=== PATIENT | female | born 1995 | race Caucasian/White ===

== ENCOUNTER 2023-06-26 10:27 | Emergency (ER) | payer SELFPAY ==
[2023-06-26 10:35] VITALS: BP 172/118; PULSE 73; TEMP 36.6; O2SAT 98; BMI 28.3
--- NOTE | 2023-06-26 10:41 | PC.NURSE ---
Pain to right upper jaw, tooth is broken, patient was at dentist today for tooth extraction but blood pressure was elevated and procedure not done.
--- NOTE | 2023-06-26 10:51 | ED_ITS ---
HPI HPI - General Adult General Chief complaint: Dental/Oral Stated complaint: tooth pain right side Time Seen by Provider: 06/26/23 10:32 Source: patient Mode of arrival: walk-in Limitations: no limitations History of Present Illness HPI narrative: Patient presents to ED complaining of right upper dental pain. She has a decayed and broken tooth in the right upper molar. She went to a dental clinic today and they would not treat her because her blood pressure was too high. She does not have a known history of high blood pressure. She denies chest pain headache vision changes or any other complaints except for the dental pain. Her mother does have high blood pressure. She did not take any pain medication today. She denies any medical allergies she is not on any antibiotics or pain medicine for the tooth. Related Data Home Medications ?Medication ?Instructions ?Recorded ?Confirmed No Known Home Medications 06/26/23 06/26/23 Previous Rx's ?Medication ?Instructions ?Recorded oxycodone-acetaminophen 5 mg-325 1 tab PO Q6H PRN pain #10 tabs 06/26/23 mg tablet (Percocet) penicillin V potassium 500 mg 500 mg PO Q6H 10 days #40 tabs 06/26/23 tablet Allergies Allergy/AdvReac Type Severity Reaction Status Date / Time No Known Drug Allergies Allergy Verified 06/26/23 10:38 Opioid HPI Opioid Management Most Recent Opioid Data: No Data to Display Review of Systems ROS Status of ROS 10 or more systems reviewed and unremark able except as noted in history and below Exam Narrative Exam Narrative: General: alert, no acute distress, Tearful due to dental pain, Hypertensive Cardiovascular: regular rate and rhythm, normal peripheral perfusion. Respiratory: Lungs CTA, respirations non labored. Extremities: no deformity, no trauma. Neurological: oriented x 4, LOC appropriate for age. DKA and fracture to the right upper molar. No abscess. No trismus no drooling. Constitutional Vital Signs, click to edit/add: Last Vital Signs Temp 98 F 06/26/23 10:35 Pulse 64 06/26/23 11:22 Resp 20 06/26/23 11:22 BP 151/97 H 06/26/23 12:12 Pulse Ox 100 06/26/23 11:22 O2 Del Method Room Air 06/26/23 11:22 Course Vital Signs Vital signs: Vital Signs Temperature 98 F 06/26/23 10:35 Pulse Rate 73 06/26/23 10:35 Respiratory Rate 20 06/26/23 10:35 Blood Pressure 172/118 H 06/26/23 10:35 Pulse Oximetry 98 06/26/23 10:35 Oxygen Delivery Method Room Air 06/26/23 10:35 Temperature 98 F 06/26/23 10:35 Pulse Rate 64 06/26/23 11:22 Respiratory Rate 20 06/26/23 11:22 Blood Pressure 151/97 H 06/26/23 12:12 Pulse Oximetry 100 06/26/23 11:22 Oxygen Delivery Method Room Air 06/26/23 11:22 Medical Decision Making MDM Narrative Medical decision making narrative: Patient's pain did improve after Percocet. Her blood pressure did start to trend down. I ordered a topical analgesia for her dental pain and she was feeling even better after that. Her blood pressure did improve to 151/97. Patient is still hypertensive but asymptomatic. At this point I will instruct her to follow-up with a primary care doctor for further management of potential baseline hypertension. I will also give her pain medicine for home for the tooth pain and I will give her an antibiotic. She will also be sent home with a topical numbing medication from here. Instructed to follow with primary care doctor about the blood pressure and continue dental care for the dental pain. Differential Diagnosis Differential Diagnosis: Hypertension, dental abscess, dental pain, dental caries Medical Records Medical records reviewed: Yes I reviewed the patient's medical records Discharge Plan Discharge Stand Alone Forms: Portal Instructions Chief Complaint: Dental/Oral Clinical Impression: Toothache, HTN (hypertension) Patient Disposition: Home, Self-Care Time of Disposition Decision: 12:20 Condition: Good Mode of Transportation: Private Vehicle Prescriptions / Home Meds: New penicillin V potassium 500 mg tablet 500 mg PO Q6H 10 Days Qty: 40 0RF oxycodone-acetaminophen [Percocet] 5-325 mg tablet 1 tab PO Q6H PRN (Reason: pain) Qty: 10 0RF No Action No Known Home Medications Print Language: Guamanian Instructions: Hypertension (ED), Toothache (ED) Referrals: Physician,Non-Staff, MD [Primary Care Provider] - 1 week
[2023-06-26] MEDS: OXYCODONE HCL/ACETAMINOPHEN 5MG/325MG 1 TAB PO (10:53)
[2023-06-26] MEDS: PENICILLIN V POTASSIUM 250 MG TABLET 500 MG PO (10:53)
[2023-06-26 11:22] VITALS: BP 164/100; PULSE 64; O2SAT 100
[2023-06-26] MEDS: BENZOCAINE 30 ML, lidocaine HCL 15 ML MM (11:33)
[2023-06-26 12:12] VITALS: BP 151/97
[2023-06-26 12:32] VITALS: BP 151/97
== END 2023-06-26 12:30 | disposition home or self-care (01) ==
PROVIDERS: Emergency Provider Emergency Medicine
DX: K08.89 Other specified disorders of teeth and supporting structures (principal); I10 Essential (primary) hypertension
CPT/HCPCS: 99284

== ENCOUNTER 2024-05-27 15:45 | Emergency (ER) | payer MEDICAID, SELFPAY ==
[2024-05-27 15:52] VITALS: BP 114/72; PULSE 76; TEMP 36.7; O2SAT 100; BMI 28.9
--- NOTE | 2024-05-27 16:04 | ED_ITS ---
HPI - General Chief complaint: Urogenital-Female Stated complaint: 15 weeks blood UTI Time Seen by Provider: 05/27/24 15:48 Source: patient and family Mode of arrival: walk-in Limitations: no limitations History of Present Illness HPI Narrative: Patient is a 29-year-old female who presents to the emergency department at 15 weeks of for abdominal cramping and blood with wiping. She is currently receiving care from the [facility]. She states she had an ultrasound yesterday in the office that was unremarkable. She states the provider dipped her urine. She states today she noticed red blood with wiping and pelvic cramping. No fevers or vomiting. She did not take any medications prior to arrival. Patient is a A1 Related Data Home Medications ?Medication ?Instructions ?Recorded ?Confirmed labetalol 100 mg tablet 100 mg PO DAILY 05/27/24 05/27/24 multivitamin no.47-iron fum 27 1 cap PO DAILY 05/27/24 05/27/24 mg-folate no.1 1 mg-dha 300 mg capsule (PNV-DHA) Previous Rx's ?Medication ?Instructions ?Recorded cephalexin 500 mg capsule 500 mg PO Q8H 7 days #21 caps 05/27/24 ondansetron 4 mg disintegrating 4 mg PO Q6H PRN nausea and 05/27/24 tablet vomiting #12 tabs Allergies Allergy/AdvReac Type Severity Reaction Status Date / Time No Known Drug Allergies Allergy Verified 05/27/24 15:51 Review of Systems ROS Constitutional Denies: fever or chills Cardiovascular Denies: chest pain Respiratory Denies: shortness of breath or cough Gastrointestinal Reports: abdominal pain; Denies: nausea or vomiting Integumentary/Breast Denies: rash Neurological Denies: numbness in extremities or weakness in extremities Hematologic/Lymphatic Denies: easy bruising or easy bleeding PFSH PFSH Social History Little interest or pleasure in doing things: not at all Feeling down, depressed, or hopeless: not at all Exam Narrative Exam Narrative: Gen.: Awake, alert, in no distress Head: Normocephalic, atraumatic ENT: Moist mucous membranes Respiratory: No respiratory distress Gastrointestinal: Abdomen is soft, nondistended and mildly tender to palpation in the suprapubic abdomen Extremities: Moves extremities equally Psych: Normal mood and affect Neuro: No focal neuro deficit Skin: Warm, dry, intact Constitutional Vital Signs, click to edit/add: Last Vital Signs Temp 98.1 F 05/27/24 15:52 Pulse 76 05/27/24 15:52 Resp 18 05/27/24 15:52 BP 114/72 05/27/24 15:52 Pulse Ox 100 05/27/24 15:52 O2 Del Method Room Air 05/27/24 15:52 Course Vital Signs Vital signs: Vital Signs Temperature 98.1 F 05/27/24 15:52 Pulse Rate 76 05/27/24 15:52 Respiratory Rate 18 05/27/24 15:52 Blood Pressure 114/72 05/27/24 15:52 Pulse Oximetry 100 05/27/24 15:52 Oxygen Delivery Method Room Air 05/27/24 15:52 Temperature 98.1 F 05/27/24 15:52 Pulse Rate 76 05/27/24 15:52 Respiratory Rate 18 05/27/24 15:52 Blood Pressure 114/72 05/27/24 15:52 Pulse Oximetry 100 05/27/24 15:52 Oxygen Delivery Method Room Air 05/27/24 15:52 MDM - OB/Uterine Contractions MDM Narrative Medical decision making narrative: Patient with O+ blood type and a urinary tract infection noted on urine specimen. Abdominal ultrasound shows the patient has a single live intrauterine fetus with a heart rate of 159, measuring 14 weeks and 3 days. Patient was given education and reassurance. Pelvic rest encouraged. She was given instructions for threatened miscarriage however educated that the bleeding may be coming from her urine due to UTI. [facility] with [facility] and return to the emergency department if symptoms change or worsen. Keflex, Zofran given for home. Continue Tylenol as needed for pain. [facility] VISIT, PHYSICIAN ATTESTATION: Based on the medical record the care appears appropriate. ? Medical Records Attestation: I reviewed the patient's medical records. Lab Data Attestation: I reviewed the patient's lab results. Labs: Lab Results 05/27/24 05/27/24 Range/Units 15:55 16:10 Urine Color Lt. yellow (YELLOW) Urine Clarity Cloudy A (CLEAR) Urine pH 6.0 (5.0-9.0) Ur Specific [place] 1.025 (1.005-1.025) Urine Protein 100 A (NEG/TRACE) mg/dL Urine Glucose (UA) Negative (NEGATIVE) mg/dL Urine Ketones Negative (NEGATIVE) mg/dL Urine Occult Blood Large A (NEGATIVE) Urine Nitrite Negative (NEGATIVE) Urine Bilirubin Negative (NEGATIVE) Urine Urobilinogen 0.2 (0.2-1.0) EU/dL Ur Leukocyte Esterase Large A (NEGATIVE) Urine RBC 20-50 A (0-2) #/HPF Urine WBC >100 A (NONE SEEN) #/HPF Ur Squamous Epith Cells Rare (NONE/RARE) #/LPF Urine Crystals None seen (None Seen) #/HPF Urine Bacteria Small A (NONE SEEN) #/HPF Urine Casts None seen (NONE SEEN) #/LPF Urine Mucus None seen (NONE SEEN) [place] [place] Discharge Plan Discharge Chief Complaint: Urogenital-Female Clinical Impression: Urinary tract infection, Pelvic pain affecting Patient Disposition: Home, Self-Care Time of Disposition Decision: 17:58 Condition: Good Prescriptions / Home Meds: New cephalexin 500 mg capsule 500 mg PO Q8H 7 Days Qty: 21 0RF ondansetron 4 mg tablet,disintegrating 4 mg PO Q6H PRN (Reason: nausea and vomiting) Qty: 12 0RF No Action labetalol 100 mg tablet 100 mg PO DAILY PNV-DHA 27 mg iron-1 mg -300 mg capsule 1 cap PO DAILY Print Language: German Instructions: Threatened Miscarriage (ED), Urinary Tract Infection in (ED) Referrals: Santo Bearden DO [Physician] - 1 week Physician,Non-Staff, [Primary Care Provider] - 1 week
[2024-05-27 16:06] LABS: Bilirubin Urine NEGATIVE (NEGATIVE); Blood Urine LARGE (NEGATIVE); Clarity Urine CLOUDY (CLEAR); Color Urine LT. YELLOW (YELLOW); Glucose Urine UA NEGATIVE (NEGATIVE); Ketones Urine NEGATIVE (NEGATIVE); Leukocyte Esterase Urine LARGE (NEGATIVE); Nitrite Urine NEGATIVE (NEGATIVE); Protein Urine 100 mg/dL (NEG/TRACE); Specific Gravity Urine 1.025 (1.005-1.025); Urobilinogen Urine 0.2 EU/dL (0.2-1.0)
--- OUTSIDE RECORDS SUMMARY | 2024-05-27 16:09 | XMS_ITS | CCD ---
Author Organization [facility] [place] Care Team Providers Care Rubber Goods Tester Name Role Phone ALFONZO, DR MATTSON Attending Unavailable ALFONZO, DR MATTSON Admitting Unavailable REQUEST, DR ROBISON LISTED Primary Care Unavaila ble ALFONZO, DR MATTSON Attending Unavailable ALFONZO, DR MATTSON Admitting Unavailable REQUEST, DR ROBISON LISTED Primary Care Unavaila ble ALFONZO, DR MATTSON Attending Unavailable ALFONZO, DR MATTSON Admitting Unavailable REQUEST, DR ROBISON LISTED Primary Care Unavaila ble ALFONZO, DR MATTSON Attending Unavailable ALFONZO, DR MATTSON Admitting Unavailable REQUEST, DR ROBISON LISTED Primary Care Unavaila ble ALFONZO, DR MATTSON Consulting Unavailable KARASIK, DR EDUARDO Consulting Unavailable KARASIK, DR EDUARDO Attending Unavailable REQUEST, NONE LISTED Primary Care Unavaila ble KARASIK, DR EDUARDO Admitting Unavailable KARASIK, DR EDUARDO Consulting Unavailable KARASIK, DR EDUARDO Attending Unavailable REQUEST, DR ROBISON LISTED Primary Care Unavaila ble KARASIK, DR EDUARDO Admitting Unavailable KARASIK, DR EDUARDO Consulting Unavailable KARASIK, DR EDUARDO Attending Unavailable REQUEST, NONE LISTED Primary Care Unavaila ble KARASIK, DR EDUARDO Admitting Unavailable ALFONZO, DR MATTSON Consulting Unavailable KARASIK, DR EDUARDO Attending Unavailable REQUEST, DR ROBISON LISTED Primary Care Unavaila ble KARASIK, DR EDUARDO Admitting Unavailable ALFONZO, DR MATTSON Procedure Practitioner Unavailab le ALFONZO, DR MATTSON Consulting Unavailable ALFONZO, DR MATTSON Attending Unavailable ALFONZO, DR MATTSON Admitting Unavailable REQUEST, DR ROBISON LISTED Primary Care Unavaila ble ALFONZO, DR MATTSON Admitting Unavailable ALFONZO, DR MATTSON Attending Unavailable REQUEST, DR ROBISON LISTED Primary Care Unavaila ble WEST, DR KRISTIAN Mckay Consulting Unavailable ALFONZO, DR MATTSON Consulting Unavailable ALFONZO, DR MATTSON Attending Unavailable REQUEST, NONE LISTED Primary Care Unavaila ble ALFONZO, DR MATTSON Admitting Unavailable ALFONZO, DR MATTSON Attending Unavailable ALFONZO, DR MATTSON Admitting Unavailable REQUEST, DR NONE LISTED Primary Care Unavaila ble ALFONZO, DR MATTSON Admitting Unavailable ALFONZO, DR MATTSON Consulting Unavailable ALFONZO, DR MATTSON Attending Unavailable ALFONZO, DR MATTSON Attending Unavailable ALFONZO, DR MATTSON Admitting Unavailable REQUEST, DR NONE LISTED Primary Care Unavaila ble ALFONZO, DR MATTSON Consulting Unavailable ZIEBER, DR BRENDA Contreras Consulting Unavailable ALFONZO, DR MATTSON Admitting Unavailable ALFONZO, DR MATTSON Consulting Unavailable ALFONZO, DR MATTSON Attending Unavailable REQUEST, DR NONE LISTED Primary Care Unavaila ble ZIEBER, DR BRENDA Contreras Consulting Unavailable HALASY, NATHALIE Attending Unavailable HALASY, NATHALIE Attending Unavailable Rice ([facility]) Enma VALDEZ Attending Provider NO FAMILY, PHYSICIAN Primary Care Provider Unava ilable Miguel ([facility])Enma Admitting Unavailabl e Rice ([facility]), Enma Contreras Attending Unavailabl e NO FAMILY, PHYSICIAN Primary Care Unavailable Problems Problem Classification Problem Date Documented Date Episodic/Chronic Fluid and electrolyte disorders (1 source) Dehydration; Translations: [DEHYDRATION] Onset: 05-16-2021 Episodic OB-related trauma to perineum and vulva (1 source) First degree perineal laceration during delivery; Translations: [FIRST DEG PERINEAL LAC DUR DELIV] Onset: 06-20-2021 Episodic Other complications of (4 sources) Maternal care for other known or suspected poor growth, third trimester, not applicable or unspecified; Translations: [MAT CARE OTH NE FTL GRTH 3RD TM UNS] Onset: 06-14-2021 Episodic Other complications of (4 sources) Maternal care for other known or suspected poor growth, unspecified trimester, not applicable or unspecified; Translations: [MAT CARE OTH NE FTL GRTH UNS TM UNS] Onset: 06-01-2021 Episodic Other complications of (4 sources) Other specified related conditions, third trimester; Translations: [OTH SPEC PREG RELATED COND 3RD TRI] Onset: 05-12-2021 Episodic Other and delivery including normal (2 sources) Single live ; Translations: [Encounter for supervision of other normal , first trimester] Onset: 06-20-2021 Episodic Other screening for suspected conditions (not mental disorders or infectious disease) (8 sources) Encounter for screening for Streptococcus B; Translations: [Encounter for other specified screening] Onset: 05-23-2021 Episodic Polyhydramnios and other problems of amniotic cavity (1 source) Oligohydramnios, third trimester, not applicable or unspecified; Translations: [OLIGOHYDRAMNIOS THIRD TRI NA/UNS] Onset: 05-25-2021 Episodic Residual codes; unclassified (1 source) 38 weeks gestation of ; Translations: [38 WEEKS GESTATION OF ] Onset: 06-20-2021 Episodic Residual codes; unclassified (1 source) 37 weeks gestation of ; Translations: [37 WEEKS GESTATION OF ] Onset: 06-14-2021 Episodic Residual codes; unclassified (1 source) Weeks of gestation of not specified; Translations: [WEEKS GESTATION NOT SPEC] Onset: 06-08-2021 Episodic Residual codes; unclassified (1 source) 36 weeks gestation of ; Translations: [36 WEEKS GESTATION OF ] Onset: 05-31-2021 Episodic Residual codes; unclassified (1 source) 35 weeks gestation of ; Translations: [35 WEEKS GESTATION OF ] Onset: 05-30-2021 Episodic Residual codes; unclassified (1 source) 33 weeks gestation of ; Translations: [33 WEEKS GESTATION OF ] Onset: 05-16-2021 Episodic Unclassified (1 source) CONTACT W/AND (SUSP) EXPOS COVID-19; Translations: [CONTACT W/AND (SUSP) EXPOS COVID-19] Onset: 06-20-2021 Viral infection (1 source) COVID-19; Translations: [COVID-19] Onset: 05-16-2021 Results Test Name Value Interpretation Reference Range Facility US OB <= 14 weeks fetuson US OB <= 14 weeks fetus [facility] [place] [address] Ultrasound Report Signed Patient: Kayley Graham MR#: [id number] 5 : 1995 Acct:[id number] Age/Sex: 29 / F ADM Date: 05/04/24 Loc: Room: Type: [facility] CLI Attending Dr: Enma Rivera ([facility]) 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 Reason for exam:Dating ultrasound. Comparison:None. Technique: Transabdominal imaging of the gravid uterus was obtained. Findings: Single live intrauterine 11 weeks 4 days by [facility] NICHOLE 11/19/2024. heart rate 1 76 bpm. Small subchorionic hemorrhage measuring 2.9 cm. No free fluid. Ovaries appear unremarkable. US/US OB <= 14 weeks fetus Impression: Single live intrauterine 11 weeks 4 days by [facility] NICHOLE 11/19/2024 Impression dictated by: Castillo Simeon Jr., D.O.05/04/2024 5:01 PM Dictation Location: [place] [address] Tech: Maricel Andre Transcribed By: MITALI 05/04/24 170 Dictated By: Castillo Simeon Jr, DO 05/04/24 1658 Signed By: 05/04/24 1701 Normal [facility] CBC AUTO DIFFon 06-15-2021 BASO # 0.0 103/ul Normal 0.0-0.1 [facility] Comment on above: Performed By: #### C BC #### [facility] [address] [place] [address] Dr. Baljit Rockwell Basophils/100 WBC (Bld) 0.2 % Normal 0.2-2.0 [facility] Comment on above: Performed By: #### C BC #### [facility] [address] [place] [address] Dr. Baljit Rockwell EO # 0.0 103/ul Normal 0.0-0.7 [facility] Comment on above: Performed By: #### C BC #### [facility] [address] [place] [address] Dr. Baljit Rockwell Eosinophils/100 WBC (Bld) 0.1 % Critically low 0.9-7.0 [facility] Comment on above: Performed By: #### C BC #### [facility] [address] [place] [address] Dr. Baljit Rockwell Erythrocyte distribution width (RBC) [Ratio] 14.5 % Normal 11.0-15.0 [facility] Comment on above: Performed By: #### C BC #### [facility] [address] [place] [address] Dr. Baljit Rockwell Hematocrit (Bld) [Volume fraction] 35.6 % Critically low 36.0-48.0 [facility] Comment on above: Performed By: #### C BC #### [facility] [address] [place] [address] Dr. Baljit Rockwell Hemoglobin (Bld) [Mass/Vol] 11.4 g/dL Critically low 12.0-16.0 [facility] Comment on above: Performed By: #### C BC #### [facility] [address] [place] [address] Dr. Baljit Rockwell IG # 0.14 10e3/ul Critically high 0.00-0.03 [facility] Comment on above: Performed By: #### C BC #### [facility] [address] [place] [address] Dr. Baljit Rockwell IG % 0.9 % Critically high 0.0-0.5 [facility] Comment on above: Performed By: #### C BC #### [facility] [address] [place] [address] Dr. Baljit Rockwell LYMPH # 2.0 103/ul Normal 1.2-3.8 [facility] Comment on above: Performed By: #### C BC #### [facility] [address] [place] [address] Dr. Baljit Rockwell Lymphocytes/100 WBC (Bld) 11.9 % Critically low 20.5-60.0 [facility] Comment on above: Performed By: #### C BC #### [facility] [address] [place] [address] Dr. Baljit Rockwell MANUAL DIFF REQ NO Normal [facility] Comment on above: Performed By: #### C BC #### [facility] [address] [place] [address] Dr. Baljit Rockwell MCH (RBC) [Entitic mass] 27.9 pg Normal 26.7-34.0 [facility] Comment on above: Performed By: #### C BC #### [facility] [address] [place] [address] [address] Baljit Rockwell MCHC (RBC) [Mass/Vol] 32.0 g/dL Normal 29.9-35.2 [facility] Comment on above: Performed By: #### C BC #### [facility] [address] [place] [address] Dr. Baljit Rockwell MCV (RBC) [Entitic vol] 87.3 fL Normal 81.0-99.0 [facility] Comment on above: Performed By: #### C BC #### [facility] [address] [place] [address] Dr. Baljit Rockwell MONO # 0.7 103/ul Normal 0.3-0.8 [facility] Comment on above: Performed By: #### C BC #### [facility] [address] [place] [address] Dr. Baljit Rockwell Monocytes/100 WBC (Bld) 4.3 % Normal 1.7-12.0 [facility] Comment on above: Performed By: #### C BC #### [facility] [address] [place] [address] Dr. Baljit Rockwell NEUT # 13.6 103/ul Critically high 1.4-6.5 [facility] Comment on above: Performed By: #### C BC #### [facility] [address] [place] [address] Dr. Baljit Rockwell Neutrophils/100 WBC (Bld) 82.6 % Critically high 43.0-75.0 [facility] Comment on above: Performed By: #### C BC #### [facility] [address] [place] [address] Dr. Baljit Rockwell Platelet mean volume (Bld) [Entitic vol] 10.6 fL Normal 9.5-13.5 [facility] Comment on above: Performed By: #### C BC #### [facility] [address] [address] [address] Baljit Rockwell PLT 256 103/ul Normal 150-450 [facility] Comment on above: Performed By: #### C BC #### [facility] [address] [place] [address] Dr. Baljit Rockwell RBC 4.08 106/ul Critically low 4.20-5.40 [facility] Comment on above: Performed By: #### C BC #### [facility] [address] [place] [address] [address] Baljit Rockwell WBC 16.4 103/ul Critically high 4.0-11.0 [facility] Comment on above: Performed By: #### C BC #### [facility] [address] [place] [address] Dr. Baljit Rockwell DRUG SCREEN RAPID (URINE)on 06-15-2021 AMP Negative Normal NEGATIVE [facility] Comment on above: Performed By: #### D RUGRPD #### [facility] [address] [place] [address] Dr. Baljit Rockwell BAR Negative Normal NEGATIVE [facility] Comment on above: Performed By: #### D RUGRPD #### [facility] [address] [place] [address] Dr. Baljit Rockwell BUP Negative Normal NEGATIVE [facility] Comment on above: Performed By: #### D RUGRPD #### [facility] [address] [place] [address] Dr. Baljit Rockwell BZO Negative Normal NEGATIVE [facility] Comment on above: Performed By: #### D RUGRPD #### [facility] [address] [place] [address] Dr. Baljit Rockwell MIGUEL Negative Normal NEGATIVE [facility] Comment on above: Performed By: #### D RUGRPD #### [facility] [address] [place] [address] Dr. Baljit Rockwell CUT-OFFS SEE BELOW Normal [facility] Comment on above: Result Comment: AMP (Amphetamine): 500ng/mL, BAR (Barbituates): 200 ng/mL, BZO (Benzodiazepines): 150 ng/mL, BUP (Buprenorphine): 10 ng/mL, MIGUEL (Cocaine): 150 ng/mL, mAMP (Methamphetamine): 500 ng/mL, MTD (Methadone): 200 ng/mL, OPI (Opiates): 100 ng/mL, OXY (Oxycodone): 100 ng/mL, PCP (Phencyclidine): 25 ng/mL, PPX (Propoxyphene): 300 ng/mL, THC (Cannabinoids): 50 ng/mL, TCA (Trycyclic Antidepressants): 300 ng/mL Performed By: #### D RUGRPD #### [facility] [address] [place] [address] Dr. Baljit Rockwell DRUG CUT HEADER DRUG CLASS TEST SYSTEM CUT-OFF CONCENTRATIONS ARE FOLLOWS: Normal [facility] Comment on above: Performed By: #### D RUGRPD #### [facility] [address] [place] [address] Dr. Baljit Rockwell mAMP Negative Normal NEGATIVE [facility] Comment on above: Performed By: #### D RUGRPD #### [facility] [address] [place] [address] Dr. Baljit Rockwell MTD Negative Normal NEGATIVE [facility] Comment on above: Performed By: #### D RUGRPD #### [facility] [address] [place] [address] Dr. Baljit Rockwell OPI Negative Normal NEGATIVE [facility] Comment on above: Performed By: #### D RUGRPD #### [facility] [address] [place] [address] Dr. Baljit Rockwell OXY Negative Normal NEGATIVE [facility] Comment on above: Performed By: #### D RUGRPD #### [facility] [address] [place] [address] Dr. Baljit Rockwell PCP Negative Normal NEGATIVE [facility] Comment on above: Performed By: #### D RUGRPD #### [facility] [address] [place] [address] Dr. Baljit Rockwell PPX Negative Normal NEGATIVE [facility] Comment on above: Performed By: #### D RUGRPD #### [facility] [address] [place] [address] Dr. Baljit Rockwell TCA Negative Normal NEGATIVE [facility] Comment on above: Performed By: #### D RUGRPD #### [facility] [address] [place] [address] Dr. Baljit Rockwell THC Negative Normal NEGATIVE [facility] Comment on above: Performed By: #### D RUGRPD #### [facility] [address] [place] [address] Dr. Baljit Rockwell CBC AUTO DIFFon 06-14-2021 BASO # 0.0 103/ul Normal 0.0-0.1 [facility] Comment on above: Performed By: #### C BC #### [facility] [address] [place] [address] Dr. Baljit Rockwell Basophils/100 WBC (Bld) 0.2 % Normal 0.2-2.0 [facility] Comment on above: Performed By: #### C BC #### [facility] [address] [place] [address] Dr. Baljit Rockwell EO # 0.0 103/ul Normal 0.0-0.7 [facility] Comment on above: Performed By: #### C BC #### [facility] [address] [place] [address] Dr. Baljit Rockwell Eosinophils/100 WBC (Bld) 0.3 % Critically low 0.9-7.0 [facility] Comment on above: Performed By: #### C BC #### [facility] [address] [place] [address] Dr. Baljit Rockwell Erythrocyte distribution width (RBC) [Ratio] 14.5 % Normal 11.0-15.0 [facility] Comment on above: Performed By: #### C BC #### [facility] [address] [place] [address] Dr. Baljit Rockwell Hematocrit (Bld) [Volume fraction] 35.0 % Critically low 36.0-48.0 [facility] Comment on above: Performed By: #### C BC #### [facility] [address] [place] [address] Dr. Baljit Rockwell Hemoglobin (Bld) [Mass/Vol] 11.2 g/dL Critically low 12.0-16.0 [facility] Comment on above: Performed By: #### C BC #### [facility] [address] [place] [address] Dr. Baljit Rockwell IG # 0.11 10e3/ul Critically high 0.00-0.03 [facility] Comment on above: Performed By: #### C BC #### [facility] [address] [place] [address] Dr. Baljit Rockwell IG % 0.9 % Critically high 0.0-0.5 [facility] Comment on above: Performed By: #### C BC #### [facility] [address] [place] [address] Dr. Baljit Rockwell LYMPH # 2.2 103/ul Normal 1.2-3.8 [facility] Comment on above: Performed By: #### C BC #### [facility] [address] [place] [address] Dr. Baljit Rockwell Lymphocytes/100 WBC (Bld) 17.7 % Critically low 20.5-60.0 [facility] Comment on above: Performed By: #### C BC #### [facility] [address] [place] [address] Dr. Baljit Rockwell MANUAL DIFF REQ NO Normal [facility] Comment on above: Performed By: #### C BC #### [facility] [address] [place] [address] Dr. Baljit Rockwell MCH (RBC) [Entitic mass] 27.3 pg Normal 26.7-34.0 [facility] Comment on above: Performed By: #### C BC #### [facility] [address] [place] [address] Dr. Baljit Rockwell MCHC (RBC) [Mass/Vol] 32.0 g/dL Normal 29.9-35.2 [facility] Comment on above: Performed By: #### C BC #### [facility] [address] [place] [address] Dr. Baljit Rockwell MCV (RBC) [Entitic vol] 85.2 fL Normal 81.0-99.0 [facility] Comment on above: Performed By: #### C BC #### [facility] [address] [address] [address] Baljit Rockwell MONO # 0.7 103/ul Normal 0.3-0.8 [facility] Comment on above: Performed By: #### C BC #### [facility] [address] [address] [address] Baljit Rockwell Monocytes/100 WBC (Bld) 5.4 % Normal 1.7-12.0 [facility] Comment on above: Performed By: #### C BC #### [facility] [address] [address] [address] Baljit Rockwell NEUT # 9.4 103/ul Critically high 1.4-6.5 [facility] Comment on above: Performed By: #### C BC #### [facility] [address] [place] [address] Dr. Baljit Rockwell Neutrophils/100 WBC (Bld) 75.5 % Critically high 43.0-75.0 [facility] Comment on above: Performed By: #### C BC #### [facility] [address] [place] [address] Dr. Baljit Rockwell Platelet mean volume (Bld) [Entitic vol] 10.7 fL Normal 9.5-13.5 [facility] Comment on above: Performed By: #### C BC #### [facility] [address] [place] [address] Dr. Baljit Rockwell PLT 265 103/ul Normal 150-450 [facility] Comment on above: Performed By: #### C BC #### [facility] [address] [place] [address] Dr. Baljit Rockwell RBC 4.11 106/ul Critically low 4.20-5.40 [facility] Comment on above: Performed By: #### C BC #### [facility] [address] [address] [address] Baljit Rockwell WBC 12.5 103/ul Critically high 4.0-11.0 [facility] Comment on above: Performed By: #### C BC #### [facility] [address] [place], [place] [address] Dr. Baljit Rockwell Covid-19 PCR (CVDTB)on 05-20 SARS-CoV-2 (COVID-19) RNA ZOLTAN+probe Ql (Unsp spec) Not detected Normal NOT DETECTED [facility] Comment on above: Result Comment: When diagnostic testing is negative, the possibility of a false negative should be considered in the context of a patient's recent exposures and the presence of clinical signs and symptoms consistent with SARS-CoV-2. This test is not yet approved or cleared by the [place] FDA. When there are no FDA-approved or cleared tests available, and other criteria are met, FDA can make tests available under an emergency access mechanism called an Emergency Use Authorization (EUA). The EUA for this test is supported by the [place] of Health and Human Service's declaration that circumstances exist to justify the emergency use of in vitro diagnostics for the detection and/or diagnosis of the virus that causes COVID-19. This EUA will remain in effect for the duration of the COVID-19 declaration justifying emergency of IVDs, unless it is terminated or revoked by the FDA (after which the test may no longer be used). Performed By: #### C VDTB #### [facility] [address] [place] [address] Dr. Baljit Rockwell TYPE AND SCREENon 06-14-2021 TYPE AND SCREEN Negative Normal [facility] Comment on above: Performed By: #### T #### [facility] [address] [place] [address] Dr. Baljit Rockwell US PREG BIOPHY W NON STRESSo n 06-02-2021 US PREG BIOPHY W NON STRESS EXAMINATION: US PREG BIOPHY W NON STRESS HISTORY: [id number] baby COMPARISON: Ultrasound biophysical 05/25/2021 TECHNIQUE: Ultrasound biophysical profile was performed. FINDINGS: BREATHING MOVEMENTS: 2.0 GROSS BODY MOVEMENTS: 2.0 TONE: 2.0 QUALITATIVE AMNIOTIC FLUID VOLUME: 2.0 PRESENTATION: CEPHALIC HEART RATE: 157.0 bpm bpm. AMNIOTIC FLUID VOLUME: 13.5 cm GESTATIONAL AGE: 36 weeks 3 days CONCLUSION: Total biophysical profile score 8.0. Electronically authenticated by: BRENDA VIEYRA Date: 2021-06-02 08:18 Normal [facility] GROUP B STREP CULTUREon 05-19 S. agalactiae Ag Ql (Unsp spec) Culture Observations: NEGATIVE FOR GROUP B STREPTOCOCCUS. Normal [facility] Comment on above: Performed By: #### G BSCX #### [facility] [address] [address] [address] Baljit Rockwell US PREG BIOPHY W NON STRESSo n 05-26-2021 US PREG BIOPHY W NON STRESS EXAMINATION: US PREG BIOPHY W NON STRESS HISTORY: [id number] baby COMPARISON: No relevant comparison available. TECHNIQUE: Ultrasound biophysical profile was performed. FINDINGS: BREATHING MOVEMENTS: 2.0 GROSS BODY MOVEMENTS: 2.0 TONE: 2.0 QUALITATIVE AMNIOTIC FLUID VOLUME: 2.0 PRESENTATION: CEPHALIC HEART RATE: 131.7 bpm bpm. AMNIOTIC FLUID VOLUME: 11.2 cm GESTATIONAL AGE: 35 weeks 3 days CONCLUSION: Total biophysical profile score 8.0. Electronically authenticated by: BRENDA VIEYRA Date: 2021-05-26 08:00 Normal [facility] US PREG ANATOMY SINGLEon US PREG ANATOMY SINGLE EXAMINATION: US PREG ANATOMY SINGLE HISTORY: anatomy study COMPARISON: No relevant comparison available. TECHNIQUE: Transabdominal sonographic examination was performed for obstetrical and evaluation. FINDINGS: Number: 1 Heart Rate: 151.0 bpm H.B. /min Amniotic Fluid Volume: 8.5 cm, 7.9 cm the 5th percentile Placental Location: Anterior, grade 2. Placental edge to cervical distance cannot be determined Cervix Length: 4 cm , closed Normal structures: Choroid plexus. Lateral cerebral ventricles. Orbits. Midline falx. 4-chamber heart. RVOT. LVOT. Stomach. Kidneys. Bladder. 3 vessel cord. Cervical spine. Thoracic spine. Lumbar spine. Sacral spine. Right upper extremity. Right lower extremity. Left lower extremity. Suboptimally seen: Cerebellum, posterior fossa, nose, lips, abdominal cord insertion, left arm. Abnormalities/Other: None BIOMETRY: BPD: 8.4 cm 33 weeks 6 days , 15% HC: 30.6 cm 34 weeks 1 days, 4% AC: 29.0 cm 33 weeks 0 days , 6% FL: 6.6 cm 33 weeks 6 days, 12% EFW:2189.1 grams; 4 lbs. 13 oz., 80% FL/AC: 22.7 FL/BPD: 78.2 HC/AC: 1.1 GESTATIONAL AGE: Age by EDC: 35 weeks 2 days NICHOLE by EDC: 06/25/2021 Age by current US: 33 weeks 5 days NICHOLE by current US: 07/06/2021 IMPRESSION: Suboptimal visualization is detailed above likely related to borderline oligohydramnios Head circumference 4th percentile Abdominal circumference 6th percentile Estimated weight 8% *Reference: AIUM Practice Guideline for the performance of Obstetric Ultrasound Examinations, November 18, 2006. Electronically authenticated by: KRISTIAN DICKEY Date: 2021-05-23 15:17 Normal [facility]19 SARS-CoV-2 (COVID-19) RNA ZOLTAN+probe Ql (Unsp spec) Detected Critically abnormal NOT DETECTED [facility] Comment on above: Result Comment: This test is not yet approved or cleared by the [place] FDA. When there are no FDA-approved or cleared tests available, and other criteria are met, FDA can make tests available under an emergency access mechanism called an Emergency Use Authorization (EUA). The EUA for this test is supported by the [place] of Health and Human Service's (HHS's) declaration that circumstances exist to justify the emergency use of in vitro diagnostics for the detection and/or diagnosis of the virus that causes COVID-19. This EUA will remain in effect (meaning this test can be used) for the duration of the COVID-19 declaration justifying emergency of IVDs, unless it is terminated or revoked by FDA (after which the test may no longer be used). Performed By: #### C VDTBH #### [facility] [address] [place] [address] Dr. 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 Baljit Rockwell Clarity (U) CLEAR Normal CLEAR [facility] Comment on above: Performed By: #### U ACSIND #### [facility] [address] [address] [address] Baljit Rockwell Color (U) LT. YELLOW Normal YELLOW [facility] Comment on above: Performed By: #### U ACSIND #### [facility] [address] [address] [address] Baljit Rockwell Glucose Ql (U) Negative Normal NEGATIVE [facility] Comment on above: Performed By: #### U ACSIND #### [facility] [address] [address] [address] Baljit Rockwell Hemoglobin Ql (U) Negative Normal NEGATIVE [facility] Comment on above: Performed By: #### U ACSIND #### [facility] [address] [address] [address] Baljit Rockwell Ketones Ql (U) Negative Normal NEGATIVE [facility] Comment on above: Performed By: #### U ACSIND #### [facility] [address] [address] [address] Baljit Rockwell LEUKOCYTES Negative Normal NEGATIVE [facility] Comment on above: Performed By: #### U ACSIND #### [facility] [address] [address] [address] Baljit Rockwell Nitrite Ql (U) Negative Normal NEGATIVE [facility] Comment on above: Performed By: #### U ACSIND #### [facility] [address] [address] [address] Baljit Rockwell pH (U) 7.0 [pH] Normal 5-9 [facility] Comment on above: Performed By: #### U ACSIND #### [facility] [address] [address] [address] Baljit Rockwell SPEC GRAVITY <=1.005 Abnormal 1.005-<=1.025 [facility] Comment on above: Performed By: #### U ACSIND #### [facility] [address] [address] [address] Baljit Rockwell UA PROTEIN Negative Normal NEGATIVE/ TRACE [facility] Comment on above: Performed By: #### U ACSIND #### [facility] [address] [address] [address] Bajlit Rockwell UR MICRO IND NOT INDICATED Normal [facility] Comment on above: Performed By: #### U ACSIND #### [facility] [address] [address] [address] Baljit Rockwell Urobilinogen Qn (U) 0.2 {Shannan'U}/dL Normal 0.2 - 1.0 [facility] Comment on above: Performed By: #### U ACSIND #### [facility] [address] [address] [address] Baljit Rockwell Encounters Encounter Date Encounter Type Care Provider Facility Start: 05-04-2024 End: 05-04-2024 Patient encounter procedure PHYSICIAN [facility] Work Phone: Start: 05-04-2024 End: 05-04-2024 ambulatory PHYSICIAN NO [facility] Work Phone: Start: 07-09-2023 End: 07-09-2023 ambulatory BETHANYER HALASY Not Available Start: 06-28-2023 End: 06-28-2023 ambulatory NATHALIE HALASY Not Available Start: 06-29-[address] SRINIVASAN MEJÍA Facility :[facility] Start: 06-22-2021 Evaluation and management of inpatient DR SRINIVASAN MEJÍA Facility:[facility] Start: 06-21-[address] SRINIVASAN MEJÍA Facility :[facility] Start: 06-15-[address] SRINIVASAN MEJÍA Facility :[facility] Start: 06-14-2021 End: 06-16-2021 Evaluation and management of inpatient DR SRINIVASAN MEJÍA Facility:[facility] Start: 06-12-2021 End: 06-12-[address] ALESHA BURRELL Facility:[facility] Start: 06-08-[address] SRINIVASAN MEJÍA Facility :[facility] Start: 06-05-2021 End: 06-05-[address] ALESHA BURRELL Facility:[facility] Start: 06-01-2021 End: 06-01-[address] SRINIVASAN MEJÍA Facility:[facility] Start: 05-30-2021 End: 05-30-[address] SRINIVASAN MEJÍA Facility:[facility] Start: 05-29-2021 End: 05-29-[address] ALESHA BURRELL Facility:[facility] Start: 05-25-2021 End: 05-25-[address] SRINIVASAN MEJÍA Facility:[facility] Start: 05-23-2021 End: 05-24-[address] SRINIVASAN MEJÍA Facility:[facility] Start: 05-12-2021 End: 05-12-[address] SRINIVASAN MEJÍA Facility:[facility] Procedures Date Procedure Procedure Detail Performing Clinician Start: 05-04-2024 Diagnostic ultrasoun d of gravid uterus PHYSICIAN NO FAMILY Start: 06-14-2021 Delivery of Products of Conception, External Approach DR SRINIVASAN MEJÍA Start: 06-14-2021 Drainage of Amniotic Fluid, Therapeutic from Products of Conception, Via Natural or Artificial Opening DR SRINIVASAN MEJÍA Payers Date Payer Category Payer Self-pay 1995 Unknown [id number] 2.16.84 [id number] 1993 Unknown [id number] 2.16.84 [id number] 1993 Unknown [id number] 2.16.84 [id number] 1993 Unknown [id number] 2.16.84 [id number] 1993 Unknown [id number] 2.16.84 [id number] 1993 Unknown [id number] 2.16.84 [id number] 1993 Unknown [id number] 2.16.84 [id number] 1993 Unknown [id number] 2.16.84 0.1.210091.3.579.2.593 1993 Unknown [id number] 2.16.84 0.1.654095.3.579.2.593 1993 Unknown [id number] 2.16.84 0.1.357534.3.579.2.593 1993 Unknown [id number] 2.16.84 0.1.572009.3.579.2.593 1993 Unknown [id number] 2.16.84 0.1.184366.3.579.2.593 1993 Unknown [id number] 2.16.84 0.1.075866.3.579.2.593 1993 Unknown [id number] 2.16.84 [id number] 1993 Unknown [id number] 2.16.84 [id number] 1961 Medicaid [id number] 1961 Self-pay [id number] Unknown [id number] 2.16.8 [id number] Social History Date Type Detail Facility Tobacco smoking stat RUSTIS Unknown if ever smoked [facility] Work Phone: Start: 05-05-2024 Sex Female (finding) [facility] Start: 1995 Sex Assigned At Female F [facility] Radiology Diagnostic study note 05-04-2024 Note Date & Type Note Facility 05-04-2024 Radiology Diagnostic study note [facility] [place] [address] Ultrasound Report Signed Patient: Kayley Graham MR#: [id number] : 1995 Acct:[id number] Age/Sex: 29 / F ADM Date: 5 Loc: Room: Type: [facility] Attending Dr: Enma Rivera ([facility]) COURTNEY Ordering Provider: Enma Rivera APRN, WHCNP Date of Service: 05/04/24 US/US OB <= 14 weeks fetus: Z34.81 Copies to: Enma Rivera APRN, WHCNP~ OB ultrasound. Reason for exam:Dating ultrasound. Comparison:None. Technique: Transabdominal imaging of the gravid uterus was obtained. Findings: Single live intrauterine 11 weeks 4 days by CRL NICHOLE 11/19/2024. heart rate 1 76 bpm. Small subchorionic hemorrhage measuring 2.9 cm. No free fluid. Ovaries appear unremarkable. US/US OB <= 14 weeks fetus Impression: Single live intrauterine 11 weeks 4 days by CRL NICHOLE 11/19/2024 Impression dictated by: Castillo Simeon Jr., Ava05/04/2024 5:01 PM Dictation Location: [place] [employer] Tech: Maricel Andre Transcribed By: MITALI 05/04/24 170 Dictated By: Castillo Simeon Jr, DO 05/04/24 1658 Signed By: 05/04/241700 [facility] Evaluation note Note Date & Type Note Facility Evaluation note No assessment information availa [facility] Work Phone: Summary Purpose Family History No Family History Records FoundNo Family History Records FoundNo Family History Records Found Advance Directives No Advanced Directives Records FoundNo Advanced Directives Records FoundNo Advanced Directives Records Found Chief Complaint and Reason for Visit Chief Complaint Admit Date z34.81 May 04, 2024 1:4 1pm Additional Source Comments INFORMATION SOURCE (unrecogn ized section and content) DATE CREATED AUTHOR 06/23/2021 [facility] DATE CREATED AUTHOR AUTHOR'S ORGANIZ ATION 07/12/2023 [facility] EPIC DATE CREATED AUTHOR AUTHOR'S ORGANIZ ATION 05/25/2024 [facility] Care Teams (unrecognized sec tion and content) Team Status: Active Member Role Status Dates PHYSICIAN NO FAMILY Primary Care Provider Active Team Status: Inactive Member Role Status Dates Enma Rivera ([facility]) , ASSISTANT SOFTBALL COACH Attending Provider Active Start: May 04, 2024 End: May 04, 2024 PHYSICIAN NO FAMILY Primary Care Provider Active Start: May 04, 2024 End: May 04, 2024 Goals (unrecognized section and content) Goals may be documented in a n alternate section FOR RECORDS PERTAINING TO PATIENTS WHO ARE OR HAVE BEEN ENROLLED IN A CHEMICAL DEPENDENCY/SUBSTANCEABUSE PROGRAM, SOME INFORMATION MAY BE OMITTED. This clinical summary was aggregated from multiple sources. Caution should be exercised in using it in the provision of clinical care. This summary normalizes information from multiple sources, and as a consequence, information in this document may materially change the coding, format and clinical context of patient data. In addition, data may be omitted in some cases. CLINICAL DECISIONS SHOULD BE BASED ON THE PRIMARY CLINICAL RECORDS. [facility]. provides no warranty or guarantee of the accuracy or completeness of information in this document.
[2024-05-27] MEDS: ACETAMINOPHEN 325 MG TABLET 650 MG PO (16:11)
[2024-05-27 16:26] LABS: RBC Urine 20-50 #/HPF (0-2); WBC Urine >100 #/HPF (NONE SEEN)
[2024-05-27 16:27] LABS: Bacteria Urine SMALL #/HPF (NONE SEEN); Crystals Seen? None Seen #/HPF (None Seen); Mucus Urine NONE SEEN (NONE SEEN); Squamous Epithelial Cell Urine RARE #/LPF (NONE/RARE)
[2024-05-27 16:28] LABS: Cast Seen? NONE SEEN #/LPF (NONE SEEN)
[2024-05-27 16:29] LABS: Urine Culture Indicated YES-FRMC
== END 2024-05-27 18:08 | disposition home or self-care (01) ==
PROVIDERS: Physician Assistant; Emergency Provider Emergency Medicine
DX: O26.892 Other specified pregnancy related conditions, second trimester (principal); R10.2 Pelvic and perineal pain; O23.42 Unspecified infection of urinary tract in pregnancy, second trimester; N39.0 Urinary tract infection, site not specified; Z3A.15 15 weeks gestation of pregnancy
CPT/HCPCS: 36415; 76815; 76817; 81001; 86900; 86901; 87086; 99285

== ENCOUNTER 2024-09-21 09:52 | Outpatient (OUT) | payer OTHER, SELFPAY ==
--- OUTSIDE RECORDS SUMMARY | 2024-09-07 13:30 | XMS_ITS | Encounter Summary ---
Author Organization [facility] Address [address] [place] [address] Care Team Providers Care Straight Knife Cutter Machine Name Role Phone Cesar Espitia MD Primary Care Provider [phone] Reason for Visit * Reason Comments Routine Visit Encounter Details Date Type Department Care Team (Late st Contact Info) Description 09/07/2024 1:30 PM EDT Initial [facility] [address] [place] [address] Santo Bearden DO [address] [place] [address] GA: [id number] Social History Tobacco Use Types Packs/Day Years Used Date Smoking Tobacco: Never Assessed Estimated Date of Delivery Comme nts Yes 11/19/2024 Based on Ultraso und Sex and Gender Information Value Date Recorded Sex Assigned at Not on file Legal Sex Female 11:47 PM EDT Gender Identity Not on file Sexual Orientation Not on file documented as of this encounter Last Filed Vital Signs Vital Sign Reading Time Taken Comments Blood Pressure 122/78 09/07/2024 1:10 PM EDT Pulse - - Temperature - - Respiratory Rate - - Oxygen Saturation - - Inhaled Oxygen Concentration - - Weight 77.9 kg (171 lb 12.8 oz) 09/07/2024 1:10 PM EDT Height - - Body Mass Index 30.43 07/09/2023 4:01 PM EDT documented in this encounter Progress Notes * Enma Irizarry LPN - 09/07/2024 1:30 PM EDT Reason for Appointment: Patient ID: Kayley Graham is a 29 y.o. female who presents for Routine Visit Patient presents today for Return OB appointment.. MEDICATIONS Current Outpatient Medications Medication Instructions NIFEdipine XL (Procardia XL) 30 MG 24 hr tablet One po at bedtime. ALLERGIES No Known Allergies PROBLEMS Active Ambulatory Problems Diagnosis Date Noted Primary hypertension 06/28/2023 Resolved Ambulatory Problems Diagnosis Date Noted No Resolved Ambulatory Problems No Additional Past Medical History HISTORY PAST MEDICAL HISTORY SOCIAL HISTORY History reviewed. No pertinent past medical history. Social History Tobacco Use Smoking status: Not on file Smokeless tobacco: Not on file Substance Use Topics Alcohol use: Not on file Drug use: Not on file FAMILY HISTORY No family history on file. SURGICAL HISTORY History reviewed. No pertinent surgical history. REVIEW OF SYSTEMS Review of Systems: Review of Systems Constitutional: Negative. HENT: Negative. Eyes: Negative. Respiratory: Negative. Cardiovascular: Negative. Gastrointestinal: Negative. Genitourinary: Negative. Musculoskeletal: Negative. Skin: Negative. Neurological: Negative. All other systems reviewed and are negative. Hematological: Negative. Endocrine: Negative. Allergic/Immunologic: Negative. OBJECTIVE Objective: Physical Exam Constitutional: Appearance: Normal appearance. She is well-developed. Cardiovascular: Rate and Rhythm: Normal rate and regular rhythm. Pulmonary: Effort: Pulmonary effort is normal. Breath sounds: Normal breath sounds. Abdominal: General: Bowel sounds are normal. There is no distension. Palpations: Abdomen is soft. Tenderness: There is no abdominal tenderness. There is no guarding or rebound. Musculoskeletal: General: No swelling. Normal range of motion. Right lower leg: No edema. Left lower leg: No edema. Neurological: Mental Status: She is alert and oriented to person, place, and time. Skin: General: Skin is warm and dry. Psychiatric: Mood and Affect: Mood normal. Behavior: Behavior normal. Vitals and nursing note reviewed. Exam conducted with a curber present. Vitals: Estimated body mass index is 30.43 kg/m?? as calculated from the following: Height as of 07/09/23: 5' 3 . Weight as of this encounter: 171 lb 12.8 oz. BP: 122/78 Patient's last menstrual period was 02/19/2024. ASSESSMENT & PLAN ICD-10-CM 1. Third trimester ([facility]) Z34.93 POCT urinalysis dipstick manually resulted 2. 29 weeks gestation of ([facility]) Z3A.29 POCT urinalysis dipstick manually resulted 3. Diabetes mellitus screening Z13.1 Hemoglobin A1c CBC Glucose tolerance, 1 hour CBC Glucose tolerance, 1 hour Patient presents today for transfer of care OB patient. Patient was seeing [facility] and desires to deliver at [facility]. Patient to return to clinic in 2 weeks for return OB and growthscan. Reviewed all labs and scans with patient as well. Documented by Enma Irizarry LPN on behalf of: Santo Bearden DO documented in this encounter Plan of Treatment Upcoming Encounters Date Type Department Care Team (Late st Contact Info) Description 09/22/2024 9:30 AM EDT Ancillary Procedure [facility] [address] [place] [phone] 09/22/2024 10:20 AM EDT Routine [facility] [address] [place] [address] Tiffany Mayen PA [address] [place] [address] Scheduled Orders Name Type Priority Associated Diagnoses Orde r Schedule CBC Lab Routine Diabetes mellitus screening Expected: 09/07/2024 (Approximate), Expires: 09/07/2025 Glucose tolerance, 1 hour Lab Routine Diabetes mellitus screening Expected: 09/07/2024 (Approximate), Expires: 09/07/2025 OB follow up transabdominal approach Imaging Routine size inconsistent with dates ([facility]) Expected: 09/07/2024, Expires: 01/08/2025 documented as of this encounter Procedures Procedure Name Priority Date/Time Associated Diagnosis Comments POCT URINALYSIS DIPSTICK Routine 09/07/2024 1:23 PM EDT Third trimester ([facility]) 29 weeks gestation of ([facility]) documented in this encounter Results * POCT urinalysis dipstick manually resulted (09/07/2024 1:23 PM EDT) Color, UA Yellow Clarity, UA Clear Glucose, UA Negative Negative - 2000(110) ++++ mg/dL Bilirubin, UA Negative Negative - 4(70) +++ mg/dL Ketones, UA Negative Negative - 160(16) ++++ mg/dL Spec Grav, UA 1.025 1 - 1.03 Blood, UA Negative Negative - 50 Adonis/mcL pH, UA 6.5 5 - 9 Protein, UA Negative Negative - 2000(20) ++++ mg/dL Urobilinogen, UA 1.0 0.2 - 12 mg/dL Leukocytes, UA Negative Negative - 500+++ Jose Alfredo/mcL Nitrite, UA Negative Negative - Positive Urine 09/07/2024 1:23 PM EDT [facility] [place] POINT OF CARE TEST ENTER/EDIT OR DERABLES Final Result documented in this encounter Visit Diagnoses Diagnosis Third trimester ([facility]) state, incidental 29 weeks gestation of ([facility]) Diabetes mellitus screening Screening for diabetes mellitus size inconsistent with dates ([facility]) documented in this encounter Care Teams Straight Knife Cutter Machine Relationship Specialty Start Date End Date Cesar Espitia MD [address] [place] [address] PCP - General Family Medicine 06/28/23 documented as of this encounter
--- OUTSIDE RECORDS SUMMARY | 2024-09-21 09:55 | XMS_ITS | Encounter Summary ---
Author Organization [facility] Address [address] [place] [address] Care Team Providers Care Zoology Professor Name Role Phone Cesar Espitia MD Primary Care Provider +1- [phone] Encounter Details Date Type Department Care Team (Late st Contact Info) Description 09/07/2024 Bamboo flowsheet NOMFrankie SALMERON [address] [place] [address] [place] [address] Santo Bearden DO [address] [facility] [address] Tacho Kohli, [place] [address] Social History Tobacco Use Types Packs/Day Years Used Date Smoking Tobacco: Never Assessed Estimated Date of Delivery Comme nts Yes 11/19/2024 Based on Ultraso und Sex and Gender Information Value Date Recorded Sex Assigned at Not on file Legal Sex Female 11:47 PM EDT Gender Identity Not on file Sexual Orientation Not on file documented as of this encounter Plan of Treatment Upcoming Encounters Date Type Department Care Team (Late st Contact Info) Description 09/22/2024 9:30 AM EDT Ancillary Procedure GREG SALMERON [address] [place], [place] [address] [address] 09/22/2024 10:20 AM EDT Routine GREG SALMERON [facility] [place] [id number] Tiffany Mayen PA [address] [facility] [address] [place], [place] [id number] documented as of this encounter Visit Diagnoses Not on filedocumented in this encounter Care Teams Zoology Professor Relationship Specialty Start Date End Date Cesar Espitia MD [address] [place] [address] PCP - General Family Medicine 06/28/23 documented as of this encounter
--- OUTSIDE RECORDS SUMMARY | 2024-09-21 09:55 | XMS_ITS | Clinical Summary ---
Author Organization [employer] [facility] Address [id number] [address] [place] [address] Care Team Providers Care Inclined Railway Operator Name Role Phone No Pcp, No Pcp Primary Care Provider Unavailabl e Allergies No known active allergies Medications naproxen (EC NAPROSYN) 500 mg EC tablet Take 1 tablet (500 mg total) by mouth in the morning and 1 tablet (500 mg total) in the evening. Take with meals. 30 tablet 10/26/2021 Active cyclobenzaprine (FLEXERIL) 10 mg tablet Take 1 tablet (10 mg total) by mouth 3 (three) times a day as needed for muscle spasms. 30 tablet 10/26/2021 Active Social History Tobacco Use Types Packs/Day Years Used Date Smoking Tobacco: Never Assessed Childcare Answer Date Recorded Childcare Unknown 07/30/2018 Employment Answer Date Recorded Employment Unknown 07/30/2018 Comments No Sex and Gender Information Value Date Recorded Sex Assigned at Female 06/22/2021 1:23 PM EDT Legal Sex Female 11:50 AM EDT Gender Identity Female 06/22/2021 1:23 PM EDT Sexual Orientation Not on file Last Filed Vital Signs Vital Sign Reading Time Taken Comments Blood Pressure 143/97 10/26/2021 7:16 PM EDT Pulse 64 10/26/2021 7:16 PM EDT Temperature - - Respiratory Rate 18 10/26/2021 7:16 PM EDT Oxygen Saturation 100% 10/26/2021 7:16 PM EDT Inhaled Oxygen Concentration - - Weight 70.3 kg (155 lb) 10/26/2021 7:16 PM EDT Height 160 cm (5' 3 ) 10/26/2021 7:16 PM EDT Body Mass Index 27.46 10/26/2021 7:16 PM EDT Plan of Treatment Health Maintenance Due Date Last Done Comments Depression Screening 2005 Tobacco Screening 2005 DTaP,Tdap and Td Vaccines (1 - Tdap) 01/11/2012 Pap Smear 2014 Adult BMI Screening 10/26/2022 10/26/2021 Influenza Vaccine 10/19/2024 Medical Devices Not on file Insurance [id number] [place], [place] [id number] [place] T Care Teams Inclined Railway Operator Relationship Specialty Start Date End Date No Pcp, [place] [address] PCP - General Family Medicine 10/26/21
--- OUTSIDE RECORDS SUMMARY | 2024-09-21 09:55 | XMS_ITS | Clinical Summary ---
Author Organization [facility] Address [address] [place] [address] Care Team Providers Care Furniture Sales Consultant Name Role Phone Cesar Espitia MD Primary Care Provider +1- [phone] Allergies No known active allergies Medications NIFEdipine XL (Procardia XL) 30 MG 24 hr tabletIndications :Primary hypertension One po at bedtime. 30 tablet 2 4 Active ibuprofen 800 MG tablet Take 800 mg by mouth in the morning and 800 mg in the evening and 800 mg before bedtime. 4 09/08/19 25 Discontinu ed(Other) Active Problems Problem Noted Date Diagnosed Date Primary hypertension 06/28/2023 Estimated Date of Delivery Comme nts Yes 11/19/2024 Based on Ultraso und Encounters Date Type Department Care Team Description 09/07/2024 1:30 PM EDT [place] [address] Santo Bearden, DO GA: 29w4d 09/07/2024 Bamboo flowsheet [facility] Anastasia SALMERON [address] [place] [address] Santo Bearden DO 08/26/2024 [place] [address] Santo Bearden DO 07/17/2024 Abstract [facility] Anastasia SALMERON [address] [place] [address] Santo Bearden DO from Last 3 Months Social History Tobacco Use Types Packs/Day Years Used Date Smoking Tobacco: Never Assessed Estimated Date of Delivery Comme nts Yes 11/19/2024 Based on Ultraso und Sex and Gender Information Value Date Recorded Sex Assigned at Not on file Legal Sex Female 11:47 PM EDT Gender Identity Not on file Sexual Orientation Not on file Last Filed Vital Signs Vital Sign Reading Time Taken Comments Blood Pressure 122/78 09/07/2024 1:10 PM EDT Pulse 80 07/09/2023 4:01 PM EDT Temperature 36.3 C (97.3 F) 07/09/2023 4:01 PM EDT Respiratory Rate 16 07/09/2023 4:01 PM EDT Oxygen Saturation 99% 07/09/2023 4:01 PM EDT Inhaled Oxygen Concentration - - Weight 77.9 kg (171 lb 12.8 oz) 09/07/2024 1:10 PM EDT Height 160 cm (5' 3 ) 07/09/2023 4:01 PM EDT Body Mass Index 30.43 07/09/2023 4:01 PM EDT Plan of Treatment Upcoming Encounters Date Type Department Care Team (Late st Contact Info) Description 09/22/2024 9:30 AM EDT Ancillary Procedure NOMS Anastasia SALMERON [address] [facility] [place] [id number] 09/22/2024 10:20 AM EDT Routine NOMFrankie SALMERON [address] [place] [address] Tiffany Mayen PA [address] [facility] [place] [address] Procedures Procedure Name Priority Date/Time Associated Diagnosis Comments POCT URINALYSIS DIPSTICK Routine 09/07/2024 1:23 PM EDT Third trimester ([facility]) 29 weeks gestation of ([facility]) from Last 3 Months Results * POCT urinalysis dipstick manually resulted (09/07/2024 1:23 PM EDT) Color, UA Yellow Clarity, UA Clear Glucose, UA Negative Negative - 1999(110) ++++ mg/dL Bilirubin, UA Negative Negative - 4(70) +++ mg/dL Ketones, UA Negative Negative - 160(16) ++++ mg/dL Spec Grav, UA 1.025 1 - 1.03 Blood, UA Negative Negative - 50 Adonis/mcL pH, UA 6.5 5 - 9 Protein, UA Negative Negative - 1999(20) ++++ mg/dL Urobilinogen, UA 1.0 0.2 - 12 mg/dL Leukocytes, UA Negative Negative - 500+++ Jose Alfredo/mcL Nitrite, UA Negative Negative - Positive Urine 09/07/2024 1:23 PM EDT Santo Bearden DO POINT OF CARE TEST ENTER/EDIT OR DERABLES Final Result from Last 3 Months Insurance [employer] MEDICAID Care Teams Furniture Sales Consultant Relationship Specialty Start Date End Date Cesar Espitia MD [address] [place] [address] PCP - General Family Medicine 06/28/23
--- OUTSIDE RECORDS SUMMARY | 2024-09-21 09:55 | XMS_ITS | Patient Health Record ---
Author Organization [facility] Address [address] [place], [place] [id number] Support Name Relationship Address Phone Kayley Jimenez Guarantor Unknown [phone] Reason For Referral No Information Plan Of Treatment No Information Insurance Providers Payer Name Payer Address Payer Phone Subscriber Number Group Number Insured Name Patient Relationship to Insured Coverage Start Date Coverage End Date Medicaid [address] [place] [address] [id number] Kayley Jimenez Self - patient is the insured
--- OUTSIDE RECORDS SUMMARY | 2024-09-21 09:55 | XMS_ITS | Encounter Summary ---
Author Organization [facility] Address [address] [place] [address] Care Team Providers Care Scrap Dealer Name Role Phone Cesar Espitia MD Primary Care Provider +1- [phone] Encounter Details Date Type Department Care Team (Late st Contact Info) Description 07/17/2024 Abstract GREG SALMERON [address] [place] [address] [place] [address] Santo Bearden DO [address] [facility] [address] Tacho Kohli, [id number] Social History Tobacco Use Types Packs/Day Years Used Date Smoking Tobacco: Never Assessed Comments Unknown Sex and Gender Information Value Date Recorded Sex Assigned at Not on file Legal Sex Female 11:47 PM EDT Gender Identity Not on file Sexual Orientation Not on file documented as of this encounter Plan of Treatment Upcoming Encounters Date Type Department Care Team (Late st Contact Info) Description 09/22/2024 9:30 AM EDT Ancillary Procedure GREG SALMERON [address] [place] [address] [place] [phone] 09/22/2024 10:20 AM EDT Routine GREG SALMERON [address] [place] [address] [place] [phone] Tiffany Mayen PA [address] [place], [place] [id number] documented as of this encounter Visit Diagnoses Not on filedocumented in this encounter Care Teams Scrap Dealer Relationship Specialty Start Date End Date Cesar Espitia MD [address] [place] [address] PCP - General Family Medicine 06/28/23 documented as of this encounter
--- OUTSIDE RECORDS SUMMARY | 2024-09-21 09:55 | XMS_ITS | Encounter Summary ---
Author Organization [facility] Address [address] [place] [address] Care Team Providers Care Digital Marketing Executive Name Role Phone Cesar Espitia MD Primary Care Provider [phone]- [phone] Encounter Details Date Type Department Care Team (Late st Contact Info) Description 08/26/2024 Abstract GREG SALMERON [address] [place] [address] [place] [id number] Santo Bearden DO [address] [facility] [address] Tacho Kohli, [facility] Social History Tobacco Use Types Packs/Day Years [...] 9:30 AM EDT Ancillary Procedure GREG SALMERON [address] [place] [address] [place] [id number] 09/22/2024 10:20 AM EDT Routine GREG SALMERON [address] [place] [address] [place] [id number] Tiffany Mayen PA [address] [place], [place] [id number] documented as of this encounter Visit Diagnoses Not on filedocumented in this encounter Care Teams Digital Marketing Executive Relationship Specialty Start Date End Date Cesar Espitia MD Patricia [address] [place] [address] PCP - General Family Medicine 06/28/23 documented as of this encounter
--- OUTSIDE RECORDS SUMMARY | 2024-09-21 10:15 | XMS_ITS | CCD ---
Author Organization [facility] Care Team Providers Care Rubber Engraver Name Role Phone SULEIMAN, DR MATTSON Attending Unavailable SULEIMAN, DR MATTSON Admitting Unavailable REQUEST, NONE LISTED Primary Care Unavaila ble SULEIMAN, DR MATTSON Attending Unavailable SULEIMAN, DR MATTSON Admitting Unavailable REQUEST, DR ROBISON LISTED Primary Care Unavaila ble SULEIMAN, DR MATTSON Attending Unavailable SULEIMAN, DR MATTSON Admitting Unavailable REQUEST, NONE LISTED Primary Care Unavaila ble SULEIMAN, DR MATTSON Attending Unavailable SULEIMAN, DR MATTSON Admitting Unavailable REQUEST, NONE LISTED Primary Care Unavaila ble SULEIMAN, DR MATTSON Consulting Unavailable KARASIK, DR EDUARDO [...] Unavaila ble KARASIK, DR EDUARDO Admitting Unavailable SULEIMAN, DR MATTSON Consulting Unavailable KARASIK, DR EDUARDO Attending Unavailable REQUEST, DR ROBISON LISTED Primary Care Unavaila ble KARASIK, DR EDUARDO Admitting Unavailable SULEIMAN, DR MATTSON Procedure Practitioner Unavailab le SULEIMAN, DR MATTSON Consulting Unavailable SULEIMAN, DR MATTSON Attending Unavailable SULEIMAN, DR MATTSON Admitting Unavailable REQUEST, DR ROBISON LISTED Primary Care Unavaila ble SULEIMAN, DR MATTSON Admitting Unavailable SULEIMAN, DR MATTSON Attending Unavailable REQUEST, DR ROBISON LISTED Primary Care Unavaila ble WEST, DR KRISTIAN Mckay Consulting Unavailable SULEIMAN, DR MATTSON Consulting Unavailable SULEIMAN, DR MATTSON Attending Unavailable REQUEST, NONE LISTED Primary Care Unavaila ble SULEIMAN, DR MATTSON Admitting Unavailable SULEIMAN, DR MATTSON Attending Unavailable SULEIMAN, DR MATTSON Admitting Unavailable REQUEST, NONE LISTED Primary Care Unavaila ble SULEIMAN, DR MATTSON Admitting Unavailable SULEIMAN, DR MATTSON Consulting Unavailable SULEIMAN, DR MATTSON Attending Unavailable SULEIMAN, DR MATTSON Attending Unavailable SULEIMAN, DR MATTSON Admitting Unavailable REQUEST, NONE LISTED Primary Care Unavaila ble SULEIMAN, DR MATTSON Consulting Unavailable ZIEBER, DR BRENDA Contreras Consulting Unavailable SULEIMAN, DR MATTSON Admitting Unavailable SULEIMAN, DR MATTSON Consulting Unavailable SULEIMAN, DR MATTSON Attending Unavailable REQUEST, NONE LISTED Primary Care Unavaila ble ZIEBAMILCAR, DR BRENDA Contreras Consulting Unavailable Rice ([facility]) Enma VALDEZ Attending Provider NO FAMILY, PHYSICIAN Primary Care Provider Unava Maria Del Carmen Horn PA-C Attending Provider Maria Del Carmen Glover Admitting Unavailable Maria Del Carmen Glover Attending Unavailable NO FAMILY, PHYSICIAN Primary Care Unavailable Rice ([facility]), Enma Contreras Attending Unavailabl e Rice ([facility]), Enma Contreras Admitting Unavailabl e NO FAMILY, PHYSICIAN Primary Care Unavailable Rice ([facility]), Enma Contreras Attending Unavailabl e Rice ([facility]), Enma Contreras Admitting Unavailabl e Omkar AUGUST [place] Primary Care Provider [phone] SRINIVASAN BEARDEN Attending Unavailable [facility], Enma Tate Attending Unavaila ble [facility], Enma Tate Primary Care Unavaila ble Medications Current Medications Medication Drug Class(es) Dates Sig (Normalized) Sig (Original) NIFEdipine 30 mg osmotic 24 hr extended release oral tablet (3 sources) Dihydropyridine Calcium Channel Lupillo Start: 07-09-2023 take 1 tablet by mouth every twenty-four hours at bedtime NIFEdipine XL (Procardia XL) 30 MG 24 hr tablet Indications: Primary hypertension One po at bedtime. 30 tablet 2 07/09/2023 Active Completed/Discontinued Medications Medication Drug Class(es) Dates Sig (Normalized) Sig (Original) ibuprofen 800 mg oral tablet (3 sources) Nonsteroidal Anti-inflammatory Drug Start: 06-26-2023 End: 09-07-2024 take 1 tablet by mouth in the morning, then take 1 tablet by mouth in the evening, then take 1 tablet by mouth at bedtime ibuprofen 800 MG tablet Take 800 mg by mouth in the morning and 800 mg in the evening and 800 mg before bedtime. 06/26/2023 09/07/2024 Discontinued (Other) Problems Problem Classification Problem Date Documented Date Episodic/Chronic Essential hypertension (3 sources) Essential hypertension; Translations: [Essential (primary) hypertension] Onset: 06-28-2023 06-28-2023 Chronic Fluid and electrolyte disorders (1 source) Dehydration; Translations: [DEHYDRATION] Onset: 05-16-2021 Episodic OB-related trauma to perineum and vulva (1 source) First degree perineal laceration during delivery; Translations: [FIRST DEG PERINEAL LAC DUR DELIV] Onset: 06-20-2021 Episodic Other complications of (4 sources) Maternal care for other known or suspected poor growth, third trimester, not applicable or unspecified; Translations: [MAT CARE OTH [place] FTL GRTH 3RD TM UNS] Onset: 06-14-2021 Episodic Other complications of (4 sources) Maternal care for other known or suspected poor growth, unspecified trimester, not applicable or unspecified; Translations: [MAT CARE OTH [place] FTL GRTH UNS TM UNS] Onset: 06-01-2021 Episodic Other complications of (4 sources) Other specified related conditions, third trimester; Translations: [OTH SPEC PREG RELATED COND 3RD TRI] Onset: 05-12-2021 Episodic Other complications of (2 sources) size does not accord with dates; Translations: [Uterine size-date discrepancy, unspecified trimester] 09-07-2024 Episodic Other and delivery including normal (5 sources) Single live ; Translations: [Encounter for supervision of other normal , second trimester] Onset: 06-20-2021 09-07-2024 Episodic Other screening for suspected conditions (not mental disorders or infectious disease) (10 sources) Encounter for screening for Streptococcus B; [...] WEEKS GESTATION OF ] Onset: 05-16-2021 Episodic Residual codes; unclassified (2 sources) Gestation period, 29 weeks; Translations: [29 weeks gestation of ] 09-07-2024 Episodic Unclassified (1 source) CONTACT W/AND (SUSP) EXPOS COVID-19; Translations: [CONTACT W/AND (SUSP) EXPOS COVID-19] Onset: 06-20-2021 Viral infection (1 source) COVID-19; Translations: [COVID-19] Onset: 05-16-2021 Results Test Name Value Interpretation Reference Range Facility Urinalysis macro (dipstick) panel (U)on 09-07-2024 Bilirubin, UA Negative Negative - 4(70) +++ mg/dL [facility] Blood, UA Negative Negative - 50 Adonis/mcL [facility] Clarity, UA Clear [facility] Color, UA Yellow [facility] Glucose, UA Negative Negative - 1999(110) ++++ mg/dL [facility] Interpretation and review of laboratory results Normal [facility] Ketones, UA Negative Negative - 160(16) ++++ mg/dL [facility] Leukocytes, UA Negative Negative - 500+++ Jose Alfredo/mcL [facility] Nitrite, UA Negative Negative - Positive [facility] pH, UA 6.5 5 - 9 [facility] Protein, UA Negative Negative - 1999(20) ++++ mg/dL [facility] Spec Grav, UA 1.025 1 - 1.03 [facility] Urobilinogen, UA 1.0 0.2 - 12 mg/dL [facility] US OB >= 14 weeks Fetuson US OB >= 14 weeks Fetus [facility] [address] [place] [address] Ultrasound Report Signed Patient: Kayley Graham MR#: [id number] 5 : 1995 Acct:[id number] Age/Sex: 29 / F ADM Date: 07/17/24 Loc: Room: Type: [facility] Attending Dr: Enma Rivera ([facility]) COURTNEY Ordering Provider: Enma Rivera APRN, WHCNP Date of Service: 07/17/24 US/US OB >= 14 weeks Fetus: Z34.82 Copies to: Enma Rivera APRN, WHCNP Obstetrical Ultrasound for Fetus greater than 14 weeks HISTORY: anatomy assessment heart rate is 143 bpm. The fetus is in breech presentation. The placenta is in a anteriorposition with normal appearance. Amniotic fluid index is 12.8cm. The cervix has a length of 4.2cm. The estimated weight is 15 ounces. The ovaries are not visualized. No fluid identified in the cul-de-sac. Following anatomy identified: Nose and lips, spine, four-chamber heart, stomach, cord insertion, three-vessel cord, kidneys, urinary bladder, 12 long bones and diaphragm. The biparietal diameter measures 5.1cm consistent with 21 weeks 3 days. Head circumference measures 19.2cm consistent with 21 weeks 4 days. Abdominal circumference measures 16.7cm consistent with 21 weeks 5 days. Femur length is 3.5cm consistent with 21 weeks 2 days Cerebellum and measures 2.1 cm consistent with 21 weeks 1 day. The average gestational age is 21 weeks 4 days. Estimated due date is 11/23/2024. somatic motion identified. US/US OB >= 14 weeks Fetus IMPRESSION: Single live intrauterine gestation 11/23/2024. The anatomy as above. Impression dictated by: Gage Marie M.D. 07/17/2024 4:13 PM Dictation Location: [place] [address] Tech: Orquidea Copeland Transcribed By: MITALI 07/17/24 1613 Dictated By: Gage Marie DO 07/17/24 1611 Signed By: 07/17/24 1613 Normal [facility] Urine Cultureon 05-27-2024 Bacteria identified Cx Nom (U) No Growth 2 Days PERFORMED BY: [place] [address] PATHOLOGIST [employer] ARCHITECT CAESAR STOLL M.D. Normal [facility] Comment on above: Performed By: #### C UU #### [address] Urine cultureOrdered By: Pearl Glover on 05-27-2024 Bacteria identified Cx Nom (U) Urine culture [facility] US OB <= 14 weeks fetuson US OB <= 14 weeks fetus [facility] [address] [place] [address] Ultrasound Report Signed Patient: Kayley Graham MR#: [id number] 5 : 1995 Acct:[id number] Age/Sex: 29 / F ADM Date: 05/04/24 Loc: Room: Type: [facility] Attending Dr: Enma Rivera ([facility]) COURTNEY Ordering Provider: Enma Rivera APRN, WHCNP Date of Service: 05/04/24 US/US OB <= 14 weeks fetus: Z34.81 Copies to: Enma Rivera APRN, WHCNP OB ultrasound. Reason for exam:Dating ultrasound. Comparison:None. [...] Simeon Jr., D.O.05/04/2024 5:01 PM Dictation Location: [place] [address] Tech: Maricel Andre Transcribed By: MITALI 05/04/241700 Dictated By: Castillo Simeon Jr, DO 05/04/241657 Signed By: 05/04/241700 Normal [facility] CBC AUTO DIFFon 06-15-2021 BASO # 0.0 103/ul Normal 0.0-0.1 [facility] Comment on above: Performed By: #### C BC #### [facility] [address] [place] [address] [address] Baljit Rockwell Basophils/100 WBC (Bld) 0.2 % Normal 0.2-2.0 [facility] Comment on above: Performed By: #### C BC #### [facility] [address] [place] [address] [address] Baljit Rockwell EO # 0.0 103/ul Normal 0.0-0.7 [facility] Comment on above: Performed By: #### C BC #### [facility] [address] [place] [address] [address] Baljit Rockwell Eosinophils/100 WBC (Bld) 0.1 % Critically low 0.9-7.0 [facility] Comment on above: Performed By: #### C BC #### [facility] [address] [place] [address] [address] Baljit Rockwell Erythrocyte distribution width (RBC) [Ratio] 14.5 % Normal 11.0-15.0 [facility] Comment on above: Performed By: #### C BC #### [facility] [address] [place] [address] [address] Baljit Rockwell Hematocrit (Bld) [Volume fraction] 35.6 % Critically low 36.0-48.0 [facility] Comment on above: Performed By: #### C BC #### [facility] [address] [place] [address] [address] Baljit Rockwell Hemoglobin (Bld) [Mass/Vol] 11.4 g/dL Critically low 12.0-16.0 [facility] Comment on above: Performed By: #### C BC #### [facility] [address] [place] [address] Dr. Baljit Rockwell IG # 0.14 10e3/ul Critically high 0.00-0.03 [facility] Comment on above: Performed By: #### C BC #### [facility] [address] [place] [address] Dr. Baljit Rockwell IG % 0.9 % Critically high 0.0-0.5 [facility] Comment on above: Performed By: #### C BC #### [facility] [address] [place] [address] Dr. Baljit Rockwell LYMPH # 2.0 103/ul Normal 1.2-3.8 [facility] Comment on above: Performed By: #### C BC #### [facility] [address] [place] [address] Dr. Baljit Rockwell Lymphocytes/100 WBC (Bld) 11.9 % Critically low 20.5-60.0 [facility] Comment on above: Performed By: #### C BC #### [facility] [address] [place] [address] Dr. Baljit Rockwell MANUAL DIFF REQ NO Normal [facility] Comment on above: Performed By: #### C BC #### [facility] [address] [place] [address] Dr. Baljit Rockwell MCH (RBC) [Entitic mass] 27.9 pg Normal 26.7-34.0 [facility] Comment on above: Performed By: #### C BC #### [facility] [address] [place] [address] Dr. Baljit Rockwell MCHC (RBC) [Mass/Vol] 32.0 g/dL Normal 29.9-35.2 [facility] Comment on above: Performed By: #### C BC #### [facility] [address] [place] [address] Dr. Baljit Rockwell MCV (RBC) [Entitic vol] 87.3 fL Normal 81.0-99.0 [facility] Comment on above: Performed By: #### C BC #### [facility] [address] [place] [address] Dr. Baljit Rockwell MONO # 0.7 103/ul Normal 0.3-0.8 [facility] Comment on above: Performed By: #### C BC #### [facility] [address] [place] [address] [address] Baljit Rockwell Monocytes/100 WBC (Bld) 4.3 % Normal 1.7-12.0 [facility] Comment on above: Performed By: #### C BC #### [facility] [address] [place] [address] Dr. Baljit Rockwell NEUT # 13.6 103/ul Critically high 1.4-6.5 [facility] Comment on above: Performed By: #### C BC #### [facility] [address] [place] [address] Dr. Baljit Rockwell Neutrophils/100 WBC (Bld) 82.6 % Critically high 43.0-75.0 [facility] Comment on above: Performed By: #### C BC #### [facility] [address] [place] [address] Dr. Baljit Rockwell Platelet mean volume (Bld) [Entitic vol] 10.6 fL Normal 9.5-13.5 [facility] Comment on above: Performed By: #### C BC #### [facility] [address] [place] [address] Dr. Baljit Rockwell PLT 256 103/ul Normal 150-450 [facility] Comment on above: Performed By: #### C BC #### [facility] [address] [place] [address] Dr. Baljit Rockwell RBC 4.08 106/ul Critically low 4.20-5.40 [facility] Comment on above: Performed By: #### C BC #### [facility] [address] [place] [address] Dr. Baljit Rockwell WBC 16.4 103/ul Critically high 4.0-11.0 [facility] Comment on above: Performed By: #### C BC #### [facility] [address] [place] [address] Dr. Baljit Rockwell DRUG SCREEN RAPID (URINE)on 06-15-2021 AMP Negative Normal NEGATIVE [facility] Comment on above: Performed By: #### D RUGRPD #### [facility] [address] [place] [address] Dr. Baljit Rockwell BAR Negative Normal NEGATIVE [facility] Comment on above: Performed By: #### D RUGRPD #### [facility] [address] [place] [address] Dr. Baljit Rockwell BUP Negative Normal NEGATIVE [facility] Comment on above: Performed By: #### D RUGRPD #### [facility] [address] [place] [address] Dr. Baljit Rockwell BZO Negative Normal NEGATIVE [facility] Comment on above: Performed By: #### D RUGRPD #### [facility] [address] [place] [address] Dr. Baljit Rockwell MIGUEL Negative Normal NEGATIVE [facility] Comment on above: Performed By: #### D RUGRPD #### [facility] [address] [place] [address] Dr. Baljit Rockwell CUT-OFFS SEE BELOW Normal [facility] Comment on above: Result Comment: AMP [...] ng/mL Performed By: #### D RUGRPD #### [facility] [address] [place] [address] Dr. Baljit Rockwell DRUG CUT HEADER DRUG CLASS TEST SYSTEM CUT-OFF CONCENTRATIONS ARE FOLLOWS: Normal [facility] Comment on above: Performed By: #### D RUGRPD #### [facility] [address] [place] [address] Dr. Baljit Rockwell mAMP Negative Normal NEGATIVE [facility] Comment on above: Performed By: #### D RUGRPD #### [facility] [address] [place] [address] Dr. Baljit Rockwell MTD Negative Normal NEGATIVE [facility] Comment on above: Performed By: #### D RUGRPD #### [facility] [address] [place] [address] Dr. Baljit Rockwell OPI Negative Normal NEGATIVE [facility] Comment on above: Performed By: #### D RUGRPD #### [facility] [address] [place] [address] Dr. Baljit Rockwell OXY Negative Normal NEGATIVE [facility] Comment on above: Performed By: #### D RUGRPD #### [facility] [address] [place] [address] Dr. Baljit Rockwell PCP Negative Normal NEGATIVE [facility] Comment on above: Performed By: #### D RUGRPD #### [facility] [address] [place] [address] Dr. Baljit Rockwell PPX Negative Normal NEGATIVE [facility] Comment on above: Performed By: #### D RUGRPD #### [facility] [address] [place] [address] Dr. Baljit Rockwell TCA Negative Normal NEGATIVE [facility] Comment on above: Performed By: #### D RUGRPD #### [facility] [address] [place] [address] Dr. Baljit Rockwell THC Negative Normal NEGATIVE [facility] Comment on above: Performed By: #### D RUGRPD #### [facility] [address] [place] [address] Dr. Baljit Rockwell CBC AUTO DIFFon 06-14-2021 BASO # 0.0 103/ul Normal 0.0-0.1 [facility] Comment on above: Performed By: #### C BC #### [facility] [address] [place] [address] Dr. Baljit Rockwell Basophils/100 WBC (Bld) 0.2 % Normal 0.2-2.0 [facility] Comment on above: Performed By: #### C BC #### [facility] [address] [place] [address] [address] Baljit Rockwell EO # 0.0 103/ul Normal 0.0-0.7 [facility] Comment on above: Performed By: #### C BC #### [facility] [address] [place] [address] [address] Baljit Rockwell Eosinophils/100 WBC (Bld) 0.3 % Critically low 0.9-7.0 [facility] Comment on above: Performed By: #### C BC #### [facility] [address] [place] [address] [address] Baljit Rockwell Erythrocyte distribution width (RBC) [Ratio] 14.5 % Normal 11.0-15.0 [facility] Comment on above: Performed By: #### C BC #### [facility] [address] [place] [address] Dr. Baljit Rockwell Hematocrit (Bld) [Volume fraction] 35.0 % Critically low 36.0-48.0 [facility] Comment on above: Performed By: #### C BC #### [facility] [address] [place] [address] [address] Baljit Rockwell Hemoglobin (Bld) [Mass/Vol] 11.2 g/dL Critically low 12.0-16.0 [facility] Comment on above: Performed By: #### C BC #### [facility] [address] [address] [address] Baljit Rockwell IG # 0.11 10e3/ul Critically high 0.00-0.03 [facility] Comment on above: Performed By: #### C BC #### [facility] [address] [address] [address] Baljit Rockwell IG % 0.9 % Critically high 0.0-0.5 [facility] Comment on above: Performed By: #### C BC #### [facility] [address] [address] [address] Baljit Rockwell LYMPH # 2.2 103/ul Normal 1.2-3.8 [facility] Comment on above: Performed By: #### C BC #### [facility] [address] [place] [address] Dr. Baljit Rockwell Lymphocytes/100 WBC (Bld) 17.7 % Critically low 20.5-60.0 [facility] Comment on above: Performed By: #### C BC #### [facility] [address] [place] [address] Dr. Baljit Rockwell MANUAL DIFF REQ NO Normal [facility] Comment on above: Performed By: #### C BC #### [facility] [address] [place] [address] Dr. Baljit Rockwell MCH (RBC) [Entitic mass] 27.3 pg Normal 26.7-34.0 [facility] Comment on above: Performed By: #### C BC #### [facility] [address] [place] [address] Dr. Baljit Rockwell MCHC (RBC) [Mass/Vol] 32.0 g/dL Normal 29.9-35.2 [facility] Comment on above: Performed By: #### C BC #### [facility] [address] [place] [address] Dr. Baljit Rockwell MCV (RBC) [Entitic vol] 85.2 fL Normal 81.0-99.0 [facility] Comment on above: Performed By: #### C BC #### [facility] [address] [place] [address] Dr. Baljit Rockwell MONO # 0.7 103/ul Normal 0.3-0.8 [facility] Comment on above: Performed By: #### C BC #### [facility] [address] [place] [address] Dr. Baljit Rockwell Monocytes/100 WBC (Bld) 5.4 % Normal 1.7-12.0 [facility] Comment on above: Performed By: #### C BC #### [facility] [address] [place] [address] Dr. Baljit Rockwell NEUT # 9.4 103/ul Critically high 1.4-6.5 [facility] Comment on above: Performed By: #### C BC #### [facility] [address] [place] [address] [address] Baljit Rockwell Neutrophils/100 WBC (Bld) 75.5 % Critically high 43.0-75.0 [facility] Comment on above: Performed By: #### C BC #### [facility] [address] [place] [address] [address] Baljit Rockwell Platelet mean volume (Bld) [Entitic vol] 10.7 fL Normal 9.5-13.5 [facility] Comment on above: Performed By: #### C BC #### [facility] [address] [place] [address] [address] Baljit Rockwell PLT 265 103/ul Normal 150-450 [facility] Comment on above: Performed By: #### C BC #### [facility] [address] [place] [address] Dr. Baljit Rockwell RBC 4.11 106/ul Critically low 4.20-5.40 [facility] Comment on above: Performed By: #### C BC #### [facility] [address] [address] [address] Baljit Rockwell WBC 12.5 103/ul Critically high 4.0-11.0 [facility] Comment on above: Performed By: #### C BC #### [facility] [address] [place] [address] Dr. Baljit Rockwell Covid-19 PCR (CVDTB)on 05-20 SARS-CoV-2 (COVID-19) RNA ZOLTAN+probe Ql (Unsp spec) Not detected Normal NOT DETECTED The [facility] Comment on above: Result Comment: When diagnostic [...] for this test is supported by the Primer Charger of Health and Human Service's declaration that [...] used). Performed By: #### C VDTBH #### [facility] [address] [place] [address] Dr. Baljit Rockwell TYPE AND SCREENon 06-14-2021 TYPE AND SCREEN Negative Normal [facility] Comment on above: Performed By: #### T NS #### [facility] [address] [place] [address] Dr. Baljit Rockwell US PREG BIOPHY W NON STRESSo n 06-02-2021 US PREG BIOPHY W NON STRESS EXAMINATION: US PREG BIOPHY W NON STRESS HISTORY: [id number] baby COMPARISON: Ultrasound biophysical 05/25/2021 TECHNIQUE: Ultrasound biophysical profile was performed. FINDINGS: BREATHING MOVEMENTS: 2.0 GROSS BODY MOVEMENTS: 2.0 TONE: 2.0 QUALITATIVE AMNIOTIC FLUID VOLUME: 2.0 PRESENTATION: CEPHALIC HEART RATE: 157.0 bpm bpm. AMNIOTIC FLUID VOLUME: 13.5 cm GESTATIONAL AGE: 36 weeks 3 days CONCLUSION: Total biophysical profile score 8.0. Electronically authenticated by: BRENDA VIEYRA Date: 2021-06-02 08:18 Normal [facility] GROUP B STREP CULTUREon 05-19 S. agalactiae Ag Ql (Unsp spec) Culture Observations: NEGATIVE FOR GROUP B STREPTOCOCCUS. Normal [facility] Comment on above: Performed By: #### G BSCX #### [facility] [address] [place] [address] Dr. Baljit Rockwell US PREG BIOPHY W NON STRESSo n 05-26-2021 US PREG BIOPHY W NON STRESS EXAMINATION: US PREG BIOPHY W NON STRESS HISTORY: [id number]-[id number] baby COMPARISON: No relevant comparison available. TECHNIQUE: Ultrasound biophysical profile was performed. FINDINGS: BREATHING MOVEMENTS: 2.0 GROSS BODY MOVEMENTS: 2.0 TONE: 2.0 QUALITATIVE AMNIOTIC FLUID VOLUME: 2.0 PRESENTATION: CEPHALIC HEART RATE: 131.7 bpm bpm. AMNIOTIC FLUID VOLUME: 11.2 cm GESTATIONAL AGE: 35 weeks 3 days CONCLUSION: Total biophysical profile score 8.0. Electronically authenticated by: BRENDA VIEYRA Date: 2021-05-26 08:00 Normal [facility] US PREG ANATOMY SINGLEon US PREG [...] nose, lips, abdominal cord insertion, left arm. Abnormalities/Other : None BIOMETRY: BPD: 8.4 cm 33 weeks [...] by: KRISTIAN DICKEY Date: 2021-05-23 15:17 Normal [facility] Covid-19 PCR (CVDTB)on 04-19 SARS-CoV-2 (COVID-19) RNA ZOLTAN+probe Ql (Unsp spec) Detected Critically abnormal NOT DETECTED [facility] Comment on above: Result Comment: This test is not yet approved or cleared by the [place] FDA. When there are no FDA-approved or cleared tests available, and other criteria are met, FDA can make tests available under an emergency access mechanism called an Emergency Use Authorization (EUA). The EUA for this test is supported by the Primer Charger of Health and Human Service's (HHS's) declaration [...] used). Performed By: #### C VDTBH #### [facility] [address] [place] [address] Dr. Baljit Rockwell UA (CLEAN/CATCH) MILLROOM SUPERVISOR/MICRO I F IND.on 05-12-2021 Bilirubin Ql (U) Negative Normal NEGATIVE [facility] Comment on above: Performed By: #### U ACSIND #### [facility] [address] [place] [address] Dr. Baljit Rockwell Clarity (U) CLEAR Normal CLEAR [facility] Comment on above: Performed By: #### U ACSIND #### [facility] [address] [place] [address] Dr. Baljit Rockwell Color (U) LT. YELLOW Normal YELLOW [facility] Comment on above: Performed By: #### U ACSIND #### [facility] [address] [place] [address] Dr. Baljit Rockwell Glucose Ql (U) Negative Normal NEGATIVE [facility] Comment on above: Performed By: #### U ACSIND #### [facility] [address] [place] [address] Dr. Baljit Rockwell Hemoglobin Ql (U) Negative Normal NEGATIVE The [facility] Comment on above: Performed By: #### U ACSIND #### [facility] [address] [place] [address] Dr. Baljit Rockwell Ketones Ql (U) Negative Normal NEGATIVE [facility] Comment on above: Performed By: #### U ACSIND #### [facility] [address] [place] [address] Dr. Baljit Rockwell LEUKOCYTES Negative Normal NEGATIVE [facility] Comment on above: Performed By: #### U ACSIND #### [facility] [address] [place] [address] Dr. Baljit Rockwell Nitrite Ql (U) Negative Normal NEGATIVE [facility] Comment on above: Performed By: #### U ACSIND #### [facility] [address] [place] [address] Dr. Baljit Rockwell pH (U) 7.0 [pH] Normal 5-9 [facility] Comment on above: Performed By: #### U ACSIND #### [facility] [address] [place] [address] Dr. Baljit Rockwell SPEC GRAVITY <=1.005 Abnormal 1.005-<=1.025 [facility] Comment on above: Performed By: #### U ACSIND #### [facility] [address] [place] [address] Dr. Baljit Rockwell UA PROTEIN Negative Normal NEGATIVE/ TRACE [facility] Comment on above: Performed By: #### U ACSIND #### [facility] [address] [place] [address] Dr. Baljit Rockwell UR MICRO IND NOT INDICATED Normal [facility] Comment on above: Performed By: #### U ACSIND #### [facility] [address] [place] [address] Dr. Baljit Rockwell Urobilinogen Qn (U) 0.2 {Shannan'U}/dL Normal 0.2 - 1. 0 [facility] Comment on above: Performed By: #### U ACSIND #### [facility] [address] [place] [address] Dr. Baljit Rockwell Vital Signs Date Time Vital Sign Value Performing Clinician Kalen harris 09-07-2024 13:10-0400 Body mass index (BMI) [Ratio] 30.43 kg/m2 Srinivasan Bearden DO Work Phone: [facility] 09-07-2024 13:10-0400 Body weight 77.93 kg Srinivasan Suleiman DO Work Phone: [facility] 09-07-2024 13:10-0400 Diastolic blood pressure 78 mm[Hg] Srinivasan Suleiman DO Work Phone: [facility] 09-07-2024 13:10-0400 Systolic blood pressure 122 mm[Hg] Srinivasan Suleiman DO Work Phone: [facility] Encounters Encounter Date Encounter Type Care Provider Facility Start: 09-11-2024 ambulatory Enma Tate Miguel [facility] Start: 09-07-2024 End: 09-07-2024 Bamboo flowsheet Srinivasan Suleiman DO Work Phone: [facility] Start: 09-07-2024 End: 09-07-2024 Bamboo flowsheet Srinivasan Suleiman DO Work Phone: [facility] Start: 09-07-2024 End: 09-07-2024 Office outpatient visit 15 minutes Srinivasan Suleiman DO Work Phone: [facility] Comment on above: GA: 29w4d Start: 09-07-2024 End: 09-07-2024 ambulatory SRINIVASAN SULEIMAN Not Available Start: 07-17-2024 End: 07-17-2024 Patient encounter procedure PHYSICIAN NO [facility] [place] Work Phone: Start: 07-17-2024 End: 07-17-2024 ambulatory PHYSICIAN NO [facility] Work Phone: Start: 05-27-2024 End: 05-27-2024 ambulatory PHYSICIAN NO [facility] Work Phone: Start: 05-27-2024 End: 05-27-2024 Departed Referred PHYSICIAN NO [facility] Path [facility] Start: 05-04-2024 End: 05-04-2024 Patient encounter procedure PHYSICIAN NO [facility] [place] Work Phone: Start: 05-04-2024 End: 05-04-2024 ambulatory PHYSICIAN NO FAMILY [facility] Work Phone: Start: 06-29-[address] SRINIVASAN BEARDEN Facility :[facility]1 Start: 06-22-2021 Evaluation and management of inpatient DR SRINIVASAN BEARDEN Facility:[facility]1 Start: 06-21-[address] SRINIVASAN BEARDEN Facility :[facility] Start: 06-15-[address] SRINIVASAN BEARDEN Facility :[facility]1 Start: 06-14-2021 End: 06-16-2021 Evaluation and management of inpatient DR SRINIVASAN BEARDEN Facility:[facility]1 Start: 06-12-2021 End: 06-12-[address] ALESHA BURRELL Facility:H1 Start: 06-08-[address] SRINIVASAN BEARDEN Facility :[facility]1 Start: 06-05-2021 End: 06-05-[address] ALESHA BURRELL Facility:[facility]1 Start: 06-01-2021 End: 06-01-[address] SRINIVASAN BEARDEN Facility:[facility]1 Start: 05-30-2021 End: 05-30-[address] SRINIVASAN BEARDEN Facility:[facility]1 Start: 05-29-2021 End: 05-29-[address] ALESHA BURRELL Facility:H1 Start: 05-25-2021 End: 05-25-[address] SRINIVASAN BEARDEN Facility:H1 Start: 05-23-2021 End: 05-24-[address] SRINIVASAN BEARDEN Facility:[facility]1 Start: 05-12-2021 End: 05-12-[address] SRINIVASAN BEARDEN Facility:H1 Procedures Date Procedure Procedure Detail Performing Clinician Start: 09-07-2024 Urnls dip stick/tabl et rgnt non-auto w/o micrscp Srinivasan Bearden DO Work Phone: Start: 07-17-2024 Diagnostic ultrasoun d of gravid uterus PHYSICIAN NO FAMILY Start: 05-27-2024 Urine culture PHYSICIAN NO FAMILY Start: 05-04-2024 Diagnostic ultrasoun d of gravid uterus PHYSICIAN NO FAMILY Start: 06-14-2021 Delivery of Products of Conception, External Approach DR SRINIVASAN BEARDEN Start: 06-14-2021 Drainage of Amniotic Fluid, Therapeutic from Products of Conception, Via Natural or Artificial Opening DR SRINIVASAN BEARDEN Plan of Treatment Date Care Activity Detail Author Start: 09-22-2024 End: 09-22-2024 Patient encounter procedure 09/22/2024 10:20 AM EDT Routine [facility] [address] [id number] Tiffany Mayen PA [address] [place] [address] [facility] Start: 09-22-2024 End: 09-22-2024 Professional / ancillary services management 09/22/2024 9:30 AM EDT Ancillary Procedure [facility] [address] [id number] [facility] Start: 09-07-2024 End: 09-07-2025 CBC panel - Blood by Automated count CBC Lab Routine Diabetes mellitus screening Expected: 09/07/2024 (Approximate), Expires: 09/07/2025 [facility] Work Phone: Comment on above: Expected: 09/07/2024 (Approximate), Expires: 09/07/2025 Start: 09-07-2024 End: 09-07-2025 Measurement of glucose 1 hour after glucose challenge for glucose tolerance test Glucose tolerance, 1 hour Lab Routine Diabetes mellitus screening Expected: 09/07/2024 (Approximate), Expires: 09/07/2025 [facility] Comment on above: Expected: 09/07/2024 (Approximate), Expires: 09/07/2025 Start: 09-07-2024 End: 01-08-2025 US for US OB follow up transabdominal approach Imaging Routine size inconsistent with dates ([facility]) Expected: 09/07/2024, Expires: 01/08/2025 [facility] Comment on above: Expected: 09/07/2024 , Expires: 01/08/2025 Start: 09-07-2024 End: 09-07-2024 ambulatory 09/07/2024 1:30 PM EDT Initial [facility] [address] [address] Srinivasan Bearden, DO [address] [place] [address] Arrived [facility] Comment on above: Arrived Start: 05-27-2024 Urine culture [facility] Start: 05-27-2024 Bacteria identified in Urine by Culture Urine Culture [facility] Payers Date Payer Category Payer Private Health Insurance [facility] MEDICAID ..[id number] 2024 Self-pay 1993 Unknown [id number] 2.840.1.584278.3.579.2. 593 1993 Unknown [id number] 2.840.1.046459.3.579.2. 593 1993 Unknown [id number] 2.840.1.667483.3.579.2. 593 1993 Unknown [id number] 2.16840.1.642475.3.579.2. 593 1993 Unknown [id number] 2.16840.1.508091.3.579.2. 593 1993 Unknown [id number] 2.16840.1.729925.3.579.2. 593 1993 Unknown [id number] 2.16840.1.430267.3.579.2. 593 1993 Unknown [id number] 2.16.840.1.637503.3.579.2. 593 1993 Unknown [id number] 2.16.840.1.943658.3.579.2. 593 1993 Unknown [id number] 2.16.840.1.424441.3.579.2. 593 1993 Unknown [id number] 2.16840.1.970312.3.579.2. 593 1993 Unknown [id number] 2.16840.1.353922.3.579.2. 593 1993 Unknown [id number] 2.16840.1.650902.3.579.2. 593 1993 Unknown [id number] 2.840.1.409165.3.579.2. 593 1993 Unknown [id number] 2.840.1.308479.3.579.2. 593 1993 Unknown [id number] 2.16840.1.521348.3.579.2. 1259 1993 Unknown [id number] 2.840.1.777846.3.579.2. 716 1959 Medicaid [id number] 1961 Self-pay [id number] Unknown [id number] 2840.1.684655.3.579.2. 531 Unknown [id number] 2.840.1.255788.3.579.2. 531 Unknown [id number] 2840.1.331826.3.579.2. 531 Social History Date Type Detail Facility Tobacco smoking stat [facility] Unknown if ever smoked [facility] Start: 05-05-2024 End: 07-18-2024 Sex Female (finding) [facility] Start: 1995 Sex Assigned At Female [facility] Start: 1995 Sex assigned at Not on file [facility] Gender identity Not on file [facility] Start: 02-27-2024 [facility] History of Present illness Narrative 09-07-2024 Enma Irizarry LPN - 09/07/2024 1:30 PM EDT Note Date & Type Note Facility 09-07-2024 History of Presen t illness Narrative Reason for Appointment: Patient ID: Kayley Graham [...] nursing note reviewed. Exam conducted with a social services counselor present. Vitals: Estimated body mass index is 30.43 kg/m as calculated from the following: Height as of 07/09/23: 5' 3 . Weight as of this encounter: 171 lb 12.8 oz. BP: 122/78 Patient's last menstrual period was 02/19/2024. ASSESSMENT & PLAN ICD-10-CM 1. Third trimester ([facility]) Z34.93 POCT urinalysis dipstick manually resulted 2. 29 weeks gestation of ([facility]) Z3A.29 POCT urinalysis dipstick manually resulted 3. Diabetes mellitus screening Z13.1 Hemoglobin A1c CBC Glucose tolerance, 1 hour CBC Glucose tolerance, 1 hour Patient presents today for transfer of care OB patient. Patient was seeing [facility] and desires to deliver at [facility]. Patient to return to clinic in 2 weeks for return OB and growth scan. Reviewed all labs and scans with patient as well. Documented by Enma Irizarry LPN on behalf of: Srinivasan Bearden DO documented in this encounter [facility] Rad[facility] Diagnostic study note 07-17-2024 Note Date & Type Note Facility 07-17-2024 Radiology Diagnostic study note [facility] [place] [address] Ultrasound Report Signed Patient: Kayley Graham MR#: [id number] : 1995 Acct:[id number] Age/Sex: 29 / F ADM Date: 5 Loc: Room: Type: [facility] Attending Dr: Enma Rivera ([facility]) COURTNEY Ordering Provider: Enma Rivera APRN, WHCNP Date of Service: 07/17/24 US/US OB >= 14 weeks Fetus: Z34.82 Copies to: Enma Rivera APRN, WHCNP~ Obstetrical Ultrasound for Fetus greater than 14 weeks HISTORY: anatomy assessment heart rate is 143 bpm. The fetus is in breech presentation. The placentais in a anteriorposition with normal appearance. Amniotic fluid index is 12.8cm. The cervix has a length of 4.2cm. The estimated weight is 15 ounces. The ovaries are not visualized. No fluid identified in the cul-de-sac. Following anatomy identified: Nose and lips, spine, four-chamber heart, stomach, cord insertion, three-vessel cord, kidneys, urinary bladder, 12 long bones and diaphragm. The biparietal diameter measures 5.1cm consistent with 21 weeks 3 days. Head circumference measures 19.2cm consistent with 21 weeks 4 days. Abdominal circumference measures 16.7cm consistent with 21 weeks 5 days. Femur length is 3.5cm consistent with 21 weeks 2 days Cerebellum and measures 2.1 cm consistent with 21 weeks 1 day. The average gestational age is 21 weeks 4 days. Estimated due date is 11/23/2024. somatic motion identified. US/US OB >= 14 weeks Fetus IMPRESSION: Single live intrauterine gestation 11/23/2024. The anatomy as above. Impression dictated by: Gage Marie M.D. 07/17/2024 4:13 PM Dictation Location: [place] [address] Tech: Orquidea Copeland Transcribed By: MITALI 07/17/24 1613 Dictated By: Gage Marie DO 07/17/24 1611 Signed By: 07/17/24 1613 [facility] Radiology Diagnostic study note 05-04-2024 Note Date & Type Note Facility 05-04-2024 Radiology Diagnostic study note [facility] [place] [address] Ultrasound Report Signed Patient: Kayley Graham MR#: [id number] : 1995 Acct:[id number] Age/Sex: 29 / F ADM Date: 5 Loc: Room: Type: [facility] Attending Dr: Enma Rivera ([facility]) COURTNEY Ordering Provider: Enma Rivera APRN, WHCNP [...] 11/19/2024 Impression dictated by: Castillo Simeon Jr., DSherinOSherin05/04/2024 5:01 PM Dictation Location: [place] [address] Tech: Maricel Andre Transcribed By: MITALI 05/04/24 170 Dictated By: Castillo Simeon Jr, DO 05/04/24 165 Signed By: 05/04/24 170 [facility] Evaluation note Note Date & Type Note Facility Evaluation note No assessment information availa ble [facility] Work Phone: Evaluation note Note Date & Type Note Facility Evaluation note Diagnosis Third trimester ([facility]) state, incidental 29 weeks gestation of ([facility]) Diabetes mellitus screening Screening for diabetes mellitus size inconsistent with dates ([facility]) documented in this encounter [facility] Summary Purpose Family History No Family History Records FoundNo Family History Records FoundNo Family History Records FoundNo Family History Records Found Advance Directives No Advanced Directives Records FoundNo Advanced Directives Records FoundNo Advanced Directives Records FoundNo Advanced Directives Records Found Chief Complaint and Reason for Visit Chief Complaint Admit Date z34.81 May 04, 2024 1:4 1pm Chief Complaint Admit Date z34.81 May 04, 2024 1:4 1pm Unknown May 27, 2024 3:55 pm Chief Complaint Admit Date z34.81 May 04, 2024 1:4 1pm Unknown May 27, 2024 3:55 pm z34.82 July 17, 2024 12:19 pm Additional Source Comments INFORMATION SOURCE (unrecogn ized section and content) DATE CREATED AUTHOR 06/23/2021 [facility] DATE CREATED AUTHOR AUTHOR'S ORGANIZ ATION 07/28/2024 [facility] DATE CREATED AUTHOR AUTHOR'S ORGANIZ ATION 09/09/2024 [facility] EPIC DATE CREATED AUTHOR AUTHOR'S ORGANIZ ATION 09/12/2024 [facility] Care Teams (unrecognized sec tion and content) Team Status: Active Member Role Status Dates PHYSICIAN NO FAMILY Primary Care Provider Active Team Status: Inactive Member Role Status Dates [facility] BPO SPECIALIST Attending Provider Active Start: May 04, 2024 End: May 04, 2024 PHYSICIAN NO FAMILY Primary Care Provider Active Start: May 04, 2024 End: May 04, 2024 Team Status: Inactive Member Role Status Dates Maria Del Carmen Glover PA-C Attending Provider Active Start: May 27, 2024 End: May 27, 2024 Team Status: Inactive Member Role Status Dates Enma Contreras Miguel ([facility]) , BPO SPECIALIST Attending Provider Active Start: July 17, 2024 End: July 17, 2024 PHYSICIAN NO FAMILY Primary Care Provider Active Start: July 17, 2024 End: July 17, 2024 Rubber Engraver Relationship Specialty Start Date End Date Cesar Espitia MD [address] [place] [address] PCP - General Family Medicine 06/28/23 Rubber Engraver Relationship Specialty Start Date End Date Cesar Espitia MD [address] [place] [address] PCP - General Family Medicine 06/28/23 Goals (unrecognized section and content) Goals may be documented in a n alternate sectionGoals may be documented in an alternate sectionGoals may be documented in an alternate section Reason for Visit (unrecogniz ed section and content) Reason Comments Routine Visit FOR RECORDS PERTAINING TO PATIENTS WHO ARE [...] BE BASED ON THE PRIMARY CLINICAL RECORDS. [facility]. provides no warranty or guarantee of the accuracy or completeness of information in this document.
[2024-09-21 11:13] LABS: Hematocrit 31.8 % (36.0-48.0); Hemoglobin 10.4 g/dL (12.0-16.0); Immature Granulocytes Abs Auto 0.16 10^3/uL (0.00-0.03); Immature Granulocytes Pct Auto 1.7 % (0.0-0.5); Lymphocytes Absolute Auto 1.4 10^3/uL (1.2-3.8); Mean Corpuscular HGB Conc 32.7 g/dL (29.9-35.2); Mean Corpuscular Hemoglobin 27.0 pg (26.7-34.0); Mean Corpuscular Volume 82.6 fL (81.0-99.0); Platelet Count 342 10^3/uL (150-450); Red Blood Count 3.85 10^6/uL (4.20-5.40); White Blood Count 9.6 10^3/uL (4.0-11.0)
[2024-09-21 11:28] LABS: Glucose 1 Hour 148 mg/dL (<130)
== END 2024-09-21 09:53 | disposition home or self-care (01) ==
PROVIDERS: Visit Provider Obstetrics & Gynecology
DX: Z13.1 Encounter for screening for diabetes mellitus (principal)
CPT/HCPCS: 36415; 82950; 85025

== ENCOUNTER 2024-09-26 07:37 | Outpatient (OUT) | payer OTHER, SELFPAY ==
--- OUTSIDE RECORDS SUMMARY | 2024-09-26 07:40 | XMS_ITS | CCD ---
Author Organization [facility] Care Team Providers Care Etl Consultant Name Role Phone SULEIMAN, DR MATTSON Attending [...] SULEIMAN, DR MATTSON Admitting Unavailable REQUEST, DR NONE LISTED Primary Care Unavaila ble SULEIMAN, DR MATTSON Consulting Unavailable KARASIK, DR EDUARDO Consulting Unavailable KARASIK, DR EDUARDO Attending Unavailable REQUEST, NONE LISTED Primary Care Unavaila ble KARASIK, DR EDUARDO Admitting Unavailable KARASIK, DR EDUARDO Consulting Unavailable KARASIK, DR EDUARDO Attending Unavailable REQUEST, DR ROBISON LISTED Primary Care Unavaila ble KARASIK, DR EDUARDO Admitting Unavailable KARASIK, DR EUDARDO Consulting Unavailable KARASIK, DR EDUARDO Attending Unavailable [...] REQUEST, NONE LISTED Primary Care Unavaila ble JARRELL, DR BRENDA Contreras Consulting Unavailable Rice ([facility]) Enma VALDEZ Attending Provider [phone] NO FAMILY, PHYSICIAN Primary Care Provider Maria Del Carmen Fuchs PA-C Attending Provider Maria Del Carmen Glover Admitting Unavailable Maria Del Carmen Glover Attending Unavailable NO FAMILY, PHYSICIAN Primary Care Unavailable Rice ([facility]), Enma Contreras Attending Unavailabl e Rice ([facility]), Enma Conterras Admitting Unavailabl e NO FAMILY, PHYSICIAN Primary Care Unavailable Rice ([facility]), Enma Contreras Attending Unavailabl e Rice ([facility]), Enma Contreras Admitting Unavailabl e Omkar AUGUST [place] Primary Care Provider [phone] Miguel [facility], Enma Tate Attending Unavaila ble Miguel [facility], Enma Tate Primary Care Unavaila ble SRINIVASAN BEARDEN Attending Unavailable SULEIMANSRINIVASAN Reed Referring Unavailable TIFFANY LLANES Attending Unavailable Medications Current Medications Medication Drug Class(es) Dates Sig (Normalized) Sig (Original) NIFEdipine 30 mg osmotic 24 hr extended release oral tablet (6 sources) Dihydropyridine Calcium Channel Lupillo Start: 07-09-2023 [...] Problem Classification Problem Date Documented Date Episodic/Chronic Diabetes mellitus without complication (2 sources) Abnormal glucose tolerance test; Translations: [Other abnormal glucose] 09-22-2024 Episodic Essential hypertension (6 sources) Essential hypertension; Translations: [Essential (primary) hypertension] [...] applicable or unspecified; Translations: [MAT CARE OTH [place] FTL GRTH 3RD TM UNS] Onset: 06-14-2021 Episodic Other complications of (4 sources) Maternal care for other known or suspected poor growth, unspecified trimester, not applicable or unspecified; Translations: [MAT CARE OTH [place] FTL GRTH UNS TM UNS] Onset: 06-01-2021 Episodic Other complications of (4 sources) Other specified related conditions, third trimester; Translations: [OTH SPEC PREG RELATED COND 3RD TRI] Onset: 05-12-2021 Episodic Other complications of (2 sources) size does not accord with dates; Translations: [Uterine size-date discrepancy, unspecified trimester] 09-07-2024 Episodic Other and delivery including normal (7 sources) Single live ; Translations: [Encounter for [...] [29 weeks gestation of ] 09-07-2024 Episodic Residual codes; unclassified (2 sources) Gestation period, 31 weeks; Translations: [31 weeks gestation of ] 09-22-2024 Episodic Unclassified (1 source) CONTACT W/AND (SUSP) EXPOS COVID-19; Translations: [CONTACT W/AND (SUSP) EXPOS COVID-19] Onset: 06-20-2021 Viral infection (1 source) COVID-19; Translations: [COVID-19] Onset: 05-16-2021 Results Test Name Value Interpretation Reference Range Facility US OB FOLLOW UP TRANSABDOMIN AL APPROACHon 09-22-2024 US OB FOLLOW UP TRANSABDOMINAL APPROACH FINDINGS: A single, live intrauterine is present with normal cardiac rate of 147 beats per minute. Normal activity and amniotic fluid volume. Amniotic fluid index is 15.0 cm. Morphology is grossly normal. The cervix is not visualized due to positioning. The current sonographic age is 32 weeks and 0 days, based on the following measurement. cu BPD 8.1 cm (32 weeks, 4 days) Head Circumference 29.0cm ( 32 weeks, 0 days) Abdominal Circumference 27.8cm ( 31weeks, 6 days) Femur Length 6.1cm ( 31 weeks, 4 days) Presentation Cephalic weight (g) b Percentile 43.3% These measurements result in an estimated date of delivery of November 17, 2024 The current estimated weight is 1854 +/-278 grams (4 pound, 1 ounces). Comparison made with July 17, 2024 had a weight of 425 grams which was 38%. IMPRESSION: Single, live intrauterine , current sonographic age of 32 weeks and 0 days, with an estimated date of delivery of November 17, 2024. * Estimated Weight (g) by Percentile is based upon an accurate estimated age based on last menstrual period. TRANSCRIBED BY: ELECTRONICALLY SIGNED BY: Castillo Anaya MD Normal Not Available Comment on above: Order Comment: US OB SCAN FOR GROWTH Estimated Date of Delivery: 11/19/24 Gestational Age as of 09/07/2024: 29w4d Urinalysis macro (dipstick) panel (U)on 09-22-2024 Bilirubin, UA Negative Negative - 4(70) +++ mg/dL [facility] Blood, UA Negative Negative - 50 Adonis/mcL [facility] Clarity, UA Clear [facility] Color, UA Yellow [facility] Glucose, UA Negative Negative - 1999(110) ++++ mg/dL [facility] Interpretation and review of laboratory results Abnormal [facility] Ketones, UA Negative Negative - 160(16) ++++ mg/dL [facility] Leukocytes, UA Positive Negative - 500+++ Jose Alfredo/mcL [facility] Comment on above: 1+ Nitrite, UA Negative Negative - Positive [facility] pH, UA 7.5 5 - 9 [facility] Protein, UA Negative Negative - 1999(20) ++++ mg/dL [facility] Spec Grav, UA 1.015 1 - 1.03 [facility] Urobilinogen, UA 1.0 0.2 - 12 mg/dL [facility] ALL CBC WITH AUTO DIFFon BASOPHILS ABSOLUTE AUTO 0 [facility] Basophils/100 WBC (Bld) 0.2 % 0.2 - 2.0 % [facility] Eosinophils/100 WBC (Bld) 0.7 % Low 0.9 - 7.0 % [facility] Erythrocyte distribution width (RBC) [Ratio] 14.6 % 11.0 - 15.0 % [facility] Hematocrit (Bld) [Volume fraction] 31.8 % Low 36.0 - 48.0 % [facility] Hemoglobin (Bld) [Mass/Vol] 10.4 g/dL Low 12.0 - 16.0 g/dL [facility] IMMATURE GRANULOCYTES ABS AUTO 0.16 High [facility] Immature granulocytes/100 WBC (Bld) 1.7 % High 0.0 - 0.5 % [facility] Interpretation and review of laboratory results Abnormal [facility] LYMPHOCYTES ABSOLUTE AUTO 1.4 [facility] Lymphocytes/100 WBC (Bld) 14.7 % Low 20.5 - 60.0 % [facility] MCH (RBC) [Entitic mass] 27 pg 26.7 - 34.0 pg [facility] MCHC (RBC) [Mass/Vol] 32.7 g/dL 29.9 - 35.2 g/dL [facility] MCV (RBC) [Entitic vol] 82.6 fL 81.0 - 99.0 fL [facility] MONOCYTES ABSOLUTE AUTO 0.5 [facility] Monocytes/100 WBC (Bld) 5.3 % 1.7 - 12.0 % [facility] NEUTROPHILS ABSOLUTE AUTO 7.4 High [facility] Neutrophils/100 WBC (Bld) 77.4 % High 43.0 - 75.0 % [facility] Platelet mean volume (Bld) [Entitic vol] 10.6 fL 9.5 - 13.5 fL [facility] EO # 0.1 [facility] PLT 342 [facility] RBC 3.85 Low [facility] WBC 9.6 [facility] Urinalysis macro (dipstick) panel (U)on 09-07-2024 Bilirubin, UA Negative Negative - 4(70) +++ mg/dL [facility] Blood, UA Negative Negative - 50 Adonis/mcL [facility] Clarity, UA Clear [facility] Color, UA Yellow [facility] Glucose, UA Negative Negative - 2000(110) ++++ mg/dL [facility] Interpretation and review of laboratory results Normal [facility] Ketones, UA Negative Negative - 160(16) ++++ mg/dL [facility] Leukocytes, UA Negative Negative - 500+++ Jose Alfredo/mcL [facility] Nitrite, UA Negative Negative - Positive [facility] pH, UA 6.5 5 - 9 [facility] Protein, UA Negative Negative - 2000(20) ++++ mg/dL [facility] Spec Grav, UA 1.025 1 - 1.03 [facility] Urobilinogen, UA 1.0 0.2 - 12 mg/dL [facility] US OB >= 14 weeks Fetuson US OB >= 14 weeks Fetus [facility] [place] [address] [place] [address] Ultrasound Report Signed Patient: Kayley Graham MR#: [id number] 5 : 1995 Acct:[id number] Age/Sex: 29 / F ADM Date: 07/17/24 Loc: Room: Type: [facility] Attending Dr: Enma Rivera ([facility]) COURTNEY Ordering Provider: Enma Rivera APRN, [...] Marie M.D. 07/17/2024 4:13 PM Dictation Location: [place] [address] Tech: Orquidea Copeland Transcribed By: MITALI 07/17/24 1613 Dictated By: Gage Marie DO 07/17/24 1611 Signed By: 07/17/24 1613 Normal [facility] Urine Cultureon 05-27-2024 Bacteria identified Cx Nom (U) No Growth 2 Days PERFORMED BY: [place] [address] PATHOLOGIST CYLINDER VALVE REPAIRER CAESAR STOLL M.D. Normal [facility] Comment on above: Performed By: #### C UU #### [address] Urine cultureOrdered By: Pearl Glover on 05-27-2024 Bacteria identified Cx Nom (U) Urine culture [facility] US OB <= 14 weeks fetuson US OB <= 14 weeks fetus [facility] [place] [address] [place] [address] Ultrasound Report Signed Patient: Kayley Graham MR#: [id number] 5 : 1995 Acct:[id number] Age/Sex: 29 / F ADM Date: 05/04/24 Loc: Room: Type: [facility] Attending Dr: Enma Rivera ([facility]) COURTNEY Ordering Provider: Enma Rivera APRN, [...] Simeon Jr., D.O.05/04/2024 5:01 PM Dictation Location: [place] [address] Tech: Maricel Andre Transcribed By: PWS 05/04/24 170 Dictated By: Castillo Simeon Jr, DO 05/04/241657 Signed By: 05/04/24 170 Normal [facility] CBC AUTO DIFFon 06-15-2021 BASO # 0.0 103/ul Normal 0.0-0.1 [facility] Comment on above: Performed By: #### C BC #### [facility] [address] [place] [address] Dr. Baljit Rockwell Basophils/100 WBC (Bld) 0.2 % Normal 0.2-2.0 [facility] Comment on above: Performed By: #### C BC #### [facility] [address] [place] [address] Dr. Baljit Rockwell EO # 0.0 103/ul Normal 0.0-0.7 [facility] Comment on above: Performed By: #### C BC #### [facility] [address] [place] [address] Dr. Baljit Rockwell Eosinophils/100 WBC (Bld) 0.1 % Critically low 0.9-7.0 [facility] Comment on above: Performed By: #### C BC #### [facility] [address] [place] [address] Dr. Baljit Rockwell Erythrocyte distribution width (RBC) [Ratio] 14.5 % Normal 11.0-15.0 [facility] Comment on above: Performed By: #### C BC #### [facility] [address] [place] [address] Dr. Baljit Rockwell Hematocrit (Bld) [Volume fraction] 35.6 % Critically low 36.0-48.0 [facility] Comment on above: Performed By: #### C BC #### [facility] [address] [place] [address] Dr. Baljit Rockwell Hemoglobin (Bld) [Mass/Vol] 11.4 g/dL Critically low 12.0-16.0 [facility] Comment on above: Performed By: #### C BC #### [facility] [address] [place] [address] Dr. Baljit Rockwell IG # 0.14 10e3/ul Critically high 0.00-0.03 [facility] Comment on above: Performed By: #### C BC #### [facility] [address] [place] [address] Dr. Baljit Rockwell IG % 0.9 % Critically high 0.0-0.5 [facility] Comment on above: Performed By: #### C BC #### [facility] [address] [place] [address] Dr. Baljit Rockwell LYMPH # 2.0 103/ul Normal 1.2-3.8 [facility] Comment on above: Performed By: #### C BC #### [facility] [address] [place] [address] Dr. Baljit Rockwell Lymphocytes/100 WBC (Bld) 11.9 % Critically low 20.5-60.0 [facility] Comment on above: Performed By: #### C BC #### [facility] [address] [place] [address] Dr. Baljit Rockwell MANUAL DIFF REQ NO Normal [facility] Comment on above: Performed By: #### C BC #### [facility] [address] [place] [address] Dr. Baljit Rockwell MCH (RBC) [Entitic mass] 27.9 pg Normal 26.7-34.0 [facility] Comment on above: Performed By: #### C BC #### [facility] [address] [place] [address] Dr. Baljit Rockwell MCHC (RBC) [Mass/Vol] 32.0 g/dL Normal 29.9-35.2 [facility] Comment on above: Performed By: #### C BC #### [facility] [address] [place] [address] Dr. Baljit Rockwell MCV (RBC) [Entitic vol] 87.3 fL Normal 81.0-99.0 [facility] Comment on above: Performed By: #### C BC #### [facility] [address] [place] [address] Dr. Baljit Rockwell MONO # 0.7 103/ul Normal 0.3-0.8 [facility] Comment on above: Performed By: #### C BC #### [facility] [address] [place] [address] Dr. Baljit Rockwell Monocytes/100 WBC (Bld) 4.3 % Normal 1.7-12.0 [facility] Comment on above: Performed By: #### C BC #### [facility] [address] [place] [address] Dr. Baljit Rockwell NEUT # 13.6 103/ul Critically high 1.4-6.5 [facility] Comment on above: Performed By: #### C BC #### [facility] [address] [place] [address] Dr. Baljit Rockwell Neutrophils/100 WBC (Bld) 82.6 % Critically high 43.0-75.0 [facility] Comment on above: Performed By: #### C BC #### [facility] [address] [place] [address] Dr. Baljit Rockwell Platelet mean volume (Bld) [Entitic vol] 10.6 fL Normal 9.5-13.5 [facility] Comment on above: Performed By: #### C BC #### [facility] [address] [place] [address] Dr. Baljit Rockwell PLT 256 103/ul Normal 150-450 [facility] Comment on above: Performed By: #### C BC #### [facility] [address] [place], [place] [id number] Dr. Baljit Rockwell RBC 4.08 106/ul Critically low 4.20-5.40 [facility] Comment on above: Performed By: #### C BC #### [facility] [address] [place] [address] Dr. Baljit Rockwell WBC 16.4 103/ul Critically high 4.0-11.[address] [facility] Comment on above: Performed By: #### C BC #### [facility] [address] [place] [address] Dr. Baljit Rockwell DRUG SCREEN RAPID (URINE)on 06-15-2021 AMP Negative Normal NEGATIVE [facility] Comment on above: Performed By: #### D RUGRPD #### [facility] [address] [place] [address] Dr. Baljit Rockwell BAR Negative Normal NEGATIVE [facility] Comment on above: Performed By: #### D RUGRPD #### [facility] [address] [place] [address] Dr. Baljit Rockwell BUP Negative Normal NEGATIVE [facility] Comment on above: Performed By: #### D RUGRPD #### [facility] [address] [place] [address] Dr. Baljit Rockwell BZO Negative Normal NEGATIVE [facility] Comment on above: Performed By: #### D RUGRPD #### [facility] [address] [place] [address] Dr. Baljit Rockwell MIGUEL Negative Normal NEGATIVE [facility] Comment on above: Performed By: #### D RUGRPD #### [facility] [address] [place] [address] Dr. Baljti Rockwell CUT-OFFS SEE BELOW Normal [facility] Comment on above: Result Comment: AMP [...] ng/mL Performed By: #### D RUGRPD #### [facility] [address] [place] [address] Dr. Baljit Rockwell DRUG CUT HEADER DRUG CLASS TEST SYSTEM CUT-OFF CONCENTRATIONS ARE FOLLOWS: Normal [facility] Comment on above: Performed By: #### D RUGRPD #### [facility] [address] [place] [address] Dr. Baljit Rockwell mAMP Negative Normal NEGATIVE [facility] Comment on above: Performed By: #### D RUGRPD #### [facility] [address] [place] [address] Dr. Baljit Rockwell MTD Negative Normal NEGATIVE [facility] Comment on above: Performed By: #### D RUGRPD #### [facility] [address] [place] [address] Dr. Baljit Rockwell OPI Negative Normal NEGATIVE [facility] Comment on above: Performed By: #### D RUGRPD #### [facility] [address] [place] [address] Dr. Baljit Rockwell OXY Negative Normal NEGATIVE [facility] Comment on above: Performed By: #### D RUGRPD #### [facility] [address] [place] [address] Dr. Baljit Rockwell PCP Negative Normal NEGATIVE [facility] Comment on above: Performed By: #### D RUGRPD #### [facility] [address] [place] [address] Dr. Baljit Rockwell PPX Negative Normal NEGATIVE [facility] Comment on above: Performed By: #### D RUGRPD #### [facility] [address] [place] [address] Dr. Baljit Rockwell TCA Negative Normal NEGATIVE [facility] Comment on above: Performed By: #### D RUGRPD #### [facility] [address] [place] [address] Dr. Baljit Rockwell THC Negative Normal NEGATIVE [facility] Comment on above: Performed By: #### D RUGRPD #### [facility] [address] [place] [address] Dr. Baljit Rockwell CBC AUTO DIFFon 06-14-2021 BASO # 0.0 103/ul Normal 0.0-0.1 [facility] Comment on above: Performed By: #### C BC #### [facility] [address] [place] [address] [address] Baljit Rockwell Basophils/100 WBC (Bld) 0.2 % Normal 0.2-2.0 [facility] Comment on above: Performed By: #### C BC #### [facility] [address] [place] [address] Dr. Baljit Rockwell EO # 0.0 103/ul Normal 0.0-0.7 [facility] Comment on above: Performed By: #### C BC #### [facility] [address] [place] [address] [address] Baljit Rockwell Eosinophils/100 WBC (Bld) 0.3 % Critically low 0.9-7.0 [facility] Comment on above: Performed By: #### C BC #### [facility] [address] [place] [address] Dr. Baljit Rockwell Erythrocyte distribution width (RBC) [Ratio] 14.5 % Normal 11.0-15.0 [facility] Comment on above: Performed By: #### C BC #### [facility] [address] [place] [address] Dr. Baljit Rockwell Hematocrit (Bld) [Volume fraction] 35.0 % Critically low 36.0-48.0 [facility] Comment on above: Performed By: #### C BC #### [facility] [address] [place] [address] Dr. Baljit Rockwell Hemoglobin (Bld) [Mass/Vol] 11.2 g/dL Critically low 12.0-16.0 [facility] Comment on above: Performed By: #### C BC #### [facility] [address] [place] [address] Dr. Baljit Rockwell IG # 0.11 10e3/ul Critically high 0.00-0.03 [facility] Comment on above: Performed By: #### C BC #### [facility] [address] [place] [address] Dr. Baljit Rockwell IG % 0.9 % Critically high 0.0-0.5 [facility] Comment on above: Performed By: #### C BC #### [facility] [address] [place] [address] Dr. Baljit Rockwell LYMPH # 2.2 103/ul Normal 1.2-3.8 [facility] Comment on above: Performed By: #### C BC #### [facility] [address] [place] [address] Dr. Baljit Rockwell Lymphocytes/100 WBC (Bld) 17.7 % Critically low 20.5-60.0 [facility] Comment on above: Performed By: #### C BC #### [facility] [address] [place] [address] Dr. Baljit Rockwell MANUAL DIFF REQ NO Normal [facility] Comment on above: Performed By: #### C BC #### [facility] [address] [place] [address] Dr. Baljit Rockwell MCH (RBC) [Entitic mass] 27.3 pg Normal 26.7-34.0 [facility] Comment on above: Performed By: #### C BC #### [facility] [address] [place] [address] Dr. Baljit Rockwell MCHC (RBC) [Mass/Vol] 32.0 g/dL Normal 29.9-35.2 [facility] Comment on above: Performed By: #### C BC #### [facility] [address] [place] [address] Dr. Baljit Rockwell MCV (RBC) [Entitic vol] 85.2 fL Normal 81.0-99.0 [facility] Comment on above: Performed By: #### C BC #### [facility] [address] [place] [address] Dr. Baljit Rockwell MONO # 0.7 103/ul Normal 0.3-0.8 [facility] Comment on above: Performed By: #### C BC #### [facility] [address] [place] [address] Dr. Baljit Rockwell Monocytes/100 WBC (Bld) 5.4 % Normal 1.7-12.0 [facility] Comment on above: Performed By: #### C BC #### [facility] [address] [place] [address] Dr. Baljit Rockwell NEUT # 9.4 103/ul Critically high 1.4-6.5 [facility] Comment on above: Performed By: #### C BC #### [facility] [address] [place] [address] [address] Baljit Rockwell Neutrophils/100 WBC (Bld) 75.5 % Critically high 43.0-75.0 [facility] Comment on above: Performed By: #### C BC #### [facility] [address] [place] [address] Dr. Baljit Rockwell Platelet mean volume (Bld) [Entitic vol] 10.7 fL Normal 9.5-13.5 [facility] Comment on above: Performed By: #### C BC #### [facility] [address] [place] [address] Dr. Baljit Rockwell PLT 265 103/ul Normal 150-450 [facility] Comment on above: Performed By: #### C BC #### [facility] [address] [place] [address] Dr. Baljit Rockwell RBC 4.11 106/ul Critically low 4.20-5.40 [facility] Comment on above: Performed By: #### C BC #### [facility] [address] [place] [address] Dr. Baljit Rockwell WBC 12.5 103/ul Critically high 4.0-11.[address] [facility] Comment on above: Performed By: #### C BC #### [facility] [address] [place] [address] Dr. Baljit Rokcwell [facility]on [facility]20 SARS-CoV-2 (COVID-19) RNA ZOLTAN+probe Ql (Unsp spec) Not detected Normal NOT DETECTED [facility] Comment on above: Result Comment: When [...] for this test is supported by the [place] of [employer] and Human Service's declaration that [...] used). Performed By: #### C VDTBH #### [facility] [address] [place] [address] [address] Baljit Rockwell TYPE AND SCREENon 06-14-2021 TYPE AND SCREEN Negative Normal [facility] Comment on above: Performed By: #### T NS #### [facility] [address] [address] [address] Baljit Rockwell US PREG BIOPHY W NON STRESSo n 06-02-2021 US PREG BIOPHY W NON STRESS EXAMINATION: US PREG BIOPHY W NON STRESS HISTORY: [id number]-vmk-[id number] baby COMPARISON: Ultrasound biophysical 05/25/2021 TECHNIQUE: Ultrasound biophysical profile was performed. FINDINGS: BREATHING MOVEMENTS: 2.0 GROSS BODY MOVEMENTS: 2.0 TONE: 2.0 QUALITATIVE AMNIOTIC FLUID VOLUME: 2.0 PRESENTATION: CEPHALIC HEART RATE: 157.0 bpm bpm. AMNIOTIC FLUID VOLUME: 13.5 cm GESTATIONAL AGE: 36 weeks 3 days CONCLUSION: Total biophysical profile score 8.0. Electronically authenticated by: BRENDA VIEYRA Date: 2021-06-02 08:18 Normal [facility] GROUP B STREP CULTUREon 05-19 S. agalactiae Ag Ql (Unsp spec) Culture Observations: NEGATIVE FOR GROUP B STREPTOCOCCUS. Normal [facility] Comment on above: Performed By: #### G BSCX #### [facility] [address] [place] [address] Dr. Baljit Rockwell US PREG BIOPHY W NON STRESSo n 05-26-2021 US PREG BIOPHY W NON STRESS EXAMINATION: US PREG BIOPHY W NON STRESS HISTORY: [id number] baby COMPARISON: No relevant comparison available. TECHNIQUE: Ultrasound biophysical profile was performed. FINDINGS: BREATHING MOVEMENTS: 2.0 GROSS BODY MOVEMENTS: 2.0 TONE: 2.0 QUALITATIVE AMNIOTIC FLUID VOLUME: 2.0 PRESENTATION: CEPHALIC HEART RATE: 131.7 bpm bpm. AMNIOTIC FLUID VOLUME: 11.2 cm GESTATIONAL AGE: 35 weeks 3 days CONCLUSION: Total biophysical profile score 8.0. Electronically authenticated by: BRENDA VIEYRA Date: 2021-05-26 08:00 Normal [facility] US PREG ANATOMY SINGLEon US PREG [...] KRISTIAN DICKEY Date: 2021-05-23 15:17 Normal [facility] Covid-19 PCR (CVDTB)on 04-19 SARS-CoV-2 (COVID-19) RNA ZOLTAN+probe Ql (Unsp spec) Detected Critically abnormal NOT DETECTED [facility] Comment on above: Result Comment: This test is not yet approved or cleared by the [place] FDA. When there are no FDA-approved or cleared tests available, and other criteria are met, FDA can make tests available under an emergency access mechanism called an Emergency Use Authorization (EUA). The EUA for this test is supported by the [place] of Health and Human Service's (HHS's) declaration [...] used). Performed By: #### C VDTBH #### [facility] [address] [place] [address] Dr. Baljit Rockwell UA (CLEAN/CATCH) DATA SUPPORT SPECIALIST/MICRO I F IND.on 05-12-2021 Bilirubin Ql (U) Negative Normal NEGATIVE [facility] Comment on above: Performed By: #### U ACSIND #### [facility] [address] [place] [address] Dr. Baljit Rockwell Clarity (U) CLEAR Normal CLEAR [facility] Comment on above: Performed By: #### U ACSIND #### [facility] [address] [place] [address] Dr. Baljit Rockwell Color (U) LT. YELLOW Normal YELLOW [facility] Comment on above: Performed By: #### U ACSIND #### [facility] [address] [place] [address] Dr. Baljit Rockwell Glucose Ql (U) Negative Normal NEGATIVE [facility] Comment on above: Performed By: #### U ACSIND #### [facility] [address] [place] [address] Dr. Baljit Rockwell Hemoglobin Ql (U) Negative Normal NEGATIVE [facility] Comment on above: Performed By: #### U ACSIND #### [facility] [address] [place] [address] Dr. Baljit Rockwell Ketones Ql (U) Negative Normal NEGATIVE [facility] Comment on above: Performed By: #### U ACSIND #### [facility] [address] [address] [address] Baljit Rockwell LEUKOCYTES Negative Normal NEGATIVE [facility] Comment on above: Performed By: #### U ACSIND #### [facility] [address] [address] [address] Baljit Rockwell Nitrite Ql (U) Negative Normal NEGATIVE [facility] Comment on above: Performed By: #### U ACSIND #### [facility] [address] [place] [address] Dr. Baljit Rockwell pH (U) 7.0 [pH] Normal 5-9 [facility] Comment on above: Performed By: #### U ACSIND #### [facility] [address] [place] [address] Dr. Baljit Rockwell SPEC GRAVITY <=1.005 Abnormal 1.005-<=1.025 [facility] Comment on above: Performed By: #### U ACSIND #### [facility] [address] [place] [address] Dr. Baljit Rockwell UA PROTEIN Negative Normal NEGATIVE/ TRACE [facility] Comment on above: Performed By: #### U ACSIND #### [facility] [address] [address] [address] Baljit Rockwell UR MICRO IND NOT INDICATED Normal [facility] Comment on above: Performed By: #### U ACSIND #### [facility] [address] [place] [address] Dr. Baljit Rockwell Urobilinogen Qn (U) 0.2 {Shannan'U}/dL Normal 0.2 - 1. 0 [facility] Comment on above: Performed By: #### U ACSIND #### [facility] [address] [place] [address] Dr. Baljit Rockwell Vital Signs Date Time Vital Sign Value Performing Clinician Kalen harris 09-22-2024 10:08-0400 Body mass index (BMI) [Ratio] 30.79 kg/m2 Tiffany TUCKER Work Phone: [facility] 09-22-2024 10:08-0400 Body weight 78.83 kg Tiffany TUCKER Work Phone: [facility] 09-22-2024 10:08-0400 Diastolic blood pressure 82 mm[Hg] Tiffany TUCKER Work Phone: [facility] 09-22-2024 10:08-0400 Systolic blood pressure 130 mm[Hg] Tiffany TUCKER Work Phone: [facility] 09-07-2024 13:10-0400 Body mass index (BMI) [Ratio] 30.43 kg/m2 Srinivasan Suleiman DO Work Phone: [facility] 09-07-2024 13:10-0400 Body weight 77.93 kg Srinivasan Suleiman DO Work Phone: [facility] 09-07-2024 13:10-0400 Diastolic blood pressure 78 mm[Hg] Srinivasan Suleiman DO Work Phone: [facility] 09-07-2024 13:10-0400 Systolic blood pressure 122 mm[Hg] Srinivasan Suleiman DO Work Phone: [facility] Healthcare Encounters Encounter Date Encounter Type Care Provider Facility Start: 09-22-2024 End: 09-22-2024 Office outpatient visit 15 minutes Tiffany TUCKER Work Phone: [facility] Kamilla SALMERON Comment on above: 31 weeks gestation o f ([facility] Third trimester ([facility]); Elevated glucose tolerance test Start: 09-22-2024 End: 09-22-2024 ambulatory TIFFANY LLANES Not Available Start: 09-21-2024 End: 09-21-2024 Clinisync Result Encounter Srinivasan Suleiman DO Work Phone: [facility] External Department Unsolicited Start: 09-21-2024 End: 09-21-2024 Clinisync Result Encounter Srinivasan Suleiman DO Work Phone: [facility] External Department Unsolicited Start: 09-11-2024 ambulatory Enma Tate Ri ce [facility] Start: 09-07-2024 End: 09-07-2024 Bamboo flowsheet Srinivasan Suleiman DO Work Phone: [facility] Start: 09-07-2024 End: 09-07-2024 Bamboo flowsheet Srinivasan Suleiman DO Work Phone: [facility] Start: 09-07-2024 End: 09-07-2024 Office outpatient visit 15 minutes Srinivasan Suleiman DO Work Phone: [facility] Comment on above: GA: 29w4d Start: 09-07-2024 End: 09-07-2024 ambulatory SRINIVASAN SULEIMAN Not Available Start: 07-17-2024 End: 07-17-2024 Patient encounter procedure PHYSICIAN NO [facility] [place] Work Phone: Start: 07-17-2024 End: 07-17-2024 ambulatory PHYSICIAN NO [facility] Work Phone: Start: 05-27-2024 End: 05-27-2024 ambulatory PHYSICIAN NO [facility] Work Phone: Start: 05-27-2024 End: 05-27-2024 Departed Referred PHYSICIAN NO [facility] Start: 05-04-2024 End: 05-04-2024 Patient encounter procedure PHYSICIAN NO [facility] [place] Work Phone: Start: 05-04-2024 End: 05-04-2024 ambulatory PHYSICIAN NO [facility] Work Phone: Start: 06-29-[address] SRINIVASAN [...] Date Procedure Procedure Detail Performing Clinician Start: 09-22-2024 Urnls dip stick/tabl et rgnt non-auto w/o micrscp Tiffany TUCKER Work Phone: Start: 09-21-2024 ALL CBC WITH AUTO DIFF Srinivasan Singho DO Work Phone: Start: 09-07-2024 Urnls dip stick/tabl et rgnt non-auto w/o micrscp Srinivasangabriela Singho DO Work Phone: Start: 07-17-2024 Diagnostic ultrasoun [...] Treatment Date Care Activity Detail Author Start: 10-06-2024 End: 10-06-2024 Patient encounter procedure 10/06/2024 2:20 PM EDT Routine [facility] [place] [facility] [address] [place] [address] Srinivasan Bearden, [address] [place] [address] [facility] Start: 09-22-2024 End: 09-22-2025 Measurement of glucose 3 hours after glucose challenge for glucose tolerance test Glucose tolerance, 3 hours Lab Routine Elevated glucose tolerance test Expected: 09/22/2024 (Approximate), Expires: 09/22/2025 [facility] Work Phone: Comment on above: Expected: 09/22/2024 (Approximate), Expires: 09/22/2025 Start: 09-22-2024 End: 09-22-2024 Patient encounter procedure [facility] Start: 09-22-2024 End: 09-22-2024 Professional / ancillary services management [facility] Start: 09-07-2024 End: 09-07-2025 CBC panel - Blood by Automated count CBC Lab Routine Diabetes mellitus screening Expected: 09/07/2024 (Approximate), Expires: 09/07/2025 [facility] Work Phone: Comment on above: Expected: 09/07/2024 (Approximate), Expires: 09/07/2025 Start: 09-07-2024 End: 09-07-2025 Measurement of glucose 1 hour after glucose challenge for glucose tolerance test Glucose tolerance, 1 hour Lab Routine Diabetes mellitus screening Expected: 09/07/2024 (Approximate), Expires: 09/07/2025 [facility] Comment on above: Expected: 09/07/2024 (Approximate), Expires: 09/07/2025 Start: 09-07-2024 End: 01-08-2025 US for US OB follow up transabdominal approach Imaging Routine size inconsistent with dates ([facility]) Expected: 09/07/2024, Expires: 01/08/2025 [facility] Comment on above: Expected: 09/07/2024 , Expires: 01/08/2025 Start: 09-07-2024 End: 09-07-2024 ambulatory 09/07/2024 1:30 PM EDT Initial [facility] [address] [place] [id number] Srinivasan Bearden, DO [address] [place] [address] Arrived [facility] Comment on above: Arrived Start: 05-27-2024 Urine culture [facility] Start: 05-27-2024 Bacteria identified in Urine by Culture Urine Culture [facility] Payers Date Payer Category Payer Private Health Insurance [facility] MEDICA[facility] ..[id number] 2024 Self-pay 1993 Unknown [id number] 2..840.1.048646.3.579.2. 593 1993 Unknown [id number] 2..840.1.907041.3.579.2. 593 1993 Unknown [id number] 2..840.1.048211.3.579.2. 593 1993 Unknown [id number] 2..840.1.590724.3.579.2. 593 1993 Unknown [id number] 2..840.1.491797.3.579.2. 593 1993 Unknown [id number] 2.16.840.1.702335.3.579.2. 593 1993 Unknown [id number] 2.16.840.1.008980.3.579.2. 593 1993 Unknown [id number] 2.16.840.1.806393.3.579.2. 593 1993 Unknown [id number] 2.16.840.1.866168.3.579.2. 593 1993 Unknown [id number] 2.16.840.1.129368.3.579.2. 593 1993 Unknown [id number] 2.16.840.1.946724.3.579.2. 593 1993 Unknown [id number] 2.16.840.1.205942.3.579.2. 593 1993 Unknown [id number] 2.16.840.1.286782.3.579.2. 593 1993 Unknown [id number] 2.16.840.1.918629.3.579.2. 593 1993 Unknown [id number] 2.16.840.1.760463.3.579.2. 593 1993 Unknown [id number] 2.16.840.1.105681.3.579.2. 716 1993 Unknown [id number] 2.16.840.1.201363.3.579.2. 1259 1993 Unknown [id number] 2.16.840.1.867930.3.579.2. 1259 1993 Unknown [id number] 2.16.840.1.055775.3.579.2. 1259 1961 Medicaid [id number] 1961 Self-pay [id number] Unknown [id number] 2.16.840.1.521490.3.579.2. 531 Unknown [id number] 2.16.840.1.521744.3.579.2. 531 Unknown [id number] 2.16.840.1.019586.3.579.2. 531 Social History Date Type Detail Facility Tobacco smoking stat [facility] Unknown if ever smoked [facility] Start: 05-05-2024 End: 07-18-2024 Sex Female (finding) [facility] Start: 1995 Sex Assigned At Female F [facility] Start: 1995 Sex assigned at Not on file [facility] Gender identity Not on file [facility] Start: 02-27-2024 [facility] History of Present illness Narrative 09-22-2024 GARRETT Rivers - 09/22/2024 10:20 AM EDT Note Date & Type Note Facility 09-22-2024 History of Presen t illness Narrative Reason for Appointment: Patient ID: Kayley Graham is a 29 y.o. female who presents for Routine Visit Patient presents today for Return OB appointment. MEDICATIONS Current Outpatient Medications Medication Instructions NIFEdipine [...] Exam Constitutional: Appearance: Normal appearance. She is normal weight. HENT: Head: Normocephalic. Cardiovascular: Rate and Rhythm: Normal rate. Pulses: Normal pulses. Pulmonary: Effort: Pulmonary effort is normal. Breath sounds: Normal breath sounds. Abdominal: Palpations: Abdomen is soft. Musculoskeletal: General: Normal range of motion. Neurological: General: No focal deficit present. Mental Status: She is alert and oriented to person, place, and time. Psychiatric: Mood and Affect: Mood normal. Behavior: Behavior normal. Thought Content: Thought content normal. Judgment: Judgment normal. Vitals and nursing note reviewed. Vitals: Estimated body mass index is 30.79 kg/m as calculated from the following: Height as of 07/09/23: 5' 3 . Weight as of this encounter: 173 lb 12.8 oz. BP: 130/82 Patient's last menstrual period was 02/19/2024. ASSESSMENT & PLAN ICD-10-CM 1. 31 weeks gestation of ([facility]) Z3A.31 POCT urinalysis dipstick manually resulted 2. Third trimester ([facility]) Z34.93 POCT urinalysis dipstick manually resulted 3. Elevated glucose tolerance test R73.09 Glucose tolerance, 3 hours Glucose tolerance, 3 hours Return OB: Patient presents today for a routine obstetrics appointment. Patient is currently 31w5d . Patient states she is doing well but has complaints of being tired due to current . Patient has verbalizes frequent movement. labor precautions was discussed/given and patient was instructed to perform kick counts three times a day. Orders Placed This Encounter Procedures Glucose tolerance, 3 hours POCT urinalysis dipstick manually resulted Follow Up: Patient is to return to office in 2 week for routine OB appointment. Documented by GARRETT Rivers on behalf of: GARRETT Rivers documented in this encounter [facility] History of Present illness Narrative 09-07-2024 Enma [...] nursing note reviewed. Exam conducted with a licensed marriage and family therapist present. Vitals: Estimated body mass index is 30.43 kg/m as calculated from the following: Height as of 07/09/23: 5' 3 . Weight as of this encounter: 171 lb 12.8 oz. BP: 122/78 Patient's last menstrual period was 02/19/2024. ASSESSMENT & PLAN ICD-10-CM 1. Third trimester ([facility]) Z34.93 POCT urinalysis dipstick manually resulted 2. 29 weeks gestation of ([facility]) Z3A.29 POCT urinalysis dipstick manually resulted 3. Diabetes mellitus screening Z13.1 Hemoglobin A1c CBC Glucose tolerance, 1 hour CBC Glucose tolerance, 1 hour Patient presents today for transfer of care OB patient. Patient was seeing [facility] and desires to deliver at [facility]. Patient to return to clinic in 2 weeks for return OB and growth scan. Reviewed all labs and scans with patient as well. Documented by Enma Irizarry LPN on behalf of: Srinivasan Bearden DO documented in this encounter [facility] Radiology Diagnostic study note 07-17-2024 Note Date & Type Note Facility 07-17-2024 Radiology Diagnostic study note [facility] [place] [address] [place] [address] Ultrasound Report Signed Patient: Kayley Graham MR#: [id number] : 1995 Acct:[id number] Age/Sex: 29 / F ADM Date: 5 Loc: Room: Type: [facility] Attending Dr: Enma Rivera ([facility]) COURTNEY Ordering Provider: Enma Rivera APRN, [...] Marie M.D. 07/17/2024 4:13 PM Dictation Location: [id number] Tech: Orquidea Copeland Transcribed By: MITALI 07/17/241612 Dictated By: Gage Marie DO 07/17/24 161 Signed By: 07/17/24 161 [facility] Radiology Diagnostic study note 05-04-2024 Note Date & Type Note Facility 05-04-2024 Radiology Diagnostic study note [facility] [place] [address] Ultrasound Report Signed Patient: Kayley Graham MR#: [id number] : 1995 Acct:[id number] Age/Sex: 29 / F ADM Date: Loc: Room: Type: [facility] Attending Dr: Enma Rivera ([facility]) COURTNEY Ordering Provider: Enma Rivera APRN, [...] Simeon Jr., DSherinOSherin05/04/2024 5:01 PM Dictation Location: [employer] Tech: Maricel Andre Transcribed By: MITALI 05/04/24 170 Dictated By: Castillo Simeon Jr, DO 05/04/24 165 Signed By: 05/04/241700 [facility] Evaluation note Note Date & Type Note Facility Evaluation note No assessment information availa ble [facility] Work Phone: Evaluation note Note Date & Type Note Facility Evaluation note Diagnosis Third trimester ([facility]) state, incidental 29 weeks gestation of ([facility]) Diabetes mellitus screening Screening for diabetes mellitus size inconsistent with dates ([facility]) documented in this encounter [facility] Evaluation note Note Date & Type Note Facility Evaluation note Diagnosis 31 weeks gestation of ([facility]) Third trimester ([facility]) state, incidental Elevated glucose tolerance test Impaired glucose tolerance test documented in this encounter [facility] Summary [...] CREATED AUTHOR AUTHOR'S ORGANIZ ATION 07/28/2024 [facility] DATE CREATED AUTHOR AUTHOR'S ORGANIZ ATION 09/12/2024 [facility] DATE CREATED AUTHOR AUTHOR'S ORGANIZ ATION 09/24/2024 [facility] Care Teams (unrecognized sec tion and content) Team Status: Active Member Role Status Dates PHYSICIAN NO FAMILY Primary Care Provider Active Team Status: Inactive Member Role Status Dates [facility] Attending Provider Active Start: May 04, 2024 End: May 04, 2024 PHYSICIAN NO FAMILY Primary Care Provider Active Start: May 04, 2024 End: May 04, 2024 Team Status: Inactive Member Role Status Dates Maria Del Carmne Glover PA-C Attending Provider Active Start: May 27, 2024 End: May 27, 2024 Team Status: Inactive Member Role Status Dates [facility] , NET APPLICATION SUPPORT SPECIALIST Attending Provider Active Start: July 17, 2024 End: July 17, 2024 PHYSICIAN NO FAMILY Primary Care Provider Active Start: July 17, 2024 End: July 17, 2024 Etl Consultant Relationship Specialty Start Date End Date Cesar Espitia MD [address] [place] [address] PCP - General Family Medicine 06/28/23 Etl Consultant Relationship Specialty Start Date End Date Cesar Espitia MD [address] [place] [address] PCP - General Family Medicine 06/28/23 Etl Consultant Relationship Specialty Start Date End Date Cesar Espitia MD [address] [facility] [address] [place] [address] PCP - General Family Medicine 06/28/23 Goals [...] BE BASED ON THE PRIMARY CLINICAL RECORDS. [employer] provides no warranty or guarantee of the accuracy or completeness of information in this document.
[2024-09-26 09:12] LABS: Glucose 1 Hour 177 mg/dL (<180)
[2024-09-26 10:46] LABS: Glucose 2 Hour 146 mg/dL (<155)
[2024-09-26 11:47] LABS: Glucose 3 Hour 109 mg/dL (<140)
== END 2024-09-26 07:38 | disposition home or self-care (01) ==
LOC: LAB 07:38
PROVIDERS: Visit Provider Physician Assistant
DX: R73.09 Other abnormal glucose (principal)
CPT/HCPCS: 36415; 82951; 82952

== ENCOUNTER 2024-10-17 10:17 | Observation (INO) | payer OTHER, SELFPAY ==
--- OUTSIDE RECORDS SUMMARY | 2024-10-17 10:21 | XMS_ITS | CCD ---
Author Organization [facility] Care Team Providers Care Pet Care Worker Name Role Phone SULEIMAN, DR MATTSON Attending [...] Unavaila ble SULEIMAN, DR MATTSON Admitting Unavailable USLEIMAN, DR MATTSON Consulting Unavailable SULEIMAN, DR MATTSON [...] JARRELL, DR BRENDA Contreras Consulting Unavailable Rice ([facility]) Enma VALDEZ Attending Provider NO FAMILY, PHYSICIAN Primary Care Provider UnaMaria Del Carmen Encarnacion PA-C Attending Provider Maria Del Carmen Glover Admitting Unavailable Maria Del Carmen Glover Attending Unavailable NO FAMILY, PHYSICIAN Primary Care Unavailable Rice ([facility]), Enma Contreras Attending Unavailabl e Rice ([facility]), Enma Contreras Admitting Unavailabl e NO FAMILY, PHYSICIAN Primary Care Unavailable Rice ([facility]), Enma Contreras Attending Unavailabl e Rice ([facility]), Enma Contreras Admitting Unavailabl e Omkar AUGUST [place] Primary Care Provider Miguel [facility], Enma Tate Attending Unavaila ble Miguel [facility], Enma Tate Primary Care Unavaila SRINIVASAN Palomino Attending Unavailable SRINIVASAN BEARDEN Referring Unavailable TIFFANY LLANES Attending Unavailable SRINIVASAN BEARDEN Attending Unavailable Medications Current Medications Medication Drug Class(es) Dates Sig (Normalized) Sig (Original) NIFEdipine 30 mg osmotic 24 hr extended release oral tablet (10 sources) Dihydropyridine Calcium Channel Lupillo Start: 07-09-2023 take 1 tablet by mouth every twenty-four hours at bedtime NIFEdipine XL (Procardia XL) 30 MG 24 hr tablet Indications: Primary hypertension One po at bedtime. 30 tablet 2 07/09/2023 Active polysaccharide iron complex 391 mg oral capsule (4 sources) Start: 09-22-2024 End: 04-20-2025 take 1 capsule by mouth once daily iron polysaccharides (ProFe) 391.3 (180 Fe) MG capsule Indications: Low hemoglobin Take 1 capsule (391.3 mg) by mouth Daily 30 capsule 6 09/22/2024 04/20/2025 Active Completed/Discontinued Medications Medication Drug Class(es) Dates [...] [Other abnormal glucose] 09-22-2024 Episodic Essential hypertension (10 sources) Essential hypertension; Translations: [Essential (primary) hypertension] [...] applicable or unspecified; Translations: [MAT CARE OTH WA FTL GRTH 3RD TM UNS] Onset: 06-14-2021 Episodic Other complications of (4 sources) Maternal care for other known or suspected poor growth, unspecified trimester, not applicable or unspecified; Translations: [MAT CARE OTH WA FTL GRTH UNS TM UNS] Onset: 06-01-2021 Episodic Other complications of (4 sources) Other specified related conditions, third trimester; Translations: [OTH SPEC PREG RELATED COND 3RD TRI] Onset: 05-12-2021 Episodic Other complications of (2 sources) size does not accord with dates; Translations: [Uterine size-date discrepancy, unspecified trimester] 09-07-2024 Episodic Other and delivery including normal (9 sources) Single live ; Translations: [Encounter for [...] [31 weeks gestation of ] 09-22-2024 Episodic Residual codes; unclassified (2 sources) Gestation period, 33 weeks; Translations: [33 weeks gestation of ] 10-06-2024 Episodic Unclassified (1 source) CONTACT W/AND (SUSP) EXPOS COVID-19; Translations: [CONTACT W/AND (SUSP) EXPOS COVID-19] Onset: 06-20-2021 Viral infection (1 source) COVID-19; Translations: [COVID-19] Onset: 05-16-2021 Results Test Name Value Interpretation Reference Range Facility GLUCOSE TOLERANCE 3 HOURon 0 09-26-2024 GLUCOSE TOLERANCE 3 HOUR mg/dL [facility] Comment on above: GLU FAST 79 (<95) Co l: 09/26/24 0750 GLU 1HR 177 (<180) Col: 09/26/24 0854 GLU 2HR 146 (<155) Col: 09/26/24 0954 GLU 3HR 109 (<140) Col: 09/26/24 1053 [facility] US OB FOLLOW UP TRANSABDOMIN AL APPROACHon [...] UA Negative Negative - 4(70) +++ mg/dL [facility] Blood, UA Negative Negative - 50 Adonis/mcL [facility] Clarity, UA Clear [facility] Color, UA Yellow [facility] Glucose, UA Negative Negative - 1999(110) ++++ mg/dL [facility] Interpretation and review of laboratory results Abnormal [facility] Ketones, UA Negative Negative - 160(16) ++++ mg/dL [facility] Leukocytes, UA Positive Negative - 500+++ Jose Alfredo/mcL [facility] Comment on above: 1+ Nitrite, UA Negative Negative - Positive [facility] pH, UA 7.5 5 - 9 [facility] Protein, UA Negative Negative - 1999(20) ++++ mg/dL [facility] Spec Grav, UA 1.015 1 - 1.03 [facility] Urobilinogen, UA 1.0 0.2 - 12 mg/dL [facility] ALL CBC WITH AUTO DIFFon BASOPHILS ABSOLUTE AUTO 0 [facility] Basophils/100 WBC (Bld) 0.2 % 0.2 - 2.0 % [facility] Eosinophils/100 WBC (Bld) 0.7 % Low 0.9 - 7.0 % [facility] Erythrocyte distribution width (RBC) [Ratio] 14.6 % 11.0 - 15.0 % [facility] Hematocrit (Bld) [Volume fraction] 31.8 % Low 36.0 - 48.0 % [facility] Hemoglobin (Bld) [Mass/Vol] 10.4 g/dL Low 12.0 - 16.0 g/dL [facility] IMMATURE GRANULOCYTES ABS AUTO 0.16 High [facility] Immature granulocytes/100 WBC (Bld) 1.7 % High 0.0 - 0.5 % [facility] Interpretation and review of laboratory results Abnormal [facility] LYMPHOCYTES ABSOLUTE AUTO 1.4 [facility] Lymphocytes/100 WBC (Bld) 14.7 % Low 20.5 - 60.0 % [facility] MCH (RBC) [Entitic mass] 27 pg 26.7 - 34.0 pg [facility] MCHC (RBC) [Mass/Vol] 32.7 g/dL 29.9 - 35.2 g/dL [facility] MCV (RBC) [Entitic vol] 82.6 fL 81.0 - 99.0 fL [facility] MONOCYTES ABSOLUTE AUTO 0.5 [facility] Monocytes/100 WBC (Bld) 5.3 % 1.7 - 12.0 % [facility] NEUTROPHILS ABSOLUTE AUTO 7.4 High [facility] Neutrophils/100 WBC (Bld) 77.4 % High 43.0 - 75.0 % [facility] Platelet mean volume (Bld) [Entitic vol] 10.6 fL 9.5 - 13.5 fL [facility] TBH EO # 0.1 [facility] TB PLT 342 [facility] TB RBC 3.85 Low [facility] WBC 9.6 [facility] Urinalysis macro (dipstick) panel (U)on 09-07-2024 Bilirubin, UA Negative Negative - 4(70) +++ mg/dL [facility] Blood, UA Negative Negative - 50 Adonis/mcL [facility] Clarity, UA Clear [facility] Color, UA Yellow [facility] Glucose, UA Negative Negative - 1999(110) ++++ mg/dL [facility] Interpretation and review of laboratory results Normal [facility] Ketones, UA Negative Negative - 160(16) ++++ mg/dL [facility] Leukocytes, UA Negative Negative - 500+++ Jose Alfredo/mcL [facility] Nitrite, UA Negative Negative - Positive [facility] pH, UA 6.5 5 - 9 [facility] Protein, UA Negative Negative - 1999(20) ++++ mg/dL [facility] Spec Grav, UA 1.025 1 - 1.03 [facility] Urobilinogen, UA 1.0 0.2 - 12 mg/dL [facility] US OB >= 14 weeks Fetuson US OB >= 14 weeks Fetus [facility] [place] [address] Ultrasound Report Signed Patient: Kayley Graham MR#: [id number] 5 : 1995 Acct:[id number] Age/Sex: 29 / F ADM Date: 07/17/24 Loc: Room: Type: [facility] Attending Dr: Enma Rivera ([facility]) COURTNEY Ordering Provider: Emna Rivera APRN, WHCNP Date of Service: 07/17/24 US/US OB >= 14 weeks Fetus: Z34.82 Copies to: Enma Rice, ORDER FULFILLMENT SPECIALIST, WHCNP Obstetrical Ultrasound for Fetus greater than [...] Marie M.D. 07/17/2024 4:13 PM Dictation Location: [facility] Tech: Orquidea Dinorah Transcribed By: MITALI 07/17/24 1613 Dictated By: Gage Marie DO 07/17/24 1611 Signed By: 07/17/24 1613 Normal [facility] Urine Cultureon 05-27-2024 Bacteria identified Cx Nom (U) No Growth 2 Days PERFORMED BY: [place] [id number] PATHOLOGIST EMPLOYEE RELATIONS ASSISTANT CAESAR STOLL M.D. Normal [facility] Comment on above: Performed By: #### C UU #### [address] Urine cultureOrdered By: Pearl Glover on 05-27-2024 Bacteria identified Cx Nom (U) Urine culture [facility] US OB <= 14 weeks fetuson US OB <= 14 weeks fetus [facility] [place] [address] Ultrasound Report Signed Patient: Kayley Graham MR#: [id number] 5 : 1995 Acct:[id number] Age/Sex: 29 / F ADM Date: 05/04/24 Loc: UL Room: Type: [facility] Attending Dr: Enma Rivera ([facility]) COURTNEY Ordering Provider: Enma Rivera APRN, [...] Simeon Jr., D.O.05/04/2024 5:01 PM Dictation Location: [place] [address] Tech: Maricel Andre Transcribed By: PWS 05/04/24 1701 Dictated By: Castillo Simeon Jr, DO 05/04/24 1658 Signed By: 05/04/24 170 Normal [facility] CBC AUTO DIFFon 06-15-2021 BASO # 0.0 103/ul Normal 0.0-0.1 [facility] Comment on above: Performed By: #### C BC #### [facility] [address] [address] [address] Baljit Rockwell Basophils/100 WBC (Bld) 0.2 % Normal 0.2-2.0 [facility] Comment on above: Performed By: #### C BC #### [facility] [address] [address] [address] Baljit Rockwell EO # 0.0 103/ul Normal 0.0-0.7 [facility] Comment on above: Performed By: #### C BC #### [facility] [address] [address] [address] Baljit Rockwell Eosinophils/100 WBC (Bld) 0.1 % Critically low 0.9-7.0 [facility] Comment on above: Performed By: #### C BC #### [facility] [address] [place] [address] Dr. Baljit Rockwell Erythrocyte distribution width (RBC) [Ratio] 14.5 % Normal 11.0-15.0 [facility] Comment on above: Performed By: #### C BC #### [facility] [address] [place] [address] Dr. Baljit Rockwell Hematocrit (Bld) [Volume fraction] 35.6 % Critically low 36.0-48.0 [facility] Comment on above: Performed By: #### C BC #### [facility] [address] [place] [address] Dr. Baljit Rockwell Hemoglobin (Bld) [Mass/Vol] 11.4 g/dL Critically low 12.0-16.0 [facility] Comment on above: Performed By: #### C BC #### [facility] [address] [place] [address] Dr. Baljit Rockwell IG # 0.14 10e3/ul Critically high 0.00-0.03 [facility] Comment on above: Performed By: #### C BC #### [facility] [address] [place] [address] Dr. Baljit Rockwell IG % 0.9 % Critically high 0.0-0.5 [facility] Comment on above: Performed By: #### C BC #### [facility] [address] [place] [address] Dr. Baljit Rockwell LYMPH # 2.0 103/ul Normal 1.2-3.8 [facility] Comment on above: Performed By: #### C BC #### [facility] [address] [place] [address] Dr. Baljit Rockwell Lymphocytes/100 WBC (Bld) 11.9 % Critically low 20.5-60.0 [facility] Comment on above: Performed By: #### C BC #### [facility] [address] [place] [address] Dr. Baljit Rockwell MANUAL DIFF REQ NO Normal [facility] Comment on above: Performed By: #### C BC #### [facility] [address] [place] [address] Dr. Baljit Rockwell MCH (RBC) [Entitic mass] 27.9 pg Normal 26.7-34.0 [facility] Comment on above: Performed By: #### C BC #### [facility] [address] [place] [address] Dr. Baljit Rockwell MCHC (RBC) [Mass/Vol] 32.0 g/dL Normal 29.9-35.2 [facility] Comment on above: Performed By: #### C BC #### [facility] [address] [place] [address] Dr. Baljit Rockwell MCV (RBC) [Entitic vol] 87.3 fL Normal 81.0-99.0 [facility] Comment on above: Performed By: #### C BC #### [facility] [address] [place] [address] Dr. Baljit Rockwell MONO # 0.7 103/ul Normal 0.3-0.8 [facility] Comment on above: Performed By: #### C BC #### [facility] [address] [place] [address] Dr. Baljit Rockwell Monocytes/100 WBC (Bld) 4.3 % Normal 1.7-12.0 [facility] Comment on above: Performed By: #### C BC #### [facility] [address] [place] [address] Dr. Baljit Rockwell NEUT # 13.6 103/ul Critically high 1.4-6.5 [facility] Comment on above: Performed By: #### C BC #### [facility] [address] [place] [address] Dr. Baljit Rockwell Neutrophils/100 WBC (Bld) 82.6 % Critically high 43.0-75.0 [facility] Comment on above: Performed By: #### C BC #### [facility] [address] [place] [address] Dr. Baljit Rockwell Platelet mean volume (Bld) [Entitic vol] 10.6 fL Normal 9.5-13.5 [facility] Comment on above: Performed By: #### C BC #### [facility] [address] [place] [address] Dr. Baljit Rockwell PLT 256 103/ul Normal 150-450 [facility] Comment on above: Performed By: #### C BC #### [facility] [address] [place] [address] Dr. Baljit Rockwell RBC 4.08 106/ul Critically low 4.20-5.40 [facility] Comment on above: Performed By: #### C BC #### [facility] [address] [place] [address] Dr. Baljit Rockwell WBC 16.4 103/ul Critically high 4.0-11.0 [facility] Comment on above: Performed By: #### C BC #### [facility] [address] [place] [address] Dr. Baljit Rockwell DRUG SCREEN RAPID (URINE)on 06-15-2021 AMP Negative Normal NEGATIVE [facility] Comment on above: Performed By: #### D RUGRPD #### [facility] [address] [place] [address] Dr. Baljit Rockwell BAR Negative Normal NEGATIVE [facility] Comment on above: Performed By: #### D RUGRPD #### [facility] [address] [place] [address] Dr. Baljit Rockwell BUP Negative Normal NEGATIVE [facility] Comment on above: Performed By: #### D RUGRPD #### [facility] [address] [place] [address] Dr. Baljit Rockwell BZO Negative Normal NEGATIVE [facility] Comment on above: Performed By: #### D RUGRPD #### [facility] [address] [place] [address] Dr. Baljit Rockwell MIGUEL Negative Normal NEGATIVE [facility] Comment on above: Performed By: #### D RUGRPD #### [facility] [address] [place] [address] Dr. Baljit Rockwell CUT-OFFS SEE BELOW Normal [facility] Comment on above: Result Comment: AMP [...] ng/mL Performed By: #### D RUGRPD #### [facility] [address] [place] [address] Dr. Baljit Rockwell DRUG CUT HEADER DRUG CLASS TEST SYSTEM CUT-OFF CONCENTRATIONS ARE FOLLOWS: Normal [facility] Comment on above: Performed By: #### D RUGRPD #### [facility] [address] [place] [address] Dr. Baljit Rockwell mAMP Negative Normal NEGATIVE [facility] Comment on above: Performed By: #### D RUGRPD #### [facility] [address] [place] [address] Dr. Baljit Rockwell MTD Negative Normal NEGATIVE [facility] Comment on above: Performed By: #### D RUGRPD #### [facility] [address] [place] [address] Dr. Baljit Rockwell OPI Negative Normal NEGATIVE [facility] Comment on above: Performed By: #### D RUGRPD #### [facility] [address] [place] [address] Dr. Baljit Rockwell OXY Negative Normal NEGATIVE [facility] Comment on above: Performed By: #### D RUGRPD #### [facility] [address] [place] [address] Dr. Baljit Rockwell PCP Negative Normal NEGATIVE [facility] Comment on above: Performed By: #### D RUGRPD #### [facility] [address] [place] [address] Dr. Baljit Rockwell PPX Negative Normal NEGATIVE [facility] Comment on above: Performed By: #### D RUGRPD #### [facility] [address] [place] [address] Dr. Baljit Rockwell TCA Negative Normal NEGATIVE [facility] Comment on above: Performed By: #### D RUGRPD #### [facility] [address] [place] [address] Dr. Baljit Rockwell THC Negative Normal NEGATIVE [facility] Comment on above: Performed By: #### D RUGRPD #### [facility] [address] [place] [address] Dr. Baljit Rockwell CBC AUTO DIFFon 06-14-2021 BASO # 0.0 103/ul Normal 0.0-0.1 [facility] Comment on above: Performed By: #### C BC #### [facility] [address] [place] [address] Dr. Baljit Rockwell Basophils/100 WBC (Bld) 0.2 % Normal 0.2-2.0 [facility] Comment on above: Performed By: #### C BC #### [facility] [address] [place] [address] Dr. Baljit Rockwell EO # 0.0 103/ul Normal 0.0-0.7 [facility] Comment on above: Performed By: #### C BC #### [facility] [address] [place] [address] Dr. Baljit Rockwell Eosinophils/100 WBC (Bld) 0.3 % Critically low 0.9-7.0 [facility] Comment on above: Performed By: #### C BC #### [facility] [address] [place] [address] Dr. Baljit Rockwell Erythrocyte distribution width (RBC) [Ratio] 14.5 % Normal 11.0-15.0 [facility] Comment on above: Performed By: #### C BC #### [facility] [address] [place] [address] Dr. Baljit Rockwell Hematocrit (Bld) [Volume fraction] 35.0 % Critically low 36.0-48.0 [facility] Comment on above: Performed By: #### C BC #### [facility] [address] [place] [address] Dr. Baljit Rockwell Hemoglobin (Bld) [Mass/Vol] 11.2 g/dL Critically low 12.0-16.0 [facility] Comment on above: Performed By: #### C BC #### [facility] [address] [place] [address] Dr. Baljit Rockwell IG # 0.11 10e3/ul Critically high 0.00-0.03 [facility] Comment on above: Performed By: #### C BC #### [facility] [address] [place] [address] Dr. Baljit Rockwell IG % 0.9 % Critically high 0.0-0.5 [facility] Comment on above: Performed By: #### C BC #### [facility] [address] [place] [address] Dr. Baljit Rockwell LYMPH # 2.2 103/ul Normal 1.2-3.8 [facility] Comment on above: Performed By: #### C BC #### [facility] [address] [place] [address] Dr. Baljit Rockwell Lymphocytes/100 WBC (Bld) 17.7 % Critically low 20.5-60.0 [facility] Comment on above: Performed By: #### C BC #### [facility] [address] [place] [address] Dr. Baljit Rockwell MANUAL DIFF REQ NO Normal [facility] Comment on above: Performed By: #### C BC #### [facility] [address] [place] [address] Dr. Baljit Rockwell MCH (RBC) [Entitic mass] 27.3 pg Normal 26.7-34.0 [facility] Comment on above: Performed By: #### C BC #### [facility] [address] [place] [address] Dr. Baljit Rockwell MCHC (RBC) [Mass/Vol] 32.0 g/dL Normal 29.9-35.2 [facility] Comment on above: Performed By: #### C BC #### [facility] [address] [place] [address] Dr. Baljit Rockwell MCV (RBC) [Entitic vol] 85.2 fL Normal 81.0-99.0 [facility] Comment on above: Performed By: #### C BC #### [facility] [address] [place] [address] Dr. Baljit Rockwell MONO # 0.7 103/ul Normal 0.3-0.8 [facility] Comment on above: Performed By: #### C BC #### [facility] [address] [place] [address] Dr. Baljit Rockwell Monocytes/100 WBC (Bld) 5.4 % Normal 1.7-12.0 [facility] Comment on above: Performed By: #### C BC #### [facility] [address] [place] [address] Dr. Baljit Rockwell NEUT # 9.4 103/ul Critically high 1.4-6.5 [facility] Comment on above: Performed By: #### C BC #### [facility] [address] [place] [address] Dr. Baljit Rockwell Neutrophils/100 WBC (Bld) 75.5 % Critically high 43.0-75.0 [facility] Comment on above: Performed By: #### C BC #### [facility] [address] [place] [address] Dr. Baljit Rockwell Platelet mean volume (Bld) [Entitic vol] 10.7 fL Normal 9.5-13.5 [facility] Comment on above: Performed By: #### C BC #### [facility] [address] [place] [address] Dr. Baljit Rockwell PLT 265 103/ul Normal 150-450 [facility] Comment on above: Performed By: #### C BC #### [facility] [address] [place] [address] Dr. Baljit Rockwell RBC 4.11 106/ul Critically low 4.20-5.40 [facility] Comment on above: Performed By: #### C BC #### [facility] [address] [place] [address] Dr. Baljit Rockwell WBC 12.5 103/ul Critically high 4.0-11.0 [facility] Comment on above: Performed By: #### C BC #### [facility] [address] [place] [address] Dr. Baljit Rockwell Covid-19 PCR (CVDTB)on 05-20 SARS-CoV-2 (COVID-19) RNA ZOLTAN+probe Ql (Unsp spec) Not detected Normal NOT DETECTED [facility] Comment on above: Result Comment: When [...] for this test is supported by the [employer] Instructor of Health and Human Service's declaration that [...] used). Performed By: #### C VDTBH #### [facility] [address] [place] [address] Dr. Baljit Rockwell TYPE AND SCREENon 06-14-2021 TYPE AND SCREEN Negative Normal [facility] Comment on above: Performed By: #### T NS #### [facility] [address] [place] [address] Dr. Baljit Rockwell US PREG BIOPHY W NON STRESSo n 06-02-2021 US PREG BIOPHY W NON STRESS EXAMINATION: US PREG BIOPHY W NON STRESS HISTORY: [id number] baby COMPARISON: Ultrasound biophysical 05/25/2021 TECHNIQUE: Ultrasound biophysical profile was performed. FINDINGS: BREATHING MOVEMENTS: 2.0 GROSS BODY MOVEMENTS: 2.0 TONE: 2.0 QUALITATIVE AMNIOTIC FLUID VOLUME: 2.0 PRESENTATION: CEPHALIC HEART RATE: 157.0 bpm bpm. AMNIOTIC FLUID VOLUME: 13.5 cm GESTATIONAL AGE: 36 weeks 3 days CONCLUSION: Total biophysical profile score 8.0. Electronically authenticated by: BRENDA VIEYRA Date: 2021-06-02 08:18 Normal [facility] GROUP B STREP CULTUREon 05-19 S. agalactiae Ag Ql (Unsp spec) Culture Observations: NEGATIVE FOR GROUP B STREPTOCOCCUS. Normal [facility] Comment on above: Performed By: #### G BSCX #### [facility] [address] [place] [address] Dr. Baljit Rockwell US PREG BIOPHY W NON STRESSo n 05-26-2021 US PREG BIOPHY W NON STRESS EXAMINATION: US PREG BIOPHY W NON STRESS HISTORY: [id number] baby COMPARISON: No relevant comparison available. TECHNIQUE: Ultrasound biophysical profile was performed. FINDINGS: BREATHING MOVEMENTS: 2.0 GROSS BODY MOVEMENTS: 2.0 TONE: 2.0 QUALITATIVE AMNIOTIC FLUID VOLUME: 2.0 PRESENTATION: CEPHALIC HEART RATE: 131.7 bpm bpm. AMNIOTIC FLUID VOLUME: 11.2 cm GESTATIONAL AGE: 35 weeks 3 days CONCLUSION: Total biophysical profile score 8.0. Electronically authenticated by: BRENDA VIEYRA Date: 2021-05-26 08:00 Normal [facility] US PREG ANATOMY SINGLEon US PREG [...] KRISTIAN DICKEY Date: 2021-05-23 15:17 Normal [facility] Covid-19 PCR (CVDTB)on 04-19 SARS-CoV-2 (COVID-19) RNA ZOLTAN+probe Ql (Unsp spec) Detected Critically abnormal NOT DETECTED [facility] Comment on above: Result Comment: This test is not yet approved or cleared by the [place] FDA. When there are no FDA-approved or cleared tests available, and other criteria are met, FDA can make tests available under an emergency access mechanism called an Emergency Use Authorization (EUA). The EUA for this test is supported by the Office Systems Technology Instructor of Health and Human Service's (HHS's) declaration [...] longer be used). Performed By: #### [facility] #### [facility] [address] [place] [address] Dr. Baljit BASS (CLEAN/CATCH) AIR SUPPORT CONTROL OFFICER/MICRO I F IND.on 05-12-2021 Bilirubin Ql (U) Negative Normal NEGATIVE [facility] Comment on above: Performed By: #### U ACSIND #### [facility] [address] [place] [address] Dr. Baljit Rockwell Clarity (U) CLEAR Normal CLEAR [facility] Comment on above: Performed By: #### U ACSIND #### [facility] [address] [place] [address] Dr. Baljit Rockwell Color (U) LT. YELLOW Normal YELLOW [facility] Comment on above: Performed By: #### U ACSIND #### [facility] [address] [address] [address] Baljit Rockwell Glucose Ql (U) Negative Normal NEGATIVE [facility] Comment on above: Performed By: #### U ACSIND #### [facility] [address] [place] [address] Dr. Baljit Rockwell Hemoglobin Ql (U) Negative Normal NEGATIVE [facility] Comment on above: Performed By: #### U ACSIND #### [facility] [address] [place] [address] Dr. Baljit Rockwell Ketones Ql (U) Negative Normal NEGATIVE [facility] Comment on above: Performed By: #### U ACSIND #### [facility] [address] [place] [address] Dr. Baljit Rockwell LEUKOCYTES Negative Normal NEGATIVE [facility] Comment on above: Performed By: #### U ACSIND #### [facility] [address] [address] [address] Baljit Rockwell Nitrite Ql (U) Negative Normal NEGATIVE [facility] Comment on above: Performed By: #### U ACSIND #### [facility] [address] [place] [address] Dr. Baljit Rockwell pH (U) 7.0 [pH] Normal 5-9 [facility] Comment on above: Performed By: #### U ACSIND #### [facility] [address] [place] [address] Dr. Baljit Rockwell SPEC GRAVITY <=1.005 Abnormal 1.005-<=1.025 [facility] Comment on above: Performed By: #### U ACSIND #### [facility] [address] [address] [address] Baljit Rockwell UA PROTEIN Negative Normal NEGATIVE/ TRACE [facility] Comment on above: Performed By: #### U ACSIND #### [facility] [address] [address] [address] Baljit Rockwell UR MICRO IND NOT INDICATED Normal [facility] Comment on above: Performed By: #### U ACSIND #### [facility] [address] [address] [address] Baljit Rockwell Urobilinogen Qn (U) 0.2 {Shannan'U}/dL Normal 0.2 - 1. 0 [facility] Comment on above: Performed By: #### U ACSIND #### [facility] [address] [address] [address] Baljit Rockwell Vital Signs Date Time Vital Sign Value Performing Clinician Faci lity 10-06-2024 14:10-0400 Body mass index (BMI) [Ratio] 31.32 kg/m2 [employer] Work Phone: [facility] 10-06-2024 14:10-0400 Body weight 80.2 kg Srinivasan Suleiman DO Work Phone: [facility] 10-06-2024 14:10-0400 Diastolic blood pressure 84 mm[Hg] Srinivasan Suleiman [employer] Work Phone: [facility] 10-06-2024 14:10-0400 Systolic blood pressure 126 mm[Hg] Srinivasan Suleiman DO Work Phone: [facility] 09-22-2024 10:08-0400 Body mass index (BMI) [Ratio] 30.79 kg/m2 Tiffany TUCKER Work Phone: [facility] 09-22-2024 10:08-0400 Body weight 78.83 kg Tiffany TUCKER Work Phone: [facility] 09-22-2024 10:08-0400 Diastolic blood pressure 82 mm[Hg] Tiffany TUCKER Work Phone: [facility] 09-22-2024 10:08-0400 Systolic blood pressure 130 mm[Hg] Tiffany TUCKER Work Phone: [facility] 09-07-2024 13:10-0400 Body mass index (BMI) [Ratio] 30.43 kg/m2 Srinivasan Suleiman DO Work Phone: [facility] 09-07-2024 13:10-0400 Body weight 77.93 kg Srinivasan Suleiman DO Work Phone: [facility] 09-07-2024 13:10-0400 Diastolic blood pressure 78 mm[Hg] Srinivasan Suleiman DO Work Phone: [facility] 09-07-2024 13:10-0400 Systolic blood pressure 122 mm[Hg] Srinivasan Suleiman DO Work Phone: [facility] Encounters Encounter Date Encounter Type Care Provider Facility Start: 10-06-2024 End: 10-06-2024 Office outpatient visit 15 minutes Srinivasan Suleiman DO Work Phone: [facility] Comment on above: Third trimester preg darvin ([facility]); 33 weeks gestation of ([facility]) Start: 10-06-2024 End: 10-06-2024 Bamboo flowsheet Srinivasan Suleiman DO Work Phone: [facility] Start: 10-06-2024 End: 10-06-2024 Bamboo flowsheet Srinivasan Suleiman DO Work Phone: [facility] Start: 10-06-2024 End: 10-06-2024 ambulatory SRINIVASAN SULEIMAN Not Available Start: 09-26-2024 End: 09-26-2024 Clinisync Result Encounter Tiffany TUCKER Work Phone: [facility] Unsolicited Start: 09-26-2024 End: 09-26-2024 Clinisync Result Encounter Tiffany TUCKER Work Phone: [facility]solicited Start: 09-22-2024 End: 09-22-2024 Office outpatient visit 15 minutes Tiffany TUCKER Work Phone: [facility] Comment on above: 31 weeks gestation o f ([facility]); Third trimester ([facility]); Elevated glucose tolerance test Start: 09-22-2024 End: 09-22-2024 ambulatory TIFFANY LLANES Not Available Start: 09-21-2024 End: 09-21-2024 Clinisync Result Encounter Srinivasan Suleiman DO Work Phone: [facility] Unsolicited Start: 09-21-2024 End: 09-21-2024 Clinisync Result Encounter Srinivasan Suleiman DO Work Phone: [facility] Unsolicited Start: 09-11-2024 ambulatory Enma Tate [facility] Start: 09-07-2024 End: 09-07-2024 Bamboo flowsheet Srinivasan [...] End: 07-17-2024 Patient encounter procedure PHYSICIAN NO [facility] [place] Work Phone: Start: 07-17-2024 End: 07-17-2024 ambulatory PHYSICIAN NO [facility] Work Phone: Start: 05-27-2024 End: 05-27-2024 ambulatory PHYSICIAN NO [facility] Work Phone: Start: 05-27-2024 End: 05-27-2024 Departed Referred PHYSICIAN NO [facility] Start: 05-04-2024 End: 05-04-2024 Patient encounter procedure PHYSICIAN NO [facility] [place] Work Phone: Start: 05-04-2024 End: 05-04-2024 ambulatory PHYSICIAN NO [facility] Work Phone: Start: 06-29-2021 ambulatory [...] Date Procedure Procedure Detail Performing Clinician Start: 09-26-2024 GLUCOSE TOLERANCE 3 HOUR Tiffany TUCKER Work Phone: Start: 09-22-2024 Urnls dip stick/tabl et rgnt non-auto w/o micrscp Tiffany Tiarra PA Work Phone: Start: 09-21-2024 ALL CBC WITH AUTO DIFF Srinivasan Bearden DO Work Phone: Start: 09-07-2024 Urnls dip [...] Start: 10-06-2024 End: 10-06-2024 Patient encounter procedure [facility] Comment on above: Arrived Start: 09-22-2024 End: 09-22-2025 Measurement of glucose 3 hours after glucose challenge for glucose tolerance test Glucose tolerance, 3 hours Lab Routine Elevated glucose tolerance test Expected: 09/22/2024 (Approximate), Expires: 09/22/2025 [facility] Work Phone: Comment on above: Expected: 09/22/2024 (Approximate), Expires: 09/22/2025 Start: 09-22-2024 End: 09-22-2024 Patient encounter procedure [facility] Start: 09-22-2024 End: 09-22-2024 Professional / ancillary services management [facility] Start: 09-07-2024 End: 09-07-2025 CBC panel - Blood by Automated count CBC Lab Routine Diabetes mellitus screening Expected: 09/07/2024 (Approximate), Expires: 09/07/2025 [facility] Work Phone: Comment on above: Expected: 09/07/2024 (Approximate), Expires: 09/07/2025 Start: 09-07-2024 End: 09-07-2025 Measurement of glucose 1 hour after glucose challenge for glucose tolerance test Glucose tolerance, 1 hour Lab Routine Diabetes mellitus screening Expected: 09/07/2024 (Approximate), Expires: 09/07/2025 [facility] Comment on above: Expected: 09/07/2024 (Approximate), Expires: 09/07/2025 Start: 09-07-2024 End: 01-08-2025 US for US OB follow up transabdominal approach Imaging Routine size inconsistent with dates ([facility]) Expected: 09/07/2024, Expires: 01/08/2025 [facility] Comment on above: Expected: 09/07/2024 , Expires: 01/08/2025 Start: 09-07-2024 End: 09-07-2024 ambulatory 09/07/2024 1:30 PM EDT Initial [facility] [address] [place] [id number] Srinivasan Bearden DO [address] [place], [place] [id number] Arrived [facility] Comment on above: Arrived Start: 05-27-2024 Urine culture [facility] Start: 05-27-2024 Bacteria identified in Urine by Culture Urine Culture [facility] Payers Date Payer Category Payer Private Health Insurance [facility] MEDICA[facility] [id number] 2024 Self-pay 1993 Unknown [id number] 2.16.840.1.967805.3.579.2. 593 1993 Unknown [id number] 2.840.1.598952.3.579.2. 593 1993 Unknown [id number] 2.16.840.1.396974.3.579.2. 593 1993 Unknown [id number] 2.16.840.1.043453.3.579.2. 593 1993 Unknown [id number] 2.16.840.1.669804.3.579.2. 593 1993 Unknown [id number] 2.16.840.1.174854.3.579.2. 593 1993 Unknown [id number] 2.16.840.1.813473.3.579.2. 593 1993 Unknown [id number] 2.16.840.1.429711.3.579.2. 593 1993 Unknown [id number] 2.16.840.1.598988.3.579.2. 593 1993 Unknown [id number] 2.16.840.1.247864.3.579.2. 593 1993 Unknown [id number] 2.16.840.1.996117.3.579.2. 593 1993 Unknown [id number] 2.16.840.1.373464.3.579.2. 593 1993 Unknown [id number] 2.16.840.1.767736.3.579.2. 593 1993 Unknown [id number] 2.16.840.1.385972.3.579.2. 593 1993 Unknown [id number] 2.16.840.1.872249.3.579.2. 593 1993 Unknown [id number] 2.16.840.1.334421.3.579.2. 716 1993 Unknown [id number] 2.16.840.1.692716.3.579.2. 1259 1993 Unknown [id number] 2.16.840.1.596664.3.579.2. 1259 1993 Unknown [id number] 2.16.840.1.927830.3.579.2. 1259 1993 Unknown [id number] 2.16.840.1.038077.3.579.2. 1259 1961 Medicaid [id number] 1961 Self-pay [id number] Unknown [id number] 2.16.840.1.704164.3.579.2. 531 Unknown [id number] 2.16.840.1.567259.3.579.2. 531 Unknown [id number] 2.16.840.1.962978.3.579.2. 531 Social History Date Type Detail Facility Tobacco smoking stat [facility] Unknown if ever smoked [facility] Start: 05-05-2024 End: 07-18-2024 Sex Female (finding) [facility] Start: 1995 Sex Assigned At [facility] Start: 1995 Sex assigned at Not on file [facility] Gender identity Not on file [facility] Start: 02-27-2024 [facility] History of Present illness Narrative 10-06-2024 Yana Peacock LPN - 10/06/2024 2:20 PM EDT Note Date & Type Note Facility 10-06-2024 History of Presen t illness Narrative Reason [...] nursing note reviewed. Exam conducted with a kelly machine operator present. Vitals: Estimated body mass index is 31.32 kg/m as calculated from the following: Height as of 07/09/23: 5' 3 . Weight as of this encounter: 176 lb 12.8 oz. BP: 126/84 Patient's last menstrual period was 02/19/2024. ASSESSMENT & PLAN ICD-10-CM 1. Third trimester ([facility]) Z34.93 2. 33 weeks gestation of ([facility]) Z3A.33 Return OB: Patient presents today for [...] by Yana Peacock LPN on behalf of: Srinivasan Bearden DO documented in this encounter [facility] History of Present illness Narrative 09-22-2024 GARRETT [...] PLAN ICD-10-CM 1. 31 weeks gestation of ([facility]) Z3A.31 POCT urinalysis dipstick manually resulted 2. Third trimester ([facility]) Z34.93 POCT urinalysis dipstick manually resulted 3. [...] of: GARRETT Rivers documented in this encounter [facility] History of Present illness Narrative 09-07-2024 Enma [...] nursing note reviewed. Exam conducted with a kelly machine operator present. Vitals: Estimated body mass index is 30.43 kg/m as calculated from the following: Height as of 07/09/23: 5' 3 . Weight as of this encounter: 171 lb 12.8 oz. BP: 122/78 Patient's last menstrual period was 02/19/2024. ASSESSMENT & PLAN ICD-10-CM 1. Third trimester ([facility]) Z34.93 POCT urinalysis dipstick manually resulted 2. 29 weeks gestation of ([facility]) Z3A.29 POCT urinalysis dipstick manually resulted 3. Diabetes mellitus screening Z13.1 Hemoglobin A1c CBC Glucose tolerance, 1 hour CBC Glucose tolerance, 1 hour Patient presents today for transfer of care OB patient. Patient was seeing [facility] and desires to deliver at [facility]. Patient to return to clinic in 2 weeks for return OB and growth scan. Reviewed all labs and scans with patient as well. Documented by Enma Irizarry LPN on behalf of: Srinivasan Bearden DO documented in this encounter [facility] Radiology Diagnostic study note 07-17-2024 Note Date & Type Note Facility 07-17-2024 Radiology Diagnostic study note [facility] [place] [address] [place] [address] Ultrasound Report Signed Patient: Kayley Graham MR#: [id number] : 1995 Acct:[id number] Age/Sex: 29 / F ADM Date: 5 Loc: Room: Type: [facility] Attending Dr: Enma Rivera ([facility]) COURTNEY Ordering Provider: Enma Rivera APRN, [...] Marie M.D. 07/17/2024 4:13 PM Dictation Location: [place] [address] Tech: Orquidea Copeland Transcribed By: MITALI 07/17/24 161 Dictated By: Gage Marie DO 07/17/24 161 Signed By: 07/17/24 1613 [facility] Radiology Diagnostic study note 05-04-2024 Note Date & Type Note Facility 05-04-2024 Radiology Diagnostic study note [facility] [place] [address] Ultrasound Report Signed Patient: Kayley Graham MR#: [id number] : 1995 Acct:[id number] Age/Sex: 29 / F ADM Date: Loc: Room: Type: [facility] Attending Dr: Enma Rivera ([facility]) COURTNEY Ordering Provider: Enma Rivera APRN, [...] 11/19/2024 Impression dictated by: Castillo Simeon Jr., CarrieOSherin05/04/2024 5:01 PM Dictation Location: [place] [address] Tech: Maricel Andre Transcribed By: MITALI 05/04/24 170 Dictated By: Castillo Simeon Jr, DO 05/04/24 1658 Signed By: 05/04/24 170 [facility] Evaluation note Note Date & Type Note Facility Evaluation note No assessment information availa [facility] Work Phone: Evaluation note Note Date [...] test documented in this encounter [facility] Evaluation note Note Date & Type Note Facility Evaluation note Diagnosis Third trimester ([facility]) state, incidental 33 weeks gestation of ([facility]) documented in this encounter [facility] Summary [...] DATE CREATED AUTHOR AUTHOR'S ORGANIZ ATION 07/28/2024 [facility] DATE CREATED AUTHOR AUTHOR'S ORGANIZ ATION 09/12/2024 [facility] DATE CREATED AUTHOR AUTHOR'S ORGANIZ ATION 10/08/2024 [facility] Care Teams (unrecognized sec tion and content) Team Status: Active Member Role Status Dates PHYSICIAN NO FAMILY Primary Care Provider Active Team Status: Inactive Member Role Status Dates Enma Rivera ([facility]) COURTNEY Attending Provider Active Start: May 04, 2024 End: May 04, 2024 PHYSICIAN NO FAMILY Primary Care Provider Active Start: May 04, 2024 End: May 04, 2024 Team Status: Inactive Member Role Status Dates Maria Del Carmen Glover PA-C Attending Provider Active Start: May 27, 2024 End: May 27, 2024 Team Status: Inactive Member Role Status Dates [facility] Attending Provider Active Start: July 17, 2024 End: July 17, 2024 PHYSICIAN NO FAMILY Primary Care Provider Active Start: July 17, 2024 End: July 17, 2024 Pet Care Worker Relationship Specialty Start Date End Date Cesar Espitia MD [address] [place] [address] [place] [address] PCP - General Family Medicine 06/28/23 Pet Care Worker Relationship Specialty Start Date End Date Cesar Espitia MD [address] [place] [address] PCP - General Family Medicine 06/28/23 Pet Care Worker Relationship Specialty Start Date End Date Cesar Espitia MD [address] [place] [address] PCP - General Family Medicine 06/28/23 Pet Care Worker Relationship Specialty Start Date End Date Cesar Espitia MD [address] [place] [address] PCP - General Family Medicine 06/28/23 Pet Care Worker Relationship Specialty Start Date End Date Cesar Espitia MD [address] [place] [address] PCP - General Family Medicine 06/28/23 Goals [...] BE BASED ON THE PRIMARY CLINICAL RECORDS. [facility] [employer] [facility]. provides no warranty or guarantee of the accuracy or completeness of information in this document.
[2024-10-17 10:37] VITALS: BP 125/89; PULSE 104; TEMP 36.7
[2024-10-17 10:38] VITALS: TEMP 35.6
[2024-10-17 11:05] LABS: Glucose Urine UA NEGATIVE (NEGATIVE)
[2024-10-17] MEDS: ACETAMINOPHEN 500 MG TABLET 1000 MG PO (11:38)
[2024-10-17] MEDS: FLUCONAZOLE 150 MG TABLET PO (11:39)
== END 2024-10-17 14:05 | disposition home or self-care (01) ==
PROVIDERS: Admitting Provider Obstetrics & Gynecology; Visit Provider Obstetrics & Gynecology
DX: O47.03 False labor before 37 completed weeks of gestation, third trimester (principal); Z3A.35 35 weeks gestation of pregnancy
CPT/HCPCS: 81003; 84112; G0378; G0379

== ENCOUNTER 2024-10-20 18:47 | Outpatient (REF) | payer OTHER, SELFPAY ==
--- OUTSIDE RECORDS SUMMARY | 2024-09-11 08:26 | XMS_ITS | Continuity of Care Document ---
Author Organization [facility] Address [address] [place] [address] Phone Care Team Providers Care Engineering Leader Name Role Phone Enma Ma Unavailable Unavaila ble Allergies, Adverse Reactions, Alerts Substance Reaction Status Criticality No Known Allergies Active No Inform ation Medications Medication Instructions Dosage Effective Dates (start - stop) Status Comments hydrocortisone 1 % topical cream apply by topical route 2 times every day to the affected area(s) Not Available - Active Prenate DHA 28 mg iron-1 mg-300 mg capsule take 1 capsule by oral route every day (May substitute per insurance) - Active may substitute with ANY vitamin covered by her insurance ondansetron [address] 1 tablet by translingual route every 8 hours as needed for nausea - Active labetalol 100 mg tablet take 1 tablet by oral route 2 times every day 100 MG - Active Procedures Procedure Date OFFICE/OUTPATIENT VISIT, EST LDL-C <100 MG/DL DIAST BP < 80 MM HG SYST BP < 130 MM HG MED LIST DOCD IN [facility] RVW MEDS BY RX/DR IN RD TOBACCO NON-USER URINALYSIS NONAUTO W/O SCOPE OFFICE/OUTPATIENT VISIT, EST LDL-C <100 MG/DL ROUTINE VENIPUNCTURE URINALYSIS NONAUTO W/O SCOPE Risk Assessment PRAF OFFICE/OUTPATIENT VISIT, EST LDL-C <100 MG/DL Pt inelig neg scrn depres URINALYSIS NONAUTO W/O SCOPE OFFICE/OUTPATIENT VISIT, EST ROUTINE VENIPUNCTURE Hydrocortisone Cream 1% URINE TEST URINALYSIS NONAUTO W/O SCOPE OFFICE/OUTPATIENT VISIT, EST OFFICE/OUTPATIENT VISIT, EST LDL-C <100 MG/DL DIAST BP 80-89 MM HG SYST BP < 130 MM HG MED LIST DOCD IN [facility] RVW MEDS BY RX/DR IN [facility] Pt inelig neg scrn depres IMMUNIZATION ADMIN FLU VACCINE NO PRESERV 3 & > OFFICE/OUTPATIENT VISIT, EST DIAST BP 80-89 MM HG SYST BP >=130-139MM HG MED LIST DOCD IN RD RVW MEDS BY RX/DR IN [facility] TOBACCO NON-USER ROUTINE VENIPUNCTURE Ortho [facility] REMOVE INTRAUTERINE DEVICE PREV VISIT, EST, AGE 18-39 Nutrit Couns For Control Of [place] Dis Jul Extract; Erupted Th/exposted Rt 024 Intraoral-periapical 1st Film 4 Bitewig-single Film Oral Hygiene Instruction Limited Oral Eval Advance Directives Directive Yes / No Effective Date File Name No Information Encounters Encounter Description Practice Location Reason(s) For Visit Diagnoses Date Provider Providers Copied on Encounter [facility], [address], [place], [id number] , [place] tel: [phone] [facility] No Information 5 Miguel SAUMYA Enma. [address], [place], [id number] , [place]. tel: [phone] OFFICE/OUTPA TIENT VISIT, [facility], [address], [place], [id number] , [place] tel: [phone] [facility] routine (chief complaint) Encounter for supervision of other normal , 2nd [id number] weeks gestation of pregnancyBody mass index [BMI] 29.0-29.9, adult 5 Miguel SAUMYA [place]. [address] [place] [address], [id number] , [place]. tel: [phone] OFFICE/OUTPA TIENT VISIT, [facility], [address] [place] [address], [id number] , [place] tel: [phone] [facility] routine (chief complaint) Encounter for supervision of other normal , 2nd [id number] weeks gestation of 5 Miguel SAUMYA [place]. [address], [place], [id number] , [place]. tel: [phone] [facility], [address] [place] [address], [id number] , [place] tel: [phone] [facility] No Information 5 Miguel FAB [place]. [address], [place], [id number] , [place]. tel: [phone] OFFICE/OUTPA TIENT VISIT, [facility], [address] [place] [address], [id number] , [place] tel: [phone] [facility] 14 weeks gestation of pregnancyEncounter for supervision of other normal , 2nd trimester May-0 5 Miguel FAB [place]. [address], [place], [id number] , [place]. tel: [phone] OFFICE/OUTPA TIENT VISIT, [facility], [address], [place], [id number] , [place] tel: [phone] [facility] Interview (chief complaint)ro utine (chief complaint) Encounter for supervision of other normal , 1st [id number] weeks gestation of pregnancyMaternal chronic hypertension in first trimesterPruritic rash 5 [facility] Enma. [address] [place] [address], [id number] , [place]. tel: [phone] OFFICE/OUTPA TIENT VISIT, [facility], [address] [place] [address], [id number] , [place] tel: [phone] [facility] test (chief complaint) Positive testFirst trimester pregnancy8 weeks gestation of pregnancyEssential (primary) hypertension 5 [facility] Enma. [address] [place] [address], [id number] , [place]. tel: [phone] OFFICE/OUTPA TIENT VISIT, [facility], [address] [place] [address], [id number] , [place] tel: [phone] [facility] f/u medications (chief complaint) Essential (primary) hypertensionBody mass index [BMI] 29.0-29.9, adult Dec- 4 Plank DO Tay. [address] [place] [address], [id number] , [place]. tel: [phone] OFFICE/OUTPA TIENT VISIT, [facility], [address] [place] [address], [id number] , [place] tel: [phone] [facility] Establish Care (chief complaint)La b Draw (chief complaint) Body mass index [BMI] 29.0-29.9, adultEssential (primary) hypertensionDiabete s mellitus screeningLipid screeningNeed for hepatitis C screening testEncounter for screening for HIV 4 Plank DO Tay. [address] [place] [address], [id number] , [place]. tel: [phone] PREV VISIT, EST, AGE 18-39 [facility], [address] [place] [address], [id number] , [place] tel: [phone] [facility] annual exam (chief complaint) - STD screen- STD High risk heterosexual behaviorIUD removalDeep dyspareuniaOCP follow up Rx- well woman with abnormal finding 4 Miguel [facility] Enma. [address] [place] [address], [id number] , [place]. tel: [phone] [facility], [address] [place] [address], [id number] , [place] tel: [phone] [facility] ext (chief complaint) Encounter for screening for dental disorders 4 Candi ZEEFrankie Ella. . tel: [phone] [facility], [address] [place] [address], [id number] , [place] tel: [phone] [facility] ER (chief complaint) Body mass index [BMI] 27.0-27.9, adultEncounter for screening for dental disorders 4 Candi BiotteryS Ella. . tel: [phone] Family History Family Member Type Diagnosis Age At Onset Problem Family history of Hypertensi on Mother Problem Hypertension Mother Problem Depression Father Problem Alive and well Immunizations Vaccine Date Status Comments Fluarix/Flulaval administered Source: New Immunization Record Payers Payer name Insurance type Covered constitution party ID Authoriza tiprabha(s) [employer] Medicaid CFC [id number] Medicaid Wr - [facility] [id number] Medicaid Primary - [facility] [id number] Social History Type Description Quantity Date Captured Comments Alcohol Use Details Unknown Caffeine Use Details Unknown Tobacco Use Status No Information Smoking Status No Information Sex Female Yes - Patient is cur rently Sexual Orientation Straight or heterosexual June Gender Identity Female Chief Complaint And Reason For Visit No Information Reason For Referral Reason For Referral No Information Plan Of Treatment Date Type Action Status Goal Hep A. Due on du e Goal Lipid panel. Due on 033 due Goal Tdap. Due on due Goal Influenza vaccine. Due on No due Goal Hepatitis C screening. Due o n due Goal Depression screening. Due on due Goal Unhealthy drug use screening . Due on due Goal PRAPARE ASSESSMENT. Due on due Goal Urinalysis due Goal ECG. Due on due Goal HPV. Due on due Goal RLP. Due on due Goal Tdap Vaccine. Due on 2024 due Goal Tdap. Due on due Goal Lipid panel. Due on 033 due Goal Hepatitis C screening. Due o n due Goal Urinalysis due Goal Depression screening. Due on due Goal ECG. Due on due Goal Hep A. Due on du e Goal Unhealthy drug use screening . Due on due Goal PRAPARE ASSESSMENT. Due on due Goal HPV. Due on due Goal Influenza vaccine. Due on due Goal RLP. Due on due Goal Tdap Vaccine. Due on 2024 due Goal PRAPARE ASSESSMENT. Due on A due Goal RLP. Due on due Goal Tdap Vaccine. Due on 2024 due Goal Tdap. Due on due Goal Depression screening. Due on due Goal Urinalysis due Goal ECG. Due on due Goal Influenza vaccine. Due on No due Goal HPV. Due on due Goal Lipid panel. Due on due Goal Hepatitis C screening. Due o n due Goal Unhealthy drug use screening . Due on due Goal RLP. Due on due Goal PRAPARE ASSESSMENT. Due on A due Goal Urinalysis due Goal Hep A. Due on du e Goal Lipid panel. Due on due Goal Tdap. Due on due Goal ECG. Due on due Goal Depression screening. Due on due Goal Hepatitis C screening. Due o n due Goal HPV. Due on due Goal Influenza vaccine. Due on No due Goal Unhealthy drug use screening . Due on due Goal Tdap Vaccine. Due on 2024 due Goal Tdap. Due on due Goal RLP. Due on due Goal Influenza vaccine. Due on No due Goal ECG. Due on due Goal PRAPARE ASSESSMENT. Due on A due Goal Urinalysis due Goal Hepatitis C screening. Due o n due Goal Unhealthy drug use screening . Due on due Goal Depression screening. Due on due Goal Lipid panel. Due on due Goal Tdap Vaccine. Due on 2024 due Goal HPV. Due on due Goal Hep A. Due on du e Goal HPV. Due on due Goal Influenza vaccine. Due on No due Goal Tdap. Due on due Goal RLP. Due on due Goal ECG. Due on due Goal Lipid panel. Due on due Goal Tdap Vaccine. Due on 2024 due Goal Hepatitis C screening. Due o n due Goal PRAPARE ASSESSMENT. Due on M due Goal Urinalysis due Goal Unhealthy drug use screening . Due on due Goal Depression screening. Due on due Goal Tdap Vaccine. Due on 2024 due Goal Depression screening. Due on due Goal RLP. Due on due Goal Hepatitis C screening. Due o n due Goal Tdap. Due on due Goal Urinalysis due Goal Influenza vaccine. Due on No due Goal ECG. Due on due Goal PRAPARE ASSESSMENT. Due on F due Goal Lipid panel. Due on due Goal Hep A. Due on du e Goal Unhealthy drug use screening . Due on due Goal HPV. Due on due Goal ECG. Due on due Goal HPV. Due on due Goal Influenza vaccine. Due on No due Goal RLP. Due on due Goal Lipid panel. Due on due Goal Tdap. Due on due Goal Depression screening. Due on due Goal Hepatitis C screening. Due o n due Goal PRAPARE ASSESSMENT. Due on N due Goal Urinalysis. Due on due Goal Unhealthy drug use screening . Due on due Goal Tdap Vaccine. Due on 2023 due Goal Lifestyle education regardin g diet completed Goal Influenza vaccine. Due on No due Goal Tdap. Due on due Goal HPV. Due on due Goal Hepatitis C screening. Due o n due Goal Unhealthy drug use screening . Due on due Goal Depression screening. Due on due Goal RLP. Due on due Goal Tdap Vaccine. Due on 2023 due Goal PRAPARE ASSESSMENT. Due on N due Goal ECG. Due on due Goal Urinalysis. Due on due Goal Lifestyle education regardin g diet completed Goal Tdap. Due on due Goal Depression screening. Due on due Goal Hepatitis C screening. Due o n due Goal Influenza vaccine. Due on Oc due Goal PRAPARE ASSESSMENT. Due on O due Goal Tdap Vaccine. Due on 2023 due Goal HPV. Due on due Goal RLP. Due on due Goal Unhealthy drug use screening . Due on due Goal Hep A. Due on du e Goal HPV. Due on due Goal Tdap Vaccine. Due on 2023 due Goal Unhealthy drug use screening . Due on due Goal Influenza vaccine. Due on Ju due Goal RLP. Due on due Goal Tdap. Due on due Goal Hepatitis C screening. Due o n due Goal Depression screening. Due on due Goal PRAPARE ASSESSMENT. Due on due Goal Depression screening. Due on due Goal RLP. Due on due Goal Tdap Vaccine. Due on 2023 due Goal Tdap. Due on due Goal Influenza vaccine. Due on due Goal Unhealthy drug use screening . Due on due Goal Hepatitis C screening. Due o n due Goal HPV. Due on due Goal PRAPARE ASSESSMENT. Due on due Goal Dietary management education , guidance, and counseling completed Referral Ordered: OB ULTRASOUND COMPLETE AT 22 WEEKS Appointment date/timeframe: 07/17/2024 ordered Referral Ordered: OB ULTRASOUND < 14 WEEKS Appointment date/timeframe: 05/04/2024 ordered History Of Present Illness Encounter Date Complaint History Of Prese nt Illness routine routine Interview routine test f/u medications Pt is here to f/ u lisinopril. Pt denies any side effects from the medication. Pt denies chest pain, blurred vision, dizziness or headaches. [place] Srinivasan consents to flu vaccine today. LUDWIN Srinivasan [facility] Care Patient has not saw a primary care physician since June in [place]. Patient was previously diagnosed with hypertension in the past and used to take Nifedipine, however they used to give her very bad headaches so she stopped taking them. Patient denies any dizziness, headache, or blurred vision related to hypertension lately. Patient does not check blood pressure at home. Patient denies any other concerns at this time. Patient is UTD on [employer] and dental. Patient denies wanting the flu vaccine today. Patient denies use of alcohol, tobacco, or drugs. //LUDWIN Viveros Lab Draw Lab draw x1 RAC, 2x2 and bandage applied. Patient tolerated well.//LUDWIN Viveros annual exam Currently pregna nt: no. : 4. Parity: Term: 3. spontaneous: 1. Livin.Client is not contemplating . The client states using IUD, Paragard for control. Last LMP was 11/20/2023. Patient's menses is regular with heavy flow with a frequency of every 28 days. Positive for dysmenorrhea and menorrhagia. Negative for: breast discharge, breast lump(s), breast pain and breast self exam.Negative for Hormone replacement therapy. The client does not use tobacco. The client does not drink alcohol. Additional information: Patient is here for annual exam. She is currently using Paragard IUD and desires to have it removed and to restart OCPs. she has used them in the past without difficulty. Denies contraindications to OCps at this time. ext ER ER Functional Status Date Functional Assessmen t No Information Instructions Date Instruction Additional Infor mation signs and symptoms of la bor abnormal lab values influenza vaccine selecting a care provide r smoking counseling domestic violence family pl anning / tubal sterilization HIV and other routine t ests risk factors identif ied by history anticipated course of c are nutrition and weight gain counseling, special diet toxoplasmosis precau tions (cats / raw meat) sexual activity exercise indications for ultrasound influenza vaccine environmental / work hazards travel tobacco (ask, advise , assess, assist and arrange) alcohol illicit / recreational drugs use of any medicatio ns (including supplements, vitamins, herbs, OTC drugs) smoking counseling domestic violence seat belt use childbirth classes / hospital facilities Primary Care Giving encouragement to exercise Related to Body mass index [BMI] 29.0-29.9, adult Lifestyle education regarding di et Related to Body mass index [BMI] 29.0-29.9, adult Giving encouragement to exercise Related to Body mass index [BMI] 29.0-29.9, adult Lifestyle education regarding di et Related to Body mass index [BMI] 29.0-29.9, adult Encouraged good diet jessica intake, exercise and healthy lifestyle choices. Recommend daily multi-vitamin with Folic acid. Understands the need for non-violent partners in a consensual relationship. Patient does not desire a in the near future. Reviewed control options for prevention and desires to have IUD removed and to start OCPs today Related to - well woman with abnormal finding Discussed BC options . Patient desires to start Kailee with the onset of her next menses. Denies contraindications. Encouraged to start with the onset of her next menses. Take 1 tablet daily and if misses a pill take as soon as she remembers. If she misses two pills take two one day and two the next day, but use back up form of BC like condoms. Encouraged to use condoms regularly to prevent STDs in the future. 12 packs given out of our stock supply Related to OCP follow up Rx Discussed pain with IC and encouraged to use positions that are comfortable. Encouraged good communication with partner. Discussed how partner slips between cervix and vaginal wall causing her uterus to thrust with deep penetration Related to Deep dyspareunia cervical cultures ob tained and sent to lab. Patient to call in 1 week for result. Stress importance of using condoms to prevent STDs in the future. Related to - STD screen IUD removed in offic e today. Patient tolerated procedure well Related to IUD removal Giving encouragement to exercise Related to Body mass index [BMI] 27.0-27.9, adult Dietary management e ducation, guidance, and counseling Related to Body mass index [BMI] 27.0-27.9, adult Assessments Type Assessment Date No Information Patient Care Teams Name Effective Dates (start - stop) Status Members No Information
--- OUTSIDE RECORDS SUMMARY | 2024-10-06 14:20 | XMS_ITS | Encounter Summary ---
Author Organization [facility] Address [address] [place] [address] Care Team Providers Care Information Support Project Manager Name Role Phone Cesar Espitia MD Primary Care Provider [phone] Reason for Visit * Reason Comments Routine Visit Encounter Details Date Type Department Care Team (Late st Contact Info) Description 10/06/2024 2:20 PM EDT Routine [facility] [place] [facility] [address] [address] Santo Bearden DO [address] [place] [address] Third trimester ([facility]); 33 weeks gestation of ([facility]) Social History Tobacco Use Types Packs/Day Years [...] Sign Reading Time Taken Comments Blood Pressure 126/84 10/06/2024 2:10 PM EDT Pulse - - Temperature - - Respiratory Rate - - Oxygen Saturation - - Inhaled Oxygen Concentration - - Weight 80.2 kg (176 lb 12.8 oz) 10/06/2024 2:10 PM EDT Height - - Body Mass Index 31.32 07/09/2023 4:01 PM EDT documented in this encounter Progress Notes * Yana Peacock LPN - 10/06/2024 2:20 PM EDT Reason for Appointment: Patient ID: Kayley Graham is a 29 y.o. female who presents for Routine Visit Patient presents today for Return OB appointment. MEDICATIONS Current Outpatient Medications Medication Instructions iron polysaccharides (PROFE) 391.3 mg, Oral, Daily NIFEdipine XL (Procardia XL) 30 MG 24 [...] nursing note reviewed. Exam conducted with a theater education teacher present. Vitals: Estimated body mass index is 31.32 kg/m?? as calculated from the following: Height as of 07/09/23: 5' 3 . Weight as of this encounter: 176 lb 12.8 oz. BP: 126/84 Patient's last menstrual period was 02/19/2024. ASSESSMENT & PLAN ICD-10-CM 1. Third trimester ([facility]) Z34.93 2. 33 weeks gestation of ([facility]) Z3A.33 Return OB: Patient presents today for a routine obstetrics appointment. Patient is currently 33w5d . Patient states she is doing well but has complaints of being tired due to current . Patient has verbalizes frequent movement. labor precautions was discussed/given and patient was instructed to perform kick counts three times a day. No orders of the defined types were placed in this encounter. Follow Up: Patient is to return to office in 2 week for routine OB appointment. Documented by Yana Peacock LPN on behalf of: Santo Bearden DO documented in this encounter Plan of Treatment Upcoming Encounters Date Type Department Care Team (Late st Contact Info) Description 10/27/2024 11:20 AM EDT Routine [facility] [address] [place] [place] [address] Tiffany Mayen PA [address] [place] [address] documented as of this encounter Visit Diagnoses Diagnosis Third trimester ([facility] state, incidental 33 weeks gestation of ([facility]) documented in this encounter Care Teams Information Support Project Manager Relationship Specialty Start Date End Date Cesar Espitia MD [address] [place] [address] PCP - General Family Medicine 06/28/23 documented as of this encounter
--- OUTSIDE RECORDS SUMMARY | 2024-10-20 13:10 | XMS_ITS | Encounter Summary ---
Author Organization [facility] Address [address] [place] [address] Care Team Providers Care Computer Game Designer Name Role Phone Cesar Espitia MD Primary Care Provider +1- [phone] Reason for Visit * Reason Comments Routine Visit Encounter Details Date Type Department Care Team (Late st Contact Info) Description 10/20/2024 1:10 PM EDT Routine GREG Kohli OBGYN [address] [place] [address] Santo Bearden DO [address] [place] [address] 35 weeks gestation of ([facility]); Third trimester ([facility]); Low hemoglobin Social History Tobacco Use Types [...] 4:01 PM EDT documented in this encounter Plan of Treatment Upcoming Encounters Date Type Department Care Team (Late st Contact Info) Description 10/27/2024 11:20 AM EDT Routine NOMS Kamilla SALMERON [address] [place] [address] Tiffany Mayen PA [address] [place] [address] Scheduled Orders Name Type Priority Associated Diagnoses Orde r Schedule CULTURE, GROUP B STREP WITH SUSCEPTIBLITY Lab Routine Third trimester ([facility]) Expected: 10/20/2024, Expires: 10/20/2025 documented as of this encounter Procedures Procedure Name Priority Date/Time Associated Diagnosis Comments POCT URINALYSIS DIPSTICK Routine 10/20/2024 1:02 PM EDT 35 weeks gestation of ([facility]) Third trimester ([facility]) documented in this encounter Results * (ABNORMAL) POCT urinalysis dipstick manually resulted [...] Visit Diagnoses Diagnosis 35 weeks gestation of ([facility]) Third trimester ([facility]) state, incidental Low hemoglobin documented in this encounter Care Teams Computer Game Designer Relationship Specialty Start Date End Date Cesar Espitia MD [address] [place] [address] PCP - General Family Medicine 06/28/23 documented as of this encounter
--- OUTSIDE RECORDS SUMMARY | 2024-10-20 18:51 | XMS_ITS | Encounter Summary ---
Author Organization [facility] Address [address] [place] [address] Care Team Providers Care Nursery School Attendant Name Role Phone Cesar Espitia MD Primary Care Provider +- [phone] Encounter Details Date Type Department Care Team (Latest Contact Info) Description 10/19/2024 Travel Social History Tobacco Use Types Packs/Day Years [...] Info) Description 10/27/2024 11:20 AM EDT Routine NOMFrankie SALMERON [address] [place] [phone] Tiffany Mayen PA [address] [facility] [address] [place], [facility] documented as of this encounter Visit Diagnoses Not on filedocumented in this encounter Care Teams Nursery School Attendant Relationship Specialty Start Date End Date Cesar Espitia MD [address] [place] [address] PCP - General Family Medicine 06/28/23 documented as of this encounter
--- OUTSIDE RECORDS SUMMARY | 2024-10-20 18:51 | XMS_ITS | Clinical Summary ---
Author Organization [facility] Address [address] [place] [address] Care Team Providers Care Weblogic Administrator Name Role Phone Cesar Espitia MD Primary Care Provider +1- [phone] Allergies No known active allergies Medications NIFEdipine XL (Procardia XL) 30 MG 24 hr tabletIndications:Pr imary hypertension One po at bedtime. 30 tablet 2 4 Active iron polysaccharides (ProFe) 391.3 (180 Fe) MG capsuleIndications:L ow hemoglobin Take 1 capsule (391.3 mg) by mouth Daily 30 capsule 6 5 04/21/19 26 Active Active Problems Problem Noted Date Diagnosed Date Primary hypertension 06/28/2023 Estimated Date of Delivery Comme nts Yes 11/19/2024 Based on Ultraso und Encounters Date Type Department Care Team Description 10/20/2024 1:10 PM [place] [phone] Santo Bearden, 35 weeks gestation of ([facility]); Third trimester ([facility]); Low hemoglobin 10/20/2024 Bamboo flowsheet [facility] Kamilla SALMERON [address] [place] [phone] Santo Bearden DO 10/19/2024 Travel 10/17/2024 Clinisync Result Encounter NOMS External Department Unsolicited Santo Bearden DO 10/06/2024 2:20 PM EDT Routine [facility]BG[facility] [address] [facility] [place] [address] Sanot Bearden DO Third trimester ([facility]); 33 weeks gestation of ([facility]) 10/06/2024 Bamboo flowsheet [facility] Kamilla RHODESGYN Estephan[address] [facility] [place] [address] Santo Bearden DO 10/05/2024 Travel 09/26/2024 Clinisync Result Encounter NOMS External Department Unsolicited Tiffany Mayen PA 09/22/2024 10:20 AM EDT Routine [facility]OM[facility] [place] [address] Tiffany Mayen PA 31 weeks gestation of ([facility]); Third trimester ([facility]); Elevated glucose tolerance test 09/22/2024 9:30 AM EDT Ancillary Procedure [facility] Kamilla RHODESGYN [address] [facility] [place] [address] size inconsistent with dates ([facility]) 09/22/2024 Telephone [facility] Kamilla RHODESGYLauren [place] [address] Yakelin Parker MA 09/21/2024 Clinisync Result Encounter NOMS External Department Unsolicited Santo Bearden DO 09/07/2024 1:30 PM EDT Initial [facility] [place] [address] Santo Bearden, [place]: 29w4d 09/07/2024 [place]amboo [place] [address] Santo Bearden DO 08/26/2024 Abstract [facility] [place] [address] Santo Bearden DO from Last 3 Months [...] Pressure 130/78 10/20/2024 12:55 PM EDT Pulse 80 07/09/2023 4:01 PM EDT Temperature 36.3 C (97.3 F) 07/09/2023 4:01 PM EDT Respiratory Rate 16 07/09/2023 4:01 PM EDT Oxygen Saturation 99% 07/09/2023 4:01 PM EDT Inhaled Oxygen Concentration - - Weight 78.8 kg (173 lb 12.8 oz) 025 12:55 PM EDT Height 160 cm (5' 3 ) 07/09/2023 4:01 PM EDT Body Mass Index 30.79 07/09/2023 4:01 PM EDT Plan of Treatment Upcoming Encounters Date Type Department Care Team (Late st Contact Info) Description 10/27/2024 11:20 AM EDT Routine [facility] Kamilla OBSHAKEEL [address] [place] [address] Tiffany Mayen PA [address] [facility] [address] [place] [address] Procedures Procedure Name Priority Date/Time Associated Diagnosis Comments POCT URINALYSIS DIPSTICK Routine 10/20/2024 1:02 PM EDT 35 weeks gestation of ([facility]) Third trimester ([facility]) AMNISURE Routine 10/17/2024 10:42 AM EDT TBH UA (CLEAN/CATCH) CANVASSING MANAGER/MICRO IF IND. Routine 10/17/2024 10:30 AM EDT GLUCOSE TOLERANCE 3 HOUR Routine 09/26/2024 7:50 AM EDT POCT URINALYSIS DIPSTICK Routine 09/22/2024 10:15 AM EDT 31 weeks gestation of ([facility]) Third trimester ([facility]) US OB FOLLOW UP TRANSABDOMINAL APPROACH Routine 09/22/2024 9:50 AM EDT size inconsistent with dates ([facility]) GLUCOSE 1 HOUR Routine 09/21/2024 11:02 AM EDT ALL CBC WITH AUTO DIFF Routine 11:02 AM EDT POCT URINALYSIS DIPSTICK Routine 09/07/2024 1:23 PM EDT Third trimester ([facility]) 29 weeks gestation of ([facility]) from Last 3 Months Results * (ABNORMAL) POCT urinalysis dipstick manually resulted (10/20/2024 1:02 PM EDT) Only the most recent of3 resultswithin the time period is included. Pathologist [facility] Color, UA Straw Clarity, UA Clear Glucose, [...] CARE TEST ENTER/EDIT OR DERABLES Final Result * AMNISURE (10/17/2024 10:42 AM EDT) Pathologist [facility] AMNISURE NEGATIVE NEGATIVE TBH 10/17/2024 10:4 2 AM EDT 10/17/2024 10:51 AM EDT Narrative [facility] - 10/17/2024 11:03 AM EDT Santo Suleiman DO LAB BLOOD ORDERABLES Final Resul t [facility] TB * (ABNORMAL) TBH UA (CLEAN/CATCH) CANVASSING MANAGER/MICRO IF IND. (10/17/2024 10:30 AM EDT) COLOR URINE LT. YELLOW YELLOW TBH CLARITY URINE CLEAR CLEAR TBH SPECIFIC GRAVITY URINE 1.015 1.005 - 1.025 TBH PH URINE 6.5 5.0 - 9.0 TBH PROTEIN URINE NEGATIVE NEG/TRACE mg/dL TBH GLUCOSE URINE UA NEGATIVE NEGATIVE mg/dL TBH BILIRUBIN URINE NEGATIVE NEGATIVE TBH KETONES URINE TRACE(A) NEGATIVE mg/dL TBH BLOOD URINE NEGATIVE NEGATIVE TBH NITRITE URINE NEGATIVE NEGATIVE TBH UROBILINOGEN URINE 0.2 0.2 - 1.0 EU/dL TBH LEUKOCYTE ESTERASE URINE NEGATIVE NEGATIVE TBH URINE MICROSCOPIC INDICATED NO TBH 10/17/2024 10:3 0 AM EDT 10/17/2024 10:53 AM EDT Narrative [facility] - 10/17/2024 11:06 AM EDT Teneroszio DO CLINISYNC Final Result [facility] * GLUCOSE TOLERANCE 3 HOUR (09/26/2024 7:50 AM EDT) Pathologist [facility] GLUCOSE TOLERANCE 3 HOUR mg/dL TB Comment: GLU FAST 79 (<95) Col: 09/26/24 0750 GLU 1HR 177 (<180) Col: 09/26/24 0854 GLU 2HR 146 (<155) Col: 09/26/24 0954 GLU 3HR 109 (<140) Col: 09/26/24 1053 09/26/2024 7:50 AM EDT 09/26/2024 7:53 AM EDT Narrative [facility] - 09/26/2024 11:50 AM EDT us Tiffany TUCKER LAB BLOOD ORDERABLES Final Resul t [facility] * US OB follow up transabdominal approach (09/22/2024 9:50 AM EDT) Anatomical Region Laterality Modality Body Ultrasound 09/22/2024 2:13 PM EDT Impressions 09/22/2024 3:06 PM EDT Single, live intrauterine , current sonographic age of 32 weeks and 0 days, with an estimated date of delivery of November 17, 2024. * Estimated Weight (g) by Percentile is based upon an accurate estimated age based on last menstrual period. TRANSCRIBED BY: ELECTRONICALLY SIGNED BY: Castillo Anaya MD Narrative 09/22/2024 3:06 PM EDT FINDINGS: A single, live intrauterine is present [...] weight of 425 grams which was 38%. Procedure Note Castillo Anaya MD - 09/22/2024 FINDINGS: A single, live intrauterine is present with normal cardiacrate of 147 beats per minute. Normal activity and amniotic fluidvolume. Amniotic fluid index is 15.0 cm. Morphology is grossly normal.The cervix is not visualized due to positioning. The currentsonographic age is 32 weeks and 0 days, based on the followingmeasurement. cu BPD 8.1 cm (32 weeks, 4 days) Head Circumference 29.0cm ( 32 weeks, 0 days) Abdominal Circumference 27.8cm ( 31weeks, 6 days) Femur Length 6.1cm ( 31 weeks, 4 days) Presentation Cephalic weight (g) b Percentile 43.3% These measurements result in an estimated date of delivery of 2024 The current estimated weight is 1854 +/-278 grams (4pound, 1 ounces). Comparison made with July 17, 2024 had a weightof 425 grams which was 38%. IMPRESSION: Single, live intrauterine , current sonographic age of 32 weeksand 0 days, with an estimated date of delivery of November 17, 2024. * Estimated Weight (g) by Percentile is based upon an accurateestimated age based on last menstrual period. TRANSCRIBED BY: ELECTRONICALLY SIGNED BY: Castillo Anaya MD us Santo Bearden DO IMG OB US PROCEDURES Final Resul t * (ABNORMAL) GLUCOSE 1 HOUR (09/21/2024 11:02 AM EDT) GLUCOSE 1 HOUR 148(H) <130 mg/dL TBH 09/21/2024 11:0 2 AM EDT 09/21/2024 11:03 AM EDT Narrative [facility]IN[facility] - 09/21/2024 11:30 AM EDT us Santo Bearden DO LAB BLOOD ORDERABLES [facility] * (ABNORMAL) ALL CBC WITH AUTO DIFF (09/21/2024 11:02 AM EDT) TBH WBC 9.6 4.0 - 11.0 10 3/uL TBH TBH RBC 3.85(L) 4.20 - 5.40 10 6/uL TBH TBH HGB 10.4(L) 12.0 - 16.0 g/dL TBH TBH HCT 31.8(L) 36.0 - 48.0 % TBH TBH MCV 82.6 81.0 - 99.0 fL TBH TBH MCH 27.0 26.7 - 34.0 pg TBH TBH MCHC 32.7 29.9 - 35.2 g/dL TBH TBH RDW 14.6 11.0 - 15.0 % TBH TBH PLT 342 150 - 450 10 3/uL TBH TBH MPV 10.6 9.5 - 13.5 fL TBH NEUTROPHILS PERCENT AUTO 77.4(H) 43.0 - 75.0 % TBH LYMPHOCYTES PERCENT AUTO 14.7(L) 20.5 - 60.0 % TBH MONOCYTES PERCENT AUTO 5.3 1.7 - 12.0 % TBH TBH EO % 0.7(L) 0.9 - 7.0 % TBH BASOPHILS PERCENT AUTO 0.2 0.2 - 2.0 % TBH IMMATURE GRANULOCYTES PCT AUTO 1.7(H) 0.0 - 0.5 % TBH NEUTROPHILS ABSOLUTE AUTO 7.4(H) 1.4 - 6.5 10 3/uL TBH LYMPHOCYTES ABSOLUTE AUTO 1.4 1.2 - 3.8 10 3/uL TBH MONOCYTES ABSOLUTE AUTO 0.5 0.3 - 0.8 10 3/uL TBH TBH EO # 0.1 0.0 - 0.7 10 3/uL TBH BASOPHILS ABSOLUTE AUTO 0.0 0.0 - 0.1 10 3/uL TBH IMMATURE GRANULOCYTES ABS AUTO 0.16(H) 0.00 - 0.03 10 3/uL TBH 09/21/2024 11:0 2 AM EDT 09/21/2024 11:03 AM EDT Narrative [facility] - 09/21/2024 11:20 AM EDT us Santo Bearden DO CLINIS[facility]NC Final Result [facility] TB from Last 3 Months Insurance [employer]ICA[employer] Care Teams Weblogic Administrator Relationship Specialty Start Date End Date Cesar Espitia MD [address] [place] [address] PCP - General Family Medicine 06/28/23
--- OUTSIDE RECORDS SUMMARY | 2024-10-20 18:51 | XMS_ITS | Encounter Summary ---
Author Organization [facility] Address [address] [place] [address] Care Team Providers Care Embedded Software Architect Name Role Phone Cesar Espitia MD Primary Care Provider +1- [phone] Encounter Details Date Type Department Care Team (Late st Contact Info) Description 08/26/2024 Abstract [facility] Kamilla SALMERON [address] [phone] Santo Bearden DO [address] [facility] [place] [address] Social History Tobacco Use Types Packs/Day Years [...] 11:20 AM EDT Routine NOMFrankie SALMERON [address] [place] [address] Tiffany Mayen PA [address] [facility] [address] [place], [place] [id number] documented as of this encounter Visit Diagnoses Not on filedocumented in this encounter Care Teams Embedded Software Architect Relationship Specialty Start Date End Date Cesar Espitia MD [address] [place] [address] PCP - General Family Medicine 06/28/23 documented as of this encounter
--- OUTSIDE RECORDS SUMMARY | 2024-10-20 18:51 | XMS_ITS | Encounter Summary ---
Author Organization [facility] Address [address] [place] [address] Care Team Providers Care Credit Specialist Name Role Phone Cesar Espitia MD Primary Care Provider +1- [phone] Encounter Details Date Type Department Care Team (Late st Contact Info) Description 10/17/2024 Clinisync Result Encounter NOMS External Department Unsolicited Santo Bearden DO [address] [facility] [address] [place], [place] [address] Social History Tobacco Use Types Packs/Day Years [...] Description 10/27/2024 11:20 AM EDT Routine NOMFrankie Kohli OBGYLauren [address] [facility] [address] [address] Tiffany Mayen PA [address] [facility] [address] [place], [place] [id number] documented as of this encounter Procedures Procedure Name Priority Date/Time Associated Diagnosis Comments AMNISURE Routine 10/17/2024 10:42 AM EDT TBH UA (CLEAN/CATCH) SODDER/MICRO IF IND. Routine 10/17/2024 10:30 AM EDT documented in this encounter Results * AMNISURE (10/17/2024 10:42 AM EDT) TB AMNISURE NEGATIVE NEGATIVE TBH 10/17/2024 10:4 2 AM EDT 10/17/2024 10:51 AM EDT Narrative [facility] - 10/17/2024 11:03 AM EDT us Santo Suleiman DO LAB BLOOD ORDERABLES Final Resul t [facility] TBH * (ABNORMAL) TBH UA (CLEAN/CATCH) SODDER/MICRO IF IND. (10/17/2024 10:30 AM EDT) COLOR [...] Narrative [facility]IN[facility] - 10/17/2024 11:06 AM EDT us Santo Suleiman DO CLINISYNC Final Result [facility] TBH documented in this encounter Visit Diagnoses Not on filedocumented in this encounter Care Teams Credit Specialist Relationship Specialty Start Date End Date Cesar Espitia MD [address] [place] [address] PCP - General Family Medicine 06/28/23 documented as of this encounter
--- OUTSIDE RECORDS SUMMARY | 2024-10-20 18:51 | XMS_ITS | Encounter Summary ---
Author Organization [facility] Address [address] [place] [address] Care Team Providers Care Card Setter Name Role Phone Cesar Espitia MD Primary Care Provider +1- [phone] Encounter Details Date Type Department Care Team (Late Contact Info) Description 07/17/2024 Abstract [facility] Kamilla SALMERON [address] [place] [phone] Santo Bearden DO [address] [facility] [place] [address] Social History Tobacco Use Types Packs/Day Years [...] 11:20 AM EDT Routine NOMFrankie SALMERON [address] [place] [phone] Tiffany Mayen PA [address] [facility] [address] [place], [place] [id number] documented as of this encounter Visit Diagnoses Not on filedocumented in this encounter Care Teams Card Setter Relationship Specialty Start Date End Date Cesar Espitia MD [address] [place] [address] PCP - General Family Medicine 06/28/23 documented as of this encounter
--- OUTSIDE RECORDS SUMMARY | 2024-10-20 18:51 | XMS_ITS | Encounter Summary ---
Author Organization [facility] Address [address] [place] [address] Care Team Providers Care Legal Financial Specialist Name Role Phone Cesar Espitia MD Primary Care Provider +1- [phone] Encounter Details Date Type Department Care Team (Late st Contact Info) Description 10/20/2024 Bamboo flowsheet [facility] Kamilla SALMERON [address] [facility] [place] [address] Santo Bearden DO [address] [facility] [address] [place], [place] [address] Social History Tobacco Use Types Packs/Day Years [...] 11:20 AM EDT Routine NOMFrankie SALMERON [address] [facility] [place] [address] Tiffany Mayen PA [address] [facility] [address] [place], [facility] documented as of this encounter Visit Diagnoses Not on filedocumented in this encounter Care Teams Legal Financial Specialist Relationship Specialty Start Date End Date Cesar Espitia MD [address] [place] [address] PCP - General Family Medicine 06/28/23 documented as of this encounter
--- OUTSIDE RECORDS SUMMARY | 2024-10-20 18:51 | XMS_ITS | Encounter Summary ---
Author Organization [facility] Address [address] [place] [address] Care Team Providers Care Accounts Payable Coordinator Name Role Phone Cesar Espitia MD Primary Care Provider +1- [phone] Encounter Details Date Type Department Care Team (Late st Contact Info) Description 10/06/2024 Bamboo flowsheet NOMFrankie SALMERON [address] [facility] [place] [address] Santo eBarden DO [address] [facility] [address] [place], [place] [address] Social History Tobacco Use Types Packs/Day Years [...] 11:20 AM EDT Routine NOMFrankie SALMERON [address] [facility] [place] [address] Tiffany Mayen PA [address] [facility] [address] [place], [facility] documented as of this encounter Visit Diagnoses Not on filedocumented in this encounter Care Teams Accounts Payable Coordinator Relationship Specialty Start Date End Date Cesar Espitia MD [address] [place] [address] PCP - General Family Medicine 06/28/23 documented as of this encounter
--- OUTSIDE RECORDS SUMMARY | 2024-10-20 18:51 | XMS_ITS | Clinical Summary ---
Author Organization [employer] Address [id number] [address] [place] [address] Care Team Providers Care Prune Washer Name Role Phone No Pcp, No Pcp [...] Devices Not on file Insurance [address] [place], [place] [id number] [place]ID [place] T Care Teams Prune Washer Relationship Specialty Start Date End Date No Pcp, [place] [address] PCP - General Family Medicine 10/26/21
--- OUTSIDE RECORDS SUMMARY | 2024-10-20 18:55 | XMS_ITS | CCD ---
Author Organization [facility] Care Team Providers Care Radiator Tester Name Role Phone SULEIMAN, DR MATTSON Attending [...] DR ROBISON LISTED Primary Care Unavaila ble SLUEIMAN, DR MATTSON Admitting Unavailable SULEIMAN, DR MATTSON [...] JARRELL, DR BRENDA Contreras Consulting Unavailable Rice ([facility]) Enma VALDEZ Attending Provider NO FAMILY, PHYSICIAN Primary Care Provider UnaMaria Del Carmen Encarnacion PA-C Attending Provider Maria Del Carmen Glover Admitting Unavailable Maria Del Carmen Glover Attending Unavailable NO FAMILY, PHYSICIAN Primary Care Unavailable Rice ([facility]), Enma Contreras Attending Unavailabl e Rice ([facility]), Enma Contreras Admitting Unavailabl e NO FAMILY, PHYSICIAN Primary Care Unavailable Rice ([facility]), Enma Contreras Attending Unavailabl e Rice ([facility]), Enma Contreras Admitting Unavailabl e Omkar AUGUST Eloy Primary Care Provider [phone] Miguel FAB, Enma Tate Attending Unavaila ble Miguel [facility], Enma Tate Primary Care Unavaila SRINIVASAN Palomino Attending Unavailable SRINIVASAN BEARDEN Referring Unavailable TIFFANY LLANES Attending Unavailable SRINIVASAN BEARDEN Attending Unavailable Medications Current Medications Medication Drug Class(es) Dates Sig (Normalized) Sig (Original) NIFEdipine 30 mg osmotic 24 hr extended release oral tablet (12 sources) Dihydropyridine Calcium Channel Lupillo Start: 07-09-2023 take 1 tablet by mouth every twenty-four hours at bedtime NIFEdipine XL (Procardia XL) 30 MG 24 hr tablet Indications: Primary hypertension One po at bedtime. 30 tablet 2 07/09/2023 Active polysaccharide iron complex 391 mg oral capsule (6 sources) Start: 09-22-2024 End: 04-20-2025 take 1 [...] [Other abnormal glucose] 09-22-2024 Episodic Essential hypertension (12 sources) Essential hypertension; Translations: [Essential (primary) hypertension] [...] Test Name Value Interpretation Reference Range Facility AMNISUREon 10-17-2024 [facility] AMNISURE Negative NEGATIVE Replaced by [facility] GLUCOSE TOLERANCE 3 HOURon 0 09-26-2024 GLUCOSE TOLERANCE 3 HOUR mg/dL [facility] Comment on above: GLU FAST 79 (<95) Co l: 09/26/24 0750 GLU 1HR 177 (<180) Col: 09/26/24 0854 GLU 2HR 146 (<155) Col: 09/26/24 0954 GLU 3HR 109 (<140) Col: 09/26/[address] [facility] US OB FOLLOW UP TRANSABDOMIN AL APPROACHon [...] UA Negative Negative - 4(70) +++ mg/dL [facility] Blood, UA Negative Negative - 50 Adonis/mcL [facility] Clarity, UA Clear [facility] Color, UA Yellow [facility] Glucose, UA Negative Negative - 1999(110) ++++ mg/dL [facility] Interpretation and review of laboratory results Abnormal [facility] Ketones, UA Negative Negative - 160(16) ++++ mg/dL [facility] Leukocytes, UA Positive Negative - 500+++ Jose Alfredo/mcL [facility] Comment on above: 1+ Nitrite, UA Negative Negative - Positive [facility] pH, UA 7.5 5 - 9 [facility] Protein, UA Negative Negative - 1999(20) ++++ mg/dL [facility] Spec Grav, UA 1.015 1 - 1.03 [facility] Urobilinogen, UA 1.0 0.2 - 12 mg/dL [facility] ALL CBC WITH AUTO DIFFon BASOPHILS ABSOLUTE AUTO 0 [facility] Basophils/100 WBC (Bld) 0.2 % 0.2 - 2.0 % [facility] Eosinophils/100 WBC (Bld) 0.7 % Low 0.9 - 7.0 % [facility] Erythrocyte distribution width (RBC) [Ratio] 14.6 % 11.0 - 15.0 % [facility] Hematocrit (Bld) [Volume fraction] 31.8 % Low 36.0 - 48.0 % [facility] Hemoglobin (Bld) [Mass/Vol] 10.4 g/dL Low 12.0 - 16.0 g/dL [facility] IMMATURE GRANULOCYTES ABS AUTO 0.16 High [facility] Immature granulocytes/100 WBC (Bld) 1.7 % High 0.0 - 0.5 % [facility] Interpretation and review of laboratory results Abnormal [facility] LYMPHOCYTES ABSOLUTE AUTO 1.4 [facility] Lymphocytes/100 WBC (Bld) 14.7 % Low 20.5 - 60.0 % [facility] MCH (RBC) [Entitic mass] 27 pg 26.7 - 34.0 pg [facility] MCHC (RBC) [Mass/Vol] 32.7 g/dL 29.9 - 35.2 g/dL [facility] MCV (RBC) [Entitic vol] 82.6 fL 81.0 - 99.0 fL [facility] MONOCYTES ABSOLUTE AUTO 0.5 [facility] Monocytes/100 WBC (Bld) 5.3 % 1.7 - 12.0 % [facility] NEUTROPHILS ABSOLUTE AUTO 7.4 High [facility] Neutrophils/100 WBC (Bld) 77.4 % High 43.0 - 75.0 % [facility] Platelet mean volume (Bld) [Entitic vol] 10.6 fL 9.5 - 13.5 fL [facility]H EO # 0.1 [facility] PLT 342 [facility] RBC 3.85 Low [facility] WBC 9.6 [facility] Urinalysis macro (dipstick) panel (U)on 09-07-2024 Bilirubin, UA Negative Negative - 4(70) +++ mg/dL [facility] Blood, UA Negative Negative - 50 Adonis/mcL [facility] Clarity, UA Clear [facility] Color, UA Yellow [facility] Glucose, UA Negative Negative - 2000(110) ++++ mg/dL [facility] Interpretation and review of laboratory results Normal [facility] Ketones, UA Negative Negative - 160(16) ++++ mg/dL [facility] Leukocytes, UA Negative Negative - 500+++ Jose Alfredo/mcL [facility] Nitrite, UA Negative Negative - Positive [facility] pH, UA 6.5 5 - 9 [facility] Protein, UA Negative Negative - 2000(20) ++++ mg/dL [facility] Spec Grav, UA 1.025 1 - 1.03 [facility] Urobilinogen, UA 1.0 0.2 - 12 mg/dL [facility] US OB >= 14 weeks Fetuson US OB >= 14 weeks Fetus [facility] [place] [address] Ultrasound Report Signed Patient: Kayley Graham MR#: [id number] 5 : 1995 Acct:[id number] Age/Sex: 29 / F ADM Date: 07/17/24 Loc: Room: Type: [facility] Attending Dr: Enma Rivera ([facility]) [employer] Ordering Provider: Enma Rivera APRN, [facility] Date of Service: 07/17/24 US/US OB >= 14 weeks Fetus: Z34.82 Copies to: Enma Rivera APRN, FAB Obstetrical Ultrasound for Fetus greater than 14 [...] Marie M.D. 07/17/2024 4:13 PM Dictation Location: [id number] Tech: Orquidea Copeland Transcribed By: [facility] 07/17/24 1613 Dictated By: Gage Marie DO 07/17/24 1611 Signed By: 07/17/24 1613 Normal [facility] Urine Cultureon 05-27-2024 Bacteria identified Cx Nom (U) No Growth 2 Days PERFORMED BY: [place] [address] PATHOLOGIST [employer]YOLITE RECOVERY OPERATOR CAESAR STOLL M.D. Normal [facility] Comment on above: Performed By: #### C UU #### [address] Urine cultureOrdered By: Pearl Glover on 05-27-2024 Bacteria identified Cx Nom (U) Urine culture [facility] US OB <= 14 weeks fetuson US OB <= 14 weeks fetus [facility] [place] [address] Ultrasound Report Signed Patient: Kayley Graham MR#: [id number] 5 : 1995 Acct:[id number] Age/Sex: 29 / F ADM Date: 05/04/24 Loc: Room: Type: [facility] Attending Dr: Enma Rivera ([facility]) COURTNEY Ordering Provider: Enma Rivera APRN FAB Date of Service: 05/04/24 US/US OB <= [...] Simeon Jr., D.O.05/04/2024 5:01 PM Dictation Location: [place] [address] Tech: Maricel Andre Transcribed By: [facility] 05/04/24 1701 Dictated By: Castillo Simeon Jr, DO 05/04/24 1658 Signed By: 05/04/24 1701 Normal [facility] CBC AUTO DIFFon 06-15-2021 BASO # 0.0 103/ul Normal 0.0-0.1 [facility] Comment on above: Performed By: #### C BC #### [facility] [address] [place] [address] Dr. Baljit Rockwell Basophils/100 WBC (Bld) 0.2 % Normal 0.2-2.0 [facility] Comment on above: Performed By: #### C BC #### [facility] [address] [place] [address] Dr. Baljit Rockwell EO # 0.0 103/ul Normal 0.0-0.7 [facility] Comment on above: Performed By: #### C BC #### [facility] [address] [place] [address] Dr. Baljit Rockwell Eosinophils/100 WBC (Bld) 0.1 % Critically low 0.9-7.0 [facility] Comment on above: Performed By: #### C BC #### [facility] [address] [place] [address] Dr. Baljit Rockwell Erythrocyte distribution width (RBC) [Ratio] 14.5 % Normal 11.0-15.0 [facility] Comment on above: Performed By: #### C BC #### [facility] [address] [place] [address] Dr. Baljit Rockwell Hematocrit (Bld) [Volume fraction] 35.6 % Critically low 36.0-48.0 [facility] Comment on above: Performed By: #### C BC #### [facility] [address] [place] [address] Dr. Baljit Rockwell Hemoglobin (Bld) [Mass/Vol] 11.4 g/dL Critically low 12.0-16.0 [facility] Comment on above: Performed By: #### C BC #### [facility] [address] [place] [address] Dr. Baljit Rockwell IG # 0.14 10e3/ul Critically high 0.00-0.03 [facility] Comment on above: Performed By: #### C BC #### [facility] [address] [place] [address] Dr. Baljit Rockwell IG % 0.9 % Critically high 0.0-0.[address] [facility] Comment on above: Performed By: #### C BC #### [facility] [address] [place] [address] Dr. Baljit Rockwell LYMPH # 2.0 103/ul Normal 1.2-3.8 [facility] Comment on above: Performed By: #### C BC #### [facility] [address] [place] [address] Dr. Baljit Rockwell Lymphocytes/100 WBC (Bld) 11.9 % Critically low 20.5-60.0 [facility] Comment on above: Performed By: #### C BC #### [facility] [address] [place] [address] Dr. Baljit Rockwell MANUAL DIFF REQ NO Normal [facility] Comment on above: Performed By: #### C BC #### [facility] [address] [place] [address] Dr. Baljit Rockwell MCH (RBC) [Entitic mass] 27.9 pg Normal 26.7-34.0 [facility] Comment on above: Performed By: #### C BC #### [facility] [address] [place] [address] Dr. Baljit Rockwell MCHC (RBC) [Mass/Vol] 32.0 g/dL Normal 29.9-35.2 [facility] Comment on above: Performed By: #### C BC #### [facility] [address] [place] [address] Dr. Baljit Rockwell MCV (RBC) [Entitic vol] 87.3 fL Normal 81.0-99.0 [facility] Comment on above: Performed By: #### C BC #### [facility] [address] [place] [address] Dr. Baljit Rockwell MONO # 0.7 103/ul Normal 0.3-0.8 [facility] Comment on above: Performed By: #### C BC #### [facility] [address] [place] [address] Dr. Baljit Rockwell Monocytes/100 WBC (Bld) 4.3 % Normal 1.7-12.0 [facility] Comment on above: Performed By: #### C BC #### [facility] [address] [place] [address] Dr. Baljit Rockwell NEUT # 13.6 103/ul Critically high 1.4-6.5 [facility] Comment on above: Performed By: #### C BC #### [facility] [address] [place] [address] Dr. Baljit Rockwell Neutrophils/100 WBC (Bld) 82.6 % Critically high 43.0-75.0 [facility] Comment on above: Performed By: #### C BC #### [facility] [address] [place] [address] Dr. Baljit Rockwell Platelet mean volume (Bld) [Entitic vol] 10.6 fL Normal 9.5-13.5 [facility] Comment on above: Performed By: #### C BC #### [facility] [address] [place] [address] [address] Baljit Rockwell PLT 256 103/ul Normal 150-450 [facility] Comment on above: Performed By: #### C BC #### [facility] [address] [place] [address] [address] Baljit Rockwell RBC 4.08 106/ul Critically low 4.20-5.40 [facility] Comment on above: Performed By: #### C BC #### [facility] [address] [place] [address] Dr. Baljit Rockwell WBC 16.4 103/ul Critically high 4.0-11.0 [facility] Comment on above: Performed By: #### C BC #### [facility] [address] [place] [address] Dr. Baljit Rockwell DRUG SCREEN RAPID (URINE)on 06-15-2021 AMP Negative Normal NEGATIVE [facility] Comment on above: Performed By: #### D RUGRPD #### [facility] [address] [place] [address] Dr. Baljit Rockwell BAR Negative Normal NEGATIVE [facility] Comment on above: Performed By: #### D RUGRPD #### [facility] [address] [place] [address] Dr. Baljit Rockwell BUP Negative Normal NEGATIVE [facility] Comment on above: Performed By: #### D RUGRPD #### [facility] [address] [place] [address] Dr. Baljit Rockwell BZO Negative Normal NEGATIVE [facility] Comment on above: Performed By: #### D RUGRPD #### [facility] [address] [place] [address] Dr. Baljit Rockwell MIGUEL Negative Normal NEGATIVE [facility] Comment on above: Performed By: #### D RUGRPD #### [facility] [address] [place] [address] Dr. Baljit Rockwell CUT-OFFS SEE BELOW Normal [facility] Comment on above: Result Comment: AMP [...] ng/mL Performed By: #### D RUGRPD #### [facility] [address] [place] [address] Dr. Baljit Rockwell DRUG CUT HEADER DRUG CLASS TEST SYSTEM CUT-OFF CONCENTRATIONS ARE FOLLOWS: Normal [facility] Comment on above: Performed By: #### D RUGRPD #### [facility] [address] [place] [address] Dr. Baljit Rockwell mAMP Negative Normal NEGATIVE [facility] Comment on above: Performed By: #### D RUGRPD #### [facility] [address] [place] [address] Dr. Baljit Rockwell MTD Negative Normal NEGATIVE [facility] Comment on above: Performed By: #### D RUGRPD #### [facility] [address] [place] [address] Dr. Baljit Rockwell OPI Negative Normal NEGATIVE [facility] Comment on above: Performed By: #### D RUGRPD #### [facility] [address] [place] [address] Dr. Baljit Rockwell OXY Negative Normal NEGATIVE [facility] Comment on above: Performed By: #### D RUGRPD #### [facility] [address] [place], [place] [id number] Dr. Baljit Rockwell PCP Negative Normal NEGATIVE [facility] Comment on above: Performed By: #### D RUGRPD #### [facility] [address] [place] [address] Dr. Baljit Rockwell PPX Negative Normal NEGATIVE [facility] Comment on above: Performed By: #### D RUGRPD #### [facility] [address] [place] [address] Dr. Baljit Rockwell TCA Negative Normal NEGATIVE [facility] Comment on above: Performed By: #### D RUGRPD #### [facility] [address] [place] [address] Dr. Baljit Rockwell THC Negative Normal NEGATIVE [facility] Comment on above: Performed By: #### D RUGRPD #### [facility] [address] [place] [address] Dr. Baljit Rockwell CBC AUTO DIFFon 06-14-2021 BASO # 0.0 103/ul Normal 0.0-0.1 [facility] Comment on above: Performed By: #### C BC #### [facility] [address] [place] [address] Dr. Baljit Rockwell Basophils/100 WBC (Bld) 0.2 % Normal 0.2-2.0 [facility] Comment on above: Performed By: #### C BC #### [facility] [address] [place] [address] Dr. Baljit Rockwell EO # 0.0 103/ul Normal 0.0-0.7 [facility] Comment on above: Performed By: #### C BC #### [facility] [address] [place] [address] Dr. Baljit Rockwell Eosinophils/100 WBC (Bld) 0.3 % Critically low 0.9-7.0 [facility] Comment on above: Performed By: #### C BC #### [facility] [address] [place] [address] Dr. Baljit Rockwell Erythrocyte distribution width (RBC) [Ratio] 14.5 % Normal 11.0-15.0 [facility] Comment on above: Performed By: #### C BC #### [facility] [address] [place] [address] [address] Baljit Rockwell Hematocrit (Bld) [Volume fraction] 35.0 % Critically low 36.0-48.0 [facility] Comment on above: Performed By: #### C BC #### [facility] [address] [place] [address] Dr. Baljit Rockwell Hemoglobin (Bld) [Mass/Vol] 11.2 g/dL Critically low 12.0-16.0 [facility] Comment on above: Performed By: #### C BC #### [facility] [address] [place] [address] Dr. Baljit Rockwell IG # 0.11 10e3/ul Critically high 0.00-0.03 [facility] Comment on above: Performed By: #### C BC #### [facility] [address] [place] [address] Dr. Baljit Rockwell IG % 0.9 % Critically high 0.0-0.5 [facility] Comment on above: Performed By: #### C BC #### [facility] [address] [place] [address] Dr. Baljit Rockwell LYMPH # 2.2 103/ul Normal 1.2-3.8 [facility] Comment on above: Performed By: #### C BC #### [facility] [address] [place] [address] Dr. Baljit Rockwell Lymphocytes/100 WBC (Bld) 17.7 % Critically low 20.5-60.0 [facility] Comment on above: Performed By: #### C BC #### [facility] [address] [place] [address] Dr. Baljit Rockwell MANUAL DIFF REQ NO Normal [facility] Comment on above: Performed By: #### C BC #### [facility] [address] [place] [address] Dr. Baljit Rockwell MCH (RBC) [Entitic mass] 27.3 pg Normal 26.7-34.0 [facility] Comment on above: Performed By: #### C BC #### [facility] [address] [place] [address] [address] Baljit Rockwell MCHC (RBC) [Mass/Vol] 32.0 g/dL Normal 29.9-35.2 [facility] Comment on above: Performed By: #### C BC #### [facility] [address] [address] [address] Baljit Rockwell MCV (RBC) [Entitic vol] 85.2 fL Normal 81.0-99.0 [facility] Comment on above: Performed By: #### C BC #### [facility] [address] [place] [address] [address] Baljit Rockwell MONO # 0.7 103/ul Normal 0.3-0.8 [facility] Comment on above: Performed By: #### C BC #### [facility] [address] [place] [address] [address] Baljit Rockwell Monocytes/100 WBC (Bld) 5.4 % Normal 1.7-12.0 [facility] Comment on above: Performed By: #### C BC #### [facility] [address] [place] [address] [address] Baljit Rockwell NEUT # 9.4 103/ul Critically high 1.4-6.5 [facility] Comment on above: Performed By: #### C BC #### [facility] [address] [place] [address] [address] Baljit Rockwell Neutrophils/100 WBC (Bld) 75.5 % Critically high 43.0-75.0 [facility] Comment on above: Performed By: #### C BC #### [facility] [address] [id number] Baljit Rockwell Platelet mean volume (Bld) [Entitic vol] 10.7 fL Normal 9.5-13.5 [facility] Comment on above: Performed By: #### C BC #### [facility] [address] [place] [address] [address] Baljit Rockwell PLT 265 103/ul Normal 150-450 [facility] Comment on above: Performed By: #### C BC #### [facility] [address] [place] [address] Dr. Baljit Rockwell RBC 4.11 106/ul Critically low 4.20-5.[address] [facility] Comment on above: Performed By: #### C BC #### [facility] [address] [place] [address] Dr. Baljit Rockwell WBC 12.5 103/ul Critically high 4.0-11.0 [facility] Comment on above: Performed By: #### C BC #### [facility] [address] [place] [address] Dr. Baljit Rockwell Covid-19 PCR (CVDTBH)on 05-20 SARS-CoV-2 (COVID-19) RNA ZOLTAN+probe Ql (Unsp spec) Not detected Normal NOT DETECTED [facility] Comment on above: Result Comment: When [...] for this test is supported by the [place] of Health and Human Service's declaration that [...] used). Performed By: #### C VDTBH #### [facility] [address] [place] [address] Dr. Baljit Rockwell TYPE AND SCREENon 06-14-2021 TYPE AND SCREEN Negative Normal [facility] Comment on above: Performed By: #### T NS #### [facility] [address] [place] [address] Dr. Blajit Rockwell US PREG BIOPHY W NON STRESSo n 06-02-2021 US PREG BIOPHY W NON STRESS EXAMINATION: US PREG BIOPHY W NON STRESS HISTORY: [id number] baby COMPARISON: Ultrasound biophysical 05/25/2021 TECHNIQUE: Ultrasound biophysical profile was performed. FINDINGS: BREATHING MOVEMENTS: 2.0 GROSS BODY MOVEMENTS: 2.0 TONE: 2.0 QUALITATIVE AMNIOTIC FLUID VOLUME: 2.0 PRESENTATION: CEPHALIC HEART RATE: 157.0 bpm bpm. AMNIOTIC FLUID VOLUME: 13.5 cm GESTATIONAL AGE: 36 weeks 3 days CONCLUSION: Total biophysical profile score 8.0. Electronically authenticated by: BRENDA VIEYRA Date: 2021-06-02 08:18 Normal [facility] GROUP B STREP CULTUREon 05-19 S. agalactiae Ag Ql (Unsp spec) Culture Observations: NEGATIVE FOR GROUP B STREPTOCOCCUS. Normal [facility] Comment on above: Performed By: #### G BSCX #### [facility] [address] [place] [address] Dr. Baljit Rockwell US PREG BIOPHY W NON STRESSo n 05-26-2021 US PREG BIOPHY W NON STRESS EXAMINATION: US PREG BIOPHY W NON STRESS HISTORY: [id number] baby COMPARISON: No relevant comparison available. TECHNIQUE: Ultrasound biophysical profile was performed. FINDINGS: BREATHING MOVEMENTS: 2.0 GROSS BODY MOVEMENTS: 2.0 TONE: 2.0 QUALITATIVE AMNIOTIC FLUID VOLUME: 2.0 PRESENTATION: CEPHALIC HEART RATE: 131.7 bpm bpm. AMNIOTIC FLUID VOLUME: 11.2 cm GESTATIONAL AGE: 35 weeks 3 days CONCLUSION: Total biophysical profile score 8.0. Electronically authenticated by: BRENDA VIEYRA Date: 2021-05-26 08:00 Normal The [facility] US PREG ANATOMY SINGLEon US PREG [...] KRISTIAN DICKEY Date: 2021-05-23 15:17 Normal [facility] Covid-19 PCR (CVDTB)on 04-19 SARS-CoV-2 (COVID-19) RNA ZOLTAN+probe Ql (Unsp spec) Detected Critically abnormal NOT DETECTED [facility] Comment on above: Result Comment: This test is not yet approved or cleared by the [place] FDA. When there are no FDA-approved or cleared tests available, and other criteria are met, FDA can make tests available under an emergency access mechanism called an Emergency Use Authorization (EUA). The EUA for this test is supported by the [place] of Health and Human Service's (HHS's) declaration [...] longer be used). Performed By: #### [facility] #### [facility] [address] [address] [address] Baljit Rockwell UA (CLEAN/CATCH) NEWSSTAND VENDOR/MICRO I F IND.on 05-12-2021 Bilirubin Ql (U) Negative Normal NEGATIVE [facility] Comment on above: Performed By: #### U ACSIND #### [facility] [address] [place] [address] Dr. Baljit Rockwell Clarity (U) CLEAR Normal CLEAR [facility] Comment on above: Performed By: #### U ACSIND #### [facility] [address] [place] [address] Dr. Baljit Rockwell Color (U) LT. YELLOW Normal YELLOW [facility] Comment on above: Performed By: #### U ACSIND #### [facility] [address] [place] [address] Dr. Baljit Rockwell Glucose Ql (U) Negative Normal NEGATIVE [facility] Comment on above: Performed By: #### U ACSIND #### [facility] [address] [place] [address] Dr. Baljit Rockwell Hemoglobin Ql (U) Negative Normal NEGATIVE [facility] Comment on above: Performed By: #### U ACSIND #### [facility] [address] [place] [address] Dr. Baljit Rockwell Ketones Ql (U) Negative Normal NEGATIVE [facility] Comment on above: Performed By: #### U ACSIND #### [facility] [address] [place] [address] Dr. Baljit Rockwell LEUKOCYTES Negative Normal NEGATIVE [facility] Comment on above: Performed By: #### U ACSIND #### [facility] [address] [place] [address] Dr. Baljit Rockwell Nitrite Ql (U) Negative Normal NEGATIVE [facility] Comment on above: Performed By: #### U ACSIND #### [facility] [address] [place] [address] Dr. Bajlit Rockwell pH (U) 7.0 [pH] Normal 5-9 [facility] Comment on above: Performed By: #### U ACSIND #### [facility] [address] [place] [address] Dr. Baljit Rockwell SPEC GRAVITY <=1.005 Abnormal 1.005-<=1.[address] [facility] Comment on above: Performed By: #### U ACSIND #### [facility] [address] [place] [address] Dr. Baljit Rockwell UA PROTEIN Negative Normal NEGATIVE/ TRACE [facility] Comment on above: Performed By: #### U ACSIND #### [facility] [address] [place] [address] Dr. Baljit Rockwell UR MICRO IND NOT INDICATED Normal [facility] Comment on above: Performed By: #### U ACSIND #### [facility] [address] [place] [address] Dr. Baljit Rockwell Urobilinogen Qn (U) 0.2 {Shannan'U}/dL Normal 0.2 - 1. 0 [facility] Comment on above: Performed By: #### U ACSIND #### [facility] [address] [place] [address] Dr. Baljit Rockwell Vital Signs Date Time Vital Sign Value Performing Clinician Vinayi lity 10-06-2024 14:10-0400 Body mass index (BMI) [Ratio] 31.32 kg/m2 SI-BONE Work Phone: [facility] 10-06-2024 14:10-0400 Body weight 80.2 kg SrinivasanQPD Work Phone: [facility] 10-06-2024 14:10-0400 Diastolic blood pressure 84 mm[Hg] Srinivasan Suleiman DO Work Phone: [facility] 10-06-2024 14:10-0400 Systolic blood pressure 126 mm[Hg] Srinivasan Suleiman [facility] Work Phone: [facility] 09-22-2024 10:08-0400 Body mass index (BMI) [Ratio] 30.79 kg/m2 Tiffany TUCKER Work Phone: [facility] 09-22-2024 10:08-040 Body weight 78.83 kg Tiffany TUCKER Work Phone: [facility] 09-22-2024 10:08-0400 Diastolic blood pressure 82 mm[Hg] Tiffany TUCKER Work Phone: [facility] 09-22-2024 10:08-0400 Systolic blood pressure 130 mm[Hg] Tiffany TUCKER Work Phone: [facility] 09-07-2024 13:10-0400 Body mass index (BMI) [Ratio] 30.43 kg/m2 Srinivasan Suleiman DO Work Phone: [facility] 09-07-2024 13:10-0400 Body weight 77.93 kg Srinivasan Suleiman DO Work Phone: [facility] 09-07-2024 13:10-0400 Diastolic blood pressure 78 mm[Hg] Srinivasan Suleiman DO Work Phone: [facility] 09-07-2024 13:10-0400 Systolic blood pressure 122 mm[Hg] Srinivasan Suleiman DO Work Phone: [facility] Encounters Encounter Date Encounter Type Care Provider Facility Start: 10-20-2024 End: 10-20-2024 Bamboo flowsheet Srinivasan Suleiman DO Work Phone: [facility] Start: 10-20-2024 End: 10-20-2024 Bamboo flowsheet Srinivasan Slueiman DO Work Phone: [facility] Start: 10-17-2024 End: 10-17-2024 Clinisync Result Encounter Srinivasan Suleiman DO Work Phone: [facility] Unsolicited Start: 10-17-2024 End: 10-17-2024 Clinisync Result Encounter Srinivasan Suleiman DO Work Phone: [facility] Unsolicited Start: 10-06-2024 End: 10-06-2024 Office outpatient visit 15 minutes Srinivasan Suleiman DO Work Phone: [facility] Comment on above: Third trimester preg darvin ([facility]); 33 weeks gestation of ([facility]) Start: 10-06-2024 End: 10-06-2024 Bamboo flowsheet Srinivasan Suleiman DO Work Phone: [facility] Start: 10-06-2024 End: 10-06-2024 Bamboo flowsheet Srinivasan Suleiman DO Work Phone: [facility] Start: 10-06-2024 End: 10-06-2024 ambulatory SRINIVASAN SULEIMAN Not Available Start: 09-26-2024 End: 09-26-2024 Clinisync Result Encounter Tiffany TUCKER Work Phone: [facility] Unsolicited Start: 09-26-2024 End: 09-26-2024 Clinisync Result Encounter Tiffany TUCKER Work Phone: [facility] Unsolicited Start: 09-22-2024 End: 09-22-2024 Office outpatient visit 15 minutes Tiffany TUCKER Work Phone: [facility] Comment on above: 31 weeks gestation o f ([facility]); Third trimester ([facility]); Elevated glucose tolerance test Start: 09-22-2024 End: 09-22-2024 ambulatory TIFFANY LLANES Not Available Start: 09-21-2024 End: 09-21-2024 Clinisync Result Encounter Srinivasan Suleiman DO Work Phone: [facility] Unsolicited Start: 09-21-2024 End: 09-21-2024 Clinisync Result Encounter Srinivasan Suleiman DO Work Phone: [facility] Unsolicited Start: 09-11-2024 ambulatory Enma armenta [facility] Start: 09-07-2024 End: 09-07-2024 Bamboo flowsheet Srinivasan Suleiman DO Work Phone: [facility] Start: 09-07-2024 End: 09-07-2024 Bamboo flowsheet Srinivasan Suleiman DO Work Phone: [facility] Start: 09-07-2024 End: 09-07-2024 Office outpatient visit 15 minutes Srinivasan Trevinozio DO Work Phone: [facility] Comment on above: GA: 29w4d Start: 09-07-2024 End: 09-07-2024 ambulatory SRINIVASAN BEARDEN Not Available Start: 07-17-2024 End: 07-17-2024 Patient encounter procedure PHYSICIAN NO [facility] [place] Work Phone: Start: 07-17-2024 End: 07-17-2024 ambulatory PHYSICIAN NO [facility] Work Phone: Start: 05-27-2024 End: 05-27-2024 ambulatory PHYSICIAN NO [facility] Work Phone: Start: 05-27-2024 End: 05-27-2024 Departed Referred PHYSICIAN NO [facility] Start: 05-04-2024 End: 05-04-2024 Patient encounter procedure PHYSICIAN NO [facility] [place] Work Phone: Start: 05-04-2024 End: 05-04-2024 ambulatory PHYSICIAN NO [facility] Work Phone: Start: 06-29-[address] [...] Date Procedure Procedure Detail Performing Clinician Start: 10-17-2024 AMNISURE Srinivasan Singh o DO Work Phone: Start: 09-26-2024 GLUCOSE TOLERANCE 3 HOUR Tiffany TUCKER Work Phone: Start: 09-22-2024 Urnls dip stick/tabl et rgnt non-auto w/o micrscp Tiffany TUCKER Work Phone: Start: 09-21-2024 ALL CBC WITH AUTO DIFF Srinivasan Suleiman DO Work Phone: Start: 09-07-2024 Urnls dip stick/tabl et rgnt non-auto w/o micrscp Srinivasan Suleiman DO Work Phone: Start: 07-17-2024 Diagnostic ultrasoun [...] Treatment Date Care Activity Detail Author Start: 10-20-2024 End: 10-20-2024 Patient encounter procedure [facility] Comment on above: Arrived Start: 10-06-2024 End: 10-06-2024 Patient encounter procedure [facility] Comment on above: Arrived Start: 09-22-2024 End: 09-22-2025 Measurement of glucose 3 hours after glucose challenge for glucose tolerance test Glucose tolerance, 3 hours Lab Routine Elevated glucose tolerance test Expected: 09/22/2024 (Approximate), Expires: 09/22/2025 [facility] Work Phone: Comment on above: Expected: 09/22/2024 (Approximate), Expires: 09/22/2025 Start: 09-22-2024 End: 09-22-2024 Patient encounter procedure [facility] Start: 09-22-2024 End: 09-22-2024 Professional / ancillary services management [facility] Start: 09-07-2024 End: 09-07-2025 CBC panel - Blood by Automated count CBC Lab Routine Diabetes mellitus screening Expected: 09/07/2024 (Approximate), Expires: 09/07/2025 [facility] Work Phone: Comment on above: Expected: 09/07/2024 (Approximate), Expires: 09/07/2025 Start: 09-07-2024 End: 09-07-2025 Measurement of glucose 1 hour after glucose challenge for glucose tolerance test Glucose tolerance, 1 hour Lab Routine Diabetes mellitus screening Expected: 09/07/2024 (Approximate), Expires: 09/07/2025 [facility] Comment on above: Expected: 09/07/2024 (Approximate), Expires: 09/07/2025 Start: 09-07-2024 End: 01-08-2025 US for US OB follow up transabdominal approach Imaging Routine size inconsistent with dates ([facility]) Expected: 09/07/2024, Expires: 01/08/2025 [facility] Comment on above: Expected: 09/07/2024 , Expires: 01/08/2025 Start: 09-07-2024 End: 09-07-2024 ambulatory 09/07/2024 1:30 PM EDT Initial [facility] [address] [place] [address] Srinivasan Bearden, DO [address] [place], [place] [id number] Arrived [facility] Comment on above: Arrived Start: 05-27-2024 Urine culture [facility] Start: 05-27-2024 Bacteria identified in Urine by Culture Urine Culture [facility] Payers Date Payer Category Payer Private Health Insurance [facility] [employer] [id number] 2024 Self-pay 1995 Unknown [id number] [id number]. 593 1993 Unknown [id number] 2.16840.1.202211.3.579.2. 593 1993 Unknown [id number] 2.16.840.1.043825.3.579.2. 593 1993 Unknown [id number] 2.16.840.1.246984.3.579.2. 593 1993 Unknown [id number] 2.16.840.1.734179.3.579.2. 593 1993 Unknown [id number] 2.16.840.1.894149.3.579.2. 593 1993 Unknown [id number] 2.16.840.1.583244.3.579.2. 593 1993 Unknown [id number] 2.16840.1.268271.3.579.2. 593 1993 Unknown [id number] 2.16840.1.728360.3.579.2. 593 1993 Unknown [id number] 2.16.840.1.748072.3.579.2. 593 1993 Unknown [id number] 2.16.840.1.422198.3.579.2. 593 1993 Unknown [id number] 2.16.840.1.337496.3.579.2. 593 1993 Unknown [id number] 2.16.840.1.036280.3.579.2. 593 1993 Unknown [id number] 2.16.840.1.274595.3.579.2. 593 1993 Unknown [id number] 2.16.840.1.442587.3.579.2. 593 1993 Unknown [id number] 2.16840.1.768975.3.579.2. 716 1993 Unknown [id number] 2.16840.1.317180.3.579.2. 1259 1993 Unknown [id number] 2.16840.1.990302.3.579.2. 1259 1993 Unknown [id number] 2.16.840.1.713180.3.579.2. 1259 1993 Unknown [id number] 2.16840.1.230086.3.579.2. 1259 1961 Medicaid [id number] 1961 Self-pay [id number] Unknown [id number] 2.16840.1.637363.3.579.2. 531 Unknown [id number] 2.16840.1.113615.3.579.2. 531 Unknown [id number] 2.16840.1.304210.3.579.2. 531 Social History Date Type Detail [facility] Start: 05-05-2024 End: 07-18-2024 Sex Female (finding) [facility] Start: 1995 Sex Assigned At Female F [facility] Start: 1995 Sex assigned at Not [...] nursing note reviewed. Exam conducted with a market manager present. Vitals: Estimated body mass index is 31.32 kg/m as calculated from the following: Height as of 07/09/23: 5' 3 . Weight as of this encounter: 176 lb 12.8 oz. BP: 126/84 Patient's last menstrual period was 02/19/2024. ASSESSMENT & PLAN ICD-10-CM 1. Third trimester ([facility]) Z34.93 2. 33 weeks gestation of ([facility]) Z3A.33 Return OB: Patient presents today for [...] Srinivasan Bearden DO documented in this encounter [facility] History of Present illness Narrative 09-22-2024 [...] PLAN ICD-10-CM 1. 31 weeks gestation of ([facility]) Z3A.31 POCT urinalysis dipstick manually resulted 2. Third trimester ([facility]) Z34.93 POCT urinalysis dipstick manually resulted 3. [...] History of Present illness Narrative 09-07-2024 Enma Irizarry, NADER - 09/07/2024 1:30 PM EDT Note Date [...] nursing note reviewed. Exam conducted with a market manager present. Vitals: Estimated body mass index is 30.43 kg/m as calculated from the following: Height as of 07/09/23: 5' 3 . Weight as of this encounter: 171 lb 12.8 oz. BP: 122/78 Patient's last menstrual period was 02/19/2024. ASSESSMENT & PLAN ICD-10-CM 1. Third trimester ([facility]) Z34.93 POCT urinalysis dipstick manually resulted 2. 29 weeks gestation of ([facility]) Z3A.29 POCT urinalysis dipstick manually resulted 3. Diabetes mellitus screening Z13.1 Hemoglobin A1c CBC Glucose tolerance, 1 hour CBC Glucose tolerance, 1 hour Patient presents today for transfer of care OB patient. Patient was seeing [facility] and desires to deliver at [facility]. Patient to return to clinic in 2 weeks for return OB and growth scan. Reviewed all labs and scans with patient as well. Documented by Enma Irizarry LPN on behalf of: Srinivasan Bearden DO documented in this encounter [facility] Radiology Diagnostic study note 07-17-2024 Note Date & Type Note Facility 07-17-2024 Radiology Diagnostic study note [facility] [place] [address] Ultrasound Report Signed Patient: Kayley Graham MR#: [id number] : 1995 Acct:[id number] Age/Sex: 29 / F ADM Date: 5 Loc: Room: Type: [facility] Attending Dr: Enma Rivera ([facility]) COURTNEY Ordering Provider: Enma Rivera APRN, [...] Marie M.D. 07/17/2024 4:13 PM Dictation Location: [place] [address] Tech: Orquidea Dinorah Transcribed By: MITALI 07/17/24 161 Dictated By: Gage Marie DO 07/17/24 1611 Signed By: 07/17/24 [facility] Radiology Diagnostic study note 05-04-2024 Note Date & Type Note Facility 05-04-2024 Radiology Diagnostic study note [facility] [place] [address] Ultrasound Report Signed Patient: Kayley Graham MR#: [id number] : 1995 Acct:[id number] Age/Sex: 29 / F ADM Date: 5 Loc: Room: Type: [facility] Attending Dr: Enma Rivera ([facility]) COURTNEY Ordering Provider: Enma Rivera APRN, [...] Simeon Jr., DSherinOSherin05/04/2024 5:01 PM Dictation Location: [place] [address] Tech: Maricel Andre Transcribed By: MITALI 05/04/24 170 Dictated By: Castillo Simeon Jr, DO 05/04/24 165 Signed By: 05/04/241700 [facility] Evaluation note Note Date & Type Note Facility Evaluation note No assessment information availa [facility] Work Phone: Evaluation note Note Date & [...] ([facility]) state, incidental 33 weeks gestation of ([facility]) documented in this encounter [facility] Summary [...] CREATED AUTHOR AUTHOR'S ORGANIZ ATION 07/28/2024 [facility] DATE CREATED AUTHOR AUTHOR'S ORGANIZ ATION 09/12/2024 [facility] DEPARTMENT DATE CREATED AUTHOR AUTHOR'S SHIVANI ATION 10/08/2024 [facility] dical Specialists EPIC Care Teams (unrecognized sec tion and content) Team Status: Active Member Role Status Dates PHYSICIAN NO FAMILY Primary Care Provider Active Team Status: Inactive Member Role Status Dates Enma Rivera ([facility]) , COURTNEY Attending Provider Active Start: May 04, 2024 End: May 04, 2024 PHYSICIAN NO FAMILY Primary Care Provider Active Start: May 04, 2024 End: May 04, 2024 Team Status: Inactive Member Role Status Dates Maria Del Carmen Glover PA-C Attending Provider Active Start: May 27, 2024 End: May 27, 2024 Team Status: Inactive Member Role Status Dates Enma Rivera ([facility]) , COURTNEY Attending Provider Active Start: July 17, 2024 End: July 17, 2024 PHYSICIAN NO FAMILY Primary Care Provider Active Start: July 17, 2024 End: July 17, 2024 Radiator Tester Relationship Specialty Start Date End Date Cesar Espitia MD [address] [place] [address] PCP - General Family Medicine 06/28/23 Radiator Tester Relationship Specialty Start Date End Date Cesar Espitia MD [address] [place] [address] PCP - General Family Medicine 06/28/23 Radiator Tester Relationship Specialty Start Date End Date Cesar Espitia MD [address] [place] [address] PCP - General Family Medicine 06/28/23 Radiator Tester Relationship Specialty Start Date End Date Cesar Espitia MD [address] [place] [address] PCP - General Family Medicine 06/28/23 Radiator Tester Relationship Specialty Start Date End Date Cesar Espitia MD Patricia WSherin [address] [place] [address] PCP - General Family Medicine 06/28/23 Goals [...] BE BASED ON THE PRIMARY CLINICAL RECORDS. [employer] provides no warranty or guarantee of the accuracy or completeness of information in this document.
== END 2024-10-20 18:48 | disposition home or self-care (01) ==
LOC: LAB 18:47
PROVIDERS: Visit Provider Obstetrics & Gynecology
DX: Z34.93 Encounter for supervision of normal pregnancy, unspecified, third trimester (principal)
CPT/HCPCS: 87081

== ENCOUNTER 2024-10-30 19:47 | Outpatient (OUT) | payer OTHER, SELFPAY ==
--- NOTE | 2024-10-30 19:51 | US_ITS ---
[place] [address] Patient Name: LEELEE BLAKE MRN: [id number] date: 1995 Sex: F Assigned Patient Location: [facility] Current Patient Location: Accession/Order Number: [id number] Exam Date: 10/30/2024 19:55 Report Date: 10/30/2024 21:47 At the request of: SRINIVASAN MEJÍA DO Procedure: US OB BPP w non-stress Ultrasound biophysical profile INDICATION: Pelvic cramps for 2 weeks COMPARISON: None FINDINGS/impression: Cephalic position. heart rate 150 beats per minute. Biophysical profile score 8/8. LUIZA measures 12.5 cm. Impression dictated by: David Khan M.D. 10/30/2024 9:47 PM Dictation Location: [place] [address] Electronically authenticated by: [id number] Y Date: 10/30/2024 21:47
--- OUTSIDE RECORDS SUMMARY | 2024-10-30 19:53 | XMS_ITS | CCD ---
Author Organization [facility] Care Team Providers [place] Bus Driver Name Role Phone SULEIMAN, DR MATTSON Attending [...] ZIEBAMILCAR, DR BRENDA Contreras Consulting Unavailable Rice ([facility]) Enma VALDEZ Attending Provider NO FAMILY, PHYSICIAN Primary Care Provider UnaMaria Del Carmen Encarnacion PA-C Attending Provider [phone] Maria Del Carmen Glover Admitting Unavailable Maria Del Carmen Glover Attending Unavailable NO FAMILY, PHYSICIAN Primary Care Unavailable Rice ([facility]), Enma Contreras Attending Unavailabl e Rice ([facility]), Enma Contreras Admitting Unavailabl e NO FAMILY, PHYSICIAN Primary Care Unavailable Rice ([facility]), Enma Contreras Attending Unavailabl e Rice ([facility]), Enma Contreras Admitting Unavailabl e Omkar AUGUST [place] Primary Care Provider [phone] Miguel [facility], Enma Tate Attending Unavaila ble Miguel [facility], Enma Tate Primary Care Unavaila ble SRINIVASAN BEARDEN Attending Unavailable SRINIVASAN BEARDEN Referring Unavailable TIFFANY LLANES Attending Unavailable SRINIVASAN BEARDEN Attending Unavailable SRINIVASAN BEARDEN Attending Unavailable TIFFANY LLANES Attending Unavailable Medications Current Medications Medication Drug Class(es) Dates Sig (Normalized) Sig (Original) NIFEdipine 30 mg osmotic 24 hr extended release oral tablet (18 sources) Dihydropyridine Calcium Channel Lupillo Start: 07-09-2023 take 1 tablet by mouth every twenty-four hours at bedtime NIFEdipine XL (Procardia XL) 30 MG 24 hr tablet Indications: Primary hypertension One po at bedtime. 30 tablet 2 07/09/2023 Active polysaccharide iron complex 391 mg oral capsule (12 sources) Start: 09-22-2024 End: 05-20-2025 take 1 capsule by mouth once daily iron polysaccharides (ProFe) 391.3 (180 Fe) MG capsule Indications: Low hemoglobin Take 1 capsule (391.3 mg) by mouth Daily 30 capsule 6 10/22/2024 05/20/2025 Active Completed/Discontinued Medications Medication Drug Class(es) Dates [...] Problem Classification Problem Date Documented Date Episodic/Chronic Deficiency and other anemia (2 sources) Hemoglobin low; Translations: [Anemia, unspecified] 10-20-2024 Episodic Diabetes mellitus without complication (2 sources) Abnormal glucose tolerance test; Translations: [Other abnormal glucose] 09-22-2024 Episodic Essential hypertension (18 sources) Essential hypertension; Translations: [Essential (primary) hypertension] [...] applicable or unspecified; Translations: [MAT CARE OTH AZ FTL GRTH 3RD TM UNS] Onset: 06-14-2021 Episodic Other complications of (4 sources) Maternal care for other known or suspected poor growth, unspecified trimester, not applicable or unspecified; Translations: [MAT CARE OTH AZ FTL GRTH UNS TM UNS] Onset: 06-01-2021 Episodic Other complications of (4 sources) Other specified related conditions, third trimester; Translations: [OTH SPEC PREG RELATED COND 3RD TRI] Onset: 05-12-2021 Episodic Other complications of (2 sources) size does not accord with dates; Translations: [Uterine size-date discrepancy, unspecified trimester] 09-07-2024 Episodic Other female genital disorders (2 sources) Vaginal discharge; Translations: [Other specified noninflammatory disorders of vagina] 10-27-2024 Episodic Other and delivery including normal (13 sources) Single live ; Translations: [Encounter for [...] [33 weeks gestation of ] 10-06-2024 Episodic Residual codes; unclassified (2 sources) Gestation period, 35 weeks; Translations: [35 weeks gestation of ] 10-20-2024 Episodic Residual codes; unclassified (2 sources) Gestation period, 36 weeks; Translations: [36 weeks gestation of ] 10-27-2024 Episodic Unclassified (1 source) CONTACT W/AND (SUSP) EXPOS COVID-19; Translations: [CONTACT W/AND (SUSP) EXPOS COVID-19] Onset: 06-20-2021 Viral infection (1 source) COVID-19; Translations: [COVID-19] Onset: 05-16-2021 Results Test Name Value Interpretation Reference Range Facility RECURRENT VAGINITIS (HTRX)on 10-28-2024 ATOPOBIUM VAGINAE 0 [facility] ATOPOBIUM VAGINAE Not detected [facility] BVAB 2,3 (BACTERIAL VAGINOSIS ASSOCIATED BACTERIA 2, 3); MOBILUNCUS SPP 0 [facility] BVAB 2,3 (BACTERIAL VAGINOSIS ASSOCIATED BACTERIA 2, 3); MOBILUNCUS SPP Not detected [facility] MARIANO ALBICANS, PARAPSILOSIS, TROPICALIS 0 [facility] MARIANO ALBICANS, PARAPSILOSIS, TROPICALIS Not detected [facility] MARIANO GLABRATA 0 [facility] MARIANO GLABRATA Not detected [facility] MARIANO KRUSEI 0 [facility] MARIANO KRUSEI Not detected [facility] CHLAMYDIA TRACHOMATIS 0 [facility] CHLAMYDIA TRACHOMATIS Not detected [facility] GARDNERELLA VAGINALIS 0 [facility] GARDNERELLA VAGINALIS Not detected [facility] MEGASPHAERA (TYPES 1, 2) 0 [facility] MEGASPHAERA (TYPES 1, 2) Not detected [facility] MYCOPLASMA GENITALIUM 0 [facility] MYCOPLASMA GENITALIUM Not detected [facility] NEISSERIA GONORRHOEAE 0 [facility] NEISSERIA GONORRHOEAE Not detected [facility] TRICHOMONAS VAGINALIS 0 [facility] TRICHOMONAS VAGINALIS Not detected [facility] Urinalysis macro (dipstick) panel (U)on 10-27-2024 Bilirubin, UA Negative Negative - 4(70) +++ mg/dL [facility] Blood, UA Negative Negative - 50 Adonis/mcL [facility] Clarity, UA Clear [facility] Color, UA Yellow [facility] Glucose, UA Negative Negative - 2000(110) ++++ mg/dL [facility] Interpretation and review of laboratory results Normal [facility] Ketones, UA Negative Negative - 160(16) ++++ mg/dL [facility] Leukocytes, UA Negative Negative - 500+++ Jose Alfredo/mcL [facility] Nitrite, UA Negative Negative - Positive [facility] pH, UA 7.5 5 - 9 [facility] Protein, UA Negative Negative - 2000(20) ++++ mg/dL [facility] Spec Grav, UA 1.015 1 - 1.03 [facility] Urobilinogen, UA 1.0 0.2 - 12 mg/dL [facility] Urinalysis macro (dipstick) panel (U)on 10-20-2024 Bilirubin, UA Negative Negative - 4(70) +++ mg/dL [facility] Blood, UA Negative Negative - 50 Adonis/mcL [facility] Clarity, UA Clear [facility] Color, UA Straw [facility] Glucose, UA Negative Negative - 2000(110) ++++ mg/dL [facility] Interpretation and review of laboratory results Abnormal [facility] Ketones, UA Negative Negative - 160(16) ++++ mg/dL [facility] Leukocytes, UA Negative Negative - 500+++ Jose Alfredo/mcL [facility] Nitrite, UA Negative Negative - Positive [facility] pH, UA 6.5 5 - 9 [facility] Protein, UA Negative Negative - 2000(20) ++++ mg/dL [facility] Spec Grav, UA 1.015 1 - 1.03 [facility] Urobilinogen, UA 1.0 0.2 - 12 mg/dL [facility] AMNISUREon 10-17-2024 TBH AMNISURE Negative NEGATIVE [facility] GLUCOSE TOLERANCE 3 HOURon 0 09-26-2024 GLUCOSE TOLERANCE 3 HOUR mg/dL [facility] Comment on above: GLU FAST 79 (<95) Co l: 09/26/24 0750 GLU 1HR 177 (<180) Col: 09/26/24 0854 GLU 2HR 146 (<155) Col: 09/26/24 0954 GLU 3HR 109 (<140) Col: 09/26/24 [facility] FOLLOW UP TRANSABDOMIN AL APPROACHon [...] UA Negative Negative - 4(70) +++ mg/dL [facility] Blood, UA Negative Negative - 50 Adonis/mcL [facility] Clarity, UA Clear [facility] Color, UA Yellow [facility] Glucose, UA Negative Negative - 1999(110) ++++ mg/dL [facility] Interpretation and review of laboratory results Abnormal [facility] Ketones, UA Negative Negative - 160(16) ++++ mg/dL [facility] Leukocytes, UA Positive Negative - 500+++ Jose Alfredo/mcL [facility] Comment on above: 1+ Nitrite, UA Negative Negative - Positive [facility] pH, UA 7.5 5 - 9 [facility] Protein, UA Negative Negative - 1999(20) ++++ mg/dL [facility] Spec Grav, UA 1.015 1 - 1.03 [facility] Urobilinogen, UA 1.0 0.2 - 12 mg/dL [facility] ALL CBC WITH AUTO DIFFon BASOPHILS ABSOLUTE AUTO 0 [facility] Basophils/100 WBC (Bld) 0.2 % 0.2 - 2.0 % [facility] Eosinophils/100 WBC (Bld) 0.7 % Low 0.9 - 7.0 % [facility] Erythrocyte distribution width (RBC) [Ratio] 14.6 % 11.0 - 15.0 % [facility] Hematocrit (Bld) [Volume fraction] 31.8 % Low 36.0 - 48.0 % [facility] Hemoglobin (Bld) [Mass/Vol] 10.4 g/dL Low 12.0 - 16.0 g/dL [facility] IMMATURE GRANULOCYTES ABS AUTO 0.16 High [facility] Immature granulocytes/100 WBC (Bld) 1.7 % High 0.0 - 0.5 % [facility] Interpretation and review of laboratory results Abnormal [facility] LYMPHOCYTES ABSOLUTE AUTO 1.4 [facility] Lymphocytes/100 WBC (Bld) 14.7 % Low 20.5 - 60.0 % [facility] MCH (RBC) [Entitic mass] 27 pg 26.7 - 34.0 pg [facility] MCHC (RBC) [Mass/Vol] 32.7 g/dL 29.9 - 35.2 g/dL [facility] MCV (RBC) [Entitic vol] 82.6 fL 81.0 - 99.0 fL [facility] MONOCYTES ABSOLUTE AUTO 0.5 [facility] Monocytes/100 WBC (Bld) 5.3 % 1.7 - 12.0 % [facility] NEUTROPHILS ABSOLUTE AUTO 7.4 High [facility] Neutrophils/100 WBC (Bld) 77.4 % High 43.0 - 75.0 % [facility] Platelet mean volume (Bld) [Entitic vol] 10.6 fL 9.5 - 13.5 fL [facility] TBH EO # 0.1 [facility] TB PLT 342 [facility] RBC 3.85 Low [facility] WBC 9.6 [facility] Urinalysis macro (dipstick) panel (U)on 09-07-2024 Bilirubin, UA Negative Negative - 4(70) +++ mg/dL [facility] Blood, UA Negative Negative - 50 Adonis/mcL [facility] Clarity, UA Clear [facility] Color, UA Yellow [facility] Glucose, UA Negative Negative - 1999(110) ++++ mg/dL [facility] Interpretation and review of laboratory results Normal [facility] Ketones, UA Negative Negative - 160(16) ++++ mg/dL [facility] Leukocytes, UA Negative Negative - 500+++ Jose Alfredo/mcL [facility] Nitrite, UA Negative Negative - Positive [facility] pH, UA 6.5 5 - 9 [facility] Protein, UA Negative Negative - 2000(20) ++++ mg/dL [facility] Spec Grav, UA 1.025 1 - 1.03 [facility] Urobilinogen, UA 1.0 0.2 - 12 mg/dL [facility] US OB >= 14 weeks Fetuson US OB >= 14 weeks Fetus [facility] [address] Ultrasound Report Signed Patient: Kayley Graham MR#: [id number] 5 : 1995 Acct:[id number] Age/Sex: 29 / F ADM Date: 07/17/24 Loc: Room: Type: [facility] Attending Dr: Enma Rivera ([facility]) COURTNEY Ordering Provider: Enma Rivera APRN, WHCNP [...] Marie M.D. 07/17/2024 4:13 PM Dictation Location: [email or web address] Tech: Orquidea Cpoeland Transcribed By: [facility] 07/17/24 1613 Dictated By: Gage Marie DO 07/17/24 1611 Signed By: 07/17/24 1613 Normal [facility] Cytology Cervical or vaginal smear or scraping studyon 06-09-2024 [facility] Urine Cultureon 05-27-2024 Bacteria identified Cx Nom (U) No Growth 2 Days PERFORMED BY: [place] [address] PATHOLOGIST URINALYSIS TECHNICIAN CAESAR STOLL M.D. Normal [facility] Comment on above: Performed By: #### C UU #### [address] Urine cultureOrdered By: Pearl Glover on 05-27-2024 Bacteria identified Cx Nom (U) Urine culture [facility] US OB <= 14 weeks fetuson US OB <= 14 weeks fetus [facility] [address] Ultrasound Report Signed Patient: Kayley Graham MR#: [id number] 5 : 1995 Acct:[id number] Age/Sex: 29 / F ADM Date: 05/04/24 Loc: Room: Type: [facility] Attending Dr: Enma Rivera ([facility]) [employer] Ordering Provider: Enma Rivera APRN, [facility] Date of Service: 05/04/24 US/US OB <= 14 weeks fetus: Z34.81 Copies to: Enma Rivera APRN FAB OB ultrasound. Reason for exam:Dating ultrasound. Comparison:None. [...] Simeon Jr., D.O.05/04/2024 5:01 PM Dictation Location: [facility] [employer] Tech: Maricel Andre Transcribed By: MITALI 05/04/24 170 Dictated By: Castillo Simeon Jr, DO 05/04/24 1658 Signed By: 05/04/24 170 Normal [facility] CBC AUTO DIFFon 06-15-2021 BASO # 0.0 103/ul Normal 0.0-0.1 [facility] Comment on above: Performed By: #### C BC #### [facility] [address] [place] [address] Dr. Baljit Rockwell Basophils/100 WBC (Bld) 0.2 % Normal 0.2-2.0 [facility] Comment on above: Performed By: #### C BC #### [facility] [address] [place] [address] Dr. Baljit Rockwell EO # 0.0 103/ul Normal 0.0-0.7 [facility] Comment on above: Performed By: #### C BC #### [facility] [address] [address] [address] Baljit Rockwell Eosinophils/100 WBC (Bld) 0.1 % Critically low 0.9-7.0 [facility] Comment on above: Performed By: #### C BC #### [facility] [address] [place] [address] Dr. Baljit Rockwell Erythrocyte distribution width (RBC) [Ratio] 14.5 % Normal 11.0-15.0 [facility] Comment on above: Performed By: #### C BC #### [facility] [address] [address] [address] Baljit Rockwell Hematocrit (Bld) [Volume fraction] 35.6 % Critically low 36.0-48.0 [facility] Comment on above: Performed By: #### C BC #### [facility] [address] [address] [address] Baljit Rockwell Hemoglobin (Bld) [Mass/Vol] 11.4 g/dL Critically low 12.0-16.0 [facility] Comment on above: Performed By: #### C BC #### [facility] [address] [address] [address] Baljit Rockwell IG # 0.14 10e3/ul Critically high 0.00-0.03 [facility] Comment on above: Performed By: #### C BC #### [facility] [address] [place] [address] Dr. Baljit Rockwell IG % 0.9 % Critically high 0.0-0.5 [facility] Comment on above: Performed By: #### C BC #### [facility] [address] [place] [address] Dr. Baljit Rockwell LYMPH # 2.0 103/ul Normal 1.2-3.8 [facility] Comment on above: Performed By: #### C BC #### [facility] [address] [place] [address] Dr. Baljit Rockwell Lymphocytes/100 WBC (Bld) 11.9 % Critically low 20.5-60.0 [facility] Comment on above: Performed By: #### C BC #### [facility] [address] [place] [address] Dr. Baljit Rockwell MANUAL DIFF REQ NO Normal [facility] Comment on above: Performed By: #### C BC #### [facility] [address] [place] [address] Dr. Baljit Rockwell MCH (RBC) [Entitic mass] 27.9 pg Normal 26.7-34.0 [facility] Comment on above: Performed By: #### C BC #### [facility] [address] [address] [address] Baljit Rockwell MCHC (RBC) [Mass/Vol] 32.0 g/dL Normal 29.9-35.2 [facility] Comment on above: Performed By: #### C BC #### [facility] [address] [address] [address] Baljit Rockwell MCV (RBC) [Entitic vol] 87.3 fL Normal 81.0-99.0 [facility] Comment on above: Performed By: #### C BC #### [facility] [address] [address] [address] Baljit Rockwell MONO # 0.7 103/ul Normal 0.3-0.8 [facility] Comment on above: Performed By: #### C BC #### [facility] [address] [place] [address] Dr. Baljit Rockwell Monocytes/100 WBC (Bld) 4.3 % Normal 1.7-12.0 [facility] Comment on above: Performed By: #### C BC #### [facility] [address] [address] [address] Baljit Rockwell NEUT # 13.6 103/ul Critically high 1.4-6.5 [facility] Comment on above: Performed By: #### C BC #### [facility] [address] [place] [address] Dr. Baljit Rockwell Neutrophils/100 WBC (Bld) 82.6 % Critically high 43.0-75.0 [facility] Comment on above: Performed By: #### C BC #### [facility] [id number] Baljit Rockwell Platelet mean volume (Bld) [Entitic vol] 10.6 fL Normal 9.5-13.5 [facility] Comment on above: Performed By: #### C BC #### [facility] [address] [address] [address] Baljit Rockwell PLT 256 103/ul Normal 150-450 [facility] Comment on above: Performed By: #### C BC #### [facility] [address] [address] [address] Baljit Rockwell RBC 4.08 106/ul Critically low 4.20-5.40 [facility] Comment on above: Performed By: #### C BC #### [facility] [address] [place] [address] Dr. Baljit Rockwell WBC 16.4 103/ul Critically high 4.0-11.0 [facility] Comment on above: Performed By: #### C BC #### [facility] [address] [place] [address] Dr. Baljit Rockwell DRUG SCREEN RAPID (URINE)on 06-15-2021 AMP Negative Normal NEGATIVE [facility] Comment on above: Performed By: #### D RUGRPD #### [facility] [address] [place] [address] Dr. Baljit Rockwell BAR Negative Normal NEGATIVE [facility] Comment on above: Performed By: #### D RUGRPD #### [facility] [address] [place] [address] Dr. Baljit Rockwell BUP Negative Normal NEGATIVE [facility] Comment on above: Performed By: #### D RUGRPD #### [facility] [address] [place] [address] Dr. Baljit Rockwell BZO Negative Normal NEGATIVE [facility] Comment on above: Performed By: #### D RUGRPD #### [facility] [address] [place] [address] Dr. Baljit Rockwell MIGUEL Negative Normal NEGATIVE [facility] Comment on above: Performed By: #### D RUGRPD #### [facility] [address] [place] [address] Dr. Baljit Rockwell CUT-OFFS SEE BELOW Normal [facility] Comment on above: Result Comment: AMP (Amphetamine): 500ng/mL, BAR (Barbituates): 200 ng/mL, BZO (Benzodiazepines): 150 ng/mL, BUP (Buprenorphine): 10 ng/mL, MIGUEL (Cocaine): 150 ng/mL, mAMP (Methamphetamine): 500 ng/mL, MTD (Methadone): 200 ng/mL, OPI (Opiates): 100 ng/mL, OXY (Oxycodone): 100 ng/mL, PCP (Phencyclidine): 25 ng/mL, PPX (Propoxyphene): 300 ng/mL, THC (Cannabinoids): 50 ng/mL, TCA (Trycyclic Antidepressants): 300 ng/mL Performed By: #### D RUGRPD #### [facility] [address] [place] [address] Dr. Baljit Rockwell DRUG CUT HEADER DRUG CLASS TEST SYSTEM CUT-OFF CONCENTRATIONS ARE FOLLOWS: Normal [facility] Comment on above: Performed By: #### D RUGRPD #### [facility] [address] [place] [address] Dr. Baljit Rockwell mAMP Negative Normal NEGATIVE [facility] Comment on above: Performed By: #### D RUGRPD #### [facility] [address] [place] [address] Dr. Baljit Rockwell MTD Negative Normal NEGATIVE [facility] Comment on above: Performed By: #### D RUGRPD #### [facility] [address] [place] [address] Dr. Baljit Rockwell OPI Negative Normal NEGATIVE [facility] Comment on above: Performed By: #### D RUGRPD #### [facility] [address] [place] [address] Dr. Baljit Rockwell OXY Negative Normal NEGATIVE [facility] Comment on above: Performed By: #### D RUGRPD #### [facility] [address] [place] [address] Dr. Baljit Rockwell PCP Negative Normal NEGATIVE [facility] Comment on above: Performed By: #### D RUGRPD #### [facility] [address] [place] [address] Dr. Baljit Rockwell PPX Negative Normal NEGATIVE [facility] Comment on above: Performed By: #### D RUGRPD #### [facility] [address] [place] [address] Dr. Baljit Rockwell TCA Negative Normal NEGATIVE [facility] Comment on above: Performed By: #### D RUGRPD #### [facility] [address] [place] [address] Dr. Baljit Rockwell THC Negative Normal NEGATIVE [facility] Comment on above: Performed By: #### D RUGRPD #### [facility] [address] [place] [address] Dr. Baljit Rockwell CBC AUTO DIFFon 06-14-2021 BASO # 0.0 103/ul Normal 0.0-0.1 [facility] Comment on above: Performed By: #### C BC #### [facility] [address] [place] [address] Dr. Baljit Rockwell Basophils/100 WBC (Bld) 0.2 % Normal 0.2-2.0 [facility] Comment on above: Performed By: #### C BC #### [facility] [address] [place] [address] Dr. Baljit Rockwell EO # 0.0 103/ul Normal 0.0-0.7 [facility] Comment on above: Performed By: #### C BC #### [facility] [address] [place] [address] Dr. Baljit Rockwell Eosinophils/100 WBC (Bld) 0.3 % Critically low 0.9-7.0 [facility] Comment on above: Performed By: #### C BC #### [facility] [address] [place] [address] Dr. Baljit Rockwell Erythrocyte distribution width (RBC) [Ratio] 14.5 % Normal 11.0-15.0 [facility] Comment on above: Performed By: #### C BC #### [facility] [address] [place] [address] Dr. Baljit Rockwell Hematocrit (Bld) [Volume fraction] 35.0 % Critically low 36.0-48.0 [facility] Comment on above: Performed By: #### C BC #### [facility] [address] [place] [address] Dr. Baljit Rockwell Hemoglobin (Bld) [Mass/Vol] 11.2 g/dL Critically low 12.0-16.0 [facility] Comment on above: Performed By: #### C BC #### [facility] [address] [place] [address] Dr. Baljit Rockwell IG # 0.11 10e3/ul Critically high 0.00-0.03 [facility] Comment on above: Performed By: #### C BC #### [facility] [address] [place] [address] Dr. Baljit Rockwell IG % 0.9 % Critically high 0.0-0.5 [facility] Comment on above: Performed By: #### C BC #### [facility] [address] [place] [address] Dr. Baljit Rockwell LYMPH # 2.2 103/ul Normal 1.2-3.8 [facility] Comment on above: Performed By: #### C BC #### [facility] [address] [place] [address] Dr. Baljit Rockwell Lymphocytes/100 WBC (Bld) 17.7 % Critically low 20.5-60.0 [facility] Comment on above: Performed By: #### C BC #### [facility] [address] [place] [address] Dr. Baljit Rockwell MANUAL DIFF REQ NO Normal [facility] Comment on above: Performed By: #### C BC #### [facility] [address] [place] [address] Dr. Baljit Rockwell MCH (RBC) [Entitic mass] 27.3 pg Normal 26.7-34.0 [facility] Comment on above: Performed By: #### C BC #### [facility] [address] [place] [address] Dr. Baljit Rockwell MCHC (RBC) [Mass/Vol] 32.0 g/dL Normal 29.9-35.2 [facility] Comment on above: Performed By: #### C BC #### [facility] [address] [place] [address] Dr. Baljit Rockwell MCV (RBC) [Entitic vol] 85.2 fL Normal 81.0-99.0 [facility] Comment on above: Performed By: #### C BC #### [facility] [address] [place] [address] Dr. Baljit Rockwell MONO # 0.7 103/ul Normal 0.3-0.8 [facility] Comment on above: Performed By: #### C BC #### [facility] [address] [place] [address] Dr. Baljit Rockwell Monocytes/100 WBC (Bld) 5.4 % Normal 1.7-12.0 [facility] Comment on above: Performed By: #### C BC #### [facility] [address] [place] [address] Dr. Baljit Rockwell NEUT # 9.4 103/ul Critically high 1.4-6.5 [facility] Comment on above: Performed By: #### C BC #### [facility] [address] [place] [address] Dr. Baljit Rockwell Neutrophils/100 WBC (Bld) 75.5 % Critically high 43.0-75.0 [facility] Comment on above: Performed By: #### C BC #### [facility] [address] [place] [address] Dr. Baljit Rockwell Platelet mean volume (Bld) [Entitic vol] 10.7 fL Normal 9.5-13.5 [facility] Comment on above: Performed By: #### C BC #### [facility] [address] [place] [address] Dr. Baljit Rockwell PLT 265 103/ul Normal 150-450 [facility] Comment on above: Performed By: #### C BC #### [facility] [address] [place] [address] Dr. Baljit Rockwell RBC 4.11 106/ul Critically low 4.20-5.40 [facility] Comment on above: Performed By: #### C BC #### [facility] [address] [place] [address] Dr. Baljit Rockwell WBC 12.5 103/ul Critically high 4.0-11.0 [facility] Comment on above: Performed By: #### C BC #### [facility] [address] [place] [address] Dr. Baljit Rockwell Covid-19 PCR ([facility])on 05-20 SARS-CoV-2 (COVID-19) RNA ZOLTAN+probe Ql (Unsp spec) Not detected Normal NOT DETECTED [facility] Comment on above: Result Comment: When diagnostic [...] for this test is supported by the [place] of Health and Human Service's declaration that [...] longer be used). Performed By: #### [facility] #### [facility] [address] [place] [address] Dr. Baljit Rockwell TYPE AND SCREENon 06-14-2021 TYPE AND SCREEN Negative Normal [facility] Comment on above: Performed By: #### T NS #### [facility] [address] [place] [address] Dr. Baljit Rockwell US PREG BIOPHY W NON STRESSo n 06-02-2021 US PREG BIOPHY W NON STRESS EXAMINATION: US PREG BIOPHY W NON STRESS HISTORY: [id number] baby COMPARISON: Ultrasound biophysical 05/25/2021 TECHNIQUE: Ultrasound biophysical profile was performed. FINDINGS: BREATHING MOVEMENTS: 2.0 GROSS BODY MOVEMENTS: 2.0 TONE: 2.0 QUALITATIVE AMNIOTIC FLUID VOLUME: 2.0 PRESENTATION: CEPHALIC HEART RATE: 157.0 bpm bpm. AMNIOTIC FLUID VOLUME: 13.5 cm GESTATIONAL AGE: 36 weeks 3 days CONCLUSION: Total biophysical profile score 8.0. Electronically authenticated by: BRENDA VIEYRA Date: 2021-06-02 08:18 Normal [facility] GROUP B STREP CULTUREon 05-19 S. agalactiae Ag Ql (Unsp spec) Culture Observations: NEGATIVE FOR GROUP B STREPTOCOCCUS. Normal [facility] Comment on above: Performed By: #### G BSCX #### [facility] [address] [address] [address] Baljit Rockwell US PREG BIOPHY W NON STRESSo n 05-26-2021 US PREG BIOPHY W NON STRESS EXAMINATION: US PREG BIOPHY W NON STRESS HISTORY: [id number] baby COMPARISON: No relevant comparison available. TECHNIQUE: Ultrasound biophysical profile was performed. FINDINGS: BREATHING MOVEMENTS: 2.0 GROSS BODY MOVEMENTS: 2.0 TONE: 2.0 QUALITATIVE AMNIOTIC FLUID VOLUME: 2.0 PRESENTATION: CEPHALIC HEART RATE: 131.7 bpm bpm. AMNIOTIC FLUID VOLUME: 11.2 cm GESTATIONAL AGE: 35 weeks 3 days CONCLUSION: Total biophysical profile score 8.0. Electronically authenticated by: BRENDA VIEYRA Date: 2021-05-26 08:00 Normal [facility] US PREG ANATOMY SINGLEon US PREG ANATOMY [...] KRISTIAN DICKEY Date: 2021-05-23 15:17 Normal [facility] Covid-19 PCR ([facility])on 04-19 SARS-CoV-2 (COVID-19) RNA ZOLTAN+probe Ql (Unsp spec) Detected Critically abnormal NOT DETECTED [facility] Comment on above: Result Comment: This test is not yet approved or cleared by the [place] FDA. When there are no FDA-approved or cleared tests available, and other criteria are met, FDA can make tests available under an emergency access mechanism called an Emergency Use Authorization (EUA). The EUA for this test is supported by the [place] [employer] of Health and Human Service's (HHS's) declaration [...] used). Performed By: #### C VDTBH #### [facility] [address] [place] [address] Dr. Baljit Rockwell UA (CLEAN/CATCH) CODE INSPECTOR/MICRO I F IND.on 05-12-2021 Bilirubin Ql (U) Negative Normal NEGATIVE [facility] Comment on above: Performed By: #### U ACSIND #### [facility] [address] [place] [address] Dr. Baljit Rockwell Clarity (U) CLEAR Normal CLEAR [facility] Comment on above: Performed By: #### U ACSIND #### [facility] [address] [place] [address] Dr. Baljit Rockwell Color (U) LT. YELLOW Normal YELLOW [facility] Comment on above: Performed By: #### U ACSIND #### [facility] [address] [address] [address] Baljit Rockwell Glucose Ql (U) Negative Normal NEGATIVE [facility] Comment on above: Performed By: #### U ACSIND #### [facility] [address] [address] [address] Baljit Rockwell Hemoglobin Ql (U) Negative Normal NEGATIVE [facility] Comment on above: Performed By: #### U ACSIND #### [facility] [address] [address] [address] Baljit Rockwell Ketones Ql (U) Negative Normal NEGATIVE [facility] Comment on above: Performed By: #### U ACSIND #### [facility] [address] [address] [address] Baljit Rockwell LEUKOCYTES Negative Normal NEGATIVE [facility] Comment on above: Performed By: #### U ACSIND #### [facility] [address] [address] [address] Baljit Rockwell Nitrite Ql (U) Negative Normal NEGATIVE [facility] Comment on above: Performed By: #### U ACSIND #### [facility] [address] [address] [address] Baljit Rockwell pH (U) 7.0 [pH] Normal 5-9 [facility] Comment on above: Performed By: #### U ACSIND #### [facility] [address] [address] [address] Baljit Rockwell SPEC GRAVITY <=1.005 Abnormal 1.005-<=1.025 [facility] Comment on above: Performed By: #### U ACSIND #### [facility] [address] [address] [address] Baljit Rockwell UA PROTEIN Negative Normal NEGATIVE/ TRACE [facility] Comment on above: Performed By: #### U ACSIND #### [facility] [address] [address] [address] Baljit Rockwell UR MICRO IND NOT INDICATED Normal [facility] Comment on above: Performed By: #### U ACSIND #### [facility] [address] [address] [address] Baljit Rockwell Urobilinogen Qn (U) 0.2 {Shannan'U}/dL Normal 0.2 - 1. 0 [facility] Comment on above: Performed By: #### U ACSIND #### [facility] [address] [address] [address] Baljit Rockwell Vital Signs Date Time Vital Sign Value Performing Clinician Faci lity 10-27-2024 11:10-0400 Body mass index (BMI) [Ratio] 31.35 kg/m2 Tiffany TUCKER Work Phone: [facility] 10-27-2024 11:10-040 Body weight 80.29 kg Tiffany TUCKER Work Phone: [facility] 10-27-2024 11:10-0400 Diastolic blood pressure 72 mm[Hg] Tiffany TUCKER Work Phone: [facility] 10-27-2024 11:10-0400 Systolic blood pressure 122 mm[Hg] Tiffany TUCKER Work Phone: [facility] 10-20-2024 12:55-0400 Body mass index (BMI) [Ratio] 30.79 kg/m2 Srinivasan Suleiman DO Work Phone: [facility] 10-20-2024 12:55-0400 Body weight 78.83 kg Srinivasan Suleiman DO Work Phone: [facility] 10-20-2024 12:55-0400 Diastolic blood pressure 78 mm[Hg] Srinivasan Suleiman DO Work Phone: [facility] 10-20-2024 12:55-0400 Systolic blood pressure 130 mm[Hg] Srinivasan Suleiman DO Work Phone: [facility] 10-06-2024 14:10-0400 Body mass index (BMI) [Ratio] 31.32 kg/m2 Srinivasan Suleiman DO Work Phone: [facility] 10-06-2024 14:10-0400 Body weight 80.2 kg Srinivasan Suleiman DO Work Phone: [facility] 10-06-2024 14:10-0400 Diastolic blood pressure 84 mm[Hg] Srinivasan Suleiman DO Work Phone: [facility] 10-06-2024 14:10-0400 Systolic blood pressure 126 mm[Hg] Srinivasan Suleiman DO Work Phone: [facility] 09-22-2024 10:08-0400 Body mass index (BMI) [Ratio] 30.79 kg/m2 Tiffany TUCKER Work Phone: [facility] 09-22-2024 10:08-0400 Body weight 78.83 kg Tiffany TUCKER Work Phone: [facility] 09-22-2024 10:08-0400 Diastolic blood pressure 82 mm[Hg] Tiffany TUCKER Work Phone: [facility] 09-22-2024 10:08-0400 Systolic blood pressure 130 mm[Hg] Tiffany TUCKER Work Phone: [facility] 09-07-2024 13:10-0400 Body mass index (BMI) [Ratio] 30.43 kg/m2 Srinivasan Suleiman DO Work Phone: [facility] 09-07-2024 13:10-0400 Body weight 77.93 kg Srinivasan Suleiman DO Work Phone: [facility] 09-07-2024 13:10-0400 Diastolic blood pressure 78 mm[Hg] Srinivasan Suleiman DO Work Phone: [facility] 09-07-2024 13:10-0400 Systolic blood pressure 122 mm[Hg] Srinivasan Suleiman DO Work Phone: [facility] Healthcare Encounters Encounter Date Encounter Type Care Provider Facility Start: 10-27-2024 End: 10-27-2024 Bamboo flowsheet Tiffany TUCKER Work Phone: [facility] Kamilla SALMERON Start: 10-27-2024 End: 10-28-2024 Bamboo flowsheet Tiffany TUCKER Work Phone: [facility] Start: 10-27-2024 End: 10-28-2024 External Result Encounter Tiffany TUCKER Work Phone: [facility] Unsolicited Start: 10-27-2024 End: 10-27-2024 Office outpatient visit 15 minutes Tiffany TUCKER Work Phone: [facility] Comment on above: Third trimester preg darvin ([facility]); 36 weeks gestation of ([facility]); Vaginal discharge Start: 10-27-2024 End: 10-27-2024 ambulatory TIFFANY LLANES Not Available Start: 10-20-2024 End: 10-20-2024 Bamboo flowsheet Srinivasan Suleiman DO Work Phone: [facility] Start: 10-20-2024 End: 10-20-2024 Bamboo flowsheet Srinivasan Suleiman DO Work Phone: [facility] Start: 10-20-2024 End: 10-20-2024 Office outpatient visit 15 minutes Srinivasan Suleiman DO Work Phone: [facility] Comment on above: 35 weeks gestation o f ([facility]); Third trimester ([facility]); Low hemoglobin Start: 10-20-2024 End: 10-20-2024 ambulatory SRINIVASAN SULEIMAN Not Available Start: 10-17-2024 End: 10-17-2024 Clinisync Result Encounter Srinivasan Suleiman DO Work Phone: [facility] Unsolicited Start: 10-17-2024 End: 10-17-2024 Clinisync Result Encounter Srinivasan Suleiman DO Work Phone: [facility] Unsolicited Start: 10-06-2024 End: 10-06-2024 Office outpatient visit 15 minutes Srinivasan Suleiman DO Work Phone: [facility] Comment on above: Third trimester preg darvin ([facility]); 33 weeks gestation of ([facility]) Start: 10-06-2024 End: 10-06-2024 Bamboo flowsheet Srinivasan Suleiman DO Work Phone: [facility] Start: 10-06-2024 End: 10-06-2024 Bamboo flowsheet Srinivasan [...] minutes Tiffany TUCKER Work Phone: [facility] Comment on above: 31 weeks gestation o f ([facility]); Third trimester ([facility]); Elevated glucose tolerance test Start: 09-22-2024 End: 09-22-2024 ambulatory TIFFANY LLANES Not Available Start: 09-21-2024 End: 09-21-2024 Clinisync Result Encounter Srinivasan Suleiman DO Work Phone: [facility] Unsolicited Start: 09-21-2024 End: 09-21-2024 Clinisync Result Encounter Srinivasan Suleiman DO Work Phone: [facility] Unsolicited Start: 09-11-2024 ambulatory Enma armenta [facility] Start: 09-07-2024 End: 09-07-2024 Bamboo flowsheet Srinivasan Suleiman DO Work Phone: [facility] Start: 09-07-2024 End: 09-07-2024 Bamboo flowsheet Srinivasan Suleiman DO Work Phone: [facility] Start: 09-07-2024 End: 09-07-2024 Office outpatient visit 15 minutes Srinivasan Bearden DO Work Phone: [facility] Comment on above: GA: 29w4d Start: 09-07-2024 End: 09-07-2024 ambulatory SRINIVASAN BEARDEN Not Available Start: 07-17-2024 End: 07-17-2024 Patient encounter procedure PHYSICIAN NO [facility] [place] Work Phone: Start: 07-17-2024 End: 07-17-2024 ambulatory PHYSICIAN NO [facility] Work Phone: Start: 05-27-2024 End: 05-27-2024 ambulatory PHYSICIAN NO [facility] Work Phone: Start: 05-27-2024 End: 05-27-2024 Departed Referred PHYSICIAN NO [facility] Start: 05-04-2024 End: 05-04-2024 Patient encounter procedure PHYSICIAN NO [facility] [place] Work Phone: Start: 05-04-2024 End: 05-04-2024 ambulatory PHYSICIAN NO [facility] Work Phone: Start: 06-29-2021 ambulatory [...] Date Procedure Procedure Detail Performing Clinician Start: 10-27-2024 RECURRENT VAGINITIS (HTRX) Tiffany TUCKER Work Phone: Start: 10-27-2024 Urnls dip stick/tabl et rgnt non-auto w/o micrscp Tiffany TUCKER Work Phone: Start: 10-20-2024 Urnls dip stick/tabl et rgnt non-auto w/o micrscp Srinivasan Suleiman DO Work Phone: Start: 10-17-2024 AMNISURE Srinivasan Fazi o DO Work Phone: Start: 09-26-2024 GLUCOSE [...] of gravid uterus PHYSICIAN NO FAMILY Start: 06-09-2024 Cytp cerv/vag auto t hin layer prep mnl screen Tiffany TUCKER Work Phone: Start: 05-27-2024 Urine culture PHYSICIAN NO FAMILY Start: 05-04-2024 Diagnostic ultrasoun d of gravid uterus PHYSICIAN NO FAMILY Start: 06-14-2021 Delivery of Products of Conception, External Approach DR SRINIVASAN BEARDEN Start: 06-14-2021 Drainage of Amniotic Fluid, Therapeutic from Products of Conception, Via Natural or Artificial Opening DR SRINIVASAN BEARDEN Plan of Treatment Date Care Activity Detail Author Start: 10-27-2024 End: 10-27-2024 Patient encounter procedure GREG SALMERON Comment on above: Arrived Start: 10-20-2024 End: 10-20-2025 CULTURE, GROUP B STREP WITH SUSCEPTIBLITY CULTURE, GROUP B STREP WITH SUSCEPTIBLITY Lab Routine Third trimester ([facility]) Expected: 10/20/2024, Expires: 10/20/2025 [facility] Work Phone: Comment on above: Expected: 10/20/2024 , Expires: 10/20/2025 Start: 10-20-2024 End: 10-20-2024 Patient encounter procedure GREG SALMERON Comment on above: Arrived Start: 10-06-2024 End: 10-06-2024 Patient encounter procedure GREG SALMERON Comment on above: Arrived Start: 09-22-2024 End: 09-22-2025 Measurement of glucose 3 hours after glucose challenge for glucose tolerance test Glucose tolerance, 3 hours Lab Routine Elevated glucose tolerance test Expected: 09/22/2024 (Approximate), Expires: 09/22/2025 [facility] Work Phone: Comment on above: Expected: [...] mellitus screening Expected: 09/07/2024 (Approximate), Expires: 09/07/2025 [facility] Comment on above: Expected: 09/07/2024 (Approximate), Expires: 09/07/2025 Start: 09-07-2024 End: 01-08-2025 US for US OB follow up transabdominal approach Imaging Routine size inconsistent with dates ([facility]) Expected: 09/07/2024, Expires: 01/08/2025 [facility] Comment on above: Expected: 09/07/2024 , Expires: 01/08/2025 Start: 09-07-2024 End: 09-07-2024 ambulatory 09/07/2024 1:30 PM EDT Initial [facility] [address] [place] [id number] Srinivasan Bearden, DO [address] [place] [address] Arrived [facility] Comment on above: Arrived Start: 05-27-2024 Urine culture [facility] Start: 05-27-2024 Bacteria identified in Urine by Culture Urine Culture [facility] CHLAMYDIA TRACHOMATI S (GENITO/STI) CHLAMYDIA TRACHOMATIS (GENITO/STI) Lab Routine Vaginal discharge Ordered: 10/27/2024 [facility] Comment on above: Ordered: 10/27/2024 Neisseria gonorrhoea e DNA [Presence] in Unspecified specimen by ZOLTAN with probe detection Neisseria gonorrhea DNA probe, direct Lab Routine Vaginal discharge Ordered: 10/27/2024 [facility] Comment on above: Ordered: 10/27/2024 SURESWAB(R) ADVANCED VAGINITIS PLUS, TMA SURESWAB(R) ADVANCED VAGINITIS PLUS, TMA Pathology and Cytology Routine Vaginal discharge Ordered: 10/27/2024 [facility] Work Phone: Comment on above: Ordered: 10/27/2024 Payers Date Payer Category Payer Private Health Insurance [facility] MEDICAID [id number] 2024 Self-pay 1995 Unknown [id number] 2.16.840.1.730838.3.579.2. 593 1993 Unknown [id number] 2.16.840.1.490326.3.579.2. 593 1993 Unknown [id number] 2.16.840.1.122266.3.579.2. 593 1993 Unknown [id number] 2.16.840.1.575720.3.579.2. 593 1993 Unknown [id number] 2.16.840.1.194509.3.579.2. 593 1993 Unknown [id number] 2.16.840.1.434205.3.579.2. 593 1993 Unknown [id number] 2.16.840.1.217129.3.579.2. 593 1993 Unknown [id number] 2.16.840.1.523905.3.579.2. 593 1993 Unknown [id number] 2.16.840.1.099345.3.579.2. 593 1993 Unknown [id number] 2.16.840.1.765811.3.579.2. 593 1993 Unknown [id number] 2.16.840.1.433317.3.579.2. 593 1993 Unknown [id number] 2.16.840.1.086233.3.579.2. 593 1993 Unknown [id number] 2.16.840.1.341344.3.579.2. 593 1993 Unknown [id number] 2.16.840.1.271200.3.579.2. 593 1993 Unknown [id number] 2.16.840.1.048260.3.579.2. 593 1993 Unknown [id number] 2.16.840.1.233745.3.579.2. 716 1993 Unknown [id number] 2.16.840.1.166864.3.579.2. 1259 1993 Unknown [id number] 2.16840.1.538206.3.579.2. 1259 1993 Unknown [id number] 2.16840.1.895058.3.579.2. 1259 1993 Unknown [id number] 2.16840.1.563873.3.579.2. 1259 1993 Unknown [id number] 2.16.840.1.572992.3.579.2. 1259 1993 Unknown [id number] 2.16.840.1.242118.3.579.2. 1259 1961 Medicaid [id number] 1961 Self-pay [id number] Unknown [id number] 2.16840.1.027148.3.579.2. 531 Unknown [id number] 2.16840.1.847226.3.579.2. 531 Unknown [id number] 2.16840.1.825582.3.579.2. 531 Social History Date Type Detail [facility] Start: 05-05-2024 End: 07-18-2024 Sex Female (finding) [facility] Start: 1995 Sex Assigned At Female [facility] Start: 1995 Sex assigned at Not on file [facility] Gender identity Not on file [facility] Start: 02-27-2024 [facility] Clinical Notes 05-04-2024 to 10-27-2024 GARRETT Rivers - 10/27/2024 11:20 AM Paul Peacock LPN - 10/20/2024 1:10 PM Paul Peacock LPN - 10/06/2024 2:20 PM GARRETT Donaldson - 09/22/2024 10:20 AM EDT Note Date & Type Note Facility 10-27-2024 History of Present illness Narrative Reason for Appointment: Patient ID: [...] nursing note reviewed. Exam conducted with a generator worker present. Vitals: Estimated body mass index is 31.35 kg/m as calculated from the following: Height as of 07/09/23: 5' 3 . Weight as of this encounter: 177 lb. BP: 122/72 Patient's last menstrual period was 02/19/2024. ASSESSMENT & PLAN ICD-10-CM 1. Third trimester ([facility]) Z34.93 POCT urinalysis dipstick manually resulted 2. 36 weeks gestation of ([facility]) Z3A.36 3. Vaginal discharge N89.8 SURESWAB(R) ADVANCED [...] area. Pt states she was seen in [facility] on 10/17/2024 due to false labor and states she is still having the cramping. Pt also states she was advised she had a yeast infection while in [place] and does not feel it has gone [...] of: GARRETT Rivers documented in this encounter [facility] 10-20-2024 History of Present illness Narrative Reason for Appointment: Patient ID: [...] nursing note reviewed. Exam conducted with a generator worker present. Vitals: Estimated body mass index is 30.79 kg/m as calculated from the following: Height as of 07/09/23: 5' 3 . Weight as of this encounter: 173 lb 12.8 oz. BP: 130/78 Patient's last menstrual period was 02/19/2024. ASSESSMENT & PLAN ICD-10-CM 1. 35 weeks gestation of ([facility]) Z3A.35 POCT urinalysis dipstick manually resulted 2. Third trimester ([facility]) Z34.93 POCT urinalysis dipstick manually resulted [...] Srinivasan Bearden DO documented in this encounter [facility] 10-06-2024 History of Present illness Narrative Reason for Appointment: Patient ID: [...] nursing note reviewed. Exam conducted with a generator worker present. Vitals: Estimated body mass index is 31.32 kg/m as calculated from the following: Height as of 07/09/23: 5' 3 . Weight as of this encounter: 176 lb 12.8 oz. BP: 126/84 Patient's last menstrual period was 02/19/2024. ASSESSMENT & PLAN ICD-10-CM 1. Third trimester ([facility]) Z34.93 2. 33 weeks gestation of ([facility]) Z3A.33 Return OB: Patient presents [...] Srinivasan Bearden DO documented in this encounter [facility] 09-22-2024 History of Present illness Narrative Reason for Appointment: Patient ID: [...] PLAN ICD-10-CM 1. 31 weeks gestation of ([facility]) Z3A.31 POCT urinalysis dipstick manually resulted 2. Third trimester ([facility]) Z34.93 POCT urinalysis dipstick manually [...] of: GARRETT Rivers documented in this encounter [facility] 09-07-2024 History of Present illness Narrative Reason for Appointment: Patient ID: [...] nursing note reviewed. Exam conducted with a generator worker present. Vitals: Estimated body mass index is 30.43 kg/m as calculated from the following: Height as of 24: 5' 3 . Weight as of this encounter: 171 lb 12.8 oz. BP: 122/78 Patient's last menstrual period was 02/19/2024. ASSESSMENT & PLAN ICD-10-CM 1. Third trimester ([facility]) Z34.93 POCT urinalysis dipstick manually resulted 2. 29 weeks gestation of ([facility]) Z3A.29 POCT urinalysis dipstick manually resulted 3. Diabetes mellitus screening Z13.1 Hemoglobin A1c CBC Glucose tolerance, 1 hour CBC Glucose tolerance, 1 hour Patient presents today for transfer of care OB patient. Patient was seeing [facility] and desires to deliver at [facility]. Patient to return to clinic in 2 weeks for return OB and growth scan. Reviewed all labs and scans with patient as well. Documented by Enma Irizarry LPN on behalf of: Srinivasan Bearden DO documented in this encounter [facility] 07-17-2024 Radiology Diagnostic study note [facility] [place] [address] [place] [address] Ultrasound Report Signed Patient: Kayley Graham MR#: [id number] : 1995 Acct:[id number] Age/Sex: 29 / F ADM Date: 5 Loc: Room: Type: [facility] Attending Dr: Enma Rivera ([facility]) COURTNEY Ordering Provider: Enma Rivera APRN, WHCNP [...] Marie M.D. 07/17/2024 4:13 PM Dictation Location: [employer] Tech: Orquidea Copeland Transcribed By: MITALI 07/17/24 1613 Dictated By: Gage Marie DO 07/17/24 1611 Signed By: 07/17/24 1613 [facility] 05-04-2024 Radiology Diagnostic study note [facility] [address] Ultrasound Report Signed Patient: Kayley Graham MR#: [id number] : 1995 Acct:[id number] Age/Sex: 29 / F ADM Date: 5 Loc: Room: Type: [facility] Attending Dr: Enma Rivera ([facility]) COURTNEY Ordering Provider: Enma Rivera APRN, WHCNP [...] Simeon Jr., DSherinOSherin05/04/2024 5:01 PM Dictation Location: [place] [address] Tech: Maricel Andre Transcribed By: MITALI 05/04/241700 Dictated By: Castillo Simeon Jr, DO 05/04/24 1658 Signed By: 05/04/241700 [facility] Evaluation note No assessment inform ation available [facility] Work Phone: Evaluation note Diagnosis Third trimester (HHS-HCC) state, incidental 29 weeks gestation of (HHS-HCC) Diabetes mellitus screening Screening for diabetes mellitus size inconsistent with dates (HHS-HCC) [facility] Diagnosis 31 weeks gestation of (HHS-HCC) Third trimester (HHS-HCC) state, incidental Elevated glucose tolerance test Impaired glucose tolerance test documented [facility] Diagnosis Third trimester (HHS-HCC) state, incidental 33 weeks gestation of (HHS-HCC) [facility] Diagnosis 35 weeks gestation of (HHS-HCC) Third trimester (HHS-HCC) state, incidental Low hemoglobin [facility] Diagnosis Third trimester (HHS-HCC) state, incidental 36 weeks gestation of (HHS-HCC) Vaginal discharge Leukorrhea, not specified as infective documented in this encounter [facility] Summary Purpose Family History No Family History Records FoundNo Family History Records FoundNo Family History Records FoundNo Family History Records Found Advance Directives No Advanced Directives Records FoundNo Advanced Directives Records FoundNo Advanced Directives Records FoundNo Advanced Directives Records Found Chief Complaint and Reason for Visit Chief Complaint Admit Date May 04, 2024 1:4 1pm Chief Complaint Admit Date May 04, 2024 1:4 1pm Unknown May 27, 2024 3:55 pm Chief Complaint Admit Date zMay 04, 2024 1:4 1pm Unknown May 27, 2024 3:55 pm z34.July 17, 2024 12:19 pm Additional Source Comments INFORMATION SOURCE (unrecogn ized section and content) DATE CREATED AUTHOR 06/23/2021 [facility] DATE CREATED AUTHOR AUTHOR'S ORGANIZ ATION 07/28/2024 [facility] DATE CREATED AUTHOR AUTHOR'S ORGANIZ ATION 09/12/2024 [facility] DATE CREATED AUTHOR AUTHOR'S ORGANIZ ATION 10/29/2024 [facility] Specialists [facility] Care Teams (unrecognized sec tion and content) Team Status: Active Member Role Status Dates PHYSICIAN NO FAMILY Primary Care Provider Active Team Status: Inactive Member Role Status Dates Enma Rivera ([facility]) , COURTNEY Attending Provider Active Start: May 04, 2024 End: May 04, 2024 PHYSICIAN NO FAMILY Primary Care Provider Active Start: May 04, 2024 End: May 04, 2024 Team Status: Inactive Member Role Status Dates Maria Del Carmen Glover PA-C Attending Provider Active Start: May 27, 2024 End: May 27, 2024 Team Status: Inactive Member Role Status Dates Enma Rivera ([facility]) , ELECTRONICS MECHANIC Attending Provider Active Start: July 17, 2024 End: July 17, 2024 PHYSICIAN NO FAMILY Primary Care Provider Active Start: July 17, 2024 End: July 17, 2024 City Bus Driver Relationship Specialty Start Date End Date Cesar Espitia MD [address] [place] [address] PCP - General Family Medicine 06/28/23 City Bus Driver Relationship Specialty Start Date End Date Cesar Espitia MD [address] [place] [address] PCP - General Family Medicine 06/28/23 City Bus Driver Relationship Specialty Start Date End Date Cesar Espitia MD [address] [place] [address] PCP - General Family Medicine 06/28/23 City Bus Driver Relationship Specialty Start Date End Date Cesar Espitia MD [address] [place] [address] PCP - General Family Medicine 06/28/23 City Bus Driver Relationship Specialty Start Date End Date Cesar Espitia MD [address] [place] [address] PCP - General Family Medicine 06/28/23 City Bus Driver Relationship Specialty Start Date End Date Cesar Espitia MD [address] [place] [address] PCP - General Family Medicine 06/28/23 City Bus Driver Relationship Specialty Start Date End Date Cesar Espitia MD [address] [place] [address] PCP - General Family Medicine 06/28/23 Goals [...] BE BASED ON THE PRIMARY CLINICAL RECORDS. [facility]. provides no warranty or guarantee of the accuracy or completeness of information in this document.
[2024-10-30 20:10] VITALS: BP 133/87; PULSE 89
[2024-10-30 20:11] VITALS: BP 136/90; PULSE 95
[2024-10-30 20:51] VITALS: BP 136/90
== END 2024-10-30 20:58 | disposition home or self-care (01) ==
LOC: US 19:47 → FBC 19:51
PROVIDERS: Visit Provider Physician Assistant
DX: O26.893 Other specified pregnancy related conditions, third trimester (principal); Z3A.36 36 weeks gestation of pregnancy; R10.2 Pelvic and perineal pain; Z87.59 Personal history of other complications of pregnancy, childbirth and the puerperium
CPT/HCPCS: 59025; 76818

== ENCOUNTER 2024-11-03 17:45 | Outpatient (OUT) | payer OTHER, SELFPAY ==
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
--- OUTSIDE RECORDS SUMMARY | 2024-10-20 13:10 | XMS_ITS | Encounter Summary ---
Author Organization [facility] Address [address] [place] [address] Care Team Providers Care Armhole Raiser Lockstitch Name Role Phone Cesar Espitia MD Primary Care Provider [phone] Reason for Visit * Reason Comments Routine Visit Encounter Details Date Type Department Care Team (Late st Contact Info) Description 10/20/2024 1:10 PM EDT Routine [facility] [facility] [address] [address] Santo Bearden DO [address] [place] [address] 35 weeks gestation of ([facility]); Third trimester ([facility]); Low hemoglobin Social History Tobacco Use Types Packs/Day Years [...] Sign Reading Time Taken Comments Blood Pressure 130/78 10/20/2024 12:55 PM EDT Pulse - - Temperature - - Respiratory Rate - - Oxygen Saturation - - Inhaled Oxygen Concentration - - Weight 78.8 kg (173 lb 12.8 oz) 025 12:55 PM EDT Height - - Body Mass Index 30.79 07/09/2023 4:01 PM EDT documented in this encounter Progress Notes * Yana Peacock, PROFESSOR OF PSYCHIATRY - 10/20/2024 1:10 PM EDT Reason for Appointment: Patient ID: [...] Constitutional: Appearance: Normal appearance. She is well-developed. Genitourinary: Vulva normal. Cardiovascular: Rate and Rhythm: Normal rate and [...] nursing note reviewed. Exam conducted with a energy sales consultant present. Vitals: Estimated body mass index is 30.79 kg/m?? as calculated from the following: Height as of 07/09/23: 5' 3 . Weight as of this encounter: 173 lb 12.8 oz. BP: 130/78 Patient's last menstrual period was 02/19/2024. ASSESSMENT & PLAN ICD-10-CM 1. 35 weeks gestation of ([facility]) Z3A.35 POCT urinalysis dipstick manually resulted 2. Third trimester ([facility]) Z34.93 POCT urinalysis dipstick manually resulted CULTURE, GROUP B STREP WITH SUSCEPTIBLITY CULTURE, GROUP B STREP WITH SUSCEPTIBLITY 3. Low hemoglobin D64.9 Patient is doing well but has complaints of being tired and having maternal discomfort due to . Patient verbalized frequent movement and was instructed to perform kick counts three times per day. labor precautions were given, LARC consent was signed/declined, and GBS was obtained. Cervical check was performed and patient is 0cm dilated. Orders Placed This Encounter Procedures CULTURE, GROUP B STREP WITH SUSCEPTIBLITY POCT urinalysis dipstick manually resulted Follow Up: Patient is to return to office in 1 week for routine OB appointment Documented by Yana Peacock LPN on behalf of: Santo Bearden DO documented in this encounter Plan of Treatment Upcoming Encounters Date Type Department Care Team (Late st Contact Info) Description 11/05/2024 9:40 AM EDT Routine [facility] [address] [address] Santo Bearden DO [address] [place] [address] documented as of this encounter Procedures Procedure Name Priority Date/Time Associated Diagnosis Comments CULTURE, GROUP B STREP WITH SUSCEPTIBLITY Routine 10/20/2024 1:25 PM EDT Third trimester ([facility]) POCT URINALYSIS DIPSTICK Routine 10/20/2024 1:02 PM EDT 35 weeks gestation of ([facility]) Third trimester ([facility]) documented in this encounter Results * CULTURE, GROUP B STREP WITH SUSCEPTIBLITY (10/20/2024 1:25 PM EDT) Swab 10/20/2024 1:25 PM EDT [employer] DO LAB BLOOD ORDERABLES Final Resul t EXTERNAL LAB * (ABNORMAL) POCT urinalysis dipstick manually resulted (10/20/2024 1:02 PM EDT) Color, UA Straw Clarity, UA Clear Glucose, UA Negative Negative - 2000(110) ++++ mg/dL Bilirubin, UA Negative Negative - 4(70) +++ mg/dL Ketones, UA Negative Negative - 160(16) ++++ mg/dL Spec Grav, UA 1.015 1 - 1.03 Blood, UA Negative Negative - 50 Adonis/mcL pH, UA 6.5 5 - 9 Protein, UA Negative Negative - 2000(20) ++++ mg/dL Urobilinogen, UA 1.0 0.2 - 12 mg/dL Leukocytes, UA Negative Negative - 500+++ Jose Alfredo/mcL Nitrite, UA Negative Negative - Positive Urine 10/20/2024 1:02 PM EDT Santo Bearden DO POINT OF CARE TEST ENTER/EDIT OR DERABLES Final Result documented in this encounter Visit Diagnoses Diagnosis 35 weeks gestation of ([facility]) Third trimester ([facility]) state, incidental Low hemoglobin documented in this encounter Care Teams Armhole Raiser Lockstitch Relationship Specialty Start Date End Date Cesar Espitia MD [address] [place] [address] PCP - General Family Medicine 06/28/23 documented as of this encounter
--- OUTSIDE RECORDS SUMMARY | 2024-10-27 11:20 | XMS_ITS | Encounter Summary ---
Author Organization [facility] Address [address] [place] [address] Care Team Providers Care Wedding Photographer Name Role Phone Cesar Espitia MD Primary Care Provider +1- [phone] Reason for Visit * Reason Comments Routine Visit Encounter Details Date Type Department Care Team (Late st Contact Info) Description 10/27/2024 11:20 AM EDT Routine [facility] [address] [place] [address] Tiffany Mayen PA [address] [place] [address] Third trimester ([facility]); 36 weeks gestation of ([facility]); Vaginal discharge Social History Tobacco Use Types [...] nursing note reviewed. Exam conducted with a school bus dispatcher present. Vitals: Estimated body mass index is 31.35 kg/m?? as calculated from the following: Height as of 07/09/23: 5' 3 . Weight as of this encounter: 177 lb. BP: 122/72 Patient's last menstrual period was 02/19/2024. ASSESSMENT & PLAN ICD-10-CM 1. Third trimester ([facility]) Z34.93 POCT urinalysis dipstick manually resulted 2. 36 weeks gestation of ([facility]) Z3A.36 3. Vaginal discharge N89.8 SURESWAB(R) ADVANCED [...] area. Pt states she was seen in [facility] on 10/17/2024 due to false labor and states she is still having the cramping. Pt also states she was advised she had ayeast infection while in [facility] and does not feel it has [...] AM EDT Routine [facility] [address] [place] [address] Santo Bearden DO [address] [place] [address] Scheduled Orders Name Type Priority Associated Diagnoses [...] Routine 10/27/2024 11:20 AM EDT Third trimester ([facility]) PAP SMEAR Routine 06/09/2024 12:00 AM EDT [...] Positive Urine 10/27/2024 11:2 0 AM EDT Tiffany TUCKER POINT OF CARE TEST ENTER/EDIT OR DERABLES Final Result * Pap Smear (06/09/2024 12:00 AM EDT) Swab Cervical swab / Unknown us Tiffany TUCKER LAB CYTOLOGY ORDERABLES Final Re sult EXTERNAL LAB documented in this encounter Visit Diagnoses Diagnosis Third trimester ([facility]) state, incidental 36 weeks gestation of ([facility]) Vaginal discharge Leukorrhea, not specified as infective documented in this encounter Care Teams Wedding Photographer Relationship Specialty Start Date End Date Cesar Espitia MD [address] [place] [address] PCP - General Family Medicine 06/28/23 documented as of this encounter
--- OUTSIDE RECORDS SUMMARY | 2024-11-03 17:47 | XMS_ITS | Encounter Summary ---
Author Organization [facility] Address [address] [place] [address] Care Team Providers Care Automotive Software Engineer Name Role Phone Cesar Espitia MD Primary Care Provider +1- [phone] Encounter Details Date Type Department Care Team (Late Contact Info) Description 08/26/2024 Abstract [facility] [address] [place] [phone] Santo Bearden DO [address] [place] [address] Social History Tobacco Use Types Packs/Day Years [...] Info) Description 11/05/2024 9:40 AM EDT Routine [facility] [address] [place] [phone] Santo Bearden DO [address] [place], [place] [address] documented as of this encounter Visit Diagnoses Not on filedocumented in this encounter Care Teams Automotive Software Engineer Relationship Specialty Start Date End Date Cesar Espitia MD [address] [place] [address] PCP - General Family Medicine 06/28/23 documented as of this encounter
--- OUTSIDE RECORDS SUMMARY | 2024-11-03 17:47 | XMS_ITS | Encounter Summary ---
Author Organization [facility] Address [address] [place] [address] Care Team Providers Care Benzol Still Operator Name Role Phone Cesar Espitia MD Primary Care Provider +1- [phone] Encounter Details Date Type Department Care Team (Late Contact Info) Description 07/17/2024 Abstract [facility] [address] [place] [phone] Santo Bearden DO [address] [place] [address] Social History Tobacco Use Types Packs/Day Years Used Date Smoking Tobacco: Never Assessed Comments Unknown Sex and Gender Information Value Date Recorded Sex Assigned at Not on file Legal Sex Female 11:47 PM EDT Gender Identity Not on file Sexual Orientation Not on file documented as of this encounter Plan of Treatment Upcoming Encounters Date Type Department Care Team (Late Contact Info) Description 11/05/2024 9:40 AM EDT Routine [facility] [address] [phone] Santo Bearden DO [address] [place], [place] [address] documented as of this encounter Visit Diagnoses Not on filedocumented in this encounter Care Teams Benzol Still Operator Relationship Specialty Start Date End Date Cesar Espitia MD [address] [place] [address] PCP - General Family Medicine 06/28/23 documented as of this encounter
--- OUTSIDE RECORDS SUMMARY | 2024-11-03 17:47 | XMS_ITS | Clinical Summary ---
Author Organization [facility] Address [address] [place] [address] Care Team Providers Care Talent Sourcer Name Role Phone Cesar Espitia MD Primary Care Provider +1- [phone] Allergies No known active allergies Medications NIFEdipine XL (Procardia XL) 30 MG 24 hr tabletIndications:P rimary hypertension One po at bedtime. 30 tablet 2 4 Active iron polysaccharides (ProFe) 391.3 (180 Fe) MG capsuleIndications: Low hemoglobin Take 1 capsule (391.3 mg) by mouth Daily 30 capsule 6 5 026 Active iron polysaccharides (ProFe) 391.3 (180 Fe) MG capsuleIndications: Low hemoglobin Take 1 capsule (391.3 mg) by mouth Daily 30 capsule 6 5 025 Discontin ued(Reord er) Active Problems Problem Noted Date Diagnosed Date Primary hypertension 06/28/2023 Estimated Date of Delivery Comme nts Yes 11/19/2024 Based on Ultraso und Encounters Date Type Department Care Team Description 10/30/2024 Clinisync Result Encounter NOMS External Department Unsolicited Srinivasan Bearden DO 10/28/2024 Telephone [facility] [address] [place] [address] Alyssa Hopkins LPN 10/27/2024 11:20 AM [place] [address] Tiffany Mayen PA Third trimester ([facility]); 36 weeks gestation of ([facility]); Vaginal discharge 10/27/2024 External Result Encounter NOMS External Department Unsolicited Tiffany Mayen PA 10/27/2024 Bamboo flowsheet [facility] [address] [place] [address] Tiffany Mayen PA 10/27/2024 Travel 10/21/2024 Refill [facility] [address] [place] [address] Srinivasan Bearden, Low hemoglobin 10/20/2024 1:10 PM EDT Routine [facility] [address] [place] [address] Srinivasan Bearden, 35 weeks gestation of ([facility]); Third trimester ([facility]); Low hemoglobin 10/20/2024 Bamboo flowsheet [facility] [address] [place] [address] Srinivasan Bearden, 10/19/2024 Travel 10/17/2024 Clinisync Result Encounter NOMS External Department Unsolicited Srinivasan Bearden, 10/06/2024 2:20 PM EDT Routine [facility] [address] [place] [address] Srinivasan Bearden, Third trimester ([facility]); 33 weeks gestation of ([facility]) 10/06/2024 Bamboo flowsheet [facility] [address] [place] [address] Srinivasan Bearden, 10/05/2024 Travel 09/26/2024 Clinisync Result Encounter NOMS External Department Unsolicited Tiffany Mayen PA 09/22/2024 10:20 AM EDT Routine [facility] [address] [place] [phone] Tiffany Mayen PA 31 weeks gestation of ([facility]); Third trimester ([facility]); Elevated glucose tolerance test 09/22/2024 9:30 AM EDT [place]illary [place] [address] size inconsistent with dates ([facility]) 09/22/2024 [place] [phone] Yakelin Parker MA 09/21/2024 Clinisync Result Encounter NOMS External Department Unsolicited Srinivasan Bearden DO 09/07/2024 1:30 PM EDT [place] [address] Srinivasan Bearden, [place]: 29w4d 09/07/2024 [place]amboo [place] [address] Srinivasan Bearden DO 08/26/2024 [place] [phone] Srinivasan Bearden DO from Last 3 Months Social [...] Pressure 122/72 10/27/2024 11:10 AM EDT Pulse 80 07/09/2023 4:01 PM EDT Temperature 36.3 C (97.3 F) 07/09/2023 4:01 PM EDT Respiratory Rate 16 07/09/2023 4:01 PM EDT Oxygen Saturation 99% 07/09/2023 4:01 PM EDT Inhaled Oxygen Concentration - - Weight 80.3 kg (177 lb) 10/27/2024 11:10 AM EDT Height 160 cm (5' 3 ) 07/09/2023 4:01 PM EDT Body Mass Index 31.35 07/09/2023 4:01 PM EDT Plan of Treatment Upcoming Encounters Date Type Department Care Team (Late st Contact Info) Description 11/05/2024 9:40 AM EDT Routine [facility] [address] [place] [address] Srinivasan Bearden, [address] [place] [address] Procedures Procedure Name Priority Date/Time Associated Diagnosis Comments US OB BPP W NON-STRESS 10/30/2024 9:47 PM EDT RECURRENT VAGINITIS (HTRX) Routine 10/27/2024 11:57 AM EDT POCT URINALYSIS DIPSTICK Routine 10/27/2024 11:20 AM EDT Third trimester ([facility]) CULTURE, GROUP B STREP WITH SUSCEPTIBLITY Routine 10/20/2024 1:25 PM EDT Third trimester ([facility]) POCT URINALYSIS DIPSTICK Routine 10/20/2024 1:02 PM EDT 35 weeks gestation of ([facility]) Third trimester ([facility]) AMNISURE Routine 10/17/2024 10:42 AM EDT TB[facility] UA (CLEAN/CATCH) WOODWINDS TEACHER/MICRO IF IND. Routine 10/17/2024 10:30 AM EDT GLUCOSE TOLERANCE 3 HOUR Routine 09/26/2024 7:50 AM EDT POCT URINALYSIS DIPSTICK Routine 09/22/2024 10:15 AM EDT 31 weeks gestation of ([facility]) Third trimester ([facility] US OB FOLLOW UP TRANSABDOMINAL APPROACH Routine 09/22/2024 9:50 AM EDT size inconsistent with dates ([facility]) GLUCOSE 1 HOUR Routine 09/21/2024 11:02 AM EDT ALL CBC WITH AUTO DIFF Routine 11:02 AM EDT POCT URINALYSIS DIPSTICK Routine 09/07/2024 1:23 PM EDT Third trimester ([facility]) 29 weeks gestation of ([facility]) from Last 3 Months Results * US OB BPP W NON-STRESS (10/30/2024 9:47 PM EDT) Anatomical Region Laterality Modality Other 10/30/2024 9:47 PM EDT Narrative 10/30/2024 9:49 [place] [address] Ultrasound Report Signed Patient: LEELEE BLAKE MR#: [id number] : 1995 Acct:[id number] Age/Sex: 29 / F ADM Date: 10/30/24 Loc: US Attending Dr: Tiffany Mayen Ordering Physician: Srinivasan Bearden D.O. Date of Service: 10/30/24 Procedure(s): US OB BPP w non-stress Accession Number(s): [id number] cc: Srinivasan Bearden D.O.; Physician,Non-Staff M.DSherin The [address] [address] Patient Name: LEELEE BLAKE MRN: [facility]H:[id number] date: 1995 Sex: F Assigned Patient Location: [facility] Current Patient Location: Accession/Order Number: [id number] Exam Date: 10/30/2024 19:55 Report Date: 10/30/2024 21:47 At the request of: SRINIVASAN BEARDEN DO Procedure: US OB BPP w non-stress Ultrasound biophysical profile INDICATION: Pelvic cramps for 2 weeks COMPARISON: None FINDINGS/impression: Cephalic position. heart rate 150 beats per minute. Biophysical profile score 8/8. LUIZA measures 12.5 cm. Impression dictated by: David Khan M.D. 10/30/2024 9:47 PM Dictation Location: [place] [address] Electronically authenticated by: [id number] Y Date: 10/30/2024 21:47 Dictated By: David Khan M.D. Signed By: 10/30/242148 DD/ 46 TD/TT: Feed Mill Manager: Procedure Note Radiology, Radiologist, MD - 10/30/2024 [place] [address] Ultrasound Report Signed Patient: LEELEE BLAKE DMR#: [id number] : 1995Acct:[id number] Age/Sex: 29 / FADM Date: 10/30/24 Loc: US Attending Dr: Tiffany Mayen Ordering Physician: Srinivasan Bearden D.O. Date of Service: 10/30/24 Procedure(s): US OB BPP w non-stress Accession Number(s): [id number] cc: Srinivasan Bearden D.O.; Physician,Non-Staff [place] The [place] [id number] Patient Name: LEELEE BLAKE MRN: [facility]:[id number] date: 1995 Sex: F Assigned Patient Location: [facility] Current Patient Location: Accession/Order Number: [id number] Exam Date: 10/30/2024 19:55 Report Date: 10/30/2024 21:47 At the request of: SRINIVASAN BEARDEN DO Procedure: US OB BPP w non-stress Ultrasound biophysical profile INDICATION: Pelvic cramps for 2 weeks COMPARISON: None FINDINGS/impression: Cephalic position. heart rate 150 beatsper minute. Biophysical profile score 8/8. LUIZA measures 12.5 cm. Impression dictated by: David Khan M.D. 10/30/2024 9:47 PM Dictation Location: [place] [address] Electronically authenticated by: [id number] Y Date: 1:47 Dictated By: David Khan M.D. Signed By:10/30/242148 DD/ 46 TD/TT: Feed Mill Manager: Srinivasan Suleiman DO [facility] Final Result * RECURRENT VAGINITIS (HTRX) (10/27/2024 11:57 AM EDT) [facility] ATOPOBIUM VAGINAE 0 19.961 - 24.689 ppm 10/28/2024 6:29 AM EDT [facility] ATOPOBIUM VAGINAE Not Detected 19.961 - 24.689 ppm 10/28/2024 6:29 AM EDT [facility] BVAB 2,3 (BACTERIAL VAGINOSIS ASSOCIATED BACTERIA 2, 3); MOBILUNCUS SPP 0 19.961 - 24.689 ppm 10/28/2024 6:29 AM EDT [facility] BVAB 2,3 (BACTERIAL VAGINOSIS ASSOCIATED BACTERIA 2, 3); MOBILUNCUS SPP Not Detected 19.961 - 24.689 ppm 10/28/2024 6:29 AM EDT [facility] MARIANO ALBICANS, PARAPSILOSIS, TROPICALIS 0 23.000 - 30.347 ppm 10/28/2024 6:29 AM EDT [facility] MARIANO ALBICANS, PARAPSILOSIS, TROPICALIS Not Detected 23.000 - 30.347 ppm 10/28/2024 6:29 AM EDT [facility] MARIANO GLABRATA 0 23.000 - 31.618 ppm 10/28/2024 6:29 AM EDT [facility] MARIANO GLABRATA Not Detected 23.000 - 31.618 ppm 10/28/2024 6:29 AM EDT [facility] MARIANO KRUSEI 0 23.000 - 30.873 ppm 10/28/2024 6:29 AM EDT [facility] MARIANO KRUSEI Not Detected 23.000 - 30.873 ppm 10/28/2024 6:29 AM EDT [facility] CHLAMYDIA TRACHOMATIS 0 23.000 - 31.586 ppm 10/28/2024 6:29 AM EDT [facility] CHLAMYDIA TRACHOMATIS Not Detected 23.000 - 31.586 ppm 10/28/2024 6:29 AM EDT [facility] GARDNERELLA VAGINALIS 0 19.961 - 24.689 ppm 10/28/2024 6:29 AM EDT [facility] GARDNERELLA VAGINALIS Not Detected 19.961 - 24.689 ppm 10/28/2024 6:29 AM EDT [facility] MEGASPHAERA (TYPES 1, 2) 0 19.961 - 24.689 ppm 10/28/2024 6:29 AM EDT [facility] MEGASPHAERA (TYPES 1, 2) Not Detected 19.961 - 24.689 ppm 10/28/2024 6:29 AM EDT [facility] NEISSERIA GONORRHOEAE 0 23.000 - 32.587 ppm 10/28/2024 6:29 AM EDT [facility] NEISSERIA GONORRHOEAE Not Detected 23.000 - 32.587 ppm 10/28/2024 6:29 AM EDT [facility] TRICHOMONAS VAGINALIS 0 23.000 - 31.995 ppm 10/28/2024 6:29 AM EDT [facility] TRICHOMONAS VAGINALIS Not Detected 23.000 - 31.995 ppm 10/28/2024 6:29 AM EDT [facility] MYCOPLASMA GENITALIUM 0 19.961 - 24.689 ppm 10/28/2024 6:29 AM EDT [facility] MYCOPLASMA GENITALIUM Not Detected 19.961 - 24.689 ppm 10/28/2024 6:29 AM EDT [facility] Tissue 10/27/2024 11:5 7 AM EDT 10/28/2024 1:43 AM EDT Tiffany TUCKER LAB BLOOD ORDERABLES Final Resul t [facility] [address] [address] * POCT urinalysis dipstick manually resulted (10/27/2024 11:20 AM EDT) Only the most recent of4 resultswithin the time period is included. Color, UA Yellow Clarity, UA Clear Glucose, [...] TEST ENTER/EDIT OR DERABLES Final Result * CULTURE, GROUP B STREP WITH SUSCEPTIBLITY (10/20/2024 1:25 PM EDT) Swab 10/20/2024 1:25 PM EDT Srinivasan Bearden DO LAB BLOOD ORDERABLES Final Resul t EXTERNAL LAB * AMNISURE (10/17/2024 10:42 AM EDT) [facility] AMNISURE NEGATIVE NEGATIVE [facility] 10/17/2024 10:4 2 AM EDT 10/17/2024 10:51 AM EDT Narrative [facility] - 10/17/2024 11:03 AM EDT Srinivasan Bearden DO LAB BLOOD ORDERABLES Final Resul t [facility] * (ABNORMAL) [facility] UA (CLEAN/CATCH) WOODWINDS TEACHER/MICRO IF IND. (10/17/2024 10:30 AM EDT) COLOR [...] Narrative [facility] - 10/17/2024 11:06 AM EDT Result [facility] Srinivasan Singho DO [facility] Final Result [facility]STOP[facility]WY TB * GLUCOSE TOLERANCE 3 HOUR (09/26/2024 7:50 AM EDT) GLUCOSE TOLERANCE 3 HOUR mg/dL [facility] Comment: GLU FAST 79 (<95) Col: 09/26/24 0750 GLU 1HR 177 (<180) Col: 09/26/24 0854 GLU 2HR 146 (<155) Col: 09/26/24 0954 GLU 3HR 109 (<140) Col: 09/26/24 1053 09/26/2024 7:50 AM EDT 09/26/2024 7:53 AM EDT Narrative [facility] - 09/26/2024 11:50 AM EDT Tiffany TUCKER LAB BLOOD ORDERABLES Final Resul t [facility] * US OB follow up transabdominal [...] BY: ELECTRONICALLY SIGNED BY: Castillo Anaya MD Srinivasan Bearden DO IMG OB US PROCEDURES Final Resul t * (ABNORMAL) GLUCOSE 1 HOUR (09/21/2024 11:02 AM EDT) GLUCOSE 1 HOUR 148(H) <130 mg/dL [facility] 09/21/2024 11:0 2 AM EDT 09/21/2024 11:03 AM EDT Narrative [facility] - 09/21/2024 11:30 AM EDT us Srinivasan Bearden DO LAB BLOOD ORDERABLES Final Resul t [facility] * (ABNORMAL) ALL CBC WITH AUTO DIFF [...] Narrative [facility] - 09/21/2024 11:20 AM EDT Srinivasan Bearden DO [facility] Final Result [facility] from Last 3 Months Insurance [employer] Care Teams Talent Sourcer Relationship Specialty Start Date End Date Cesar Espitia MD [address] [place] [address] PCP - General Family Medicine 06/28/23
--- OUTSIDE RECORDS SUMMARY | 2024-11-03 17:47 | XMS_ITS | Encounter Summary ---
Author Organization [facility] Address [address] [place] [address] Care Team Providers Care Mechanics Supervisor Name Role Phone Cesar Espitia MD Primary Care Provider +- [phone] Encounter Details Date Type Department Care Team (Latest Contact Info) Description 10/27/2024 Travel Social History Tobacco Use Types Packs/Day [...] AM EDT Routine [facility] [address] [place] [phone] Santo Bearden DO [address] [place] [address] documented as of this encounter Visit Diagnoses Not on filedocumented in this encounter Care Teams Mechanics Supervisor Relationship Specialty Start Date End Date Cesar Espitia MD [address] [place] [address] PCP - General Family Medicine 06/28/23 documented as of this encounter
--- OUTSIDE RECORDS SUMMARY | 2024-11-03 17:47 | XMS_ITS | Encounter Summary ---
Author Organization [facility] Address [address] [place] [address] Care Team Providers Care Patient'S Librarian Name Role Phone Cesar Espitia MD Primary Care Provider +1- [phone] Encounter Details Date Type Department Care Team (Late st Contact Info) Description 10/20/2024 Bamboo flowsheet [facility] [address] [place] [address] [place] [address] Santo Bearden DO [facility] [place] [address] Social History Tobacco Use Types Packs/Day Years [...] 9:40 AM EDT Routine [facility] [address] [facility] [place] [address] Santo Bearden DO [address] [place], [place] [address] documented as of this encounter Visit Diagnoses Not on filedocumented in this encounter Care Teams Patient'S Librarian Relationship Specialty Start Date End Date Cesar Espitia MD [address] [place] [address] PCP - General Family Medicine 06/28/23 documented as of this encounter
--- OUTSIDE RECORDS SUMMARY | 2024-11-03 17:47 | XMS_ITS | Patient Health Record ---
Author Organization [facility] Address [address] [place], [place] [id number] Support Name Relationship Address Phone Kayley Jimenez Guarantor Unknown [phone] Reason For Referral No Information Plan Of Treatment No Information Insurance Providers Payer Name Payer Address Payer Phone Subscriber Number Group Number Insured Name Patient Relationship to Insured Coverage Start Date Coverage End Date Medicaid [address] [place] [address] [id number] Kayley Jimenez Self - patient is the insured
--- OUTSIDE RECORDS SUMMARY | 2024-11-03 17:47 | XMS_ITS | Encounter Summary ---
Author Organization [facility] Address [address] [place] [address] Care Team Providers Care Utility Helicopter Repairer Name Role Phone Cesar Espitia MD Primary Care Provider +1- [phone] Reason for Visit * Reason Onset Date Comments Med Refill 10/21/2024 Encounter Details Date Type Department Care Team (Late st Contact Info) Description 10/21/2024 Refill GREG SALMERON [address] [place] [address] [id number] Santo Bearden, DO [address], [place] [address] Low hemoglobin Social History Tobacco Use Types [...] Info) Description 11/05/2024 9:40 AM EDT Routine GREG SALMERON [address] [place] [address] Santo Bearden, DO [address], [place] [phone] documented as of this encounter Visit Diagnoses Diagnosis Low hemoglobin documented in this encounter Care Teams Utility Helicopter Repairer Relationship Specialty Start Date End Date Cesar Espitia MD [address] [place] [address] [place] [address] PCP - General Family Medicine 06/28/23 documented as of this encounter
--- OUTSIDE RECORDS SUMMARY | 2024-11-03 17:48 | XMS_ITS | Encounter Summary ---
Author Organization [facility] Address [address] [place] [address] Care Team Providers Care Senior Center Manager Name Role Phone Cesar Espitia MD Primary Care Provider +1- [phone] Encounter Details Date Type Department Care Team (Late st Contact Info) Description 10/30/2024 Clinisync Result Encounter [facility] External Department Unsolicited Santo Bearden DO [facility] [place] [address] Social History Tobacco Use Types Packs/Day Years [...] AM EDT Routine [facility] [address] [place] [phone] Santo Bearden DO [address] [place] [address] documented as of this encounter Procedures Procedure Name Priority Date/Time Associated Diagnosis Comments US OB BPP W NON-STRESS 10/30/2024 9:47 PM EDT documented in this encounter Results * US OB BPP W NON-STRESS (10/30/2024 9:47 PM EDT) Anatomical Region Laterality Modality Other 10/30/2024 9:47 PM EDT Narrative 10/30/2024 9:49 [place] [address] Ultrasound Report Signed Patient: LEELEE BLAKE MR#: [id number] : 1995 Acct:[id number] Age/Sex: 29 / F ADM Date: 10/30/24 Loc: US Attending Dr: Tiffany Mayen Ordering Physician: Santo Bearden D.O. Date of Service: 10/30/24 Procedure(s): US OB BPP w non-stress Accession Number(s): [id number] cc: Santo Bearden D.O.; Physician,Non-Staff [place] [address] Patient Name: LEELEE BLAKE MRN: [id number] date: 1995 Sex: F Assigned Patient Location: [facility] Current Patient Location: Accession/Order Number: [id number] Exam Date: 10/30/2024 19:55 Report Date: 10/30/2024 21:47 At the request of: SANTO BEARDEN DO Procedure: US OB BPP w non-stress Ultrasound biophysical profile INDICATION: Pelvic cramps for 2 weeks COMPARISON: None FINDINGS/impression: Cephalic position. heart rate 150 beats per minute. Biophysical profile score 8/8. LUIZA measures 12.5 cm. Impression dictated by: David Khan M.D. 10/30/2024 9:47 PM Dictation Location: [place] [address] Electronically authenticated by: [id number] Y Date: 10/30/2024 21:47 Dictated By: David Khan M.D. Signed By: 10/30/242148 DD/ 46 TD/TT: Stereotyper Apprentice: Procedure Note Radiology, Radiologist, MD - 10/30/[address] [address] Ultrasound Report Signed Patient: LEELEE BLAKE DMR#: [id number] : 1995Acct:[id number] Age/Sex: 29 / FADM Date: 10/30/24 Loc: US Attending Dr: Tiffany Mayen Ordering Physician: Santo Bearden D.O. Date of Service: 10/30/24 Procedure(s): US OB BPP w non-stress Accession Number(s): [id number] cc: Santo Bearden D.O.; Physician,Non-Staff [place] [address] Patient Name: LEELEE BLAKE MRN: [id number] date: 1995 Sex: F Assigned Patient Location: [facility] Current Patient Location: Accession/Order Number: [id number] Exam Date: 10/30/2024 19:55 Report Date: 10/30/2024 21:47 At the request of: SANTO BEARDEN DO Procedure: US OB BPP w non-stress Ultrasound biophysical profile INDICATION: Pelvic cramps for 2 weeks COMPARISON: None FINDINGS/impression: Cephalic position. heart rate 150 beatsper minute. Biophysical profile score 8/8. LUIZA measures 12.5 cm. Impression dictated by: David Khan M.D. 10/30/2024 9:47 PM Dictation Location: [place] [address] Electronically authenticated by: [id number] Y Date: 1:47 Dictated By: David Khan M.D. Signed By:10/30/242148 DD/ 46 TD/TT: Stereotyper Apprentice: Santo Bearden DO [facility] Final Result documented in this encounter Visit Diagnoses Not on filedocumented in this encounter Care Teams Senior Center Manager Relationship Specialty Start Date End Date Cesar Espitia MD [address] [place] [address] [address] [place] [id number] PCP - General Family Medicine 06/28/23 documented as of this encounter
--- OUTSIDE RECORDS SUMMARY | 2024-11-03 17:48 | XMS_ITS | Encounter Summary ---
Author Organization [facility] Address [address] [place] [address] Care Team Providers Care Trials Manager Name Role Phone Cesar Espitia MD Primary Care Provider +1- [phone] Encounter Details Date Type Department Care Team (Late st Contact Info) Description 10/28/2024 Telephone [facility]astasia [facility]MERON [facility] [address] [place] [address] Alyssa Hopkins LPN [address] [place] [id number] Social History Tobacco Use Types Packs/Day Years Used Date Smoking Tobacco: Never Assessed Estimated Date of Delivery Comme nts Yes 11/19/2024 Based on Ultraso und Sex and Gender Information Value Date Recorded Sex Assigned at Not on file Legal Sex Female 11:47 PM EDT Gender Identity Not on file Sexual Orientation Not on file documented as of this encounter Miscellaneous Notes * Telephone Encounter - Alyssa Hopkins LPN - 10/28/2024 3:09 PM EDT Per Tiffany Mayen PA-C, orders were sent to [facility] documented in this encounter Plan of Treatment Upcoming Encounters Date Type Department Care Team (Late Contact Info) Description 11/05/2024 9:40 AM EDT Routine [facility]astasia [facility]ON [facility] [address] [place] [address] Santo Bearden, DO [address] [place] [address] [place] [address] Scheduled Orders Name Type Priority Associated Diagnoses Orde r Schedule US biophysical profile w non stress test Imaging Routine Pelvic pain in female History of obstetrical complication Expected: 10/28/2024 (Approximate), Expires: 04/27/2025 documented as of this encounter Visit Diagnoses Diagnosis Pelvic pain in female Unspecified symptom associated with female genital organs History of obstetrical complication Personal history of other genital system and obstetric disorders documented in this encounter Care Teams Trials Manager Relationship Specialty Start Date End Date Cesar Espitia MD [address] [place] [address] PCP - General Family Medicine 06/28/23 documented as of this encounter
--- OUTSIDE RECORDS SUMMARY | 2024-11-03 17:48 | XMS_ITS | CCD ---
Author Organization [facility] Care Team Providers Care Bus Greaser Name Role Phone SULEIMAN, DR MATTSON Attending [...] ZIEBAMILCAR, DR BRENDA Contreras Consulting Unavailable Rice ([facility]) Enma VALDEZ Attending Provider [phone] NO FAMILY, PHYSICIAN Primary Care Provider UnaMaria Del Carmen Encarnacion PA-C Attending Provider [phone] Maria Del Carmen Glover Admitting Unavailable Maria Del Carmen Glover Attending Unavailable NO FAMILY, PHYSICIAN Primary Care Unavailable Rice ([facility]), Enma Contreras Attending Unavailabl e Rice ([facility]), Enma Contreras Admitting Unavailabl e NO FAMILY, PHYSICIAN Primary Care Unavailable Rice ([facility]), Enma Contreras Attending Unavailabl e Rice ([facility]), Enma Contreras Admitting Unavailabl e Omkar AUGUST [place] Primary Care Provider Miguel [facility], Enma Tate Attending Unavaila ble Miguel [facility], Enma Tate Primary Care Unavaila ble SRINIVASAN BEARDEN Attending Unavailable SRINIVASAN BEARDEN Referring Unavailable TIFFANY LLANES Attending Unavailable SRINIVASAN BEARDEN Attending Unavailable SRINIVASAN BEARDEN Attending Unavailable TIFFANY LLANES Attending Unavailable Medications Current Medications Medication Drug Class(es) Dates Sig (Normalized) Sig (Original) NIFEdipine 30 mg osmotic 24 hr extended release oral tablet (19 sources) Dihydropyridine Calcium Channel Lupillo Start: 07-09-2023 take 1 tablet by mouth every twenty-four hours at bedtime NIFEdipine XL (Procardia XL) 30 MG 24 hr tablet Indications: Primary hypertension One po at bedtime. 30 tablet 2 07/09/2023 Active polysaccharide iron complex 391 mg oral capsule (13 sources) Start: 09-22-2024 End: 05-20-2025 take 1 [...] [Other abnormal glucose] 09-22-2024 Episodic Essential hypertension (19 sources) Essential hypertension; Translations: [Essential (primary) hypertension] [...] applicable or unspecified; Translations: [MAT CARE OTH CT FTL GRTH 3RD TM UNS] Onset: 06-14-2021 Episodic Other complications of (4 sources) Maternal care for other known or suspected poor growth, unspecified trimester, not applicable or unspecified; Translations: [MAT CARE OTH CT FTL GRTH UNS TM UNS] Onset: 06-01-2021 [...] Value Interpretation Reference Range Facility US OB BPP W NON-STRESS on 10-30-2024 [place] [address] Ultrasound Report Signed Patient: LEELEE BLAKE MR#: [id number] : 1995 Acct:[id number] Age/Sex: 29 / F ADM Date: 10/30/24 Loc: US Attending Dr: Tiffany Llanes Ordering Physician: Srinivasan Bearden D.O. Date of Service: 10/30/24 Procedure(s): US OB BPP w non-stress Accession Number(s): [id number] cc: Srinivasan Bearden D.O.; Physician,Non-Staff [place] [id number] Patient Name: LEELEE BLAKE MRN: [id number] date: 1995 Sex: F Assigned Patient Location: [facility] Current Patient Location: Accession/Order Number: [id number] Exam Date: 10/30/2024 19:55 Report Date: 10/30/2024 21:47 At the request of: SRINIVASAN BEARDEN DO Procedure: US OB BPP w non-stress Ultrasound biophysical profile INDICATION: Pelvic cramps for 2 weeks COMPARISON: None FINDINGS/impression : Cephalic position. heart rate 150 beats per minute. Biophysical profile score 8/8. LUIZA measures 12.5 cm. Impression dictated by: David Khan M.D. 10/30/2024 9:47 PM Dictation Location: RADIO-PC-29 Electronically authenticated by: [id number] Y Date: 10/30/2024 21:47 Dictated By: David Khan M.D. Signed By: 10/30/242148 DD/ 46 TD/TT: Home Housekeeper: [facility] Radiology, Radiologist, MD - 10/30/2024 [place] [address] Ultrasound Report Signed Patient: LEELEE BLAKE MR#: [id number] : 1995 Acct:[id number] Age/Sex: 29 / F ADM Date: 10/30/24 Loc: US Attending Dr: Tiffany Llanes Ordering Physician: Srinivasan Bearden D.O. Date of Service: 10/30/24 Procedure(s): US OB BPP w non-stress Accession Number(s): [id number] cc: Srinivasan Bearden D.O.; Physician,Non-Staff [place] [address] Patient Name: LEELEE BLAKE MRN: [facility]:[id number] date: 1995 Sex: F Assigned Patient Location: [facility] Current Patient Location: Accession/Order Number: [id number] Exam Date: 10/30/2024 19:55 Report Date: 10/30/2024 21:47 At the request of: SRINIVASAN BEARDEN DO Procedure: US OB BPP w non-stress Ultrasound biophysical profile INDICATION: Pelvic cramps for 2 weeks COMPARISON: None FINDINGS/impression : Cephalic position. heart rate 150 beats per minute. Biophysical profile score 8/8. LUIZA measures 12.5 cm. Impression dictated by: David Khan M.D. 10/30/2024 9:47 PM Dictation Location: [facility]-PC-29 Electronically authenticated by: [id number] Y Date: 10/30/2024 21:47 Dictated By: David Khan M.D. Signed By: 10/30/242148 DD/ 46 TD/TT: Home Housekeeper: [facility] Radiology Study observation (narrative) [facility] US OB BPP W NON-STRESS Ordered By: Radiologist Radiology on 10-30-2024 [facility] Work Phone: RECURRENT VAGINITIS (HTRX)on 10-28-2024 ATOPOBIUM VAGINAE 0 [facility] ATOPOBIUM VAGINAE Not detected [facility] BVAB 2,3 (BACTERIAL VAGINOSIS ASSOCIATED BACTERIA 2, 3); MOBILUNCUS SPP 0 [facility] BVAB 2,3 (BACTERIAL VAGINOSIS ASSOCIATED BACTERIA 2, 3); MOBILUNCUS SPP Not detected [facility] MARIANO ALBICANS, PARAPSILOSIS, TROPICALIS 0 [facility] MARIANO ALBICANS, PARAPSILOSIS, TROPICALIS Not detected [facility] MARIANO GLABRATA 0 [facility] MARIANO GLABRATA Not detected [facility] MARIANO KRUSEI 0 [facility] MARIANO KRUSEI Not detected [facility] CHLAMYDIA TRACHOMATIS 0 [facility] CHLAMYDIA TRACHOMATIS Not detected [facility] GARDNERELLA VAGINALIS 0 [facility] GARDNERELLA VAGINALIS Not detected [facility] MEGASPHAERA (TYPES 1, 2) 0 [facility] MEGASPHAERA (TYPES 1, 2) Not detected [facility] MYCOPLASMA GENITALIUM 0 [facility] MYCOPLASMA GENITALIUM Not detected [facility] NEISSERIA GONORRHOEAE 0 [facility] NEISSERIA GONORRHOEAE Not detected [facility] TRICHOMONAS VAGINALIS 0 [facility] TRICHOMONAS VAGINALIS Not detected [facility] Urinalysis macro (dipstick) panel (U)on 10-27-2024 Bilirubin, UA Negative Negative - 4(70) +++ mg/dL [facility] Blood, UA Negative Negative - 50 Adonis/mcL [facility] Clarity, UA Clear [facility] Color, UA Yellow [facility] Glucose, UA Negative Negative - 1999(110) ++++ mg/dL [facility] Interpretation and review of laboratory results Normal [facility] Ketones, UA Negative Negative - 160(16) ++++ mg/dL [facility] Leukocytes, UA Negative Negative - 500+++ Jose Alfredo/mcL [facility] Nitrite, UA Negative Negative - Positive [facility] pH, UA 7.5 5 - 9 [facility] Protein, UA Negative Negative - 1999(20) ++++ mg/dL [facility] Spec Grav, UA 1.015 1 - 1.03 [facility] Urobilinogen, UA 1.0 0.2 - 12 mg/dL [facility] Urinalysis macro (dipstick) panel (U)on 10-20-2024 Bilirubin, UA Negative Negative - 4(70) +++ mg/dL [facility] Blood, UA Negative Negative - 50 Adonis/mcL [facility] Clarity, UA Clear [facility] Color, UA Straw [facility] Glucose, UA Negative Negative - 1999(110) ++++ mg/dL [facility] Interpretation and review of laboratory results Abnormal [facility] Ketones, UA Negative Negative - 160(16) ++++ mg/dL [facility] Leukocytes, UA Negative Negative - 500+++ Jose Alfredo/mcL [facility] Nitrite, UA Negative Negative - Positive [facility] pH, UA 6.5 5 - 9 [facility] Protein, UA Negative Negative - 1999(20) ++++ mg/dL [facility] Spec Grav, UA 1.015 1 - 1.03 [facility] Urobilinogen, UA 1.0 0.2 - 12 mg/dL [facility] AMNISUREon 10-17-2024 [facility] AMNISURE Negative NEGATIVE [facility] 3 HOURon 0 09-26-2024 GLUCOSE TOLERANCE 3 HOUR mg/dL [facility] Comment on above: GLU FAST 79 (<95) Co l: 09/26/24 0750 GLU 1HR 177 (<180) Col: 09/26/24 0854 GLU 2HR 146 (<155) Col: 09/26/24 0954 GLU 3HR 109 (<140) Col: 09/26/24 1053 [facility] US OB FOLLOW UP TRANSABDOMIN AL [...] UA Negative Negative - 4(70) +++ mg/dL [facility] Blood, UA Negative Negative - 50 Adonis/mcL [facility] Clarity, UA Clear [facility] Color, UA Yellow [facility] Glucose, UA Negative Negative - 1999(110) ++++ mg/dL [facility] Interpretation and review of laboratory results Abnormal [facility] Ketones, UA Negative Negative - 160(16) ++++ mg/dL [facility] Leukocytes, UA Positive Negative - 500+++ Jose Alfredo/mcL [facility] Comment on above: 1+ Nitrite, UA Negative Negative - Positive [facility] pH, UA 7.5 5 - 9 [facility] Protein, UA Negative Negative - 1999(20) ++++ mg/dL [facility] Spec Grav, UA 1.015 1 - 1.03 [facility] Urobilinogen, UA 1.0 0.2 - 12 mg/dL [facility] ALL CBC WITH AUTO DIFFon BASOPHILS ABSOLUTE AUTO 0 [facility] Basophils/100 WBC (Bld) 0.2 % 0.2 - 2.0 % [facility] Eosinophils/100 WBC (Bld) 0.7 % Low 0.9 - 7.0 % [facility] Erythrocyte distribution width (RBC) [Ratio] 14.6 % 11.0 - 15.0 % [facility] Hematocrit (Bld) [Volume fraction] 31.8 % Low 36.0 - 48.0 % [facility] Hemoglobin (Bld) [Mass/Vol] 10.4 g/dL Low 12.0 - 16.0 g/dL [facility] IMMATURE GRANULOCYTES ABS AUTO 0.16 High [facility] Immature granulocytes/100 WBC (Bld) 1.7 % High 0.0 - 0.5 % [facility] Interpretation and review of laboratory results Abnormal [facility] LYMPHOCYTES ABSOLUTE AUTO 1.4 [facility] Lymphocytes/100 WBC (Bld) 14.7 % Low 20.5 - 60.0 % [facility] MCH (RBC) [Entitic mass] 27 pg 26.7 - 34.0 pg [facility] MCHC (RBC) [Mass/Vol] 32.7 g/dL 29.9 - 35.2 g/dL [facility] MCV (RBC) [Entitic vol] 82.6 fL 81.0 - 99.0 fL [facility] MONOCYTES ABSOLUTE AUTO 0.5 [facility] Monocytes/100 WBC (Bld) 5.3 % 1.7 - 12.0 % [facility] NEUTROPHILS ABSOLUTE AUTO 7.4 High [facility] Neutrophils/100 WBC (Bld) 77.4 % High 43.0 - 75.0 % [facility] Platelet mean volume (Bld) [Entitic vol] 10.6 fL 9.5 - 13.5 fL [facility] TBH EO # 0.1 [facility] PLT 342 [facility] RBC 3.85 Low [facility] WBC 9.6 [facility] Urinalysis macro (dipstick) panel (U)on 09-07-2024 Bilirubin, UA Negative Negative - 4(70) +++ mg/dL [facility] Blood, UA Negative Negative - 50 Adonis/mcL [facility] Clarity, UA Clear [facility] Color, UA Yellow [facility] Glucose, UA Negative Negative - 2000(110) ++++ mg/dL [facility] Interpretation and review of laboratory results Normal [facility] Ketones, UA Negative Negative - 160(16) ++++ mg/dL [facility] Leukocytes, UA Negative Negative - 500+++ Jose Alfredo/mcL [facility] Nitrite, UA Negative Negative - Positive [facility] pH, UA 6.5 5 - 9 [facility] Protein, UA Negative Negative - 2000(20) ++++ mg/dL [facility] Spec Grav, UA 1.025 1 - 1.03 [facility] Urobilinogen, UA 1.0 0.2 - 12 mg/dL [facility] US OB >= 14 weeks Fetuson US OB >= 14 weeks Fetus [facility] [address] [place] [address] [place] [address] Ultrasound Report Signed Patient: Leelee Blake MR#: [id number] 5 : 1995 Acct:[id number] Age/Sex: 29 / F ADM Date: 07/17/24 Loc: Room: Type: [facility] Attending Dr: Enma Rivera ([facility]) COURTNEY Ordering Provider: Enma Rivera APRN, WHCNP Date of Service: 07/17/24 US/US OB >= 14 weeks Fetus: Z34.82 Copies to: Enma Rivera APRN FAB Obstetrical Ultrasound for Fetus greater than [...] Marie M.D. 07/17/2024 4:13 PM Dictation Location: [place] [address] Tech: Orquidea Copeland Transcribed By: MITALI 07/17/24 1613 Dictated By: Gage Marie DO 07/17/24 1611 Signed By: 07/17/24 1613 Normal [facility] Cytology Cervical or vaginal smear or scraping studyon 06-09-2024 [facility] Urine Cultureon 05-27-2024 Bacteria identified Cx Nom (U) No Growth 2 Days PERFORMED BY: [place] [address] PATHOLOGIST RACK MAKER CAESAR STOLL M.D. Normal [facility] Comment on above: Performed By: #### C UU #### [address] Urine cultureOrdered By: Pearl Glover on 05-27-2024 Bacteria identified Cx Nom (U) Urine culture [facility] US OB <= 14 weeks fetuson US OB <= 14 weeks fetus [facility] [address] [place] [address] [place] [address] Ultrasound Report Signed Patient: Leelee Blake MR#: [id number] 5 : 1995 Acct:[id number] Age/Sex: 29 / F ADM Date: 05/04/24 Loc: Room: Type: [facility] Attending Dr: Enma Rivera ([facility]) COURTNEY Ordering Provider: Enma Rivera [...] Simeon Jr., D.O.05/04/2024 5:01 PM Dictation Location: [place] [address] Tech: Maricel Andre Transcribed By: MITALI 05/04/241700 Dictated By: Castillo Simeon Jr, DO 05/04/241657 Signed By: 05/04/241700 Normal [facility] CBC AUTO DIFFon 06-15-2021 BASO # 0.0 103/ul Normal 0.0-0.1 [facility] Comment on above: Performed By: #### C BC #### [facility] [address] [place] [address] Dr. Baljit Rockwell Basophils/100 WBC (Bld) 0.2 % Normal 0.2-2.0 [facility] Comment on above: Performed By: #### C BC #### [facility] [address] [place] [address] Dr. Baljit Rockwell EO # 0.0 103/ul Normal 0.0-0.7 [facility] Comment on above: Performed By: #### C BC #### [facility] [address] [place] [address] Dr. Baljit Rockwell Eosinophils/100 WBC (Bld) 0.1 % Critically low 0.9-7.0 [facility] Comment on above: Performed By: #### C BC #### [facility] [address] [place] [address] Dr. Baljit Rockwell Erythrocyte distribution width (RBC) [Ratio] 14.5 % Normal 11.0-15.0 [facility] Comment on above: Performed By: #### C BC #### [facility] [address] [place] [address] Dr. Baljit Rockwell Hematocrit (Bld) [Volume fraction] 35.6 % Critically low 36.0-48.0 [facility] Comment on above: Performed By: #### C BC #### [facility] [address] [place] [address] Dr. Baljit Rockwell Hemoglobin (Bld) [Mass/Vol] 11.4 g/dL Critically low 12.0-16.0 [facility] Comment on above: Performed By: #### C BC #### [facility] [address] [place] [address] Dr. Baljit Rockwell IG # 0.14 10e3/ul Critically high 0.00-0.03 [facility] Comment on above: Performed By: #### C BC #### [facility] [address] [place] [address] [address] Baljit Rockwell IG % 0.9 % Critically high 0.0-0.5 [facility] Comment on above: Performed By: #### C BC #### [facility] [address] [place] [address] Dr. Baljit Rockwell LYMPH # 2.0 103/ul Normal 1.2-3.8 [facility] Comment on above: Performed By: #### C BC #### [facility] [address] [place] [address] Dr. Baljit Rockwell Lymphocytes/100 WBC (Bld) 11.9 % Critically low 20.5-60.0 [facility] Comment on above: Performed By: #### C BC #### [facility] [address] [place] [address] Dr. Baljit Rockwell MANUAL DIFF REQ NO Normal [facility] Comment on above: Performed By: #### C BC #### [facility] [address] [place] [address] Dr. Baljit Rockwell MCH (RBC) [Entitic mass] 27.9 pg Normal 26.7-34.0 [facility] Comment on above: Performed By: #### C BC #### [facility] [address] [place] [address] Dr. Baljit Rockwell MCHC (RBC) [Mass/Vol] 32.0 g/dL Normal 29.9-35.2 [facility] Comment on above: Performed By: #### C BC #### [facility] [address] [place] [address] Dr. Baljit Rockwell MCV (RBC) [Entitic vol] 87.3 fL Normal 81.0-99.0 [facility] Comment on above: Performed By: #### C BC #### [facility] [address] [place] [address] Dr. Baljit Rockwell MONO # 0.7 103/ul Normal 0.3-0.8 [facility] Comment on above: Performed By: #### C BC #### [facility] [address] [place] [address] Dr. Baljit Rockwell Monocytes/100 WBC (Bld) 4.3 % Normal 1.7-12.0 [facility] Comment on above: Performed By: #### C BC #### [facility] [address] [place] [address] Dr. Baljit Rockwell NEUT # 13.6 103/ul Critically high 1.4-6.5 [facility] Comment on above: Performed By: #### C BC #### [facility] [address] [place] [address] Dr. Baljit Rockwell Neutrophils/100 WBC (Bld) 82.6 % Critically high 43.0-75.0 [facility] Comment on above: Performed By: #### C BC #### [facility] [address] [place] [address] Dr. Baljit Rockwell Platelet mean volume (Bld) [Entitic vol] 10.6 fL Normal 9.5-13.5 [facility] Comment on above: Performed By: #### C BC #### [facility] [address] [place] [address] Dr. Baljit Rockwell PLT 256 103/ul Normal 150-450 [facility] Comment on above: Performed By: #### C BC #### [facility] [address] [place] [address] Dr. Baljit Rockwell RBC 4.08 106/ul Critically low 4.20-5.40 [facility] Comment on above: Performed By: #### C BC #### [facility] [address] [place] [address] Dr. Baljit Rockwell WBC 16.4 103/ul Critically high 4.0-11.0 [facility] Comment on above: Performed By: #### C BC #### [facility] [address] [place] [address] Dr. Baljit Rockwell DRUG SCREEN RAPID (URINE)on 06-15-2021 AMP Negative Normal NEGATIVE [facility] Comment on above: Performed By: #### D RUGRPD #### [facility] [address] [place] [address] Dr. Baljit Rockwell BAR Negative Normal NEGATIVE [facility] Comment on above: Performed By: #### D RUGRPD #### [facility] [address] [place] [address] Dr. Baljit Rockwell BUP Negative Normal NEGATIVE [facility] Comment on above: Performed By: #### D RUGRPD #### [facility] [address] [place] [address] Dr. Baljit Rockwell BZO Negative Normal NEGATIVE [facility] Comment on above: Performed By: #### D RUGRPD #### [facility] [address] [place] [address] Dr. Baljit Rockwell MIGUEL Negative Normal NEGATIVE [facility] Comment on above: Performed By: #### D RUGRPD #### [facility] [address] [place] [address] Dr. Baljit Rockwell CUT-OFFS SEE BELOW Normal [facility] Comment on above: Result Comment: AMP [...] ng/mL Performed By: #### D RUGRPD #### [facility] [address] [place] [address] Dr. Baljit Rockwell DRUG CUT HEADER DRUG CLASS TEST SYSTEM CUT-OFF CONCENTRATIONS ARE FOLLOWS: Normal [facility] Comment on above: Performed By: #### D RUGRPD #### [facility] [address] [place] [address] Dr. Baljit Rockwell mAMP Negative Normal NEGATIVE [facility] Comment on above: Performed By: #### D RUGRPD #### [facility] [address] [place] [address] Dr. Baljit Rockwell MTD Negative Normal NEGATIVE [facility] Comment on above: Performed By: #### D RUGRPD #### [facility] [address] [place] [address] Dr. Baljit Rockwell OPI Negative Normal NEGATIVE [facility] Comment on above: Performed By: #### D RUGRPD #### [facility] [address] [place] [address] Dr. Baljit Rockwell OXY Negative Normal NEGATIVE [facility] Comment on above: Performed By: #### D RUGRPD #### [facility] [address] [place] [address] Dr. Baljit Rockwell PCP Negative Normal NEGATIVE [facility] Comment on above: Performed By: #### D RUGRPD #### [facility] [address] [place] [address] Dr. Baljit Rockwell PPX Negative Normal NEGATIVE [facility] Comment on above: Performed By: #### D RUGRPD #### [facility] [address] [place] [address] Dr. Baljit Rockwell TCA Negative Normal NEGATIVE [facility] Comment on above: Performed By: #### D RUGRPD #### [facility] [address] [place] [address] Dr. Baljit Rockwell THC Negative Normal NEGATIVE [facility] Comment on above: Performed By: #### D RUGRPD #### [facility] [address] [place] [address] Dr. Baljit Rockwell CBC AUTO DIFFon 06-14-2021 BASO # 0.0 103/ul Normal 0.0-0.1 [facility] Comment on above: Performed By: #### C BC #### [facility] [address] [address] [address] Baljit Rockwell Basophils/100 WBC (Bld) 0.2 % Normal 0.2-2.0 [facility] Comment on above: Performed By: #### C BC #### [facility] [address] [address] [address] Baljit Rockwell EO # 0.0 103/ul Normal 0.0-0.7 [facility] Comment on above: Performed By: #### C BC #### [facility] [address] [place] [address] Dr. Baljit Rockwell Eosinophils/100 WBC (Bld) 0.3 % Critically low 0.9-7.0 [facility] Comment on above: Performed By: #### C BC #### [facility] [address] [place] [address] Dr. Baljit Rockwell Erythrocyte distribution width (RBC) [Ratio] 14.5 % Normal 11.0-15.0 [facility] Comment on above: Performed By: #### C BC #### [facility] [address] [place] [address] Dr. Baljit Rockwell Hematocrit (Bld) [Volume fraction] 35.0 % Critically low 36.0-48.0 [facility] Comment on above: Performed By: #### C BC #### [facility] [address] [place] [address] Dr. Baljit Rockwell Hemoglobin (Bld) [Mass/Vol] 11.2 g/dL Critically low 12.0-16.0 [facility] Comment on above: Performed By: #### C BC #### [facility] [address] [place] [address] Dr. Baljit Rockwell IG # 0.11 10e3/ul Critically high 0.00-0.03 [facility] Comment on above: Performed By: #### C BC #### [facility] [address] [place] [address] Dr. Baljit Rockwell IG % 0.9 % Critically high 0.0-0.5 [facility] Comment on above: Performed By: #### C BC #### [facility] [address] [place] [address] Dr. Baljit Rockwell LYMPH # 2.2 103/ul Normal 1.2-3.8 [facility] Comment on above: Performed By: #### C BC #### [facility] [address] [place] [address] Dr. Baljit Rockwell Lymphocytes/100 WBC (Bld) 17.7 % Critically low 20.5-60.0 [facility] Comment on above: Performed By: #### C BC #### [facility] [address] [place] [address] Dr. Baljit Rockwell MANUAL DIFF REQ NO Normal [facility] Comment on above: Performed By: #### C BC #### [facility] [address] [place] [address] Dr. Baljit Rockwell MCH (RBC) [Entitic mass] 27.3 pg Normal 26.7-34.0 [facility] Comment on above: Performed By: #### C BC #### [facility] [address] [place] [address] Dr. Baljit Rockwell MCHC (RBC) [Mass/Vol] 32.0 g/dL Normal 29.9-35.2 [facility] Comment on above: Performed By: #### C BC #### [facility] [address] [place] [address] Dr. Baljit Rockwell MCV (RBC) [Entitic vol] 85.2 fL Normal 81.0-99.0 [facility] Comment on above: Performed By: #### C BC #### [facility] [address] [place] [address] Dr. Baljit Rockwell MONO # 0.7 103/ul Normal 0.3-0.8 [facility] Comment on above: Performed By: #### C BC #### [facility] [address] [place] [address] Dr. Baljit Rockwell Monocytes/100 WBC (Bld) 5.4 % Normal 1.7-12.0 [facility] Comment on above: Performed By: #### C BC #### [facility] [address] [place] [address] Dr. Baljit Rockwell NEUT # 9.4 103/ul Critically high 1.4-6.5 [facility] Comment on above: Performed By: #### C BC #### [facility] [address] [place], [place] [id number] Dr. Baljit Rockwell Neutrophils/100 WBC (Bld) 75.5 % Critically high 43.0-75.0 [facility] Comment on above: Performed By: #### C BC #### [facility] [address] [place] [address] Dr. Baljit Rockwell Platelet mean volume (Bld) [Entitic vol] 10.7 fL Normal 9.5-13.5 [facility] Comment on above: Performed By: #### C BC #### [facility] [address] [place] [address] Dr. Baljit Rockwell PLT 265 103/ul Normal 150-450 [facility] Comment on above: Performed By: #### C BC #### [facility] [address] [place] [address] Dr. Baljit Rockwell RBC 4.11 106/ul Critically low 4.20-5.40 [facility] Comment on above: Performed By: #### C BC #### [facility] [address] [place] [address] Dr. Baljit Rockwell WBC 12.5 103/ul Critically high 4.0-11.0 [facility] Comment on above: Performed By: #### C BC #### [facility] [address] [place] [address] Dr. Baljit Rockwell [facility] SARS-CoV-2 (COVID-19) RNA ZOLTAN+probe Ql (Unsp spec) Not detected Normal NOT DETECTED [facility] Comment on above: Result Comment: [...] for this test is supported by the [place]aster Pattern Caster of Health and Human Service's declaration that [...] used). Performed By: #### C VDTBH #### [facility] [address] [place] [address] Dr. Baljit Rockwell TYPE AND SCREENon 06-14-2021 TYPE AND SCREEN Negative Normal [facility] Comment on above: Performed By: #### T NS #### [facility] [address] [place] [address] Dr. Baljit Rockwell US PREG BIOPHY W NON STRESSo n 06-02-2021 US PREG BIOPHY W NON STRESS EXAMINATION: US PREG BIOPHY W NON STRESS HISTORY: [id number] baby COMPARISON: Ultrasound biophysical 05/25/2021 TECHNIQUE: Ultrasound biophysical profile was performed. FINDINGS: BREATHING MOVEMENTS: 2.0 GROSS BODY MOVEMENTS: 2.0 TONE: 2.0 QUALITATIVE AMNIOTIC FLUID VOLUME: 2.0 PRESENTATION: CEPHALIC HEART RATE: 157.0 bpm bpm. AMNIOTIC FLUID VOLUME: 13.5 cm GESTATIONAL AGE: 36 weeks 3 days CONCLUSION: Total biophysical profile score 8.0. Electronically authenticated by: BRENDA VIEYRA Date: 2021-06-02 08:18 Normal [facility] GROUP B STREP CULTUREon 05-19 S. agalactiae Ag Ql (Unsp spec) Culture Observations: NEGATIVE FOR GROUP B STREPTOCOCCUS. Normal [facility] Comment on above: Performed By: #### G BSCX #### [facility] [address] [place] [address] Dr. Baljit Rockwell US PREG BIOPHY W NON STRESSo n 05-26-2021 US PREG BIOPHY W NON STRESS EXAMINATION: US PREG BIOPHY W NON STRESS HISTORY: [id number] baby COMPARISON: No relevant comparison available. TECHNIQUE: Ultrasound biophysical profile was performed. FINDINGS: BREATHING MOVEMENTS: 2.0 GROSS BODY MOVEMENTS: 2.0 TONE: 2.0 QUALITATIVE AMNIOTIC FLUID VOLUME: 2.0 PRESENTATION: CEPHALIC HEART RATE: 131.7 bpm bpm. AMNIOTIC FLUID VOLUME: 11.2 cm GESTATIONAL AGE: 35 weeks 3 days CONCLUSION: Total biophysical profile score 8.0. Electronically authenticated by: BRENDA VIEYRA Date: 2021-05-26 08:00 Normal [facility] US PREG ANATOMY SINGLEon US PREG [...] KRISTIAN DICKEY Date: 2021-05-23 15:17 Normal [facility] Covid-19 PCR ([facility])on 04-19 SARS-CoV-2 (COVID-19) RNA ZOLTAN+probe Ql (Unsp spec) Detected Critically abnormal NOT DETECTED [facility] Comment on above: Result Comment: This test is not yet approved or cleared by the [place] FDA. When there are no FDA-approved or cleared tests available, and other criteria are met, FDA can make tests available under an emergency access mechanism called an Emergency Use Authorization (EUA). The EUA for this test is supported by the [place] of Health and Human Service's (HHS's) declaration [...] used). Performed By: #### C VDTBH #### [facility] [address] [place] [address] Dr. 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 Baljit Rockwell Clarity (U) CLEAR Normal CLEAR [facility] Comment on above: Performed By: #### U ACSIND #### [facility] [address] [place] [address] Dr. Baljit Rockwell Color (U) LT. YELLOW Normal YELLOW [facility] Comment on above: Performed By: #### U ACSIND #### [facility] [address] [place] [address] Dr. Baljit Rockwell Glucose Ql (U) Negative Normal NEGATIVE [facility] Comment on above: Performed By: #### U ACSIND #### [facility] [address] [place] [address] Dr. Baljit Rockwell Hemoglobin Ql (U) Negative Normal NEGATIVE [facility] Comment on above: Performed By: #### U ACSIND #### [facility] [address] [address] [address] Baljit Rockwell Ketones Ql (U) Negative Normal NEGATIVE [facility] Comment on above: Performed By: #### U ACSIND #### [facility] [address] [address] [address] Baljit Rockwell LEUKOCYTES Negative Normal NEGATIVE [facility] Comment on above: Performed By: #### U ACSIND #### [facility] [address] [address] [address] Baljit Rockwell Nitrite Ql (U) Negative Normal NEGATIVE [facility] Comment on above: Performed By: #### U ACSIND #### [facility] [address] [place] [address] Dr. Baljit Rockwell pH (U) 7.0 [pH] Normal 5-9 [facility] Comment on above: Performed By: #### U ACSIND #### [facility] [address] [address] [address] Baljit Rockwell SPEC GRAVITY <=1.005 Abnormal 1.005-<=1.025 [facility] Comment on above: Performed By: #### U ACSIND #### [facility] [address] [place] [address] Dr. Baljit Rockwell UA PROTEIN Negative Normal NEGATIVE/ TRACE [facility] Comment on above: Performed By: #### U ACSIND #### [facility] [address] [address] [address] Baljit Rockwell UR MICRO IND NOT INDICATED Normal [facility] Comment on above: Performed By: #### U ACSIND #### [facility] [address] [address] [address] Baljit Rockwell Urobilinogen Qn (U) 0.2 {Shannan'U}/dL Normal 0.2 - 1. 0 [facility] Comment on above: Performed By: #### U ACSIND #### [facility] [address] [place] [address] Dr. Baljit Rockwell Vital Signs Date Time Vital Sign Value Performing Clinician Kalen harris 10-27-2024 11:10-0400 Body mass index (BMI) [Ratio] 31.35 kg/m2 Tiffany TUCKER Work Phone: [facility] 10-27-2024 11:10-0400 Body weight 80.29 kg Tiffany TUCKER Work Phone: [facility] 10-27-2024 11:10-0400 Diastolic blood pressure 72 mm[Hg] Tiffany TUCKER Work Phone: [facility] 10-27-2024 11:10-0400 Systolic blood pressure 122 mm[Hg] Tiffany TUCKER Work Phone: [facility] 10-20-2024 12:55-0400 Body mass index (BMI) [Ratio] 30.79 kg/m2 Srinivasan Suleiman DO Work Phone: [facility] 10-20-2024 12:55-0400 Body weight 78.83 kg Srinivasan Suleiman DO Work Phone: [facility] 10-20-2024 12:55-0400 Diastolic blood pressure 78 mm[Hg] Srinivasan Suleiman DO Work Phone: [facility] 10-20-2024 12:55-0400 Systolic blood pressure 130 mm[Hg] Srinivasan Suleiman DO Work Phone: [facility] 10-06-2024 14:10-0400 Body mass index (BMI) [Ratio] 31.32 kg/m2 Srinivasan Suleiman DO Work Phone: [facility] 10-06-2024 14:10-0400 Body weight 80.2 kg Srinivasan Suleiman DO Work Phone: [facility] 10-06-2024 14:10-0400 Diastolic blood pressure 84 mm[Hg] Srinivasan Suleiman DO Work Phone: [facility] 10-06-2024 14:10-0400 Systolic blood pressure 126 mm[Hg] Srinivasan Suleiman DO Work Phone: [facility] 09-22-2024 10:08-0400 Body mass index (BMI) [Ratio] 30.79 kg/m2 Tiffany TUCKER Work Phone: [facility] 09-22-2024 10:08-0400 Body weight 78.83 kg Tiffany TUCKER Work Phone: [facility] 09-22-2024 10:08-0400 Diastolic blood pressure 82 mm[Hg] Tiffany TUCKER Work Phone: [facility] 09-22-2024 10:08-0400 Systolic blood pressure 130 mm[Hg] Tiffany TUCKER Work Phone: [facility] 09-07-2024 13:10-0400 Body mass index (BMI) [Ratio] 30.43 kg/m2 Srinivasan Suleiman DO Work Phone: [facility] 09-07-2024 13:10-0400 Body weight 77.93 kg Srinivasan Suleiman DO Work Phone: [facility] 09-07-2024 13:10-0400 Diastolic blood pressure 78 mm[Hg] Srinivasan Suleiman DO Work Phone: [facility] 09-07-2024 13:10-0400 Systolic blood pressure 122 mm[Hg] Srinivasan Suleiman DO Work Phone: [facility] Encounters Encounter Date Encounter Type Care Provider Facility Start: 10-30-2024 End: 10-30-2024 Clinisync Result Encounter Srinivasan Suleiman DO Work Phone: [facility] Unsolicited Start: 10-30-2024 End: 10-30-2024 Clinisync Result Encounter Srinivasan Suleiman DO Work Phone: [facility] Unsolicited Start: 10-27-2024 End: 10-27-2024 Bamboo flowsheet Tiffany TUCKER Work Phone: [facility] Start: 10-27-2024 End: 10-28-2024 Bamboo flowsheet Tiffany TUCKER Work Phone: [facility] Start: 10-27-2024 End: 10-28-2024 External Result Encounter Tiffany TUCKER Work Phone: [facility] Unsolicited Start: 10-27-2024 End: 10-27-2024 Office outpatient visit 15 minutes Tiffany TUCKER Work Phone: [facility] Comment on above: Third trimester preg darvin ([facility]); 36 weeks gestation of ([facility]); Vaginal discharge Start: 10-27-2024 End: 10-27-2024 ambulatory TIFFANY LLANES Not Available Start: 10-20-2024 End: 10-20-2024 Bamboo flowsheet Srinivasan Suleiman DO Work Phone: [facility] Start: 10-20-2024 End: 10-20-2024 Bamboo flowsheet Srinivasan Suleiman DO Work Phone: [facility] Start: 10-20-2024 End: 10-20-2024 Office outpatient visit 15 minutes Srinivasan Suleiman DO Work Phone: [facility] Comment on above: 35 weeks gestation o f ([facility]); Third trimester ([facility]); Low hemoglobin Start: 10-20-2024 End: 10-20-2024 ambulatory SRINIVASAN SULEIMAN Not Available Start: 10-17-2024 End: 10-17-2024 Clinisync Result Encounter Srinivasan Suleiman DO Work Phone: [facility] Unsolicited Start: 10-17-2024 End: 10-17-2024 Clinisync Result Encounter Srinivasan Suleiman DO Work Phone: [facility] Unsolicited Start: 10-06-2024 End: 10-06-2024 Office outpatient visit 15 minutes Srniivasan Suleiman DO Work Phone: [facility] Comment on above: Third trimester preg darvin ([facility]); 33 weeks gestation of ([facility]) Start: 10-06-2024 End: 10-06-2024 Bamboo flowsheet Srinivasan [...] on above: 31 weeks gestation o f ([facility]); Third trimester ([facility]); Elevated glucose tolerance test Start: 09-22-2024 End: 09-22-2024 ambulatory TIFFANY LLANES Not Available Start: 09-21-2024 End: 09-21-2024 Clinisync Result Encounter Srinivasan Suleiman DO Work Phone: [facility] Unsolicited Start: 09-21-2024 End: 09-21-2024 Clinisync Result Encounter Srinivasan Suleiman DO Work Phone: [facility] Unsolicited Start: 09-11-2024 ambulatory Enma armenta [facility] Start: 09-07-2024 End: 09-07-2024 [...] End: 07-17-2024 Patient encounter procedure PHYSICIAN NO [facility] Work Phone: Start: 07-17-2024 End: 07-17-2024 ambulatory PHYSICIAN NO [facility] Work Phone: Start: 05-27-2024 End: 05-27-2024 ambulatory PHYSICIAN NO [facility] Work Phone: Start: 05-27-2024 End: 05-27-2024 Departed Referred PHYSICIAN NO [facility] Start: 05-04-2024 End: 05-04-2024 Patient encounter procedure PHYSICIAN NO [facility] Work Phone: Start: 05-04-2024 End: 05-04-2024 ambulatory PHYSICIAN NO [facility] Work Phone: Start: 06-29-2021 ambulatory [...] Date Procedure Procedure Detail Performing Clinician Start: 10-30-2024 US OB BPP W NON-STRESS Srinivasan Suleiman DO Work Phone: Start: 10-27-2024 RECURRENT VAGINITIS (HTRX) Tiffany TUCKER [...] Treatment Date Care Activity Detail Author Start: 11-03-2024 End: 11-03-2024 Patient encounter procedure 11/03/2024 1:00 PM EDT Routine GREG SALMERON [address] [place] [id number] Srinivasan Bearden DO [address] [place] [address] GREG SALMERON Start: 10-27-2024 End: 10-27-2024 Patient encounter procedure GREG SALMERON Comment on above: Arrived Start: 10-20-2024 End: 10-20-2025 CULTURE, GROUP B STREP WITH SUSCEPTIBLITY CULTURE, GROUP B STREP WITH SUSCEPTIBLITY Lab Routine Third trimester ([facility]) Expected: 10/20/2024, Expires: 10/20/2025 [facility] Work Phone: Comment on above: Expected: 10/20/2024 , Expires: 10/20/2025 Start: 10-20-2024 End: 10-20-2024 Patient encounter procedure GREG SALMERON Comment on above: Arrived Start: 10-06-2024 End: 10-06-2024 Patient encounter procedure [facility] Comment on above: Arrived Start: 09-22-2024 End: 09-22-2025 Measurement of glucose 3 hours after glucose challenge for glucose tolerance test Glucose tolerance, 3 hours Lab Routine Elevated glucose tolerance test Expected: 09/22/2024 (Approximate), Expires: 09/22/2025 [facility] Work Phone: Comment on above: Expected: 09/22/2024 (Approximate), Expires: 09/22/2025 Start: 09-22-2024 End: 09-22-2024 Patient encounter procedure [facility] Start: 09-22-2024 End: 09-22-2024 Professional / ancillary services management [facility] Start: 09-07-2024 End: 09-07-2025 CBC panel - Blood by Automated count CBC Lab Routine Diabetes mellitus screening Expected: 09/07/2024 (Approximate), Expires: 09/07/2025 [facility] Work Phone: Comment on above: Expected: 09/07/2024 (Approximate), Expires: 09/07/2025 Start: 09-07-2024 End: 09-07-2025 Measurement of glucose 1 hour after glucose challenge for glucose tolerance test Glucose tolerance, 1 hour Lab Routine Diabetes mellitus screening Expected: 09/07/2024 (Approximate), Expires: 09/07/2025 [facility] Comment on above: Expected: 09/07/2024 (Approximate), Expires: 09/07/2025 Start: 09-07-2024 End: 01-08-2025 US for US OB follow up transabdominal approach Imaging Routine size inconsistent with dates ([facility]) Expected: 09/07/2024, Expires: 01/08/2025 [facility] Comment on above: Expected: 09/07/2024 , Expires: 01/08/2025 Start: 09-07-2024 End: 09-07-2024 ambulatory 09/07/2024 1:30 PM EDT Initial [facility] [address] [place] [id number] Srinivasan Bearden DO [address] [place] [address] Arrived [facility] Comment on above: Arrived Start: 05-27-2024 Urine culture [facility] Start: 05-27-2024 Bacteria identified in Urine by Culture Urine Culture [facility] CHLAMYDIA TRACHOMATI S (GENITO/STI) CHLAMYDIA TRACHOMATIS (GENITO/STI) Lab Routine Vaginal discharge Ordered: 10/27/2024 [facility] Comment on above: Ordered: 10/27/2024 Neisseria gonorrhoea e DNA [Presence] in Unspecified specimen by ZOLTAN with probe detection Neisseria gonorrhea DNA probe, direct Lab Routine Vaginal discharge Ordered: 10/27/2024 [facility] Comment on above: Ordered: 10/27/2024 SURESWAB(R) ADVANCED VAGINITIS PLUS, TMA SURESWAB(R) ADVANCED VAGINITIS PLUS, TMA Pathology and Cytology Routine Vaginal discharge Ordered: 10/27/2024 [facility] Work Phone: Comment on above: Ordered: 10/27/2024 Payers Date Payer Category Payer Private Health Insurance [facility] MEDICA[employer] [id number] 2024 Self-pay 1993 Unknown [id number] 593 1993 Unknown [id number]. 593 1993 Unknown [id number] [id number]. 593 1993 Unknown [id number] [id number]. 593 1993 Unknown [id number] [id number]. 593 1993 Unknown [id number] [id number]. 593 1993 Unknown [id number] [id number]. 593 1993 Unknown [id number] [id number]. 593 1993 Unknown [id number] [id number]. 593 1993 Unknown [id number] [id number]. 593 1993 Unknown [id number] [id number]. 593 1993 Unknown [id number] 2.16.840.1.760529.3.579.2. 593 1995 Unknown [id number] 2.16.840.1.527542.3.579.2. 593 1993 Unknown [id number] 2.16.840.1.172097.3.579.2. 593 1993 Unknown [id number] 2.16.840.1.168477.3.579.2. 593 1993 Unknown [id number] 2.16.840.1.466927.3.579.2. 716 1993 Unknown [id number] 2.16.840.1.733373.3.579.2. 1259 1993 Unknown [id number] 2.16.840.1.324166.3.579.2. 1259 1993 Unknown [id number] 2.16.840.1.300594.3.579.2. 1259 1993 Unknown [id number] 2.16.840.1.315256.3.579.2. 1259 1993 Unknown [id number] 2.16.840.1.359378.3.579.2. 1259 1993 Unknown [id number] 2.16.840.1.918503.3.579.2. 1259 1961 Medicaid [id number] 1961 Self-pay [id number] Unknown [id number] 2.16.840.1.783305.3.579.2. 531 Unknown [id number] 2..840.1.674360.3.579.2. 531 Unknown [id number] 2.16.840.1.301755.3.579.2. 531 Social History Date Type Detail Facility [facility] Start: 05-05-2024 End: 07-18-2024 Sex Female (finding) [facility] Start: 1995 Sex Assigned At Female F [facility] Start: 1995 Sex assigned at Not on file N [facility] Gender identity Not on file [facility] are Start: 02-27-2024 N[facility] Clinical Notes 05-04-2024 to 10-27-2024 GARRETT Rivers - 10/27/2024 11:20 AM Paul Peacock LPN - 10/20/2024 1:10 PM Paul Peacock LPN - 10/06/2024 2:20 PM GARRETT Donaldson - 09/22/2024 10:20 AM EDT Note Date & Type Note Facility 10-27-2024 History of Present illness Narrative Reason for Appointment: Patient ID: Leelee Blake is a 29 y.o. female who presents [...] nursing note reviewed. Exam conducted with a cosmetic account coordinator present. Vitals: Estimated body mass index is 31.35 kg/m as calculated from the following: Height as of 07/09/23: 5' 3 . Weight as of this encounter: 177 lb. BP: 122/72 Patient's last menstrual period was 02/19/2024. ASSESSMENT & PLAN ICD-10-CM 1. Third trimester ([facility]) Z34.93 POCT urinalysis dipstick manually resulted 2. 36 weeks gestation of ([facility]) Z3A.36 3. Vaginal discharge N89.8 SURESWAB(R) ADVANCED [...] area. Pt states she was seen in [facility] on 10/17/2024 due to false labor and states she is still having the cramping. Pt also states she was advised she had a yeast infection while in [facility] and does not feel it [...] of: GARRETT Rivers documented in this encounter [facility] 10-20-2024 History of Present illness Narrative Reason for Appointment: Patient ID: Leelee Blake is a 29 y.o. female who presents [...] nursing note reviewed. Exam conducted with a cosmetic account coordinator present. Vitals: Estimated body mass index is 30.79 kg/m as calculated from the following: Height as of 07/09/23: 5' 3 . Weight as of this encounter: 173 lb 12.8 oz. BP: 130/78 Patient's last menstrual period was 02/19/2024. ASSESSMENT & PLAN ICD-10-CM 1. 35 weeks gestation of ([facility]) Z3A.35 POCT urinalysis dipstick manually resulted 2. Third trimester ([facility]) Z34.93 POCT urinalysis dipstick manually resulted CULTURE, [...] Srinivasan Bearden DO documented in this encounter [facility] 10-06-2024 History of Present illness Narrative Reason for Appointment: Patient ID: Leelee Blake is a 29 y.o. female who presents [...] nursing note reviewed. Exam conducted with a cosmetic account coordinator present. Vitals: Estimated body mass index is 31.32 kg/m as calculated from the following: Height as of 07/09/23: 5' 3 . Weight as of this encounter: 176 lb 12.8 oz. BP: 126/84 Patient's last menstrual period was 02/19/2024. ASSESSMENT & PLAN ICD-10-CM 1. Third trimester ([facility]) Z34.93 2. 33 weeks gestation of ([facility]) Z3A.33 Return OB: Patient presents today for [...] Srinivasan Bearden DO documented in this encounter [facility] 09-22-2024 History of Present illness Narrative Reason for Appointment: Patient ID: Leelee Blake is a 29 y.o. female who presents [...] PLAN ICD-10-CM 1. 31 weeks gestation of ([facility]) Z3A.31 POCT urinalysis dipstick manually resulted 2. Third trimester ([facility]) Z34.93 POCT urinalysis dipstick manually resulted 3. [...] of: GARRETT Rivers documented in this encounter [facility] 09-07-2024 History of Present illness Narrative Reason for Appointment: Patient ID: Leelee Blake is a 29 y.o. female who presents [...] nursing note reviewed. Exam conducted with a cosmetic account coordinator present. Vitals: Estimated body mass index is 30.43 kg/m as calculated from the following: Height as of 07/09/23: 5' 3 . Weight as of this encounter: 171 lb 12.8 oz. BP: 122/78 Patient's last menstrual period was 02/19/2024. ASSESSMENT & PLAN ICD-10-CM 1. Third trimester ([facility]) Z34.93 POCT urinalysis dipstick manually resulted 2. 29 weeks gestation of ([facility]) Z3A.29 POCT urinalysis dipstick manually resulted 3. Diabetes mellitus screening Z13.1 Hemoglobin A1c CBC Glucose tolerance, 1 hour CBC Glucose tolerance, 1 hour Patient presents today for transfer of care OB patient. Patient was seeing [facility] and desires to deliver at [facility]. Patient to return to clinic in 2 weeks for return OB and growth scan. Reviewed all labs and scans with patient as well. Documented by Enma Irizarry LPN on behalf of: Srinivasan Bearden DO documented in this encounter [facility] 07-17-2024 Radiology Diagnostic study note [facility] [address] [place] [address] [place] [address] Ultrasound Report Signed Patient: Leelee Blake MR#: [id number] : 1995 Acct:[id number] Age/Sex: 29 / F ADM Date: 5 Loc: Room: Type: [facility] CLI Attending Dr: Enma Rivera ([facility]) COURTNEY Ordering Provider: Enma Rivera [...] Marie M.D. 07/17/2024 4:13 PM Dictation Location: [place] [address] Tech: Orquidea Copeland Transcribed By: MITALI 07/17/24 1613 Dictated By: Gage Marie DO 07/17/24 1611 Signed By: 07/17/24 1613 [facility] 05-04-2024 Radiology Diagnostic study note [facility] [place] [address] Ultrasound Report Signed Patient: Leelee Blake MR#: [id number] : 1995 Acct:[id number] Age/Sex: 29 / F ADM Date: 5 Loc: Room: Type: [facility] CLI Attending Dr: Enma Rivera ([facility]) [place] Ordering Provider: Enma Rivera APRN FAB [...] Simeon Jr., DSherinOSherin05/04/2024 5:01 PM Dictation Location: [facility] Tech: Maricel Andre Transcribed By: MITALI 05/04/24 1701 Dictated By: Castillo Simeon Jr, DO 05/04/24 1658 Signed By: 05/04/24 1701 [facility] Evaluation note No assessment inform ation available [facility] Work Phone: Evaluation note Diagnosis Third trimester [...] 2024 1:4 1pm Chief Complaint Admit Date z34.May 04, 2024 1:4 1pm Unknown May 27, 2024 3:55 pm Chief Complaint Admit Date z34.81 May 04, 2024 1:4 1pm Unknown May 27, 2024 3:55 pm z34.82 July 17, 2024 12:19 pm Additional Source Comments INFORMATION SOURCE (unrecogn ized section and content) DATE CREATED AUTHOR 06/23/2021 [facility] DATE CREATED AUTHOR AUTHOR'S ORGANIZ ATION 07/28/2024 [facility] DATE CREATED AUTHOR AUTHOR'S ORGANIZ ATION 09/12/2024 [facility] DATE CREATED AUTHOR AUTHOR'S ORGANIZ ATION 10/29/2024 [facility] Care Teams (unrecognized sec tion and content) Team Status: Active Member Role Status Dates PHYSICIAN NO FAMILY Primary Care Provider Active Team Status: Inactive Member Role Status Dates [facility] Attending Provider Active Start: May 04, 2024 End: May 04, 2024 PHYSICIAN NO FAMILY Primary Care Provider Active Start: May 04, 2024 End: May 04, 2024 Team Status: Inactive Member Role Status Dates Maria Del Carmen Glover PA-C Attending Provider Active Start: May 27, 2024 End: May 27, 2024 Team Status: Inactive Member Role Status Dates [facility] Attending Provider Active Start: July 17, 2024 End: July 17, 2024 PHYSICIAN NO FAMILY Primary Care Provider Active Start: July 17, 2024 End: July 17, 2024 Bus Greaser Relationship Specialty Start Date End Date Cesar Espitia MD [address] [place] [address] PCP - General Family Medicine 06/28/23 Bus Greaser Relationship Specialty Start Date End Date Cesar Espitia MD [address] [place] [address] PCP - General Family Medicine 06/28/23 Bus Greaser Relationship Specialty Start Date End Date Cesar Espitia MD [address] [place] [address] PCP - General Family Medicine 06/28/23 Bus Greaser Relationship Specialty Start Date End Date Cesar Espitia MD [address] [place] [address] PCP - General Family Medicine 06/28/23 Bus Greaser Relationship Specialty Start Date End Date Cesar Espitia MD [address] [place] [address] PCP - General Family Medicine 06/28/23 Bus Greaser Relationship Specialty Start Date End Date Cesar Espitia MD [address] [place] [address] PCP - General Family Medicine 06/28/23 Bus Greaser Relationship Specialty Start Date End Date Cesar Espitia MD [address] [place] [address] PCP - General Family Medicine 06/28/23 Goals [...] BE BASED ON THE PRIMARY CLINICAL RECORDS. [facility] provides no warranty or guarantee of the accuracy or completeness of information in this document.
--- OUTSIDE RECORDS SUMMARY | 2024-11-03 17:48 | XMS_ITS | Encounter Summary ---
Author Organization [facility] Address [address] [place] [address] Care Team Providers Care Foam Caster Name Role Phone Cesar Espitia MD Primary Care Provider +1- [phone] Encounter Details Date Type Department Care Team (Late st Contact Info) Description 10/27/2024 External Result Encounter [facility] External Department Unsolicited Tiffany Mayen PA [address] [place], [place] [address] Social History Tobacco Use Types Packs/Day Years [...] AM EDT Routine [facility] [address] [place] [id number] Santo Bearden DO [address] [place] [address] documented as of this encounter Procedures Procedure Name Priority Date/Time Associated Diagnosis Comments RECURRENT VAGINITIS (HTRX) Routine 10/27/2024 11:57 AM EDT documented in this encounter Results * RECURRENT VAGINITIS (HTRX) (10/27/2024 11:57 AM EDT) [facility] ATOPOBIUM VAGINAE 0 19.961 - 24.689 ppm 10/28/2024 6:29 AM EDT [facility] ATOPOBIUM VAGINAE Not Detected 19.961 - 24.689 ppm 10/28/2024 6:29 AM EDT [facility] BVAB 2,3 (BACTERIAL VAGINOSIS ASSOCIATED BACTERIA 2, 3); MOBILUNCUS SPP 0 19.961 - 24.689 ppm 10/28/2024 6:29 AM EDT [facility] BVAB 2,3 (BACTERIAL VAGINOSIS ASSOCIATED BACTERIA 2, 3); MOBILUNCUS SPP Not Detected 19.961 - 24.689 ppm 10/28/2024 6:29 AM EDT [facility] MARIANO ALBICANS, PARAPSILOSIS, TROPICALIS 0 23.000 - 30.347 ppm 10/28/2024 6:29 AM EDT [facility] MARIANO ALBICANS, PARAPSILOSIS, TROPICALIS Not Detected 23.000 - 30.347 ppm 10/28/2024 6:29 AM EDT [facility] MARIANO GLABRATA 0 23.000 - 31.618 ppm 10/28/2024 6:29 AM EDT [facility] MARIANO GLABRATA Not Detected 23.000 - 31.618 ppm 10/28/2024 6:29 AM EDT [facility] MARIANO KRUSEI 0 23.000 - 30.873 ppm 10/28/2024 6:29 AM EDT [facility] MARIANO KRUSEI Not Detected 23.000 - 30.873 ppm 10/28/2024 6:29 AM EDT [facility] CHLAMYDIA TRACHOMATIS 0 23.000 - 31.586 ppm 10/28/2024 6:29 AM EDT [facility] CHLAMYDIA TRACHOMATIS Not Detected 23.000 - 31.586 ppm 10/28/2024 6:29 AM EDT [facility] GARDNERELLA VAGINALIS 0 19.961 - 24.689 ppm 10/28/2024 6:29 AM EDT [facility] GARDNERELLA VAGINALIS Not Detected 19.961 - 24.689 ppm 10/28/2024 6:29 AM EDT [facility] MEGASPHAERA (TYPES 1, 2) 0 19.961 - 24.689 ppm 10/28/2024 6:29 AM EDT [facility] MEGASPHAERA (TYPES 1, 2) Not Detected 19.961 - 24.689 ppm 10/28/2024 6:29 AM EDT [facility] NEISSERIA GONORRHOEAE 0 23.000 - 32.587 ppm 10/28/2024 6:29 AM EDT [facility] NEISSERIA GONORRHOEAE Not Detected 23.000 - 32.587 ppm 10/28/2024 6:29 AM EDT [facility] TRICHOMONAS VAGINALIS 0 23.000 - 31.995 ppm 10/28/2024 6:29 AM EDT [facility] TRICHOMONAS VAGINALIS Not Detected 23.000 - 31.995 ppm 10/28/2024 6:29 AM EDT [facility] MYCOPLASMA GENITALIUM 0 19.961 - 24.689 ppm 10/28/2024 6:29 AM EDT [facility] MYCOPLASMA GENITALIUM Not Detected 19.961 - 24.689 ppm 10/28/2024 6:29 AM EDT [facility] Tissue 10/27/2024 11:5 7 AM EDT 10/28/2024 1:43 AM EDT us Tiffany TUCKER LAB BLOOD ORDERABLES Final Resul t [facility] [address] [place] [id number] documented in this encounter Visit Diagnoses Not on filedocumented in this encounter Care Teams Foam Caster Relationship Specialty Start Date End Date Cesar Espitia MD [address] [place] [address] PCP - General Family Medicine 06/28/23 documented as of this encounter
--- OUTSIDE RECORDS SUMMARY | 2024-11-03 17:48 | XMS_ITS | Encounter Summary ---
Author Organization [facility] Address [address] [place] [address] Care Team Providers Care Plant Pathologist Name Role Phone Cesar Espitia MD Primary Care Provider +1- [phone] Encounter Details Date Type Department Care Team (Late st Contact Info) Description 10/27/2024 Bamboo flowsheet [facility] [address] [place] [place] [address] Tiffany Mayen PA [address] [place], [place] [address] Social History Tobacco Use Types Packs/Day Years [...] 11/05/2024 9:40 AM EDT Routine [facility] [address] [place] [place] [address] Santo Bearden DO [address] [place] [address] documented as of this encounter Visit Diagnoses Not on filedocumented in this encounter Care Teams Plant Pathologist Relationship Specialty Start Date End Date Cesar Espitia MD [address] [place] [address] PCP - General Family Medicine 06/28/23 documented as of this encounter
[2024-11-03 17:49] VITALS: BP 133/88; PULSE 88
== END 2024-11-03 18:11 | disposition home or self-care (01) ==
LOC: FBCO 17:45 → FBC 17:47
PROVIDERS: Visit Provider Obstetrics & Gynecology
DX: O26.893 Other specified pregnancy related conditions, third trimester (principal); Z3A.37 37 weeks gestation of pregnancy
CPT/HCPCS: 59025

== ENCOUNTER 2024-11-06 16:15 | Outpatient (OUT) | payer OTHER, SELFPAY ==
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
--- OUTSIDE RECORDS SUMMARY | 2024-10-27 11:20 | XMS_ITS | Encounter Summary ---
Author Organization [facility] Address [address] [place] [address] Care Team Providers Care Foot Tender Name Role Phone Cesar Espitia MD Primary Care Provider +1- [phone] Reason for Visit * Reason Comments Routine Visit Encounter Details Date Type Department Care Team (Late st Contact Info) Description 10/27/2024 11:20 AM EDT Routine [facility] [address] [place] [address] Tiffany Mayen PA [address] [place] [address] Third trimester ([facility]); 36 weeks gestation of ([facility]); Vaginal discharge Social History Tobacco Use Types [...] nursing note reviewed. Exam conducted with a cable installation technician present. Vitals: Estimated body mass index is 31.35 kg/m?? as calculated from the following: Height as of 07/09/23: 5' 3 . Weight as of this encounter: 177 lb. BP: 122/72 Patient's last menstrual period was 02/19/2024. ASSESSMENT & PLAN ICD-10-CM 1. Third trimester ([facility]) Z34.93 POCT urinalysis dipstick manually resulted 2. 36 weeks gestation of ([facility]) Z3A.36 3. Vaginal discharge N89.8 SURESWAB(R) ADVANCED [...] area. Pt states she was seen in [facility] on 10/17/2024 due to false labor and states she is still having the cramping. Pt also states she was advised she had ayeast infection while in [facility] and does not feel it has gone [...] Routine 10/27/2024 11:20 AM EDT Third trimester ([facility]) PAP SMEAR Routine 06/09/2024 12:00 AM EDT [...] this encounter Visit Diagnoses Diagnosis Third trimester ([facility]) state, incidental 36 weeks gestation of ([facility]) Vaginal discharge Leukorrhea, not specified as infective documented in this encounter Care Teams Foot Tender Relationship Specialty Start Date End Date Cesar Espitia MD [address] [place] [address] PCP - General Family Medicine 06/28/23 documented as of this encounter
--- OUTSIDE RECORDS SUMMARY | 2024-11-05 09:40 | XMS_ITS | Encounter Summary ---
Author Organization [facility] Address [address] [place] [address] Care Team Providers Care Wrapper Caser Name Role Phone Cesar Espitia MD Primary Care Provider +1- [phone] Reason for Visit * Reason Comments Routine Visit Encounter Details Date Type Department Care Team (Late st Contact Info) Description 11/05/2024 9:40 AM EDT Routine [facility] [place] [facility] [address] [place] [address] Santo Bearden DO [address] [place] [address] Third trimester ([facility]); 38 weeks gestation of ([facility]) Social History Tobacco Use Types Packs/Day [...] nursing note reviewed. Exam conducted with a grapple skidder operator present. Vitals: Estimated body mass index is 31.58 kg/m?? as calculated from the following: Height as of 07/09/23: 5' 3 . Weight as of this encounter: 178 lb 4 oz. BP: Patient's last menstrual period was 02/19/2024. ASSESSMENT & PLAN ICD-10-CM 1. Third trimester ([facility]) Z34.93 POCT urinalysis dipstick manually resulted 2. 38 weeks gestation of ([facility]) Z3A.38 Patient presents today for a routine obstetrics appointment. Patient is currently 38w0d with a Estimated Date of Delivery: 11/19/24. Patient desires to have IOL on 11/10/24 @ 11pm. Patient signed consents prior to leaving office today and [facility] was notified. Patient to return to clinic for post appointment. Nursing called Asha at [facility] and ensured that time of IOL was changed to [id number] as patient was previously on for 11/11. Asha confirmed change on the books. Documented by Enma Irizarry LPN on behalf of: Santo Bearden DO documented in this encounter Plan of Treatment Not on file documented as of this encounter Procedures Procedure Name Priority Date/Time Associated Diagnosis Comments POCT URINALYSIS DIPSTICK Routine 11/05/2024 9:36 AM EDT Third trimester ([facility]) documented in this encounter Results * [...] ([facility]) documented in this encounter Care Teams Wrapper Caser Relationship Specialty Start Date End Date Cesar Espitia MD [address] [place] [address] PCP - General Family Medicine 06/28/23 documented as of this encounter
--- OUTSIDE RECORDS SUMMARY | 2024-11-06 16:17 | XMS_ITS | Encounter Summary ---
Author Organization [facility] Address [address] [place] [address] Care Team Providers Care Washer Off Name Role Phone Cesar Espitia MD Primary Care Provider +1- [phone] Encounter Details Date Type Department Care Team (Late st Contact Info) Description 10/30/2024 Clinisync Result Encounter NOMS External Department Unsolicited Santo Bearden, DO [address] [facility] [place] [id number] Social History Tobacco Use Types Packs/Day Years Used Date Smoking Tobacco: Never Assessed Estimated Date of Delivery Comme nts Yes 11/19/2024 Based on Ultraso und Sex and Gender Information Value Date Recorded Sex Assigned at Not on file Legal Sex Female 11:47 PM EDT Gender Identity Not on file Sexual Orientation Not on file documented as of this encounter Plan of Treatment Not on file documented as of this encounter Procedures Procedure Name Priority Date/Time Associated Diagnosis Comments US OB BPP W NON-STRESS 10/30/2024 9:47 PM EDT documented in this encounter Results * US OB BPP W NON-STRESS (10/30/2024 9:47 PM EDT) Anatomical Region Laterality Modality Other 10/30/2024 9:47 PM EDT Narrative 10/30/2024 9:49 PM EDT The [address] [address] Ultrasound Report Signed Patient: LEELEE BLAKE MR#: [id number] : 1995 Acct:[id number] Age/Sex: 29 / F ADM Date: 10/30/24 Loc: US Attending Dr: Tiffany Mayen Ordering Physician: Santo Bearden D.O. Date of Service: 10/30/24 Procedure(s): US OB BPP w non-stress Accession Number(s): [id number] cc: Santo Bearden D.O.; Physician,Non-Staff M.Carrie The [place] [address] Patient Name: LEELEE BLAKE MRN: [id number] date: 1995 Sex: F Assigned Patient Location: [facility] Current Patient Location: Accession/Order Number: [id number] Exam Date: 10/30/2024 19:55 Report Date: 10/30/2024 21:47 At the request of: SANTO BEARDEN DO Procedure: US OB BPP w non-stress Ultrasound biophysical profile INDICATION: Pelvic cramps for 2 weeks COMPARISON: None FINDINGS/impression: Cephalic position. heart rate 150 beats per minute. Biophysical profile score 8/8. LUIZA measures 12.5 cm. Impression dictated by: David Khan M.D. 10/30/2024 9:47 PM Dictation Location: [place] [address] Electronically authenticated by: [id number] Y Date: 10/30/2024 21:47 Dictated By: David Khan M.D. Signed By: 10/30/242148 DD/ 46 TD/TT: Communications Planner: Procedure Note Radiology, Radiologist, MD - 10/30/2024 [place] [address] Ultrasound Report Signed Patient: LEELEE BLAKE DMR#: [id number] : 1995Acct:[id number] Age/Sex: 29 / FADM Date: 10/30/24 Loc: US Attending Dr: Tiffany Mayen Ordering Physician: Santo Bearden D.O. Date of Service: 10/30/24 Procedure(s): US OB BPP w non-stress Accession Number(s): [id number] cc: Santo Bearden D.O.; Physician,Non-Staff [place] [address] Patient Name: LEELEE BLAKE MRN: [facility]:[id number] date: 1995 Sex: F Assigned Patient Location: [facility] Current Patient Location: Accession/Order Number: [id number] Exam Date: 10/30/2024 19:55 Report Date: 10/30/2024 21:47 At the request of: SANTO BEARDEN DO Procedure: US OB BPP w non-stress Ultrasound biophysical profile INDICATION: Pelvic cramps for 2 weeks COMPARISON: None FINDINGS/impression: Cephalic position. heart rate 150 beatsper minute. Biophysical profile score 8/8. LUIZA measures 12.5 cm. Impression dictated by: David Khan M.D. 10/30/2024 9:47 PM Dictation Location: [place] [address] Electronically authenticated by: [id number] Y Date: 1:47 Dictated By: David Khan M.D. Signed By:10/30/242148 DD/ 46 TD/TT: Communications Planner: Santo Bearden DO [facility] Final Result documented in this encounter Visit Diagnoses Not on filedocumented in this encounter Care Teams Washer Off Relationship Specialty Start Date End Date Cesar Espitia MD [address] [place] [address] [address] [place] [address] PCP - General Family Medicine 06/28/23 documented as of this encounter
--- OUTSIDE RECORDS SUMMARY | 2024-11-06 16:17 | XMS_ITS | Encounter Summary ---
Author Organization [facility] Address [address] [place] [address] Care Team Providers Care Knitting Demonstrator Name Role Phone Cesar Espitia MD Primary Care Provider +1- [phone] Encounter Details Date Type Department Care Team (Late st Contact Info) Description 07/17/2024 Abstract [facility] [address] [place] [address] Santo Bearden DO [address] [place] [address] Social History Tobacco Use Types Packs/Day Years Used Date Smoking Tobacco: Never Assessed Comments Unknown Sex and Gender Information Value Date Recorded Sex Assigned at Not on file Legal Sex Female 11:47 PM EDT Gender Identity Not on file Sexual Orientation Not on file documented as of this encounter Plan of Treatment Not on file documented as of this encounter Visit Diagnoses Not on filedocumented in this encounter Care Teams Knitting Demonstrator Relationship Specialty Start Date End Date Cesar Espitia MD [address] [place] [id number] PCP - General Family Medicine 06/28/23 documented as of this encounter
--- OUTSIDE RECORDS SUMMARY | 2024-11-06 16:17 | XMS_ITS | Clinical Summary ---
Author Organization [facility] Address [address] [place] [address] Care Team Providers Care Operations Leader Name Role Phone Cesar Espitia MD Primary Care Provider +1- [phone] Allergies No known active allergies Medications NIFEdipine [...] Encounters Date Type Department Care Team Description 11/05/2024 9:40 AM EDT Routine [facility] [address] [place] [address] Srinivasan Bearden DO Third trimester ([facility]); 38 weeks gestation of ([facility]) 11/05/2024 Bamboo flowsheet [facility] [place] [address] [place] [address] Srinivasan Bearden, DO 11/05/2024 Travel 10/30/2024 Clinisync Result Encounter NOMS External Department Unsolicited Srinivasan Bearden, DO 10/28/2024 Telephone [facility] [address] [place] [address] Alyssa HopkinsNADER 10/27/2024 11:20 AM EDT Routine [facility] [address] [place] [address] Tiffany Mayen PA Third trimester ([facility]); 36 weeks gestation of ([facility]); Vaginal discharge 10/27/2024 External Result Encounter NOMS External Department Unsolicited Tiffany Mayen PA 10/27/2024 Bamboo flowsheet [facility] [address] [place] [address] Tiffany Mayen PA 10/27/2024 Travel 10/21/2024 Refill [facility] [address] [place] [address] Srinivasan Bearden, DO Low hemoglobin 10/20/2024 1:10 PM EDT Routine [facility] [address] [facility] [place] [address] Srinivasan Bearden, DO 35 weeks gestation of ([facility]); Third trimester ([facility]); Low hemoglobin 10/20/2024 Bamboo flowsheet [facility] [address] [place] [address] Srinivasan Bearden, DO 10/19/2024 Travel 10/17/2024 Clinisync Result Encounter NOMS External Department Unsolicited Srinivasan Bearden, DO 10/06/2024 2:20 PM EDT Routine [facility] [address] [place] [address] Srinivasan Bearden, Third trimester ([facility]); 33 weeks gestation of ([facility]) 10/06/2024 [place] [address] Srinivasan Bearden DO 10/05/2024 Travel 09/26/2024 Clinisync Result Encounter NOMS External Department Unsolicited Tiffany Mayen PA 09/22/2024 10:20 [place] [address] Tiffany Mayen PA 31 weeks gestation of ([facility]); Third trimester ([facility]); Elevated glucose tolerance test 09/22/2024 9:30 AM EDT [place] [address] size inconsistent with dates ([facility]) 09/22/2024 [place] [address] Yakelin Parker MA 09/21/2024 Clinisync Result Encounter [facility]OMS External Department Unsolicited Srinivasan Bearden DO 09/07/2024 1:30 PM [place] [address] Srinivasan Bearden DO GA: 29w4d 09/07/2024 [place] [address] Srinivasan Bearden DO 08/26/2024 [place] [address] Srinivasan Bearden DO from Last 3 Months [...] EDT Inhaled Oxygen Concentration - - Weight 80.9 kg (178 lb 4 oz) 11/05/2024 9:33 AM EDT Height 160 cm (5' 3 ) 07/09/2023 4:01 PM EDT Body Mass Index 31.58 07/09/2023 4:01 PM EDT Plan of Treatment Not on file Procedures Procedure Name Priority Date/Time Associated Diagnosis Comments POCT URINALYSIS DIPSTICK Routine 11/05/2024 9:36 AM EDT Third trimester ([facility]) US OB BPP W NON-STRESS 10/30/2024 9:47 PM EDT RECURRENT VAGINITIS (HTRX) Routine 10/27/2024 11:57 AM EDT POCT URINALYSIS DIPSTICK Routine 10/27/2024 11:20 AM EDT Third trimester ([facility]) CULTURE, GROUP B STREP WITH SUSCEPTIBLITY Routine 10/20/2024 1:25 PM EDT Third trimester ([facility]) POCT URINALYSIS DIPSTICK Routine 10/20/2024 1:02 PM EDT 35 weeks gestation of ([facility]) Third trimester ([facility]) AMNISURE Routine 10/17/2024 10:42 AM EDT [facility] UA (CLEAN/CATCH) ZIPPER MACHINE OPERATOR/MICRO IF IND. Routine 10/17/2024 10:30 AM EDT GLUCOSE TOLERANCE 3 HOUR Routine 09/26/2024 7:50 AM EDT POCT URINALYSIS DIPSTICK Routine 09/22/2024 10:15 AM EDT 31 weeks gestation of ([facility]) Third trimester ([facility]) US OB FOLLOW UP TRANSABDOMINAL APPROACH Routine 09/22/2024 9:50 AM EDT size inconsistent with dates ([facility]) GLUCOSE 1 HOUR Routine 09/21/2024 11:02 AM EDT ALL CBC WITH AUTO DIFF Routine 11:02 AM EDT POCT URINALYSIS DIPSTICK Routine 09/07/2024 1:23 PM EDT Third trimester ([facility]) 29 weeks gestation of ([facility]) from Last 3 Months Results * (ABNORMAL) POCT urinalysis dipstick manually resulted (11/05/2024 9:36 AM EDT) Only the most recent of5 resultswithin the time period is included. Color, [...] - Positive Urine 11/05/2024 9:36 AM EDT Srinivasan Bearden DO POINT OF CARE TEST ENTER/EDIT OR DERABLES Final Result * US OB BPP W NON-STRESS (10/30/2024 9:47 PM EDT) Anatomical Region Laterality Modality Other 10/30/2024 9:47 PM EDT Narrative 10/30/2024 9:49 [place] [address] Ultrasound Report Signed Patient: LEELEE BLAKE MR#: [id number] : 1995 Acct:[id number] Age/Sex: 29 / F ADM Date: 10/30/24 Loc: US Attending Dr: Tiffany Mayen Ordering Physician: Srinivasan Bearden D.O. Date of Service: 10/30/24 Procedure(s): US OB BPP w non-stress Accession Number(s): [id number] cc: Srinivasan Bearden D.O.; Physician,Non-Staff [place] [id number] Patient Name: LEELEE BLAKE MRN: [id number] date: 1995 Sex: F Assigned Patient Location: [facility] Current Patient Location: Accession/Order Number: [id number] Exam Date: 10/30/2024 19:55 Report Date: 10/30/2024 21:47 At the request of: SRINIVASAN BEARDEN DO Procedure: US OB BPP w non-stress Ultrasound biophysical profile INDICATION: Pelvic cramps for 2 weeks COMPARISON: None FINDINGS/impression: Cephalic position. heart rate 150 beats per minute. Biophysical profile score 8/8. LUIZA measures 12.5 cm. Impression dictated by: David Khan M.D. 10/30/2024 9:47 PM Dictation Location: [place] [address] Electronically authenticated by: [id number] Y Date: 10/30/2024 21:47 Dictated By: David Khan M.D. Signed By: 10/30/242148 DD/ 46 TD/TT: Sap Director: Procedure Note Radiology, Radiologist, MD - 10/30/[address] [address] Ultrasound Report Signed Patient: LEELEE BLAKE DMR#: [id number] : 1995Acct:[id number] Age/Sex: 29 / FADM Date: 10/30/24 Loc: US Attending Dr: Tiffany Mayen Ordering Physician: Srinivasan Bearden D.O. Date of Service: 10/30/24 Procedure(s): US OB BPP w non-stress Accession Number(s): [id number] cc: Srinivasan Bearden D.O.; Physician,Non-Staff [place] The [place] [address] Patient Name: LEELEE BLAKE MRN: [id number] date: 1995 Sex: F Assigned Patient Location: [facility] Current Patient Location: Accession/Order Number: [id number] Exam Date: 10/30/2024 19:55 Report Date: 10/30/2024 21:47 At the request of: SRINIVASAN BEARDEN DO Procedure: US OB BPP w non-stress Ultrasound biophysical profile INDICATION: Pelvic cramps for 2 weeks COMPARISON: None FINDINGS/impression: Cephalic position. heart rate 150 beatsper minute. Biophysical profile score 8/8. LUIZA measures 12.5 cm. Impression dictated by: David Khan M.D. 10/30/2024 9:47 PM Dictation Location: [place] [address] Electronically authenticated by: [id number] Y Date: 1:47 Dictated By: David Khan M.D. Signed By:10/30/242148 DD/ 46 TD/TT: Sap Director: us Srinivasan Bearden DO [facility] Final Result * RECURRENT VAGINITIS (HTRX) (10/27/2024 11:57 AM EDT) ATOPOBIUM VAGINAE 0 19.961 - 24.689 ppm 10/28/2024 6:29 AM EDT [facility] ATOPOBIUM VAGINAE Not Detected 19.961 - 24.689 ppm 10/28/2024 6:29 AM EDT [facility] BVAB 2,3 (BACTERIAL VAGINOSIS ASSOCIATED BACTERIA 2, 3); MOBILUNCUS SPP 0 19.961 - 24.689 ppm 10/28/2024 6:29 AM EDT [facility] BVAB 2,3 (BACTERIAL VAGINOSIS ASSOCIATED BACTERIA 2, 3); MOBILUNCUS SPP Not Detected 19.961 - 24.689 ppm 10/28/2024 6:29 AM EDT [facility] MARIANO ALBICANS, PARAPSILOSIS, TROPICALIS 0 23.000 - 30.347 ppm 10/28/2024 6:29 AM EDT [facility] MARIANO ALBICANS, PARAPSILOSIS, TROPICALIS Not Detected 23.000 - 30.347 ppm 10/28/2024 6:29 AM EDT [facility] MARIANO GLABRATA 0 23.000 - 31.618 ppm 10/28/2024 6:29 AM EDT [facility] MARIANO GLABRATA Not Detected 23.000 - 31.618 ppm 10/28/2024 6:29 AM EDT [facility] MARIANO KRUSEI 0 23.000 - 30.873 ppm 10/28/2024 6:29 AM EDT [facility] MARIANO KRUSEI Not Detected 23.000 - 30.873 ppm 10/28/2024 6:29 AM EDT [facility] CHLAMYDIA TRACHOMATIS 0 23.000 - 31.586 ppm 10/28/2024 6:29 AM EDT [facility] CHLAMYDIA TRACHOMATIS Not Detected 23.000 - 31.586 ppm 10/28/2024 6:29 AM EDT [facility] GARDNERELLA VAGINALIS 0 19.961 - 24.689 ppm 10/28/2024 6:29 AM EDT [facility] GARDNERELLA VAGINALIS Not Detected 19.961 - 24.689 ppm 10/28/2024 6:29 AM EDT [facility] YOVANNYRA (TYPES 1, 2) 0 19.961 - 24.689 ppm 10/28/2024 6:29 AM EDT [facility] YOVANNYRA (TYPES 1, 2) Not Detected 19.961 - 24.689 ppm 10/28/2024 6:29 AM EDT [facility] NEISSERIA GONORRHOEAE 0 23.000 - 32.587 ppm 10/28/2024 6:29 AM EDT [facility] NEISSERIA GONORRHOEAE Not Detected 23.000 - 32.587 ppm 10/28/2024 6:29 AM EDT [facility] TRICHOMONAS VAGINALIS 0 23.000 - 31.995 ppm 10/28/2024 6:29 AM EDT [facility] TRICHOMONAS VAGINALIS Not Detected 23.000 - 31.995 ppm 10/28/2024 6:29 AM EDT [facility] MYCOPLASMA GENITALIUM 0 19.961 - 24.689 ppm 10/28/2024 6:29 AM EDT [facility] MYCOPLASMA GENITALIUM Not Detected 19.961 - 24.689 ppm 10/28/2024 6:29 AM EDT [facility] Tissue 10/27/2024 11:5 7 AM EDT 10/28/2024 1:43 AM EDT us Tiffany TUCKER LAB BLOOD ORDERABLES Final Resul t Performing Organization Address City/[facility] Co de Phone Number [facility] [address] [address] * CULTURE, GROUP B STREP WITH SUSCEPTIBLITY (10/20/2024 1:25 PM EDT) Swab 10/20/2024 1:25 PM EDT us Srinivasan Bearden DO LAB BLOOD ORDERABLES Final Resul t EXTERNAL LAB * AMNISURE (10/17/2024 10:42 AM EDT) TB AMNISURE NEGATIVE NEGATIVE [facility] 10/17/2024 10:4 2 AM EDT 10/17/2024 10:51 AM EDT Narrative [facility] - 10/17/2024 11:03 AM EDT Srinivasan Suleiman DO LAB BLOOD ORDERABLES Final Resul t Performing Organization Address City/[facility]/ZIP Co de Phone Number [facility] TB * (ABNORMAL) [facility] UA (CLEAN/CATCH) ZIPPER MACHINE OPERATOR/MICRO IF IND. (10/17/2024 10:30 AM EDT) COLOR [...] [facility] - 10/17/2024 11:06 AM EDT us Srinivasan Suleiman DO [facility] Final Result Performing Organization Address [facility]/ZIP Co de Phone Number [facility] * GLUCOSE TOLERANCE 3 HOUR (09/26/2024 7:50 [...] LAB BLOOD ORDERABLES Final Resul t [facility] TB * US OB follow up transabdominal approach [...] ELECTRONICALLY SIGNED BY: Castillo Anaya MD us Srinivasan Suleiman DO IMG OB US PROCEDURES Final Resul t * (ABNORMAL) GLUCOSE 1 HOUR (09/21/2024 11:02 AM EDT) GLUCOSE 1 HOUR 148(H) <130 mg/dL [facility] 09/21/2024 11:0 2 AM EDT 09/21/2024 11:03 AM EDT Narrative [facility] - 09/21/2024 11:30 AM EDT us Srinivasan Suleiman DO LAB BLOOD ORDERABLES Final Resul t [facility] * (ABNORMAL) ALL CBC WITH AUTO DIFF [...] [facility] - 09/21/2024 11:20 AM EDT us Srinivasan Bearden DO [facility] Final Result [facility] from Last 3 Months Insurance [facility] MEDICAID Care Teams Operations Leader Relationship Specialty Start Date End Date Cesar Espitia MD [address] [place] [address] PCP - General Family Medicine 06/28/23
--- OUTSIDE RECORDS SUMMARY | 2024-11-06 16:17 | XMS_ITS | Patient Health Record ---
Author Organization [facility] Address [address] [place], [place] [id number] Support Name Relationship Address Phone Kayley Jimenez Guarantor Unknown [phone] Reason For Referral No Information Plan Of Treatment No Information Insurance Providers Payer Name Payer Address Payer Phone Subscriber Number Group Number Insured Name Patient Relationship to Insured Coverage Start Date Coverage End Date Medicaid [address] [place] [address] [id number] Kayley Jimenez Self - patient is the insured
--- OUTSIDE RECORDS SUMMARY | 2024-11-06 16:17 | XMS_ITS | Encounter Summary ---
Author Organization [facility] Address [address] [place] [address] Care Team Providers Care Facilities Operator Name Role Phone Cesar Espitia MD Primary Care Provider +1- [phone] Encounter Details Date Type Department Care Team [...] on filedocumented in this encounter Care Teams Facilities Operator Relationship Specialty Start Date End Date Cesar Espitia MD [address] [place] [address] PCP - General Family Medicine 06/28/23 documented as of this encounter
--- OUTSIDE RECORDS SUMMARY | 2024-11-06 16:17 | XMS_ITS | Encounter Summary ---
Author Organization [facility] Address [address] [place] [address] Care Team Providers Care Jewelry Enameler Name Role Phone Cesar Espitia MD Primary Care Provider +1- [phone] Encounter Details Date Type Department Care Team (Late st Contact Info) Description 10/28/2024 Telephone [facility] [place] [address] [place] [address] Alyssa Hopkins LPN [address] [place] [address] Social History Tobacco Use Types Packs/Day Years [...] Tiffany Mayen PA-C, orders were sent to [facility] documented in this encounter Plan of Treatment [...] disorders documented in this encounter Care Teams Jewelry Enameler Relationship Specialty Start Date End Date Cesar Espitia MD [address] [place] [address] PCP - General Family Medicine 06/28/23 documented as of this encounter
--- OUTSIDE RECORDS SUMMARY | 2024-11-06 16:17 | XMS_ITS | Encounter Summary ---
Author Organization [facility] Address [address] [place] [address] Care Team Providers Care Food Checkers And Cashiers Supervisor Name Role Phone Cesar Espitia MD Primary Care Provider +1- [phone] Encounter Details Date Type Department Care Team (Late st Contact Info) Description 10/27/2024 Bamboo flowsheet [facility] [address] [place] [address] Tiffany Mayen PA [address] [place] [address] Social History Tobacco Use Types Packs/Day Years [...] on filedocumented in this encounter Care Teams Food Checkers And Cashiers Supervisor Relationship Specialty Start Date End Date Cesar Espitia MD [address] [place] [id number] PCP - General Family Medicine 06/28/23 documented as of this encounter
--- OUTSIDE RECORDS SUMMARY | 2024-11-06 16:17 | XMS_ITS | Encounter Summary ---
Author Organization [facility] Address [address] [place] [address] Care Team Providers Care Chief Gauger Name Role Phone Cesar Espitia MD Primary Care Provider +1- [phone] Encounter Details Date Type Department Care Team (Late st Contact Info) Description 10/27/2024 External Result Encounter [facility] External [facility] Unsolicited Tiffany Mayen PA [address] [place] [address] [place], [place] [id number] Social History Tobacco Use Types Packs/Day Years [...] 10/28/2024 6:29 AM EDT [facility] ATOPOBIUM VAGINAE Not Detected 19.961 - 24.689 ppm 10/28/2024 6:29 AM EDT [facility] BVAB 2,3 (BACTERIAL VAGINOSIS ASSOCIATED BACTERIA 2, 3); MOBILUNCUS SPP 0 19.961 - 24.689 ppm 10/28/2024 6:29 AM EDT [facility] BVAB 2,3 (BACTERIAL VAGINOSIS ASSOCIATED BACTERIA 2, 3); MOBILUNCUS SPP Not Detected 19.961 - 24.689 ppm 10/28/2024 6:29 AM EDT [facility] MARIANO ALBICANS, PARAPSILOSIS, TROPICALIS 0 23.000 - 30.347 ppm 10/28/2024 6:29 AM EDT [facility] MARIANO ALBICANS, PARAPSILOSIS, TROPICALIS Not Detected 23.000 - 30.347 ppm 10/28/2024 6:29 AM EDT [facility] MARIANO GLABRATA 0 23.000 - 31.618 ppm 10/28/2024 6:29 AM EDT [facility] MARIANO GLABRATA Not Detected 23.000 - 31.618 ppm 10/28/2024 6:29 AM EDT [facility] MARIANO KRUSEI 0 23.000 - 30.873 ppm 10/28/2024 6:29 AM EDT [facility] MARIANO KRUSEI Not Detected 23.000 - 30.873 ppm 10/28/2024 6:29 AM EDT [facility] CHLAMYDIA TRACHOMATIS 0 23.000 - 31.586 ppm 10/28/2024 6:29 AM EDT [facility] CHLAMYDIA TRACHOMATIS Not Detected 23.000 - 31.586 ppm 10/28/2024 6:29 AM EDT [facility] GARDNERELLA VAGINALIS 0 19.961 - 24.689 ppm 10/28/2024 6:29 AM EDT [facility] GARDNERELLA VAGINALIS Not Detected 19.961 - 24.689 ppm 10/28/2024 6:29 AM EDT [facility] MEGASPHAERA (TYPES 1, 2) 0 19.961 - 24.689 ppm 10/28/2024 6:29 AM EDT [facility] MEGASPHAERA (TYPES 1, 2) Not Detected 19.961 - 24.689 ppm 10/28/2024 6:29 AM EDT [facility] NEISSERIA GONORRHOEAE 0 23.000 - 32.587 ppm 10/28/2024 6:29 AM EDT [facility] NEISSERIA GONORRHOEAE Not Detected 23.000 - 32.587 ppm 10/28/2024 6:29 AM EDT [facility] TRICHOMONAS VAGINALIS 0 23.000 - 31.995 ppm 10/28/2024 6:29 AM EDT [facility] TRICHOMONAS VAGINALIS Not Detected 23.000 - 31.995 ppm 10/28/2024 6:29 AM EDT [facility] MYCOPLASMA GENITALIUM 0 19.961 - 24.689 ppm 10/28/2024 6:29 AM EDT [facility] MYCOPLASMA GENITALIUM Not Detected 19.961 - 24.689 ppm 10/28/2024 6:29 AM EDT [facility] Tissue 10/27/2024 11:5 7 AM EDT 10/28/2024 1:43 AM EDT us Tiffany TUCKER LAB BLOOD ORDERABLES Final Resul t [facility] [address] [place] [address] documented in this encounter Visit Diagnoses Not on filedocumented in this encounter Care Teams Chief Gauger Relationship Specialty Start Date End Date Cesar Espitia MD [address] [place] [address] PCP - General Family Medicine 06/28/23 documented as of this encounter
--- OUTSIDE RECORDS SUMMARY | 2024-11-06 16:17 | XMS_ITS | Clinical Summary ---
Author Organization [facility] Address [id number] [address] [place] [address] Care Team Providers Care Balance Screwhead Polisher Name Role Phone No Pcp, No Pcp [...] Comments Depression Screening 2005 Tobacco Screening 2005 Adult BMI Screening 2011 DTaP,Tdap and Td Vaccines (1 - Tdap) 01/11/2012 Pap Smear 2014 Influenza Vaccine 10/19/2024 Medical Devices Not on file Insurance [place]ICAID [place] Care Teams Balance Screwhead Polisher Relationship Specialty Start Date End Date No Pcp, [place] [address] PCP - General Family Medicine 10/26/21
--- OUTSIDE RECORDS SUMMARY | 2024-11-06 16:17 | XMS_ITS | Encounter Summary ---
Author Organization [facility] Address [address] [place] [address] Care Team Providers Care Pipe Puller Name Role Phone Cesar Espitia MD Primary Care Provider +- [phone] Encounter Details Date Type Department Care Team (Late st Contact Info) Description 08/26/2024 Abstract [facility] [address] [place] [id number] Santo Bearden DO [address] [place] [address] Social History Tobacco Use Types Packs/Day Years [...] on filedocumented in this encounter Care Teams Pipe Puller Relationship Specialty Start Date End Date Cesar Espitia MD [address] [place] [id number] PCP - General Family Medicine 06/28/23 documented as of this encounter
--- OUTSIDE RECORDS SUMMARY | 2024-11-06 16:17 | XMS_ITS | Encounter Summary ---
Author Organization [facility] Address [address] [place] [address] Care Team Providers Care Longwall Shearer Operator Name Role Phone Cesar Espitia MD Primary Care Provider +1- [phone] Encounter Details Date Type Department Care Team (Latest Contact Info) Description 11/05/2024 Travel Social History Tobacco Use Types Packs/Day [...] on filedocumented in this encounter Care Teams Longwall Shearer Operator Relationship Specialty Start Date End Date Cesar Espitia MD [address] [place] [address] PCP - General Family Medicine 06/28/23 documented as of this encounter
--- OUTSIDE RECORDS SUMMARY | 2024-11-06 16:17 | XMS_ITS | Encounter Summary ---
Author Organization [facility] Address [address] [place] [address] Care Team Providers Care Director Of District Office Name Role Phone Cesar Espitia MD Primary Care Provider +- [phone] Encounter Details Date Type Department Care Team (Late st Contact Info) Description 11/05/2024 Bamboo flowsheet [facility] [address] [place] [address] Santo Bearden DO [address] [place] [address] Social History Tobacco Use Types Packs/Day Years [...] on filedocumented in this encounter Care Teams Director Of District Office Relationship Specialty Start Date End Date Cesar Espitia MD [address] [place] [id number] PCP - General Family Medicine 06/28/23 documented as of this encounter
--- OUTSIDE RECORDS SUMMARY | 2024-11-06 16:19 | XMS_ITS | CCD ---
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 Name Role Phone SULEIMAN, DR MATTSON [...] Provider NO FAMILY, PHYSICIAN Primary Care Provider UnaMariaD el Carmen Encarnacion PA-C Attending Provider Maria Del [...] Enma Contreras Admitting Unavailabl e Omkar AUGUST [place] Primary Care Provider Miguel [facility], Enma Tate Attending Unavaila ble Miguel [facility], Enma Tate Primary Care Unavaila ble SRINIVASAN BEARDEN Attending Unavailable SRINIVASAN BEARDEN Referring Unavailable TIFFANY LLANES Attending Unavailable SRINIVASAN BEARDEN Attending Unavailable SRIINVASAN BEARDEN Attending Unavailable TIFFANY LLANES Attending Unavailable Medications Current Medications Medication Drug Class(es) Dates Sig (Normalized) Sig (Original) NIFEdipine 30 mg osmotic 24 hr extended release oral tablet (20 sources) Dihydropyridine Calcium Channel Lupillo Start: 07-09-2023 take 1 tablet by mouth every twenty-four hours at bedtime NIFEdipine XL (Procardia XL) 30 MG 24 hr tablet Indications: Primary hypertension One po at bedtime. 30 tablet 2 07/09/2023 Active polysaccharide iron complex 391 mg oral capsule (16 sources) Start: 09-22-2024 End: 05-20-2025 take 1 [...] [Other abnormal glucose] 09-22-2024 Episodic Essential hypertension (20 sources) Essential hypertension; Translations: [Essential (primary) hypertension] [...] applicable or unspecified; Translations: [MAT CARE OTH MT FTL GRTH 3RD TM UNS] Onset: 06-14-2021 Episodic Other complications of (4 sources) Maternal care for other known or suspected poor growth, unspecified trimester, not applicable or unspecified; Translations: [MAT CARE OTH MT FTL GRTH UNS TM UNS] Onset: 06-01-2021 [...] 10-27-2024 Episodic Other and delivery including normal (15 sources) Single live ; Translations: [Encounter for [...] [36 weeks gestation of ] 10-27-2024 Episodic Residual codes; unclassified (2 sources) Gestation period, 38 weeks; Translations: [38 weeks gestation of ] 11-05-2024 Episodic Unclassified (1 source) CONTACT W/AND (SUSP) EXPOS COVID-19; Translations: [CONTACT W/AND (SUSP) EXPOS COVID-19] Onset: 06-20-2021 Viral infection (1 source) COVID-19; Translations: [COVID-19] Onset: 05-16-2021 Results Test Name Value Interpretation Reference Range Facility Urinalysis macro (dipstick) panel (U)on 11-05-2024 Bilirubin, UA Negative Negative - 4(70) +++ mg/dL [facility] Blood, UA Negative Negative - 50 Adonis/mcL [facility] Clarity, UA Clear [facility] Color, UA Yellow [facility] Glucose, UA Negative Negative - 1999(110) ++++ mg/dL [facility] Interpretation and review of laboratory results Abnormal [facility] Ketones, UA Negative Negative - 160(16) ++++ mg/dL [facility] Leukocytes, UA Negative Negative - 500+++ Jose Alfredo/mcL [facility] Nitrite, UA Negative Negative - Positive [facility] pH, UA 6 5 - 9 [facility] Protein, UA Positive Negative - 1999(20) ++++ mg/dL [facility] Comment on above: Trace Spec Grav, UA 1.02 1 - 1.03 [facility] Urobilinogen, UA 0.2 0.2 - 12 mg/dL [facility] US OB BPP W NON-STRESS on 10-30-[address] [address] Ultrasound Report Signed Patient: LEELEE BLAKE MR#: [id number] : 1995 Acct:[id number] Age/Sex: 29 / F ADM Date: 10/30/24 Loc: US Attending Dr: Tiffany Llanes Ordering Physician: Srinivasan Bearden D.O. Date of Service: 10/30/24 Procedure(s): US OB BPP w non-stress Accession Number(s): [id number] cc: Srinivasan Bearden D.O.; Physician,Non-Staff Giovanni The [address] [id number] Patient Name: LEELEE BLAKE MRN: [facility]:[id number] date: 1995 Sex: F Assigned Patient Location: [facility] Current Patient Location: Accession/Order Number: [id number] Exam Date: 10/30/2024 19:55 Report Date: 10/30/2024 21:47 At the request of: SRINIVASAN BEARDEN DO Procedure: US OB BPP w non-stress Ultrasound biophysical profile INDICATION: Pelvic cramps for 2 weeks COMPARISON: None FINDINGS/impression : Cephalic position. heart rate 150 beats per minute. Biophysical profile score 8/8. LUIZA measures 12.5 cm. Impression dictated by: David Khan M.D. 10/30/2024 9:47 PM Dictation Location: [place] [address] Electronically authenticated by: [id number] Y Date: 10/30/2024 21:47 Dictated By: David Khan M.D. Signed By: 10/30/242148 DD/ 46 TD/TT: Real Estate Specialist: [facility] Radiology, Radiologist, MD - 10/30/2024 [place] [address] Ultrasound Report Signed Patient: LEELEE BLAKE MR#: [id number] : 1995 Acct:[id number] Age/Sex: 29 / F ADM Date: 10/30/24 Loc: US Attending Dr: Tiffany Llanes Ordering Physician: Srinivasan Bearden D.O. Date of Service: 10/30/24 Procedure(s): US OB BPP w non-stress Accession Number(s): [id number] cc: Srinivasan Bearden D.O.; Physician,Non-Staff Giovanni [address] [address] Patient Name: LEELEE BLAKE MRN: [facility]:[id number] date: 1995 Sex: F Assigned Patient Location: [facility] Current Patient Location: Accession/Order Number: [id number] Exam Date: 10/30/2024 19:55 Report Date: 10/30/2024 21:47 At the request of: SRINIVASAN BEARDEN DO Procedure: US OB BPP w non-stress Ultrasound biophysical profile INDICATION: Pelvic cramps for 2 weeks COMPARISON: None FINDINGS/impression : Cephalic position. heart rate 150 beats per minute. Biophysical profile score 8/8. LUIZA measures 12.5 cm. Impression dictated by: David Khan M.D. 10/30/2024 9:47 PM Dictation Location: [place] [address] Electronically authenticated by: [id number] Y Date: 10/30/2024 21:47 Dictated By: David Khan M.D. Signed By: 10/30/242148 DD/ 46 TD/TT: Real Estate Specialist: [facility] Radiology Study observation (narrative) [facility] US OB BPP W NON-STRESS Ordered By: Radiologist Radiology on 10-30-2024 [facility] Work Phone: RECURRENT VAGINITIS (HTRX)on 10-28-2024 ATOPOBIUM VAGINAE 0 [facility] Healthcare ATOPOBIUM VAGINAE Not detected [facility] BVAB 2,3 (BACTERIAL VAGINOSIS ASSOCIATED BACTERIA 2, 3); MOBILUNCUS SPP 0 [facility] BVAB 2,3 (BACTERIAL VAGINOSIS ASSOCIATED BACTERIA 2, 3); MOBILUNCUS SPP Not detected [facility] MARIANO ALBICANS, PARAPSILOSIS, TROPICALIS 0 [facility] MARIANO ALBICANS, PARAPSILOSIS, TROPICALIS Not detected [facility] GLABRATA 0 [facility] MARIANO GLABRATA Not detected [facility] MARIANO KRUSEI 0 [facility] MARIANO KRUSEI Not detected [facility] CHLAMYDIA TRACHOMATIS 0 [facility] CHLAMYDIA TRACHOMATIS Not detected [facility] GARDNERELLA VAGINALIS 0 [facility] GARDNERELLA VAGINALIS Not detected [facility] MEGASPHAERA (TYPES 1, 2) 0 [facility] MEGASPHAERA (TYPES 1, 2) Not detected [facility] MYCOPLASMA GENITALIUM 0 [facility] MYCOPLASMA GENITALIUM Not detected [facility] NEISSERIA GONORRHOEAE 0 [facility] NEISSERIA GONORRHOEAE Not detected [facility] TRICHOMONAS VAGINALIS 0 [facility] TRICHOMONAS VAGINALIS Not detected [facility] Urinalysis macro (dipstick) panel (U)on 10-27-2024 Bilirubin, UA Negative Negative - 4(70) +++ mg/dL [facility] Blood, UA Negative Negative - 50 Adonis/mcL [facility] Healthcare Clarity, UA Clear [facility] Color, UA Yellow [facility] Glucose, UA Negative Negative - 1999(110) ++++ mg/dL [facility] Interpretation and review of laboratory results Normal [facility] Ketones, UA Negative Negative - 160(16) ++++ mg/dL [facility] Leukocytes, UA Negative Negative - 500+++ Jose Alfredo/mcL [facility] Nitrite, UA Negative Negative - Positive [facility] pH, UA 7.5 5 - 9 [facility] Protein, UA Negative Negative - 1999(20) ++++ mg/dL [facility] Spec Grav, UA 1.015 1 - 1.03 [facility] Urobilinogen, UA 1.0 0.2 - 12 mg/dL [facility] Urinalysis macro (dipstick) panel (U)on 10-20-2024 Bilirubin, UA Negative Negative - 4(70) +++ mg/dL [facility] Blood, UA Negative Negative - 50 Adonis/mcL [facility] Clarity, UA Clear [facility] Color, UA Straw [facility] Glucose, UA Negative Negative - 1999(110) ++++ mg/dL [facility] Interpretation and review of laboratory results Abnormal [facility] Ketones, UA Negative Negative - 160(16) ++++ mg/dL [facility] Leukocytes, UA Negative Negative - 500+++ Jose Alfredo/mcL [facility] Nitrite, UA Negative Negative - Positive [facility] pH, UA 6.5 5 - 9 [facility] Protein, UA Negative Negative - 1999(20) ++++ mg/dL [facility] Healthcare Spec Grav, UA 1.015 1 - 1.03 [facility] Urobilinogen, UA 1.0 0.2 - 12 mg/dL [facility] AMNISUREon 10-17-2024 [facility] AMNISURE Negative NEGATIVE [facility] GLUCOSE TOLERANCE 3 HOURon 0 09-26-2024 GLUCOSE TOLERANCE 3 HOUR mg/dL [facility] Comment on above: GLU FAST 79 (<95) Co l: 09/26/24 0750 GLU 1HR 177 (<180) Col: 09/26/24 0854 GLU 2HR 146 (<155) Col: 09/26/24 0954 GLU 3HR 109 (<140) Col: 09/26/24 1053 [facility] US OB FOLLOW UP TRANSABDOMIN AL APPROACHon [...] UA Negative Negative - 4(70) +++ mg/dL [facility] Blood, UA Negative Negative - 50 Adonis/mcL [facility] Clarity, UA Clear [facility] Color, UA Yellow [facility] Glucose, UA Negative Negative - 1999(110) ++++ mg/dL [facility] Interpretation and review of laboratory results Abnormal [facility] Ketones, UA Negative Negative - 160(16) ++++ mg/dL [facility] Leukocytes, UA Positive Negative - 500+++ Jose Alfredo/mcL [facility] Comment on above: 1+ Nitrite, UA Negative Negative - Positive [facility] pH, UA 7.5 5 - 9 [facility] Protein, UA Negative Negative - 1999(20) ++++ mg/dL [facility] Spec Grav, UA 1.015 1 - 1.03 [facility] Urobilinogen, UA 1.0 0.2 - 12 mg/dL [facility] ALL CBC WITH AUTO DIFFon BASOPHILS ABSOLUTE AUTO 0 [facility] Basophils/100 WBC (Bld) 0.2 % 0.2 - 2.0 % [facility] Eosinophils/100 WBC (Bld) 0.7 % Low 0.9 - 7.0 % [facility] Erythrocyte distribution width (RBC) [Ratio] 14.6 % 11.0 - 15.0 % [facility] Hematocrit (Bld) [Volume fraction] 31.8 % Low 36.0 - 48.0 % [facility] Hemoglobin (Bld) [Mass/Vol] 10.4 g/dL Low 12.0 - 16.0 g/dL [facility] IMMATURE GRANULOCYTES ABS AUTO 0.16 High [facility] Immature granulocytes/100 WBC (Bld) 1.7 % High 0.0 - 0.5 % [facility] Interpretation and review of laboratory results Abnormal [facility] LYMPHOCYTES ABSOLUTE AUTO 1.4 [facility] Lymphocytes/100 WBC (Bld) 14.7 % Low 20.5 - 60.0 % [facility] MCH (RBC) [Entitic mass] 27 pg 26.7 - 34.0 pg [facility] MCHC (RBC) [Mass/Vol] 32.7 g/dL 29.9 - 35.2 g/dL [facility] MCV (RBC) [Entitic vol] 82.6 fL 81.0 - 99.0 fL [facility] MONOCYTES ABSOLUTE AUTO 0.5 [facility] Monocytes/100 WBC (Bld) 5.3 % 1.7 - 12.0 % [facility] NEUTROPHILS ABSOLUTE AUTO 7.4 High [facility] Neutrophils/100 WBC (Bld) 77.4 % High 43.0 - 75.0 % [facility] Platelet mean volume (Bld) [Entitic vol] 10.6 fL 9.5 - 13.5 fL [facility] TBH EO # 0.1 [facility] TBH PLT 342 [facility] TB RBC 3.85 Low [facility] WBC 9.6 [facility] Urinalysis macro (dipstick) panel (U)on 09-07-2024 Bilirubin, UA Negative Negative - 4(70) +++ mg/dL [facility] Blood, UA Negative Negative - 50 Adonis/mcL [facility] Clarity, UA Clear [facility] Color, UA Yellow [facility] Glucose, UA Negative Negative - 1999(110) ++++ mg/dL [facility] Interpretation and review of laboratory results Normal [facility] Ketones, UA Negative Negative - 160(16) ++++ mg/dL [facility] Leukocytes, UA Negative Negative - 500+++ Jose Alfredo/mcL [facility] Nitrite, UA Negative Negative - Positive [facility] pH, UA 6.5 5 - 9 [facility] Protein, UA Negative Negative - 1999(20) ++++ mg/dL [facility] Spec Grav, UA 1.025 1 - 1.03 [facility] Urobilinogen, UA 1.0 0.2 - 12 mg/dL [facility] US OB >= 14 weeks Fetuson US OB >= 14 weeks Fetus [facility] [place] [address] Ultrasound Report Signed Patient: Leelee Blake MR#: [id number] 5 : 1995 Acct:[id number] Age/Sex: 29 / F ADM Date: 07/17/24 Loc: Room: Type: [facility] Attending Dr: Enma Rivera ([facility] [...] Marie M.D. 07/17/2024 4:13 PM Dictation Location: [facility]16 Tech: Orquidea Copeland Transcribed By: MITALI 07/17/24 1613 Dictated By: Gage Marie DO 07/17/24 1611 Signed By: 07/17/24 1613 Normal [facility] Cytology Cervical or vaginal smear or scraping studyon 06-09-2024 [facility] Urine Cultureon 05-27-2024 Bacteria identified Cx Nom (U) No Growth 2 Days PERFORMED BY: [place] [address] PATHOLOGIST [employer] CAESAR STOLL M.D. Normal [facility] Comment on above: Performed By: #### C UU #### [address] Urine cultureOrdered By: Pearl Glover on 05-27-2024 Bacteria identified Cx Nom (U) Urine culture [facility] US OB <= 14 weeks fetuson US OB <= 14 weeks fetus [facility] [place] [address] Ultrasound Report Signed Patient: Leelee Blake MR#: [id number] 5 : 1995 Acct:[id number] Age/Sex: 29 / F ADM Date: 05/04/24 Loc: Room: Type: [facility] Attending Dr: Enma Rivera ([facility] [...] Simeon Jr., D.O.05/04/2024 5:01 PM Dictation Location: [place] [address] Tech: Maricel Andre Transcribed By: [facility] 05/04/24 1701 Dictated By: Castillo Simeon Jr, DO 05/04/24 1658 Signed By: 05/04/24 1701 Normal [facility] CBC AUTO DIFFon 06-15-2021 BASO # 0.0 103/ul Normal 0.0-0.1 [facility] Comment on above: Performed By: #### C BC #### [facility] [address] [place] [address] Dr. Baljit Rockwell Basophils/100 WBC (Bld) 0.2 % Normal 0.2-2.0 [facility] Comment on above: Performed By: #### C BC #### [facility] [address] [place] [address] Dr. Baljit Rockwell EO # 0.0 103/ul Normal 0.0-0.7 [facility] Comment on above: Performed By: #### C BC #### [facility] [address] [place] [address] Dr. Baljit Rockwell Eosinophils/100 WBC (Bld) 0.1 % Critically low 0.9-7.0 [facility] Comment on above: Performed By: #### C BC #### [facility] [address] [place] [address] Dr. Baljit Rockwell Erythrocyte distribution width (RBC) [Ratio] 14.5 % Normal 11.0-15.0 [facility] Comment on above: Performed By: #### C BC #### [facility] [address] [place] [address] Dr. Baljit Rockwell Hematocrit (Bld) [Volume fraction] 35.6 % Critically low 36.0-48.0 [facility] Comment on above: Performed By: #### C BC #### [facility] [address] [place] [address] Dr. Baljit Rockwell Hemoglobin (Bld) [Mass/Vol] 11.4 g/dL Critically low 12.0-16.0 [facility] Comment on above: Performed By: #### C BC #### [facility] [address] [place] [address] Dr. Baljit Rockwell IG # 0.14 10e3/ul Critically high 0.00-0.03 [facility] Comment on above: Performed By: #### C BC #### [facility] [address] [place] [address] Dr. Baljit Rockwell IG % 0.9 % Critically high 0.0-0.5 [facility] Comment on above: Performed By: #### C BC #### [facility] [address] [place] [address] Dr. Baljit Rockwell LYMPH # 2.0 103/ul Normal 1.2-3.8 [facility] Comment on above: Performed By: #### C BC #### [facility] [address] [place] [address] Dr. Baljit Rockwell Lymphocytes/100 WBC (Bld) 11.9 % Critically low 20.5-60.0 [facility] Comment on above: Performed By: #### C BC #### [facility] [address] [place] [address] Dr. Baljit Rockwell MANUAL DIFF REQ NO Normal [facility] Comment on above: Performed By: #### C BC #### [facility] [address] [place] [address] Dr. Baljit Rockwell MCH (RBC) [Entitic mass] 27.9 pg Normal 26.7-34.0 [facility] Comment on above: Performed By: #### C BC #### [facility] [address] [place] [address] Dr. Baljit Rockwell MCHC (RBC) [Mass/Vol] 32.0 g/dL Normal 29.9-35.2 [facility] Comment on above: Performed By: #### C BC #### [facility] [address] [place] [address] Dr. Baljit Rockwell MCV (RBC) [Entitic vol] 87.3 fL Normal 81.0-99.0 [facility] Comment on above: Performed By: #### C BC #### [facility] [address] [place] [address] Dr. Baljit Rockwell MONO # 0.7 103/ul Normal 0.3-0.8 [facility] Comment on above: Performed By: #### C BC #### [facility] [address] [place] [address] Dr. Baljit Rockwell Monocytes/100 WBC (Bld) 4.3 % Normal 1.7-12.0 [facility] Comment on above: Performed By: #### C BC #### [facility] [address] [place] [address] Dr. Baljit Rockwell NEUT # 13.6 103/ul Critically high 1.4-6.5 [facility] Comment on above: Performed By: #### C BC #### [facility] [address] [place] [address] Dr. Baljit Rockwell Neutrophils/100 WBC (Bld) 82.6 % Critically high 43.0-75.0 [facility] Comment on above: Performed By: #### C BC #### [facility] [address] [place] [address] [address] Baljit Rockwell Platelet mean volume (Bld) [Entitic vol] 10.6 fL Normal 9.5-13.5 [facility] Comment on above: Performed By: #### C BC #### [facility] [address] [address] [address] Baljit Rockwell PLT 256 103/ul Normal 150-450 [facility] Comment on above: Performed By: #### C BC #### [facility] [address] [place] [address] [address] Baljit Rockwell RBC 4.08 106/ul Critically low 4.20-5.40 [facility] Comment on above: Performed By: #### C BC #### [facility] [address] [place] [address] Dr. Baljit Rockwell WBC 16.4 103/ul Critically high 4.0-11.0 [facility] Comment on above: Performed By: #### C BC #### [facility] [address] [place] [address] Dr. Baljit Rockwell DRUG SCREEN RAPID (URINE)on 06-15-2021 AMP Negative Normal NEGATIVE [facility] Comment on above: Performed By: #### D RUGRPD #### [facility] [address] [place] [address] Dr. Baljit Rockwell BAR Negative Normal NEGATIVE [facility] Comment on above: Performed By: #### D RUGRPD #### [facility] [address] [place] [address] Dr. Baljit Rockwell BUP Negative Normal NEGATIVE [facility] Comment on above: Performed By: #### D RUGRPD #### [facility] [address] [place] [address] Dr. Baljit Rockwell BZO Negative Normal NEGATIVE [facility] Comment on above: Performed By: #### D RUGRPD #### [facility] [address] [place] [address] Dr. Baljit Rockwell MIGUEL Negative Normal NEGATIVE [facility] Comment on above: Performed By: #### D RUGRPD #### [facility] [address] [place] [address] Dr. Baljit Rockwell CUT-OFFS SEE BELOW Normal [facility] Comment on above: Result Comment: AMP [...] ng/mL Performed By: #### D RUGRPD #### [facility] [address] [place] [address] Dr. Baljit Rockwell DRUG CUT HEADER DRUG CLASS TEST SYSTEM CUT-OFF CONCENTRATIONS ARE FOLLOWS: Normal [facility] Comment on above: Performed By: #### D RUGRPD #### [facility] [address] [place] [address] Dr. Baljit Rockwell mAMP Negative Normal NEGATIVE [facility] Comment on above: Performed By: #### D RUGRPD #### [facility] [address] [place] [address] Dr. Baljit Rockwell MTD Negative Normal NEGATIVE [facility] Comment on above: Performed By: #### D RUGRPD #### [facility] [address] [place] [address] Dr. Baljit Rockwell OPI Negative Normal NEGATIVE [facility] Comment on above: Performed By: #### D RUGRPD #### [facility] [address] [place] [address] Dr. Baljit Rockwell OXY Negative Normal NEGATIVE [facility] Comment on above: Performed By: #### D RUGRPD #### [facility] [address] [place] [address] Dr. Baljit Rockwell PCP Negative Normal NEGATIVE [facility] Comment on above: Performed By: #### D RUGRPD #### [facility] [address] [place] [address] Dr. Baljit Rockwell PPX Negative Normal NEGATIVE [facility] Comment on above: Performed By: #### D RUGRPD #### [facility] [address] [place] [address] Dr. Baljit Rockwell TCA Negative Normal NEGATIVE [facility] Comment on above: Performed By: #### D RUGRPD #### [facility] [address] [place] [address] Dr. Baljit Rockwell THC Negative Normal NEGATIVE [facility] Comment on above: Performed By: #### D RUGRPD #### [facility] [address] [place] [address] Dr. Baljit Rockwell CBC AUTO DIFFon 06-14-2021 BASO # 0.0 103/ul Normal 0.0-0.1 [facility] Comment on above: Performed By: #### C BC #### [facility] [address] [place] [address] Dr. Baljit Rockwell Basophils/100 WBC (Bld) 0.2 % Normal 0.2-2.0 [facility] Comment on above: Performed By: #### C BC #### [facility] [address] [place] [address] Dr. Baljit Rockwell EO # 0.0 103/ul Normal 0.0-0.7 [facility] Comment on above: Performed By: #### C BC #### [facility] [address] [place] [address] Dr. Baljit Rockwell Eosinophils/100 WBC (Bld) 0.3 % Critically low 0.9-7.0 [facility] Comment on above: Performed By: #### C BC #### [facility] [address] [place] [address] Dr. Baljit Rockwell Erythrocyte distribution width (RBC) [Ratio] 14.5 % Normal 11.0-15.0 [facility] Comment on above: Performed By: #### C BC #### [facility] [address] [place] [address] [address] Baljit Rockwell Hematocrit (Bld) [Volume fraction] 35.0 % Critically low 36.0-48.0 [facility] Comment on above: Performed By: #### C BC #### [facility] [address] [place] [address] [address] Baljit Rockwell Hemoglobin (Bld) [Mass/Vol] 11.2 g/dL Critically low 12.0-16.0 [facility] Comment on above: Performed By: #### C BC #### [facility] [address] [place] [address] Dr. Baljit Rockwell IG # 0.11 10e3/ul Critically high 0.00-0.03 [facility] Comment on above: Performed By: #### C BC #### [facility] [address] [place] [address] Dr. Baljit Rockwell IG % 0.9 % Critically high 0.0-0.5 [facility] Comment on above: Performed By: #### C BC #### [facility] [address] [place] [address] Dr. Baljit Rockwell LYMPH # 2.2 103/ul Normal 1.2-3.8 [facility] Comment on above: Performed By: #### C BC #### [facility] [facility] [address] [place] [address] Dr. Baljit Rockwell Lymphocytes/100 WBC (Bld) 17.7 % Critically low 20.5-60.0 [facility] Comment on above: Performed By: #### C BC #### [facility] [address] [place] [address] Dr. Baljit Rockwell MANUAL DIFF REQ NO Normal [facility] Comment on above: Performed By: #### C BC #### [facility] [address] [place] [address] Dr. Baljit Rockwell MCH (RBC) [Entitic mass] 27.3 pg Normal 26.7-34.0 [facility] Comment on above: Performed By: #### C BC #### [facility] [address] [address] [address] Baljit Rockwell MCHC (RBC) [Mass/Vol] 32.0 g/dL Normal 29.9-35.2 [facility] Comment on above: Performed By: #### C BC #### [facility] [id number] Baljit Rockwell MCV (RBC) [Entitic vol] 85.2 fL Normal 81.0-99.0 [facility] Comment on above: Performed By: #### C BC #### [facility] [address] [address] [address] Baljit Rockwell MONO # 0.7 103/ul Normal 0.3-0.8 [facility] Comment on above: Performed By: #### C BC #### [facility] [address] [place] [address] Dr. Baljit Rockwell Monocytes/100 WBC (Bld) 5.4 % Normal 1.7-12.0 [facility] Comment on above: Performed By: #### C BC #### [facility] [address] [address] [address] Baljit Rockwell NEUT # 9.4 103/ul Critically high 1.4-6.5 [facility] Comment on above: Performed By: #### C BC #### [facility] [address] [place], [place] [id number] Dr. Baljit Rockwell Neutrophils/100 WBC (Bld) 75.5 % Critically high 43.0-75.0 [facility] Comment on above: Performed By: #### C BC #### [facility] [id number] Baljit Rockwell Platelet mean volume (Bld) [Entitic vol] 10.7 fL Normal 9.5-13.5 [facility] Comment on above: Performed By: #### C BC #### [facility] [address] [place], [place] [id number] Dr. Baljit Rockwell PLT 265 103/ul Normal 150-450 [facility] Comment on above: Performed By: #### C BC #### [facility] [address] [place] [address] Dr. Baljit Rockwell RBC 4.11 106/ul Critically low 4.20-5.40 [facility] Comment on above: Performed By: #### C BC #### [facility] [address] [place] [address] Dr. Baljit Rockwell WBC 12.5 103/ul Critically high 4.0-11.0 [facility] Comment on above: Performed By: #### C BC #### [facility] [address] [place] [address] Dr. Baljit Rockwell Covid-19 PCR (CVDTBH)on 05-20 SARS-CoV-2 (COVID-19) RNA ZOLTAN+probe Ql (Unsp spec) Not detected Normal NOT DETECTED [facility] Comment on above: Result Comment: [...] for this test is supported by the Supervisor Pleating of Health and Human Service's declaration that [...] used). Performed By: #### C VDTBH #### [facility] [address] [place] [address] Dr. Baljit Rockwell TYPE AND SCREENon 06-14-2021 TYPE AND SCREEN Negative Normal [facility] Comment on above: Performed By: #### T NS #### [facility] [address] [place] [address] Dr. Baljit Rockwell US PREG BIOPHY W NON STRESSo n 06-02-2021 US PREG BIOPHY W NON STRESS EXAMINATION: US PREG BIOPHY W NON STRESS HISTORY: [id number] baby COMPARISON: Ultrasound biophysical 05/25/2021 TECHNIQUE: Ultrasound biophysical profile was performed. FINDINGS: BREATHING MOVEMENTS: 2.0 GROSS BODY MOVEMENTS: 2.0 TONE: 2.0 QUALITATIVE AMNIOTIC FLUID VOLUME: 2.0 PRESENTATION: CEPHALIC HEART RATE: 157.0 bpm bpm. AMNIOTIC FLUID VOLUME: 13.5 cm GESTATIONAL AGE: 36 weeks 3 days CONCLUSION: Total biophysical profile score 8.0. Electronically authenticated by: BRENDA VIEYRA Date: 2021-06-02 08:18 Normal [facility] GROUP B STREP CULTUREon 05-19 S. agalactiae Ag Ql (Unsp spec) Culture Observations: NEGATIVE FOR GROUP B STREPTOCOCCUS. Normal [facility] Comment on above: Performed By: #### G BSCX #### [facility] [address] [place] [address] Dr. Baljit Rockwell US PREG BIOPHY W NON STRESSo n 05-26-2021 US PREG BIOPHY W NON STRESS EXAMINATION: US PREG BIOPHY W NON STRESS HISTORY: [id number] baby COMPARISON: No relevant comparison available. TECHNIQUE: Ultrasound biophysical profile was performed. FINDINGS: BREATHING MOVEMENTS: 2.0 GROSS BODY MOVEMENTS: 2.0 TONE: 2.0 QUALITATIVE AMNIOTIC FLUID VOLUME: 2.0 PRESENTATION: CEPHALIC HEART RATE: 131.7 bpm bpm. AMNIOTIC FLUID VOLUME: 11.2 cm GESTATIONAL AGE: 35 weeks 3 days CONCLUSION: Total biophysical profile score 8.0. Electronically authenticated by: BRENDA VIEYRA Date: 2021-05-26 08:00 Normal [facility] US PREG ANATOMY SINGLEon US PREG ANATOMY [...] KRISTIAN DICKEY Date: 2021-05-23 15:17 Normal [facility] Covid-19 PCR (CVDTB)on 04-19 SARS-CoV-2 (COVID-19) RNA ZOLTAN+probe Ql (Unsp spec) Detected Critically abnormal NOT DETECTED [facility] Comment on above: Result Comment: This test is not yet approved or cleared by the [place] FDA. When there are no FDA-approved or cleared tests available, and other criteria are met, FDA can make tests available under an emergency access mechanism called an Emergency Use Authorization (EUA). The EUA for this test is supported by the [place] of Health and Human Service's (HHS's) declaration [...] longer be used). Performed By: #### [facility] #### [facility] [address] [place] [address] Dr. Baljit Rockwell UA (CLEAN/CATCH) LAND PLANNER/MICRO I F IND.on 05-12-2021 Bilirubin Ql (U) Negative Normal NEGATIVE [facility] Comment on above: Performed By: #### U ACSIND #### [facility] [address] [place] [address] Dr. Baljit Rockwell Clarity (U) CLEAR Normal CLEAR [facility] Comment on above: Performed By: #### U ACSIND #### [facility] [address] [place] [address] Dr. Baljit Rockwell Color (U) LT. YELLOW Normal YELLOW [facility] Comment on above: Performed By: #### U ACSIND #### [facility] [address] [place] [address] Dr. Baljit Rockwell Glucose Ql (U) Negative Normal NEGATIVE [facility] Comment on above: Performed By: #### U ACSIND #### [facility] [address] [place] [address] Dr. Baljit Rockwell Hemoglobin Ql (U) Negative Normal NEGATIVE [facility] Comment on above: Performed By: #### U ACSIND #### [facility] [address] [place] [address] Dr. Baljit Rockwell Ketones Ql (U) Negative Normal NEGATIVE [facility] Comment on above: Performed By: #### U ACSIND #### [facility] [address] [place] [address] Dr. Baljit Rockwell LEUKOCYTES Negative Normal NEGATIVE [facility] Comment on above: Performed By: #### U ACSIND #### [facility] [address] [place] [address] Dr. Baljit Rockwell Nitrite Ql (U) Negative Normal NEGATIVE [facility] Comment on above: Performed By: #### U ACSIND #### [facility] [address] [place] [address] Dr. Baljit Rockwell pH (U) 7.0 [pH] Normal 5-9 [facility] Comment on above: Performed By: #### U ACSIND #### [facility] [address] [place] [address] Dr. Baljit Rockwell SPEC GRAVITY <=1.005 Abnormal 1.005-<=1.025 [facility] Comment on above: Performed By: #### U ACSIND #### [facility] [address] [address] [address] Baljit Rockwell UA PROTEIN Negative Normal NEGATIVE/ TRACE [facility] Comment on above: Performed By: #### U ACSIND #### [facility] [address] [address] [address] Baljit Rockwell UR MICRO IND NOT INDICATED Normal [facility] Comment on above: Performed By: #### U ACSIND #### [facility] [address] [address] [address] Baljit Rockwell Urobilinogen Qn (U) 0.2 {Shannan'U}/dL Normal 0.2 - 1. 0 [facility] Comment on above: Performed By: #### U ACSIND #### [facility] [address] [address] [address] Baljit Rockwell Vital Signs Date Time Vital Sign Value Performing Clinician Faci lity 11-05-2024 09:33-0400 Body mass index (BMI) [Ratio] 31.58 kg/m2 Osmosis Work Phone: [facility] 11-05-2024 09:33-0400 Body weight 80.85 kg Osmosis Work Phone: [facility] 10-27-2024 11:10-0400 Body mass index (BMI) [Ratio] 31.35 kg/m2 Tiffany TUCKER Work Phone: [facility] 10-27-2024 11:10-0400 Body weight 80.29 kg Tiffany TUCKER Work Phone: [facility] 10-27-2024 11:10-0400 Diastolic blood pressure 72 mm[Hg] Tiffany TUCKER Work Phone: [facility] 10-27-2024 11:10-0400 Systolic blood pressure 122 mm[Hg] Tiffany TUCKER Work Phone: [facility] 10-20-2024 12:55-0400 Body mass index (BMI) [Ratio] 30.79 kg/m2 Srinivasan Suleiman DO Work Phone: [facility] 10-20-2024 12:55-0400 Body weight 78.83 kg Srinivasan Suleiman DO Work Phone: [facility] 10-20-2024 12:55-0400 Diastolic blood pressure 78 mm[Hg] Srinivasan Suleiman DO Work Phone: [facility] 10-20-2024 12:55-0400 Systolic blood pressure 130 mm[Hg] Srinivasan Suleiman DO Work Phone: [facility] 10-06-2024 14:10-0400 Body mass index (BMI) [Ratio] 31.32 kg/m2 Srinivasan Suleiman DO Work Phone: [facility] 10-06-2024 14:10-0400 Body weight 80.2 kg Srinivasan Suleiman DO Work Phone: [facility] 10-06-2024 14:10-0400 Diastolic blood pressure 84 mm[Hg] Srinivasan Suleiman DO Work Phone: [facility] 10-06-2024 14:10-0400 Systolic blood pressure 126 mm[Hg] Srinivasan Suleiman DO Work Phone: [facility] 09-22-2024 10:08-0400 Body mass index (BMI) [Ratio] 30.79 kg/m2 Tiffany TUCKER Work Phone: [facility] 09-22-2024 10:08-0400 Body weight 78.83 kg Tiffany TUCKER Work Phone: [facility] 09-22-2024 10:08-0400 Diastolic blood pressure 82 mm[Hg] Tiffany TUCKER Work Phone: [facility] 09-22-2024 10:08-0400 Systolic blood pressure 130 mm[Hg] Tiffany TUCKER Work Phone: [facility] 09-07-2024 13:10-0400 Body mass index (BMI) [Ratio] 30.43 kg/m2 Srinivasan Suleiman DO Work Phone: [facility] 09-07-2024 [id number] Body weight 77.93 kg Srinivasan Suleiman DO Work Phone: [facility] 09-07-2024 13:10-0400 Diastolic blood pressure 78 mm[Hg] Srinivasan Suleiman DO Work Phone: [facility] 09-07-2024 13:10-0400 Systolic blood pressure 122 mm[Hg] Srinivasan Suleiman DO Work Phone: [facility] Encounters Encounter Date Encounter Type Care Provider Facility Start: 11-05-2024 End: 11-05-2024 Bamboo flowsheet Srinivasan Suleiman DO Work Phone: [facility] Start: 11-05-2024 End: 11-05-2024 Bamboo flowsheet Srinivasan Suleiman DO Work Phone: [facility] Start: 11-05-2024 End: 11-05-2024 Office outpatient visit 15 minutes Srinivasan Suleiman DO Work Phone: [facility] Comment on above: Third trimester preg darvin ([facility]); 38 weeks gestation of ([facility]) Start: 10-30-2024 End: 10-30-2024 Clinisync Result Encounter Srinivasan Suleiman DO Work Phone: [facility] Unsolicited Start: 10-30-2024 End: 10-30-2024 Clinisync Result Encounter Srinivasan Suleiman DO Work Phone: [facility] Unsolicited Start: 10-27-2024 End: 10-27-2024 Bamboo flowsheet Tiffany TUCKER Work Phone: [facility] Start: 10-27-2024 End: 10-28-2024 Bamboo flowsheet Tiffany TUCKER Work Phone: [facility] Start: 10-27-2024 End: 10-28-2024 External Result Encounter Tiffany TUCKER Work Phone: [facility] Unsolicited Start: 10-27-2024 End: 10-27-2024 Office outpatient visit 15 minutes Tiffany TUCKER Work Phone: [facility] Comment on above: Third trimester preg darvin ([facility]); 36 weeks gestation of ([facility]); Vaginal discharge Start: 10-27-2024 End: 10-27-2024 ambulatory TIFFANY LLANES Not Available Start: 10-20-2024 End: 10-20-2024 Bamboo flowsheet Srinivasan Suleiman DO Work Phone: [facility] Start: 10-20-2024 End: 10-20-2024 Bamboo flowsheet Srinivasan Suleiman DO Work Phone: [facility] Start: 10-20-2024 End: 10-20-2024 Office outpatient visit 15 minutes Srinivasan Suleiman DO Work Phone: [facility] Comment on above: 35 weeks gestation o f ([facility]); Third trimester ([facility]); Low hemoglobin Start: 10-20-2024 End: 10-20-2024 ambulatory SRINIVASAN SULEIMAN Not Available Start: 10-17-2024 End: 10-17-2024 Clinisync Result Encounter Srinivasan Suleiman DO Work Phone: [facility] Unsolicited Start: 10-17-2024 End: 10-17-2024 Clinisync Result Encounter Srinivasan Suleiman DO Work Phone: [facility] Unsolicited Start: 10-06-2024 End: 10-06-2024 Office outpatient visit 15 minutes Srinivasan Suleiman DO Work Phone: [facility] Comment on above: Third trimester preg darvin ([facility]); 33 weeks gestation of ([facility]) Start: 10-06-2024 End: 10-06-2024 Bamboo flowsheet Srinivasan Suleiman DO Work Phone: [facility] Start: 10-06-2024 End: 10-06-2024 Bamboo flowsheet [...] minutes Tiffany TUCKER Work Phone: [facility] Comment on above: 31 weeks gestation o f ([facility]); Third trimester ([facility]); Elevated glucose tolerance test Start: 09-22-2024 End: 09-22-2024 ambulatory TIFFANY LLANES Not Available Start: 09-21-2024 End: 09-21-2024 Clinisync Result Encounter Srinivasan Suleiman DO Work Phone: [facility] Unsolicited Start: 09-21-2024 End: 09-21-2024 Clinisync Result Encounter Srinivasan Suleiman DO Work Phone: [facility] Unsolicited Start: 09-11-2024 ambulatory Enma armenta [facility] Start: 09-07-2024 End: [...] End: 07-17-2024 Patient encounter procedure PHYSICIAN NO [facility] [place] Work Phone: Start: 07-17-2024 End: 07-17-2024 ambulatory PHYSICIAN NO [facility] Work Phone: Start: 05-27-2024 End: 05-27-2024 ambulatory PHYSICIAN NO [facility] Work Phone: Start: 05-27-2024 End: 05-27-2024 Departed Referred PHYSICIAN NO [facility] Start: 05-04-2024 End: 05-04-2024 Patient encounter procedure PHYSICIAN NO [facility] [place] Work Phone: Start: 05-04-2024 End: 05-04-2024 ambulatory PHYSICIAN NO [facility] Work Phone: Start: 06-29-[address] SRINIVASAN EBARDEN Facility :[facility] Start: 06-22-2021 Evaluation and management [...] Date Procedure Procedure Detail Performing Clinician Start: 11-05-2024 Urnls dip stick/tabl et rgnt non-auto w/o micrscp Srinivasan Suleiman DO Work Phone: Start: 10-30-2024 US OB BPP W NON-STRESS [...] Treatment Date Care Activity Detail Author Start: 11-05-2024 End: 11-05-2024 Patient encounter procedure 11/05/2024 9:40 AM EDT Routine [facility] [address] [place] [phone] Srinivasan Bearden, [address] [place] [address] Arrived [facility] Comment on above: Arrived Start: 11-03-2024 End: 11-03-2024 Patient encounter procedure 11/03/2024 1:00 PM EDT Routine [facility] [address] [place] [phone] Srinivasan Bearden, DO [address] [place] [address] [facility] Start: 10-27-2024 End: 10-27-2024 Patient encounter procedure [facility] Comment on above: Arrived Start: 10-20-2024 End: 10-20-2025 CULTURE, GROUP B STREP WITH SUSCEPTIBLITY CULTURE, GROUP B STREP WITH SUSCEPTIBLITY Lab Routine Third trimester ([facility]) Expected: 10/20/2024, Expires: 10/20/2025 [facility] Work Phone: Comment on above: Expected: 10/20/2024 , Expires: 10/20/2025 Start: 10-20-2024 End: 10-20-2024 Patient encounter procedure GREG [place] J[facility] Comment on above: Arrived Start: 10-06-2024 End: 10-06-2024 Patient encounter procedure GREG [place] [facility] Comment on above: Arrived Start: 09-22-2024 End: [...] mellitus screening Expected: 09/07/2024 (Approximate), Expires: 09/07/2025 [facility] Comment on above: Expected: 09/07/2024 (Approximate), Expires: 09/07/2025 Start: 09-07-2024 End: 01-08-2025 US for US OB follow up transabdominal approach Imaging Routine size inconsistent with dates ([facility]) Expected: 09/07/2024, Expires: 01/08/2025 [facility] Comment on above: Expected: 09/07/2024 , Expires: 01/08/2025 Start: 09-07-2024 End: 09-07-2024 ambulatory 09/07/2024 1:30 PM EDT Initial [facility] [address] [place] [address] Srinivasan Bearden DO [address] [place] [address] Arrived [facility] Comment on above: Arrived Start: 05-27-2024 Urine culture [facility] Start: 05-27-2024 Bacteria identified in Urine by Culture Urine Culture [facility] CHLAMYDIA TRACHOMATI S (GENITO/STI) CHLAMYDIA TRACHOMATIS (GENITO/STI) Lab Routine Vaginal discharge Ordered: 10/27/2024 [facility] Comment on above: Ordered: 10/27/2024 Neisseria gonorrhoea e DNA [Presence] in Unspecified specimen by ZOLTAN with probe detection Neisseria gonorrhea DNA probe, direct Lab Routine Vaginal discharge Ordered: 10/27/2024 [facility] Comment on above: Ordered: 10/27/2024 SURESWAB(R) ADVANCED VAGINITIS PLUS, TMA SURESWAB(R) ADVANCED VAGINITIS PLUS, TMA Pathology and Cytology Routine Vaginal discharge Ordered: 10/27/2024 [facility] Work Phone: Comment on above: Ordered: 10/27/2024 Payers Date Payer Category Payer Private Health Insurance [facility] [employer] [id number] 2024 Self-pay 1995 Unknown [id number] 2.16.840.1.086410.3.579.2. 593 1993 Unknown [id number] 04.05.840.1.856619.3.579.2. 593 1993 Unknown [id number] 2.16.840.1.568670.3.579.2. 593 1993 Unknown [id number] 2.16.840.1.072385.3.579.2. 593 1993 Unknown [id number] 2.16.840.1.139126.3.579.2. 593 1993 Unknown [id number] 2.16.840.1.744641.3.579.2. 593 1993 Unknown [id number] 2.16.840.1.114846.3.579.2. 593 1993 Unknown [id number] 2.16.840.1.989994.3.579.2. 593 1993 Unknown [id number] 2.840.1.687683.3.579.2. 593 1993 Unknown [id number] 2.16.840.1.659314.3.579.2. 593 1993 Unknown [id number] 2.16.840.1.865265.3.579.2. 593 1993 Unknown [id number] 2.16840.1.207776.3.579.2. 593 1993 Unknown [id number] 2.16840.1.936019.3.579.2. 593 1993 Unknown [id number] 2.16.840.1.437834.3.579.2. 593 1993 Unknown [id number] 2.16.840.1.710739.3.579.2. 593 1993 Unknown [id number] 2.16.840.1.027140.3.579.2. 716 1993 Unknown [id number] 2.16.840.1.180738.3.579.2. 1259 1993 Unknown [id number] 2.16.840.1.273839.3.579.2. 1259 1993 Unknown [id number] 2.16.840.1.723252.3.579.2. 1259 1993 Unknown [id number] 2.16.840.1.607697.3.579.2. 1259 1993 Unknown [id number] 2.16.840.1.629327.3.579.2. 1259 1993 Unknown [id number] 2.16.840.1.227728.3.579.2. 1259 1961 Medicaid [id number] 1961 Self-pay [id number] Unknown [id number] 2.16.840.1.628023.3.579.2. 531 Unknown [id number] 2.16.840.1.111943.3.579.2. 531 Unknown [id number] 2.16.840.1.188784.3.579.2. 531 Social History Date Type Detail Facility Tobacco smoking stat [facility] Unknown if ever smoked [facility] Start: 05-05-2024 End: 07-18-2024 Sex Female (finding) [facility] Start: 1995 Sex Assigned At Female F [facility] Start: 1995 Sex assigned at Not on file [facility] Gender identity Not on file [facility] Start: 02-27-2024 GREG hayes Clinical Notes 05-04-2024 to 11-05-2024 Enma Irizarry LPN - 11/05/2024 9:40 AM GARRETT Donaldson - 10/27/2024 11:20 AM Paul Peacock LPN - 10/20/2024 1:10 PM Paul Peacock LPN - 10/06/2024 2:20 PM EDT Note Date & Type Note Facility 11-05-2024 History of Present illness Narrative Reason for [...] nursing note reviewed. Exam conducted with a glost tile shader present. Vitals: Estimated body mass index is 31.58 kg/m as calculated from the following: Height as of 07/09/23: 5' 3 . Weight as of this encounter: 178 lb 4 oz. BP: Patient's last menstrual period was 02/19/2024. ASSESSMENT & PLAN ICD-10-CM 1. Third trimester ([facility]) Z34.93 POCT urinalysis dipstick manually resulted 2. 38 weeks gestation of ([facility]) Z3A.38 Patient presents today for a routine obstetrics appointment. Patient is currently 38w0d with a Estimated Date of Delivery: 11/19/24. Documented by Enma Irizarry LPN on behalf of: Srinivasan Bearden DO documented in this encounter [facility] 10-27-2024 History of Present illness Narrative Reason [...] nursing note reviewed. Exam conducted with a glost tile shader present. Vitals: Estimated body mass index is 31.35 kg/m as calculated from the following: Height as of 07/09/23: 5' 3 . Weight as of this encounter: 177 lb. BP: 122/72 Patient's last menstrual period was 02/19/2024. ASSESSMENT & PLAN ICD-10-CM 1. Third trimester ([facility]) Z34.93 POCT urinalysis dipstick manually resulted 2. 36 weeks gestation of ([facility]) Z3A.36 3. Vaginal discharge N89.8 SURESWAB(R) ADVANCED [...] she had a yeast infection while in [facility] and does not feel it has gone [...] of: GARRETT Rivers documented in this encounter [facility] 10-20-2024 History of Present illness Narrative Reason [...] nursing note reviewed. Exam conducted with a glost tile shader present. Vitals: Estimated body mass index is 30.79 kg/m as calculated from the following: Height as of 07/09/23: 5' 3 . Weight as of this encounter: 173 lb 12.8 oz. BP: 130/78 Patient's last menstrual period was 02/19/2024. ASSESSMENT & PLAN ICD-10-CM 1. 35 weeks gestation of ([facility]) Z3A.35 POCT urinalysis dipstick manually resulted 2. Third trimester ([facility]) Z34.93 POCT urinalysis dipstick manually resulted CULTURE, [...] Srinivasan Bearden DO documented in this encounter [facility] 10-06-2024 History of Present illness Narrative Reason [...] nursing note reviewed. Exam conducted with a glost tile shader present. Vitals: Estimated body mass index is 31.32 kg/m as calculated from the following: Height as of 07/09/23: 5' 3 . Weight as of this encounter: 176 lb 12.8 oz. BP: 126/84 Patient's last menstrual period was 02/19/2024. ASSESSMENT & PLAN ICD-10-CM 1. Third trimester ([facility]) Z34.93 2. 33 weeks gestation of ([facility] Z3A.33 Return OB: Patient presents today [...] Srinivasan Bearden DO documented in this encounter [facility] 09-22-2024 History of Present illness Narrative Reason [...] PLAN ICD-10-CM 1. 31 weeks gestation of ([facility]) Z3A.31 POCT urinalysis dipstick manually resulted 2. Third trimester ([facility]) Z34.93 POCT urinalysis dipstick manually resulted 3. [...] of: GARRETT Rivers documented in this encounter [facility] 09-07-2024 History of Present illness Narrative Reason [...] nursing note reviewed. Exam conducted with a glost tile shader present. Vitals: Estimated body mass index is 30.43 kg/m as calculated from the following: Height as of 07/09/23: 5' 3 . Weight as of this encounter: 171 lb 12.8 oz. BP: 122/78 Patient's last menstrual period was 02/19/2024. ASSESSMENT & PLAN ICD-10-CM 1. Third trimester ([facility]) Z34.93 POCT urinalysis dipstick manually resulted 2. 29 weeks gestation of ([facility]) Z3A.29 POCT urinalysis dipstick manually resulted 3. Diabetes mellitus screening Z13.1 Hemoglobin A1c CBC Glucose tolerance, 1 hour CBC Glucose tolerance, 1 hour Patient presents today for transfer of care OB patient. Patient was seeing [facility] and desires to deliver at [facility]. Patient to return to clinic in 2 weeks for return OB and growth scan. Reviewed all labs and scans with patient as well. Documented by Enma Irizarry LPN on behalf of: Srinivasan Bearden DO documented in this encounter [facility] 07-17-2024 Radiology Diagnostic study note [facility] [address] [place] [address] [place] [address] Ultrasound Report Signed Patient: Leelee Blake MR#: [id number] : 1995 Acct:[id number] Age/Sex: 29 / F ADM Date: 5 Loc: Room: Type: [facility] Attending Dr: Enma Rivera ([facility] [...] Marie M.D. 07/17/2024 4:13 PM Dictation Location: [id number] Tech: Orquidea Dinorah Transcribed By: MIATLI 07/17/241612 Dictated By: Gage Marie DO 07/17/24 161 Signed By: 07/17/24 161 [facility] 05-04-2024 Radiology Diagnostic study note [facility] [address] [place] [address] [place] [address] Ultrasound Report Signed Patient: Leelee Blake MR#: [id number] : 1995 Acct:[id number] Age/Sex: 29 / F ADM Date: 5 Loc: Room: Type: [facility] Attending Dr: Enma Rivera ([facility] [...] Simeon Jr., DSherinOSherin05/04/2024 5:01 PM Dictation Location: [place] [address] Tech: Maricel Thai Transcribed By: MITALI 05/04/24 170 Dictated By: Castillo Simeon Jr, DO 05/04/24 1658 Signed By: 05/04/24 170 [facility] Evaluation note No assessment inform ation available [facility] Work Phone: Evaluation note Diagnosis Third [...] as infective [facility] Diagnosis Third trimester ([facility]) state, incidental 38 [...] Reason for Visit Chief Complaint Admit Date z.May 04, 2024 1:4 1pm Chief Complaint Admit Date 34.May 04, 2024 1:4 1pm Unknown May 27, 2024 3:55 pm Chief Complaint Admit Date z34.May 04, 2024 1:4 1pm Unknown May 27, 2024 3:55 pm z34.July 17, 2024 12:19 pm Additional Source Comments INFORMATION SOURCE (unrecogn ized section and content) DATE CREATED AUTHOR 06/23/2021 [facility] DATE CREATED AUTHOR AUTHOR'S ORGANIZ ATION 07/28/2024 [facility] DATE CREATED AUTHOR AUTHOR'S ORGANIZ ATION 09/12/2024 [facility] DATE CREATED AUTHOR AUTHOR'S ORGANIZ ATION 10/29/2024 [facility] Care Teams (unrecognized sec tion [...] CENTER) , [place] Attending Provider Active Start: July 17, 2024 End: July 17, 2024 PHYSICIAN NO FAMILY Primary Care Provider Active Start: July 17, 2024 End: July 17, 2024 Intermodal Truck Driver Relationship Specialty Start Date End Date Cesar Espitia MD [address] [place] [address] PCP - General Family Medicine 06/28/23 Intermodal Truck Driver Relationship Specialty Start Date End Date Cesar Espitia MD [address] [place] [address] PCP - General Family Medicine 06/28/23 Intermodal Truck Driver Relationship Specialty Start Date End Date Cesar Espitia MD [address] [place] [address] PCP - General Family Medicine 06/28/23 Intermodal Truck Driver Relationship Specialty Start Date End Date Cesar Espitia MD [address] [place] [address] PCP - General Family Medicine 06/28/23 Intermodal Truck Driver Relationship Specialty Start Date End Date Cesar Espitia MD [address] [place] [address] PCP - General Family Medicine 06/28/23 Intermodal Truck Driver Relationship Specialty Start Date End Date Cesar Espitia MD [address] [place] [address] PCP - General Family Medicine 06/28/23 Intermodal Truck Driver Relationship Specialty Start Date End Date Cesar Espitia MD [address] [place] [address] PCP - General Family Medicine 06/28/23 Goals [...] BE BASED ON THE PRIMARY CLINICAL RECORDS. [employer] provides no warranty or guarantee of the accuracy or completeness of information in this document.
[2024-11-06 16:28] VITALS: BP 120/75; PULSE 76
--- NOTE | 2024-11-06 17:30 | US_ITS ---
[place] [id number] Patient Name: LEELEE BLAKE MRN: [id number] date: 1995 Sex: F Assigned Patient Location: [facility] Current Patient Location: Accession/Order Number: [id number] Exam Date: 11/06/2024 17:31 Report Date: 11/06/2024 19:38 At the request of: ROHAN LLANES Procedure: US OB BPP w non-stress Ultrasound biophysical profile INDICATION: Pelvic pain COMPARISON: 10/30/2024 FINDINGS/impression: Cephalic position. heart rate 138 beats per minute. Biophysical profile score 8/8. LUIZA measures 8.3 cm. Impression dictated by: David Khan M.D. 11/06/2024 7:38 PM Dictation Location: [place] [address] Electronically authenticated by: [id number] Y Date: 11/06/2024 19:38
== END 2024-11-06 17:55 | disposition home or self-care (01) ==
LOC: US 16:15 → FBC 16:22
PROVIDERS: Visit Provider Physician Assistant
DX: O41.00X0 Oligohydramnios, unspecified trimester, not applicable or unspecified (principal); Z3A.00 Weeks of gestation of pregnancy not specified
CPT/HCPCS: 76818

== ENCOUNTER 2024-11-07 07:07 | Outpatient (OUT) | payer OTHER, SELFPAY ==
--- OUTSIDE RECORDS SUMMARY | 2024-09-11 08:26 | XMS_ITS | Continuity of Care Document ---
Author Organization [facility] Address [address] [place] [address] Phone Care Team Providers Care Biblical Languages Professor Name Role Phone Enma Ma Unavailable Unavaila [...] 130 MM HG MED LIST DOCD IN [facility] RVW MEDS BY RX/DR IN [...] 130 MM HG MED LIST DOCD IN [facility] RVW MEDS BY RX/DR IN [facility] Pt inelig neg scrn depres IMMUNIZATION ADMIN FLU VACCINE NO PRESERV 3 & > OFFICE/OUTPATIENT VISIT, EST DIAST BP 80-89 MM HG SYST BP >=130-139MM HG MED LIST DOCD IN RD RVW MEDS BY RX/DR IN [facility] TOBACCO NON-USER ROUTINE VENIPUNCTURE Ortho [place]ronor REMOVE INTRAUTERINE DEVICE PREV VISIT, EST, AGE 18-39 Nutrit Couns For Control Of Nolan Dis Jul Extract; Erupted Th/exposted Rt 024 Intraoral-periapical 1st Film 4 Bitewig-single Film Oral Hygiene Instruction Limited Oral Eval Advance Directives Directive Yes / No Effective Date File Name No Information Encounters Encounter Description Practice Location Reason(s) For Visit Diagnoses Date Provider Providers Copied on Encounter [facility], [address] [place], [place], [id number] , [place] tel: [phone] [facility] No Information 5 Miguel SAUMYA Enma. [address], [place], [id number] , [place]. tel: [phone] OFFICE/OUTPA TIENT VISIT, [facility], [address], [place], [id number] , [place] tel: [phone] [facility] routine (chief complaint) Encounter for supervision of other normal , 2nd [id number] weeks gestation of pregnancyBody mass index [BMI] 29.0-29.9, adult 5 Miguel SAUMYA [place]. [address] [place] [address], [id number] , [place]. tel: [phone] OFFICE/OUTPA TIENT VISIT, [facility], [address] [place] [address], [id number] , [place] tel: [phone] [facility] routine (chief complaint) Encounter for supervision of other normal , 2nd [id number] weeks gestation of 5 Miguel SAUMYA [place]. [address], [place], [id number] , [place]. tel: [phone] [facility], [address] [place] [address], [id number] , [place] tel: [phone] [facility] No Information 5 Miguel FAB [place]. [address], [place], [id number] , [place]. tel: [phone] OFFICE/OUTPA TIENT VISIT, [facility], [address] [place] [address], [id number] , [place] tel: [phone] [facility] 14 weeks gestation of pregnancyEncounter for supervision of other normal , 2nd trimester May-0 5 Miguel FAB [place]. [address], [place], [id number] , [place]. tel: [phone] OFFICE/OUTPA TIENT VISIT, [facility], [address], [place], [id number] , [place] tel: [phone] [facility] Interview (chief complaint)ro utine (chief complaint) Encounter for supervision of other normal , 1st [id number] weeks gestation of pregnancyMaternal chronic hypertension in first trimesterPruritic rash 5 [facility] Enma. [address] [place] [address], [id number] , [place]. tel: [phone] OFFICE/OUTPA TIENT VISIT, [facility], [address] [place] [address], [id number] , [place] tel: [phone] [facility] test (chief complaint) Positive testFirst trimester pregnancy8 weeks gestation of pregnancyEssential (primary) hypertension 5 [facility] Enma. [address] [place] [address], [id number] , [place]. tel: [phone] OFFICE/OUTPA TIENT VISIT, [facility], [address] [place] [address], [id number] , [place] tel: [phone] [facility] f/u medications (chief complaint) Essential (primary) hypertensionBody mass index [BMI] 29.0-29.9, adult Dec- 4 Plank DO Tay. [address] [place] [address], [id number] , [place]. tel: [phone] OFFICE/OUTPA TIENT VISIT, [facility], [address] [place] [address], [id number] , [place] tel: [phone] [facility] Establish Care (chief complaint)La b Draw (chief complaint) Body mass index [BMI] 29.0-29.9, adultEssential (primary) hypertensionDiabete s mellitus screeningLipid screeningNeed for hepatitis C screening testEncounter for screening for HIV 4 Plank DO Tay. [address] [place] [address], [id number] , [place]. tel: [phone] PREV VISIT, EST, AGE 18-39 [facility], [address] [place] [address], [id number] , [place] tel: [phone] [facility] annual exam (chief complaint) - STD screen- STD High risk heterosexual behaviorIUD removalDeep dyspareuniaOCP follow up Rx- well woman with abnormal finding 4 Miguel [facility] Enma. [address] [place] [address], [id number] , [place]. tel: [phone] [facility], [address] [place] [address], [id number] , [place] tel: [phone] [facility] ext (chief complaint) Encounter for screening for dental disorders 4 Candi ZEEFrankie Ella. . tel: [phone] [facility], [address] [place] [address], [id number] , [place] tel: [phone] [facility] ER (chief complaint) Body mass index [BMI] 27.0-27.9, adultEncounter for screening for dental disorders 4 Candi InCortaS Ella. . tel: [phone] Family History Family Member Type Diagnosis Age At Onset Problem Family history of Hypertensi on Mother Problem Hypertension Mother Problem Depression Father Problem Alive and well Immunizations Vaccine Date Status Comments Fluarix/Flulaval administered Source: New Immunization Record Payers Payer name Insurance type Covered green party ID Authoriza tiprabha(s) [employer] Medicaid CFC [id number] [id number] Medicaid Wr - [facility] [id number] Medicaid Primary - [facility] [id number] Social History Type Description Quantity Date Captured [...] Goal Lipid panel. Due on due Goal RLP. Due on [...] on A due Goal Urinalysis due Goal ECG. Due [...] Goal Lipid panel. Due on due Goal Influenza vaccine. Due [...] Due on due Goal Urinalysis due Goal Tdap. Due on due Goal [...] due Goal ECG. Due on due Goal Tdap Vaccine. Due [...] Lifestyle education regardin g diet completed Goal RLP. Due on due Goal HPV. Due on due Goal Tdap Vaccine. Due on 2023 due Goal PRAPARE ASSESSMENT. Due on O due Goal Influenza vaccine. Due on Oc due Goal Hepatitis C screening. Due o n due Goal Depression screening. Due on due Goal Tdap. Due on due Goal Unhealthy drug use [...] consents to flu vaccine today. LUDWIN Srinivasan [facility] Care Patient has not saw a primary care physician since June in [place]. Patient was previously diagnosed with hypertension in the past and used to take Nifedipine, however they used to give her very bad headaches so she stopped taking them. Patient denies any dizziness, headache, or blurred vision related to hypertension lately. Patient does not check blood pressure at home. Patient denies any other concerns at this time. 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 Patient denies wanting the flu [...] belt use childbirth classes / hospital facilities [facility] Giving encouragement to exercise Related [...]
--- OUTSIDE RECORDS SUMMARY | 2024-10-27 11:20 | XMS_ITS | Encounter Summary ---
Author Organization [facility] Address [address] [place] [address] Care Team Providers Care School Office Manager Name Role Phone Cesar Espitia MD Primary Care Provider +1- [phone] Reason for Visit * Reason Comments Routine Visit Encounter Details Date Type Department Care Team (Late st Contact Info) Description 10/27/2024 11:20 AM EDT Routine [facility] [address] [address] Tiffany Mayen PA [address] [place] [address] Third trimester ([facility]); 36 weeks gestation of ([facility]); Vaginal discharge Social History Tobacco Use Types [...] nursing note reviewed. Exam conducted with a ladle watcher present. Vitals: Estimated body mass index is 31.35 kg/m?? as calculated from the following: Height as of 07/09/23: 5' 3 . Weight as of this encounter: 177 lb. BP: 122/72 Patient's last menstrual period was 02/19/2024. ASSESSMENT & PLAN ICD-10-CM 1. Third trimester ([facility]) Z34.93 POCT urinalysis dipstick manually resulted 2. 36 weeks gestation of ([facility]) Z3A.36 3. Vaginal discharge N89.8 SURESWAB(R) ADVANCED [...] area. Pt states she was seen in [facility] on 10/17/2024 due to false labor and states she is still having the cramping. Pt also states she was advised she had ayeast infection while in [facility] and does not feel it has gone [...] Routine 10/27/2024 11:20 AM EDT Third trimester ([facility]) PAP SMEAR Routine 06/09/2024 12:00 AM EDT [...] this encounter Visit Diagnoses Diagnosis Third trimester ([facility]) state, incidental 36 weeks gestation of ([facility]) Vaginal discharge Leukorrhea, not specified as infective documented in this encounter Care Teams School Office Manager Relationship Specialty Start Date End Date Cesar Espitia MD [address] [place] [address] PCP - General Family Medicine 06/28/23 documented as of this encounter
--- OUTSIDE RECORDS SUMMARY | 2024-11-05 09:40 | XMS_ITS | Encounter Summary ---
Author Organization [facility] Address [address] [place] [address] Care Team Providers Care Hvac Project Engineer Name Role Phone Cesar Espitia MD Primary Care Provider +1- [phone] Reason for Visit * Reason Comments Routine Visit Encounter Details Date Type Department Care Team (Late st Contact Info) Description 11/05/2024 9:40 AM EDT Routine [facility] [place] [facility] [address] [place] [address] Santo Bearden DO [address] [place] [address] Third trimester ([facility]); 38 weeks gestation of ([facility]) Social History Tobacco Use Types Packs/Day Years [...] Sign Reading Time Taken Comments Blood Pressure - - Pulse - - Temperature - - Respiratory Rate - - Oxygen Saturation - - Inhaled Oxygen Concentration - - Weight 80.9 kg (178 lb 4 oz) 11/05/2024 9:33 AM EDT Height - - Body Mass Index 31.58 07/09/2023 4:01 PM EDT documented in this encounter Progress Notes * Enma Irizarry LPN - 11/05/2024 9:40 AM EDT Reason for Appointment: Patient ID: [...] No family history on file. SURGICAL HISTORY No past surgical history on file. REVIEW OF SYSTEMS Review of Systems: Review [...] nursing note reviewed. Exam conducted with a pile driver engineer present. Vitals: Estimated body mass index is 31.58 kg/m?? as calculated from the following: Height as of 07/09/23: 5' 3 . Weight as of this encounter: 178 lb 4 oz. BP: Patient's last menstrual period was 02/19/2024. ASSESSMENT & PLAN ICD-10-CM 1. Third trimester ([facility]) Z34.93 POCT urinalysis dipstick manually resulted 2. 38 weeks gestation of ([facility]) Z3A.38 Patient presents today for a routine obstetrics appointment. Patient is currently 38w0d with a Estimated Date of Delivery: 11/19/24. Patient desires to have IOL on 11/10/24 @ 11pm. Patient signed consents prior to leaving office today and [facility] was notified. Patient to return to clinic for post appointment. Nursing called Asha at [facility] and ensured that time of IOL was changed to [id number] as patient was previously on for 11/11. Asha confirmed change on the books. Documented by Enma Irizarry LPN on behalf of: Santo Bearden DO documented in this encounter Plan of Treatment Not on file documented as of this encounter Procedures Procedure Name Priority Date/Time Associated Diagnosis Comments POCT URINALYSIS DIPSTICK Routine 11/05/2024 9:36 AM EDT Third trimester ([facility]) documented in this encounter Results * (ABNORMAL) POCT urinalysis dipstick manually resulted (11/05/2024 9:36 AM EDT) Color, UA Yellow Clarity, UA Clear Glucose, UA Negative Negative - 1999(110) ++++ mg/dL Bilirubin, UA Negative Negative - 4(70) +++ mg/dL Ketones, UA Negative Negative - 160(16) ++++ mg/dL Spec Grav, UA 1.020 1 - 1.03 Blood, UA Negative Negative - 50 Adonis/mcL pH, UA 6.0 5 - 9 Protein, UA Positive Negative - 2000(20) ++++ mg/dL Comment:Trace Urobilinogen, UA 0.2 0.2 - 12 mg/dL Leukocytes, UA Negative Negative - 500+++ Jose Alfredo/mcL Nitrite, UA Negative Negative - Positive Urine 11/05/2024 9:36 AM EDT Santo Bearden DO POINT OF CARE TEST ENTER/EDIT OR DERABLES Final Result documented in this encounter Visit Diagnoses Diagnosis Third trimester ([facility]) state, incidental 38 weeks gestation of ([facility]) documented in this encounter Care Teams Hvac Project Engineer Relationship Specialty Start Date End Date Cesar Espitia MD [address] [place] [address] PCP - General Family Medicine 06/28/23 documented as of this encounter
--- NOTE | 2024-11-07 07:10 | US_ITS ---
[place] [address] Patient Name: LEELEE BLAKE MRN: [id number] date: 1995 Sex: F Assigned Patient Location: [facility] Current [facility] [place] [facility] Accession/Order Number: [id number] Exam Date: 11/07/2024 07:14 Report Date: 11/07/2024 10:25 At the request of: SRINIVASAN MEJÍA DO Procedure: US OB BPP w non-stress Ultrasound biophysical profile INDICATION: low LUIZA COMPARISON: 11/06/2024 FINDINGS/IMPRESSION: Cephalic position. heart rate 145 beats per minute. Biophysical profile score 8/8. LUIZA measures 9.9 cm Impression dictated by: David Khan M.D. 11/07/2024 10:25 AM Dictation Location: [email or web address] Electronically authenticated by: [id number] Y Date: 11/07/2024 10:25
--- OUTSIDE RECORDS SUMMARY | 2024-11-07 07:10 | XMS_ITS | Encounter Summary ---
Author Organization [facility] Address [address] [place] [address] Care Team Providers Care Regulatory Affairs Consultant Name Role Phone Cesar Espitia MD Primary Care Provider +1- [phone] Encounter Details Date Type Department Care Team [...] on filedocumented in this encounter Care Teams Regulatory Affairs Consultant Relationship Specialty Start Date End Date Cesar Espitia MD [address] [place] [address] PCP - General Family Medicine 06/28/23 documented as of this encounter
--- OUTSIDE RECORDS SUMMARY | 2024-11-07 07:10 | XMS_ITS | Encounter Summary ---
Author Organization [facility] Address [address] [place] [address] Care Team Providers Care Net Ui Developer Name Role Phone Cesar Espitia MD Primary Care Provider +1- [phone] Encounter Details Date Type Department Care Team (Late st Contact Info) Description 07/17/2024 Abstract [facility] [address] [id number] aSnto Bearden DO [address] [place] [address] Social History Tobacco Use Types Packs/Day Years [...] on filedocumented in this encounter Care Teams Net Ui Developer Relationship Specialty Start Date End Date Cesar Espitia MD [address] [place] [id number] PCP - General Family Medicine 06/28/23 documented as of this encounter
--- OUTSIDE RECORDS SUMMARY | 2024-11-07 07:10 | XMS_ITS | Encounter Summary ---
Author Organization [facility] Address [address] [place] [address] Care Team Providers Care Casting Chipper Name Role Phone Cesar Espitia MD Primary Care Provider +- [phone] Encounter Details Date Type Department Care Team (Late st Contact Info) Description 08/26/2024 Abstract [facility] [address] [place] [phone] Santo Bearden DO [address] [place] [address] Social History Tobacco Use Types Packs/Day Years [...] on filedocumented in this encounter Care Teams Casting Chipper Relationship Specialty Start Date End Date Cesar Espitia MD [address] [place] [id number] PCP - General Family Medicine 06/28/23 documented as of this encounter
--- OUTSIDE RECORDS SUMMARY | 2024-11-07 07:10 | XMS_ITS | Encounter Summary ---
Author Organization [facility] Address [address] [place] [address] Care Team Providers Care Fighting Vehicle Infantryman Name Role Phone Cesar Espitia MD Primary Care Provider +1- [phone] Encounter Details Date Type Department Care Team [...] on filedocumented in this encounter Care Teams Fighting Vehicle Infantryman Relationship Specialty Start Date End Date Cesar Espitia MD [address] [place] [address] PCP - General Family Medicine 06/28/23 documented as of this encounter
--- OUTSIDE RECORDS SUMMARY | 2024-11-07 07:10 | XMS_ITS | Encounter Summary ---
Author Organization [facility] Address [address] [place] [address] Care Team Providers Care Bush And Vine Farmer Fruit Crops Name Role Phone Cesar Espitia MD Primary Care Provider +- [phone] Encounter Details Date Type Department Care Team (Late st Contact Info) Description 11/05/2024 Bamboo flowsheet [facility] [address] [place] [phone] Santo Bearden DO [address] [place] [address] Social History Tobacco Use Types Packs/Day Years [...] on filedocumented in this encounter Care Teams Bush And Vine Farmer Fruit Crops Relationship Specialty Start Date End Date Cesar Espitia MD [address] [place] [id number] PCP - General Family Medicine 06/28/23 documented as of this encounter
--- OUTSIDE RECORDS SUMMARY | 2024-11-07 07:11 | XMS_ITS | CCD ---
Author Organization [facility] Care Team Providers Care Ankle Patch Molder Name Role Phone SULEIMAN, DR MATTSON Attending [...] KARASIK, DR EDUARDO Attending Unavailable REQUEST, DR RBOISON LISTED Primary Care Unavaila ble KARASIK, DR [...] ZIEBAMILCAR, DR BRENDA Contreras Consulting Unavailable Rice ([facility]) Enma VALDEZ Attending Provider NO FAMILY, PHYSICIAN Primary Care Provider UnaMaria Del Carmen Encarnacion PA-C Attending Provider [phone] Maria Del Carmen Glover Admitting Unavailable Maria Del Carmen Glover Attending Unavailable NO FAMILY, PHYSICIAN Primary Care Unavailable Rice ([facility]), Enma Contreras Attending Unavailabl e Rice ([facility]), Enma Contreras Admitting Unavailabl e NO FAMILY, PHYSICIAN Primary Care Unavailable Rice ([facility]), Enma Contreras Attending Unavailabl e Rice ([facility]), Enma Contreras Admitting Unavailabl e Omkar AUGUST Sparkill Primary Care Provider Miguel [facility], Enma Tate Attending Unavaila ble Miguel [facility], Enma Tate Primary Care Unavaila ble SRINIVASAN BEARDEN Attending Unavailable SRINIVASAN BEARDEN Referring Unavailable TIFFANY LLANES Attending Unavailable SRINIVASAN BEARDEN Attending Unavailable SRINIVASAN BEARDEN Attending Unavailable TIFFANY LLANES Attending Unavailable SRINIVASAN BEARDEN [...] polysaccharide iron complex 391 mg oral capsule (17 sources) Start: 09-22-2024 End: 05-20-2025 take 1 [...] Facility US OB BPP W NON-STRESS on 11-06-2024 [place] [address] Ultrasound Report Signed Patient: LEELEE BLAKE MR#: [id number] : 1995 Acct:[id number] Age/Sex: 29 / F ADM Date: 11/06/24 Loc: US Attending Dr: Tiffany Llanes Ordering Physician: Tiffany Llanes Date of Service: 11/06/24 Procedure(s): US OB BPP w non-stress Accession Number(s): [id number] cc: Tiffany Llanes; Physician,Non-Staff M.D. [place] [id number] Patient Name: LEELEE BLAKE MRN: [id number] date: 1995 Sex: F Assigned Patient Location: [facility] Current Patient Location: Accession/Order Number: [id number] Exam Date: 11/06/2024 17:31 Report Date: 11/06/2024 19:38 At the request of: TIFFANY LLANES Procedure: US OB BPP w non-stress Ultrasound biophysical profile INDICATION: Pelvic pain COMPARISON: 10/30/2024 FINDINGS/impression : Cephalic position. heart rate 138 beats per minute. Biophysical profile score 8/8. LUIZA measures 8.3 cm. Impression dictated by: David Khan M.D. 11/06/2024 7:38 PM Dictation Location: RADIO-PC-29 Electronically authenticated by: [id number] Y Date: 11/06/2024 19:38 Dictated By: David Khan M.D. Signed By: 11/06/241939 DD/ 37 TD/TT: Vertical Mill Operator: [facility] Radiology, Radiologist, MD - 11/06/2024 [place] [address] Ultrasound Report Signed Patient: LEELEE BLAKE MR#: [id number] : 1995 Acct:[id number] Age/Sex: 29 / F ADM Date: 11/06/24 Loc: US Attending Dr: Tiffany Llanes Ordering Physician: Tiffany Llanes Date of Service: 11/06/24 Procedure(s): US OB BPP w non-stress Accession Number(s): [id number] cc: Tiffany Llanes; Physician,Non-Staff [facility] The [place] [id number] Patient Name: LEELEE BLAKE MRN: [facility]:[id number] date: 1995 Sex: F Assigned Patient Location: [facility] Current Patient Location: Accession/Order Number: [id number] Exam Date: 11/06/2024 17:31 Report Date: 11/06/2024 19:38 At the request of: TIFFANY LLANES Procedure: US OB BPP w non-stress Ultrasound biophysical profile INDICATION: Pelvic pain COMPARISON: 10/30/2024 FINDINGS/impression : Cephalic position. heart rate 138 beats per minute. Biophysical profile score 8/8. LUIZA measures 8.3 cm. Impression dictated by: David Khan M.D. 11/06/2024 7:38 PM Dictation Location: RADIO-PC-29 Electronically authenticated by: [id number] Y Date: 11/06/2024 19:38 Dictated By: David Khan M.D. Signed By: 11/06/241939 DD/ 37 TD/TT: Vertical Mill Operator: [facility] Radiology Study observation (narrative) [facility] US OB BPP W NON-STRESS Ordered By: Radiologist Radiology on 11-06-2024 [facility] Work Phone: Urinalysis macro (dipstick) panel (U)on 11-05-2024 Bilirubin, UA Negative Negative - 4(70) +++ mg/dL [facility] Blood, UA Negative Negative - 50 Adonis/mcL [facility] Clarity, UA Clear [facility] Color, UA Yellow [facility] Glucose, UA Negative Negative - 2000(110) ++++ mg/dL [facility] Interpretation and review of laboratory results Abnormal [facility] Ketones, UA Negative Negative - 160(16) ++++ mg/dL [facility] Leukocytes, UA Negative Negative - 500+++ Jose Alfredo/mcL [facility] Nitrite, UA Negative Negative - Positive [facility] pH, UA 6 5 - 9 [facility] Protein, UA Positive Negative - 1999(20) ++++ mg/dL [facility] Comment on above: Trace Spec Grav, UA 1.02 1 - 1.03 [facility] Urobilinogen, UA 0.2 0.2 - 12 mg/dL [facility] US OB BPP W NON-STRESS on 10-30-[address] [address] Ultrasound Report Signed Patient: LEELEE BLAKE MR#: [id number] : 1995 Acct:[id number] Age/Sex: 29 / F ADM Date: 10/30/24 Loc: US Attending Dr: Tiffany Llanes Ordering Physician: Srinivasan Bearden D.O. Date of Service: 10/30/24 Procedure(s): US OB BPP w non-stress Accession Number(s): [id number] cc: Srinivasan Bearden D.O.; Physician,Non-Staff Giovanni [address] [address] Patient Name: LEELEE BLAKE MRN: [facility]:[id number] date: 1995 Sex: F Assigned Patient Location: [facility] Current Patient Location: Accession/Order Number: [id number] Exam Date: 10/30/2024 19:55 Report Date: 10/30/2024 21:47 At the request of: SRINIVASAN BEARDEN DO Procedure: US OB BPP w non-stress Ultrasound biophysical profile INDICATION: Pelvic cramps for 2 weeks COMPARISON: None FINDINGS/impression : Cephalic position. heart rate 150 beats per minute. Biophysical profile score 8/8. LUIZA measures 12.5 cm. Impression dictated by: David Khan M.D. 10/30/2024 9:47 PM Dictation Location: [place] [address] Electronically authenticated by: [id number] Y Date: 10/30/2024 21:47 Dictated By: David Khan M.D. Signed By: 10/30/242148 DD/ 46 TD/TT: Vertical Mill Operator: [facility] Radiology, Radiologist, MD - 10/30/2024 [place] [address] Ultrasound Report Signed Patient: LEELEE BLAKE MR#: [id number] : 1995 Acct:[id number] Age/Sex: 29 / F ADM Date: 10/30/24 Loc: US Attending Dr: Tiffany Llanes Ordering Physician: Srinivasan Bearden D.O. Date of Service: 10/30/24 Procedure(s): US OB BPP w non-stress Accession Number(s): [id number] cc: Srinivasan Bearden D.O.; Physician,Non-Staff Giovanni The [address] [address] Patient Name: LEELEE BLAKE MRN: [facility]:[id number] date: 1995 Sex: F Assigned Patient Location: [facility] Current Patient Location: Accession/Order Number: [id number] Exam Date: 10/30/2024 19:55 Report Date: 10/30/2024 21:47 At the request of: SRINIVASAN BEARDEN DO Procedure: US OB BPP w non-stress Ultrasound biophysical profile INDICATION: Pelvic cramps for 2 weeks COMPARISON: None FINDINGS/impression : Cephalic position. heart rate 150 beats per minute. Biophysical profile score 8/8. LUIZA measures 12.5 cm. Impression dictated by: David Khan M.D. 10/30/2024 9:47 PM Dictation Location: [place] [address] Electronically authenticated by: [id number] Y Date: 10/30/2024 21:47 Dictated By: David Khan M.D. Signed By: 10/30/242148 DD/ 46 TD/TT: Vertical Mill Operator: [facility] Radiology Study observation (narrative) [facility] US OB BPP W NON-STRESS Ordered By: Radiologist Radiology on 10-30-2024 [facility] Work Phone: RECURRENT VAGINITIS (HTRX)on 10-28-2024 ATOPOBIUM VAGINAE 0 [facility] ATOPOBIUM VAGINAE Not detected [facility] BVAB 2,3 (BACTERIAL VAGINOSIS ASSOCIATED BACTERIA 2, 3); MOBILUNCUS SPP 0 [facility] BVAB 2,3 (BACTERIAL VAGINOSIS ASSOCIATED BACTERIA 2, 3); MOBILUNCUS SPP Not detected [facility] MARIANO ALBICANS, PARAPSILOSIS, TROPICALIS 0 [facility] MARIANO ALBICANS, PARAPSILOSIS, TROPICALIS Not detected [facility] MARIANO GLABRATA 0 [facility] MARIANO GLABRATA Not detected [facility] MARIANO KRUSEI 0 [facility] MARIANO KRUSEI Not detected [facility] CHLAMYDIA TRACHOMATIS 0 [facility] CHLAMYDIA TRACHOMATIS Not detected [facility] GARDNERELLA VAGINALIS 0 [facility] GARDNERELLA VAGINALIS Not detected [facility] MEGASPHAERA (TYPES 1, 2) 0 [facility] MEGASPHAERA (TYPES 1, 2) Not detected [facility] MYCOPLASMA GENITALIUM 0 [facility] MYCOPLASMA GENITALIUM Not detected [facility] NEISSERIA GONORRHOEAE 0 [facility] NEISSERIA GONORRHOEAE Not detected [facility] TRICHOMONAS VAGINALIS 0 [facility] TRICHOMONAS VAGINALIS Not detected [facility] Urinalysis macro (dipstick) panel (U)on 10-27-2024 Bilirubin, UA Negative Negative - 4(70) +++ mg/dL [facility] Blood, UA Negative Negative - 50 Adonis/mcL [facility] Clarity, UA Clear [facility] Color, UA Yellow [facility] Glucose, UA Negative Negative - 1999(110) ++++ mg/dL [facility] Interpretation and review of laboratory results Normal [facility] Ketones, UA Negative Negative - 160(16) ++++ mg/dL [facility] Leukocytes, UA Negative Negative - 500+++ Jose Alfredo/mcL [facility] Nitrite, UA Negative Negative - Positive [facility] pH, UA 7.5 5 - 9 [facility] Protein, UA Negative Negative - 1999(20) ++++ mg/dL [facility] Spec Grav, UA 1.015 1 - 1.03 [facility] Urobilinogen, UA 1.0 0.2 - 12 mg/dL [facility] Urinalysis macro (dipstick) panel (U)on 10-20-2024 Bilirubin, UA Negative Negative - 4(70) +++ mg/dL [facility] Blood, UA Negative Negative - 50 Adonis/mcL [facility] Clarity, UA Clear [facility] Color, UA Straw [facility] Glucose, UA Negative Negative - 1999(110) ++++ mg/dL [facility] Interpretation and review of laboratory results Abnormal [facility] Ketones, UA Negative Negative - 160(16) ++++ mg/dL [facility] Leukocytes, UA Negative Negative - 500+++ Jose Alfredo/mcL [facility] Nitrite, UA Negative Negative - Positive [facility] pH, UA 6.5 5 - 9 [facility] Protein, UA Negative Negative - 1999(20) ++++ mg/dL [facility] Spec Grav, UA 1.015 1 - 1.03 [facility] Urobilinogen, UA 1.0 0.2 - 12 mg/dL [facility] AMNISUREon 10-17-2024 [facility] AMNISURE Negative NEGATIVE [facility] GLUCOSE TOLERANCE 3 HOURon 0 09-26-2024 GLUCOSE TOLERANCE 3 HOUR mg/dL [facility] Comment on above: GLU FAST 79 (<95) Co l: 09/26/24 0750 GLU 1HR 177 (<180) Col: 09/26/24 0854 GLU 2HR 146 (<155) Col: 09/26/24 0954 GLU 3HR 109 (<140) Col: 09/26/24 1053 [facility] US OB FOLLOW UP TRANSABDOMIN AL APPROACHon [...] UA Negative Negative - 4(70) +++ mg/dL [facility] Blood, UA Negative Negative - 50 Adonis/mcL [facility] Clarity, UA Clear [facility] Color, UA Yellow [facility] Glucose, UA Negative Negative - 2000(110) ++++ mg/dL [facility] Interpretation and review of laboratory results Abnormal [facility] Ketones, UA Negative Negative - 160(16) ++++ mg/dL [facility] Leukocytes, UA Positive Negative - 500+++ Jose Alfredo/mcL [facility] Comment on above: 1+ Nitrite, UA Negative Negative - Positive [facility] pH, UA 7.5 5 - 9 [facility] Protein, UA Negative Negative - 1999(20) ++++ mg/dL [facility] Spec Grav, UA 1.015 1 - 1.03 [facility] Urobilinogen, UA 1.0 0.2 - 12 mg/dL [facility] ALL CBC WITH AUTO DIFFon BASOPHILS ABSOLUTE AUTO 0 [facility] Basophils/100 WBC (Bld) 0.2 % 0.2 - 2.0 % [facility] Eosinophils/100 WBC (Bld) 0.7 % Low 0.9 - 7.0 % [facility] Erythrocyte distribution width (RBC) [Ratio] 14.6 % 11.0 - 15.0 % [facility] Hematocrit (Bld) [Volume fraction] 31.8 % Low 36.0 - 48.0 % [facility] Hemoglobin (Bld) [Mass/Vol] 10.4 g/dL Low 12.0 - 16.0 g/dL [facility] IMMATURE GRANULOCYTES ABS AUTO 0.16 High [facility] Immature granulocytes/100 WBC (Bld) 1.7 % High 0.0 - 0.5 % [facility] Interpretation and review of laboratory results Abnormal [facility] LYMPHOCYTES ABSOLUTE AUTO 1.4 [facility] Lymphocytes/100 WBC (Bld) 14.7 % Low 20.5 - 60.0 % [facility] MCH (RBC) [Entitic mass] 27 pg 26.7 - 34.0 pg [facility] MCHC (RBC) [Mass/Vol] 32.7 g/dL 29.9 - 35.2 g/dL [facility] MCV (RBC) [Entitic vol] 82.6 fL 81.0 - 99.0 fL [facility] MONOCYTES ABSOLUTE AUTO 0.5 [facility] Monocytes/100 WBC (Bld) 5.3 % 1.7 - 12.0 % [facility] NEUTROPHILS ABSOLUTE AUTO 7.4 High [facility] Neutrophils/100 WBC (Bld) 77.4 % High 43.0 - 75.0 % [facility] Platelet mean volume (Bld) [Entitic vol] 10.6 fL 9.5 - 13.5 fL [facility]H EO # 0.1 [facility] PLT 342 [facility] TB RBC 3.85 Low [facility] WBC 9.6 [facility] Urinalysis macro (dipstick) panel (U)on 09-07-2024 Bilirubin, UA Negative Negative - 4(70) +++ mg/dL [facility] Blood, UA Negative Negative - 50 Adonis/mcL [facility] Clarity, UA Clear [facility] Color, UA Yellow [facility] Glucose, UA Negative Negative - 1999(110) ++++ mg/dL [facility] Interpretation and review of laboratory results Normal [facility] Ketones, UA Negative Negative - 160(16) ++++ mg/dL [facility] Leukocytes, UA Negative Negative - 500+++ Jose Alfredo/mcL [facility] Nitrite, UA Negative Negative - Positive [facility] pH, UA 6.5 5 - 9 [facility] Protein, UA Negative Negative - 1999(20) ++++ mg/dL [facility] Spec Grav, UA 1.025 1 - 1.03 [facility] Urobilinogen, UA 1.0 0.2 - 12 mg/dL [facility] US OB >= 14 weeks Fetuson US OB >= 14 weeks Fetus [facility] [place] [address] [place] [address] Ultrasound Report Signed Patient: Leelee Blake MR#: [id number] 5 : 1995 Acct:[id number] Age/Sex: 29 / F ADM Date: 07/17/24 Loc: Room: Type: [facility] Attending Dr: Enma Rivera ([facility]) COURTNEY Ordering Provider: Enma Rivera APRN, [...] Marie M.D. 07/17/2024 4:13 PM Dictation Location: [place] [address] Tech: Orquidea Copeland Transcribed By: MITALI 07/17/24 1613 Dictated By: Gage Marie DO 07/17/24 1611 Signed By: 07/17/24 1613 Normal [facility] Cytology Cervical or vaginal smear or scraping studyon 06-09-2024 [facility] Urine Cultureon 05-27-2024 Bacteria identified Cx Nom (U) No Growth 2 Days PERFORMED BY: [place] [address] PATHOLOGIST RN [facility] M.D. Normal [facility] Comment on above: Performed By: #### C UU #### [address] Urine cultureOrdered By: Pearl Glover on 05-27-2024 Bacteria identified Cx Nom (U) Urine culture [facility] US OB <= 14 weeks fetuson US OB <= 14 weeks fetus [facility] [place] [address] [place] [address] Ultrasound Report Signed Patient: Leelee Blake MR#: [id number] 5 : 1995 Acct:[id number] Age/Sex: 29 / F ADM Date: 05/04/24 Loc: Room: Type: [facility] Attending Dr: Enma Rivera ([facility]) COURTNEY Ordering Provider: Enma Rivera APRN, [facility] Date of Service: 05/04/24 US/US OB <= [...] Simeon Jr., D.O.05/04/2024 5:01 PM Dictation Location: [place] [address] Tech: Maricel Andre Transcribed By: MITALI 05/04/24 170 Dictated By: Castillo Simeon Jr, DO 05/04/24 1658 Signed By: 05/04/24 1701 Normal [facility] CBC AUTO DIFFon 06-15-2021 BASO # 0.0 103/ul Normal 0.0-0.1 [facility] Comment on above: Performed By: #### C BC #### [facility] [address] [place] [address] Dr. Baljit Rockwell Basophils/100 WBC (Bld) 0.2 % Normal 0.2-2.0 [facility] Comment on above: Performed By: #### C BC #### [facility] [address] [place] [address] Dr. Baljit Rockwell EO # 0.0 103/ul Normal 0.0-0.7 [facility] Comment on above: Performed By: #### C BC #### [facility] [address] [place] [address] Dr. Baljit Rockwell Eosinophils/100 WBC (Bld) 0.1 % Critically low 0.9-7.0 [facility] Comment on above: Performed By: #### C BC #### [facility] [address] [place] [address] Dr. Baljit Rockwell Erythrocyte distribution width (RBC) [Ratio] 14.5 % Normal 11.0-15.0 [facility] Comment on above: Performed By: #### C BC #### [facility] [address] [place] [address] Dr. Baljit Rockwell Hematocrit (Bld) [Volume fraction] 35.6 % Critically low 36.0-48.0 [facility] Comment on above: Performed By: #### C BC #### [facility] [address] [place] [address] Dr. Baljit Rockwell Hemoglobin (Bld) [Mass/Vol] 11.4 g/dL Critically low 12.0-16.0 [facility] Comment on above: Performed By: #### C BC #### [facility] [address] [place] [address] Dr. Baljit Rockwell IG # 0.14 10e3/ul Critically high 0.00-0.03 [facility] Comment on above: Performed By: #### C BC #### [facility] [address] [place] [address] Dr. Baljit Rockwell IG % 0.9 % Critically high 0.0-0.5 [facility] Comment on above: Performed By: #### C BC #### [facility] [address] [place] [address] Dr. Baljit Rockwell LYMPH # 2.0 103/ul Normal 1.2-3.8 [facility] Comment on above: Performed By: #### C BC #### [facility] [address] [place] [address] Dr. Baljit Rockwell Lymphocytes/100 WBC (Bld) 11.9 % Critically low 20.5-60.0 [facility] Comment on above: Performed By: #### C BC #### [facility] [address] [place] [address] Dr. Baljit Rockwell MANUAL DIFF REQ NO Normal The [facility] Comment on above: Performed By: #### C BC #### [facility] [address] [place] [address] Dr. Baljit Rockwell MCH (RBC) [Entitic mass] 27.9 pg Normal 26.7-34.0 [facility] Comment on above: Performed By: #### C BC #### [facility] [address] [place] [address] Dr. Baljit Rockwell MCHC (RBC) [Mass/Vol] 32.0 g/dL Normal 29.9-35.2 [facility] Comment on above: Performed By: #### C BC #### [facility] [address] [place] [address] Dr. Baljit Rockwell MCV (RBC) [Entitic vol] 87.3 fL Normal 81.0-99.0 [facility] Comment on above: Performed By: #### C BC #### [facility] [address] [place] [address] Dr. Baljit Rockwell MONO # 0.7 103/ul Normal 0.3-0.8 [facility] Comment on above: Performed By: #### C BC #### [facility] [address] [place] [address] Dr. Baljit Rockwell Monocytes/100 WBC (Bld) 4.3 % Normal 1.7-12.0 [facility] Comment on above: Performed By: #### C BC #### [facility] [address] [place] [address] Dr. Baljit Rockwell NEUT # 13.6 103/ul Critically high 1.4-6.5 [facility] Comment on above: Performed By: #### C BC #### [facility] [address] [place] [address] Dr. Baljit Rockwell Neutrophils/100 WBC (Bld) 82.6 % Critically high 43.0-75.0 [facility] Comment on above: Performed By: #### C BC #### [facility] [address] [place] [address] Dr. Baljit Rockwell Platelet mean volume (Bld) [Entitic vol] 10.6 fL Normal 9.5-13.5 [facility] Comment on above: Performed By: #### C BC #### [facility] [address] [place] [address] Dr. Baljit Rockwell PLT 256 103/ul Normal 150-450 [facility] Comment on above: Performed By: #### C BC #### [facility] [address] [place] [address] [address] Baljit Rockwell RBC 4.08 106/ul Critically low 4.20-5.40 [facility] Comment on above: Performed By: #### C BC #### [facility] [address] [place] [address] Dr. Baljit Rockwell WBC 16.4 103/ul Critically high 4.0-11.0 [facility] Comment on above: Performed By: #### C BC #### [facility] [address] [place] [address] Dr. Baljit Rockwell DRUG SCREEN RAPID (URINE)on 06-15-2021 AMP Negative Normal NEGATIVE [facility] Comment on above: Performed By: #### D RUGRPD #### [facility] [address] [place] [address] Dr. Baljit Rockwell BAR Negative Normal NEGATIVE [facility] Comment on above: Performed By: #### D RUGRPD #### [facility] [address] [place] [address] Dr. Baljit Rockwell BUP Negative Normal NEGATIVE [facility] Comment on above: Performed By: #### D RUGRPD #### [facility] [address] [place] [address] Dr. Baljit Rockwell BZO Negative Normal NEGATIVE [facility] Comment on above: Performed By: #### D RUGRPD #### [facility] [address] [place] [address] Dr. Baljit Rockwell MIGUEL Negative Normal NEGATIVE [facility] Comment on above: Performed By: #### D RUGRPD #### [facility] [address] [place] [address] Dr. Baljit Rockwell CUT-OFFS SEE BELOW Normal [facility] Comment on above: Result Comment: AMP [...] ng/mL Performed By: #### D RUGRPD #### [facility] [address] [place] [address] Dr. Baljit Rockwell DRUG CUT HEADER DRUG CLASS TEST SYSTEM CUT-OFF CONCENTRATIONS ARE FOLLOWS: Normal [facility] Comment on above: Performed By: #### D RUGRPD #### [facility] [address] [place] [address] Dr. Baljit Rockwell mAMP Negative Normal NEGATIVE [facility] Comment on above: Performed By: #### D RUGRPD #### [facility] [address] [place] [address] Dr. Baljit Rockwell MTD Negative Normal NEGATIVE [facility] Comment on above: Performed By: #### D RUGRPD #### [facility] [address] [place] [address] Dr. Baljit Rockwell OPI Negative Normal NEGATIVE [facility] Comment on above: Performed By: #### D RUGRPD #### [facility] [facility] [address] [place] [address] Dr. Baljit Rockwell OXY Negative Normal NEGATIVE [facility] Comment on above: Performed By: #### D RUGRPD #### [facility] [address] [place] [address] Dr. Baljit Rockwell PCP Negative Normal NEGATIVE [facility] Comment on above: Performed By: #### D RUGRPD #### [facility] [address] [place] [address] Dr. Baljit Rockwell PPX Negative Normal NEGATIVE [facility] Comment on above: Performed By: #### D RUGRPD #### [facility] [address] [place] [address] Dr. Baljit Rockwell TCA Negative Normal NEGATIVE [facility] Comment on above: Performed By: #### D RUGRPD #### [facility] [address] [address] [address] Baljit Rockwell THC Negative Normal NEGATIVE [facility] Comment on above: Performed By: #### D RUGRPD #### [facility] [address] [place] [address] Dr. Baljit Rockwell CBC AUTO DIFFon 06-14-2021 BASO # 0.0 103/ul Normal 0.0-0.1 [facility] Comment on above: Performed By: #### C BC #### [facility] [address] [place] [address] Dr. Baljit Rockwell Basophils/100 WBC (Bld) 0.2 % Normal 0.2-2.0 [facility] Comment on above: Performed By: #### C BC #### [facility] [address] [place] [address] Dr. Baljit Rockwell EO # 0.0 103/ul Normal 0.0-0.7 [facility] Comment on above: Performed By: #### C BC #### [facility] [address] [place] [address] Dr. Baljit Rockwell Eosinophils/100 WBC (Bld) 0.3 % Critically low 0.9-7.0 [facility] Comment on above: Performed By: #### C BC #### [facility] [address] [place] [address] Dr. Baljit Rockwell Erythrocyte distribution width (RBC) [Ratio] 14.5 % Normal 11.0-15.0 [facility] Comment on above: Performed By: #### C BC #### [facility] [address] [place] [address] Dr. Baljit Rockwell Hematocrit (Bld) [Volume fraction] 35.0 % Critically low 36.0-48.0 [facility] Comment on above: Performed By: #### C BC #### [facility] [address] [place] [address] Dr. Baljit Rockwell Hemoglobin (Bld) [Mass/Vol] 11.2 g/dL Critically low 12.0-16.0 [facility] Comment on above: Performed By: #### C BC #### [facility] [address] [address] [address] Baljit Rockwell IG # 0.11 10e3/ul Critically high 0.00-0.03 [facility] Comment on above: Performed By: #### C BC #### [facility] [address] [place] [address] Dr. Baljit Rockwell IG % 0.9 % Critically high 0.0-0.5 [facility] Comment on above: Performed By: #### C BC #### [facility] [address] [place] [address] Dr. Baljit Rockwell LYMPH # 2.2 103/ul Normal 1.2-3.8 [facility] Comment on above: Performed By: #### C BC #### [facility] [address] [place] [address] Dr. Baljit Rockwell Lymphocytes/100 WBC (Bld) 17.7 % Critically low 20.5-60.0 [facility] Comment on above: Performed By: #### C BC #### [facility] [address] [place] [address] Dr. Baljit Rockwell MANUAL DIFF REQ NO Normal [facility] Comment on above: Performed By: #### C BC #### [facility] [address] [place] [address] Dr. Baljit Rockwell MCH (RBC) [Entitic mass] 27.3 pg Normal 26.7-34.0 [facility] Comment on above: Performed By: #### C BC #### [facility] [address] [place] [address] Dr. Baljit Rockwell MCHC (RBC) [Mass/Vol] 32.0 g/dL Normal 29.9-35.2 [facility] Comment on above: Performed By: #### C BC #### [facility] [address] [place] [address] Dr. Baljit Rockwell MCV (RBC) [Entitic vol] 85.2 fL Normal 81.0-99.0 [facility] Comment on above: Performed By: #### C BC #### [facility] [address] [id number] [address] Baljit Rockwell MONO # 0.7 103/ul Normal 0.3-0.8 [facility] Comment on above: Performed By: #### C BC #### [facility] [address] [id number] [address] Baljit Rockwell Monocytes/100 WBC (Bld) 5.4 % Normal 1.7-12.0 [facility] Comment on above: Performed By: #### C BC #### [facility] [address] [address] [address] Baljit Rockwell NEUT # 9.4 103/ul Critically high 1.4-6.5 [facility] Comment on above: Performed By: #### C BC #### [facility] [address] [place] [address] Dr. Baljit Rockwell Neutrophils/100 WBC (Bld) 75.5 % Critically high 43.0-75.0 [facility] Comment on above: Performed By: #### C BC #### [facility] [address] [place] [address] Dr. Baljit Rockwell Platelet mean volume (Bld) [Entitic vol] 10.7 fL Normal 9.5-13.5 [facility] Comment on above: Performed By: #### C BC #### [facility] [address] [place] [address] Dr. Baljit Rockwell PLT 265 103/ul Normal 150-450 [facility] Comment on above: Performed By: #### C BC #### [facility] [address] [place] [address] Dr. Baljit Rockwell RBC 4.11 106/ul Critically low 4.20-5.40 [facility] Comment on above: Performed By: #### C BC #### [facility] [address] [place] [address] Dr. Baljit Rockwell WBC 12.5 103/ul Critically high 4.0-11.0 [facility] Comment on above: Performed By: #### C BC #### [facility] [address] [address] [address] Baljit Rockwell Covid-19 PCR (CVDTB)on 05-20 SARS-CoV-2 (COVID-19) RNA ZOLTAN+probe Ql (Unsp spec) Not detected Normal NOT DETECTED [facility] Comment on above: Result Comment: When [...] for this test is supported by the [place] of Health and Human Service's declaration that [...] longer be used). Performed By: #### [facility] #### [facility] [address] [address] [address] Baljit Rockwell TYPE AND SCREENon 06-14-2021 TYPE AND SCREEN Negative Normal [facility] Comment on above: Performed By: #### T NS #### [facility] [address] [address] [address] Baljit Rockwell US PREG BIOPHY W NON STRESSo n 06-02-2021 US PREG BIOPHY W NON STRESS EXAMINATION: US PREG BIOPHY W NON STRESS HISTORY: [id number] baby COMPARISON: Ultrasound biophysical 05/25/2021 TECHNIQUE: Ultrasound biophysical profile was performed. FINDINGS: BREATHING MOVEMENTS: 2.0 GROSS BODY MOVEMENTS: 2.0 TONE: 2.0 QUALITATIVE AMNIOTIC FLUID VOLUME: 2.0 PRESENTATION: CEPHALIC HEART RATE: 157.0 bpm bpm. AMNIOTIC FLUID VOLUME: 13.5 cm GESTATIONAL AGE: 36 weeks 3 days CONCLUSION: Total biophysical profile score 8.0. Electronically authenticated by: BRENDA VIEYRA Date: 2021-06-02 08:18 Normal [facility] GROUP B STREP CULTUREon 05-19 S. agalactiae Ag Ql (Unsp spec) Culture Observations: NEGATIVE FOR GROUP B STREPTOCOCCUS. Normal [facility] Comment on above: Performed By: #### G BSCX #### [facility] [address] [address] [address] Baljit Rockwell US PREG BIOPHY W NON STRESSo n 05-26-2021 US PREG BIOPHY W NON STRESS EXAMINATION: US PREG BIOPHY W NON STRESS HISTORY: [id number] baby COMPARISON: No relevant comparison available. TECHNIQUE: Ultrasound biophysical profile was performed. FINDINGS: BREATHING MOVEMENTS: 2.0 GROSS BODY MOVEMENTS: 2.0 TONE: 2.0 QUALITATIVE AMNIOTIC FLUID VOLUME: 2.0 PRESENTATION: CEPHALIC HEART RATE: 131.7 bpm bpm. AMNIOTIC FLUID VOLUME: 11.2 cm GESTATIONAL AGE: 35 weeks 3 days CONCLUSION: Total biophysical profile score 8.0. Electronically authenticated by: BRENDA VIEYRA Date: 2021-05-26 08:00 Normal [facility] US PREG ANATOMY SINGLEon US PREG ANATOMY [...] KRISTIAN DICKEY Date: 2021-05-23 15:17 Normal [facility] Covid-19 PCR (CVDTBH)on 04-19 SARS-CoV-2 (COVID-19) RNA ZOLTAN+probe Ql (Unsp spec) Detected Critically abnormal NOT DETECTED [facility] Comment on above: Result Comment: This test is not yet approved or cleared by the [place] FDA. When there are no FDA-approved or cleared tests available, and other criteria are met, FDA can make tests available under an emergency access mechanism called an Emergency Use Authorization (EUA). The EUA for this test is supported by the [place] of Health and Human Service's (HHS's) declaration [...] used). Performed By: #### C VDTBH #### [facility] [address] [place] [address] Dr. Baljit Rockwell UA (CLEAN/CATCH) DIRECTOR COMPLIANCE/MICRO I F IND.on 05-12-2021 Bilirubin Ql (U) Negative Normal NEGATIVE [facility] Comment on above: Performed By: #### U ACSIND #### [facility] [address] [place], [place] [address] Dr. Baljit Rockwell Clarity (U) CLEAR Normal CLEAR [facility] Comment on above: Performed By: #### U ACSIND #### [facility] [address] [address] [address] Baljit Rockwell Color (U) LT. YELLOW Normal YELLOW [facility] Comment on above: Performed By: #### U ACSIND #### [facility] [address] [address] [address] Baljit Rockwell Glucose Ql (U) Negative Normal NEGATIVE [facility] Comment on above: Performed By: #### U ACSIND #### [facility] [address] [address] [address] Baljit Rockwell Hemoglobin Ql (U) Negative Normal NEGATIVE [facility] Comment on above: Performed By: #### U ACSIND #### [facility] [address] [address] [address] Baljti Rockwell Ketones Ql (U) Negative Normal NEGATIVE [facility] Comment on above: Performed By: #### U ACSIND #### [facility] [address] [place] [address] Dr. Baljit Rockwell LEUKOCYTES Negative Normal NEGATIVE [facility] Comment on above: Performed By: #### U ACSIND #### [facility] [address] [address] [address] Baljit Rockwell Nitrite Ql (U) Negative Normal NEGATIVE [facility] Comment on above: Performed By: #### U ACSIND #### [facility] [address] [place] [address] Dr. Baljit Rockwell pH (U) 7.0 [pH] Normal 5-9 [facility] Comment on above: Performed By: #### U ACSIND #### [facility] [address] [place] [address] Dr. Baljit Rockwell SPEC GRAVITY <=1.005 Abnormal 1.005-<=1.025 [facility] Comment on above: Performed By: #### U ACSIND #### [facility] [address] [place] [address] Dr. Baljit Rockwell UA PROTEIN Negative Normal NEGATIVE/ TRACE [facility] Comment on above: Performed By: #### U ACSIND #### [facility] [address] [place] [address] Dr. Baljit Rockwell UR MICRO IND NOT INDICATED Normal [facility] Comment on above: Performed By: #### U ACSIND #### [facility] [address] [id number] [address] Baljit Rockwell Urobilinogen Qn (U) 0.2 {Shannan'U}/dL Normal 0.2 - 1. 0 [facility] Comment on above: Performed By: #### U ACSIND #### [facility] [address] [address] [address] Baljit Rockwell Vital Signs Date Time Vital Sign Value Performing Clinician Faci lity 11-05-2024 09:33-0400 Body mass index (BMI) [Ratio] 31.58 kg/m2 Srinivasan Suleiman DO Work Phone: [facility] 11-05-2024 09:33-0400 Body weight 80.85 kg Srinivasan Suleiman DO Work Phone: [facility] 10-27-2024 11:10-0400 Body mass index (BMI) [Ratio] 31.35 kg/m2 Tiffany Llanes PA Work Phone: [facility] 10-27-2024 11:10-0400 Body weight 80.29 kg Tiffany Tiarra PA Work Phone: [facility] 10-27-2024 11:10-0400 Diastolic blood pressure 72 mm[Hg] Tiffany Tiarra PA Work Phone: [facility] 10-27-2024 11:10-0400 Systolic blood pressure 122 mm[Hg] Tiffany [place] PA Work Phone: [facility] 10-20-2024 12:55-0400 Body mass index (BMI) [Ratio] 30.79 kg/m2 Srinivasan Suleiman DO Work Phone: [facility] 10-20-2024 12:55-0400 Body weight 78.83 kg Srinivasan Suleiman DO Work Phone: [facility] 10-20-2024 12:55-0400 Diastolic blood pressure 78 mm[Hg] Srinivasan Suleiman DO Work Phone: [facility] 10-20-2024 12:55-0400 Systolic blood pressure 130 mm[Hg] Srinivasan Suleiman DO Work Phone: [facility] 10-06-2024 14:10-0400 Body mass index (BMI) [Ratio] 31.32 kg/m2 Srinivasan Suleiman DO Work Phone: [facility] 10-06-2024 14:10-0400 Body weight 80.2 kg Srinivasan Suleiman DO Work Phone: [facility] 10-06-2024 14:10-0400 Diastolic blood pressure 84 mm[Hg] Srinivasan Suleiman DO Work Phone: [facility] 10-06-2024 14:10-0400 Systolic blood pressure 126 mm[Hg] Srinivasan Suleiman DO Work Phone: [facility] 09-22-2024 10:08-0400 Body mass index (BMI) [Ratio] 30.79 kg/m2 Tiffany Llanes PA Work Phone: [facility] 09-22-2024 10:08-0400 Body weight 78.83 kg Tiffany Tiarra PA Work Phone: [facility] 09-22-2024 10:08-0400 Diastolic blood pressure 82 mm[Hg] Tiffany Tiarra PA Work Phone: [facility] 09-22-2024 10:08-0400 Systolic blood pressure 130 mm[Hg] Tiffany Llanes PA Work Phone: [facility] 09-07-2024 13:10-0400 Body mass index (BMI) [Ratio] 30.43 kg/m2 Srinivasan Suleiman DO Work Phone: [facility] 09-07-2024 13:10-0400 Body weight 77.93 kg Srinivasan Suleiman DO Work Phone: [facility] 09-07-2024 13:10-0400 Diastolic blood pressure 78 mm[Hg] Srinivasan Suleiman DO Work Phone: [facility] 09-07-2024 13:10-0400 Systolic blood pressure 122 mm[Hg] Srinivasan Suleiman DO Work Phone: [facility] Encounters Encounter Date Encounter Type Care Provider Facility Start: 11-06-2024 End: 11-06-2024 Clinisync Result Encounter Tiffany TUCKER Work Phone: [facility] Unsolicited Start: 11-06-2024 End: 11-06-2024 Clinisync Result Encounter Tiffany TUCKER Work Phone: [facility] Unsolic[facility] Start: 11-05-2024 End: 11-05-2024 Bamboo flowsheet Srinivasan Suleiman DO Work Phone: [facility] Start: 11-05-2024 End: 11-05-2024 Bamboo flowsheet Srinivasan Suleiman DO Work Phone: [facility] Start: 11-05-2024 End: 11-05-2024 Office outpatient visit 15 minutes Srinivasan Suleiman DO Work Phone: [facility] Comment on above: Third trimester preg darvin ([facility] 38 weeks gestation of ([facility]) Start: 11-05-2024 End: 11-05-2024 ambulatory SRINIVASAN SULEIMAN Not Available Start: 10-30-2024 End: 10-30-2024 Clinisync Result Encounter Srinivasan Suleiman DO Work Phone: [facility]olic[facility] Start: 10-30-2024 End: 10-30-2024 Clinisync Result Encounter Srinivasan Suleiman DO Work Phone: [facility] Unsolic[facility] Start: 10-27-2024 End: 10-27-2024 Bamboo flowsheet Tiffany TUCKER Work Phone: [facility] Start: 10-27-2024 End: 10-28-2024 Bamboo flowsheet Tiffany TUCKER Work Phone: [facility] Start: 10-27-2024 End: 10-28-2024 External Result Encounter Tiffany TUCKER Work Phone: [facility] Unsolicited Start: 10-27-2024 End: 10-27-2024 Office outpatient visit 15 minutes Tiffany TUCKER Work Phone: [facility] Comment on above: Third trimester preg darvin ([facility]); 36 weeks gestation of ([facility]); Vaginal discharge Start: 10-27-2024 End: 10-27-2024 ambulatory TIFFANY LLANES Not Available Start: 10-20-2024 End: 10-20-2024 Bamboo flowsheet Srinivasan Suleiman DO Work Phone: [facility] Start: 10-20-2024 End: 10-20-2024 Bamboo flowsheet Srinivasan Suleiman DO Work Phone: [facility] Start: 10-20-2024 End: 10-20-2024 Office outpatient visit 15 minutes Srinivasan Suleiman DO Work Phone: [facility] Comment on above: 35 weeks gestation o f ([facility]); Third trimester ([facility]); Low hemoglobin Start: 10-20-2024 End: 10-20-2024 ambulatory [...] Comment on above: Third trimester preg darvin ([facility]); 33 weeks gestation of ([facility]) Start: 10-06-2024 End: 10-06-2024 Bamboo flowsheet Srinivasan Suleiman DO Work Phone: [facility] Start: 10-06-2024 End: 10-06-2024 Bamboo flowsheet Srinivasan Suleiman DO Work Phone: [facility] Start: 10-06-2024 End: 10-06-2024 ambulatory SRINIVASAN SULEIMAN Not Available Start: 09-26-2024 End: 09-26-2024 Clinisync Result Encounter Tiffany TUCKER Work Phone: [facility]olic[facility] Start: 09-26-2024 End: 09-26-2024 Clinisync Result Encounter Tiffany TUCKER Work Phone: [facility]olic[facility] Start: 09-22-2024 End: 09-22-2024 Office outpatient visit 15 minutes Tiffany TUCKER Work Phone: [facility] Comment on above: 31 weeks gestation o f ([facility]); Third trimester ([facility]); Elevated glucose tolerance test Start: 09-22-2024 End: 09-22-2024 ambulatory TIFFANY LLANES Not Available Start: 09-21-2024 End: 09-21-2024 Clinisync Result Encounter Srinivasan Suleiman DO Work Phone: [facility]olic[facility] Start: 09-21-2024 End: 09-21-2024 Clinisync Result Encounter Srinivasan Suleiman DO Work Phone: [facility]solic[facility] Start: 09-11-2024 ambulatory Enma armenta [facility] Start: 09-07-2024 End: 09-07-2024 Bamboo [...] End: 07-17-2024 Patient encounter procedure PHYSICIAN NO [facility] [place] Work Phone: Start: 07-17-2024 End: 07-17-2024 ambulatory PHYSICIAN NO [facility] Work Phone: Start: 05-27-2024 End: 05-27-2024 ambulatory PHYSICIAN NO [facility] Work Phone: Start: 05-27-2024 End: 05-27-2024 Departed Referred PHYSICIAN NO [facility] Start: 05-04-2024 End: 05-04-2024 Patient encounter procedure PHYSICIAN NO [facility] [place] Work Phone: Start: 05-04-2024 End: 05-04-2024 ambulatory PHYSICIAN NO [facility] Work Phone: Start: 06-29-2021 ambulatory [...] Date Procedure Procedure Detail Performing Clinician Start: 11-06-2024 US OB BPP W NON-STRESS Tiffany TUCKER Work Phone: Start: 11-05-2024 Urnls dip stick/tabl et rgnt [...] encounter procedure 11/05/2024 9:40 AM EDT Routine [facility] [address] [place] [id number] Srinivasan Bearden DO [address] [place] [address] Arrived GREG SALMERON Comment on above: Arrived Start: 11-03-2024 End: 11-03-2024 Patient encounter procedure 11/03/2024 1:00 PM EDT Routine [facility] [address] [place] [id number] Srinivasan Bearden DO [address] [place] [address] [facility] Start: 10-27-2024 End: 10-27-2024 Patient encounter procedure GREG SALMERON Comment on above: Arrived Start: 10-20-2024 End: 10-20-2025 CULTURE, GROUP B STREP WITH SUSCEPTIBLITY CULTURE, GROUP B STREP WITH SUSCEPTIBLITY Lab Routine Third trimester ([facility]) Expected: 10/20/2024, Expires: 10/20/2025 [facility] Work [...] tolerance test Expected: 09/22/2024 (Approximate), Expires: 09/22/2025 [facility] Work Phone: Comment on above: Expected: 09/22/2024 (Approximate), Expires: 09/22/2025 Start: 09-22-2024 End: 09-22-2024 Patient encounter procedure [facility] Start: 09-22-2024 End: 09-22-2024 Professional / ancillary services management [facility] Start: 09-07-2024 End: 09-07-2025 CBC panel - Blood by Automated count CBC Lab Routine Diabetes mellitus screening Expected: 09/07/2024 (Approximate), Expires: 09/07/2025 [facility] Work Phone: Comment on above: Expected: 09/07/2024 (Approximate), Expires: 09/07/2025 Start: 09-07-2024 End: 09-07-2025 Measurement of glucose 1 hour after glucose challenge for glucose tolerance test Glucose tolerance, 1 hour Lab Routine Diabetes mellitus screening Expected: 09/07/2024 (Approximate), Expires: 09/07/2025 [facility] Comment on above: Expected: 09/07/2024 (Approximate), Expires: 09/07/2025 Start: 09-07-2024 End: 01-08-2025 US for US OB follow up transabdominal approach Imaging Routine size inconsistent with dates ([facility]) Expected: 09/07/2024, Expires: 01/08/2025 [facility] Comment on above: Expected: 09/07/2024 , Expires: 01/08/2025 Start: 09-07-2024 End: 09-07-2024 ambulatory 09/07/2024 1:30 PM EDT Initial [facility] [address] [place] [address] Srinivasan Bearden DO [address] [place] [address] Arrived [facility] Comment on above: Arrived Start: 05-27-2024 Urine culture [facility] Start: 05-27-2024 Bacteria identified in Urine by Culture Urine Culture [facility] CHLAMYDIA TRACHOMATI S (GENITO/STI) CHLAMYDIA TRACHOMATIS (GENITO/STI) Lab Routine Vaginal discharge Ordered: 10/27/2024 [facility] Comment on above: Ordered: 10/27/2024 Neisseria gonorrhoea e DNA [Presence] in Unspecified specimen by ZOLTAN with probe detection Neisseria gonorrhea DNA probe, direct Lab Routine Vaginal discharge Ordered: 10/27/2024 [facility] Comment on above: Ordered: 10/27/2024 SURESWAB(R) ADVANCED VAGINITIS PLUS, TMA SURESWAB(R) ADVANCED VAGINITIS PLUS, TMA Pathology and Cytology Routine Vaginal discharge Ordered: 10/27/2024 [facility] Work Phone: Comment on above: Ordered: 10/27/2024 Payers Date Payer Category Payer Private Health Insurance [facility] [employer]ICA[facility] [id number] 2024 Self-pay 1993 Unknown [id number] 2.16.840.1.830145.3.579.2. 593 1993 Unknown [id number] 2.16.840.1.421984.3.579.2. 593 1993 Unknown [id number] 2.16.840.1.676396.3.579.2. 593 1993 Unknown [id number] 2.16.840.1.037718.3.579.2. 593 1993 Unknown [id number] 2.16.840.1.333046.3.579.2. 593 1993 Unknown [id number] 2.16.840.1.525168.3.579.2. 593 1993 Unknown [id number] 2.16.840.1.657031.3.579.2. 593 1993 Unknown [id number] 2.16.840.1.130538.3.579.2. 593 1993 Unknown [id number] 2.16.840.1.883354.3.579.2. 593 1993 Unknown [id number] 2.16.840.1.377398.3.579.2. 593 1993 Unknown [id number] 2.16.840.1.809227.3.579.2. 593 1993 Unknown [id number] 2.16.840.1.753570.3.579.2. 593 1993 Unknown [id number] 2.16.840.1.949645.3.579.2. 593 1993 Unknown [id number] 2.16.840.1.529278.3.579.2. 593 1993 Unknown [id number] 2.16.840.1.507498.3.579.2. 593 1993 Unknown [id number] 2.16.840.1.915848.3.579.2. 716 1993 Unknown [id number] 2.16.840.1.022518.3.579.2. 1259 1993 Unknown [id number] 2.16.840.1.948284.3.579.2. 1259 1993 Unknown [id number] 2.16.840.1.377293.3.579.2. 1259 1993 Unknown [id number] 2.16.840.1.469937.3.579.2. 1259 1993 Unknown [id number] 2.16.840.1.218556.3.579.2. 1259 1993 Unknown [id number] 2.16.840.1.677871.3.579.2. 1259 1993 Unknown [id number] 2.16.840.1.697161.3.579.2. 1259 1959 Medicaid [id number] 1961 Self-pay [id number] Unknown [id number] 2.16.840.1.969213.3.579.2. 531 Unknown [id number] 2.16.840.1.105576.3.579.2. 531 Unknown [id number] 2.16.840.1.285382.3.579.2. 531 Social History Date Type Detail Facility Tobacco smoking stat [facility] Unknown if ever smoked [facility] Start: 05-05-2024 End: 07-18-2024 [facility]finding[facility] Start: 1995 Sex Assigned At Female F [facility] Start: 1995 Sex assigned at Not on file [facility] Gender identity Not on file [facility] Health are Start: 02-27-2024 GREG [facility] Clinical Notes 05-04-2024 to 11-05-2024 Enma Irizarry [...] nursing note reviewed. Exam conducted with a edging catcher present. Vitals: Estimated body mass index is 31.58 kg/m as calculated from the following: Height as of 07/09/23: 5' 3 . Weight as of this encounter: 178 lb 4 oz. BP: Patient's last menstrual period was 02/19/2024. ASSESSMENT & PLAN ICD-10-CM 1. Third trimester ([facility]) Z34.93 POCT urinalysis dipstick manually resulted 2. 38 weeks gestation of ([facility]) Z3A.38 Patient presents today for a routine obstetrics appointment. Patient is currently 38w0d with a Estimated Date of Delivery: 11/19/24. Documented by Enma Irizarry LPN on behalf of: Srinivasan Bearden DO documented in this encounter [facility] 10-27-2024 History of Present illness Narrative Reason [...] nursing note reviewed. Exam conducted with a edging catcher present. Vitals: Estimated body mass index is 31.35 kg/m as calculated from the following: Height as of 07/09/23: 5' 3 . Weight as of this encounter: 177 lb. BP: 122/72 Patient's last menstrual period was 02/19/2024. ASSESSMENT & PLAN ICD-10-CM 1. Third trimester ([facility]) Z34.93 POCT urinalysis dipstick manually resulted 2. 36 weeks gestation of ([facility]) Z3A.36 3. Vaginal discharge N89.8 SURESWAB(R) [...] of: GARRETT Rivers documented in this encounter [facility] 10-20-2024 History of Present illness Narrative Reason [...] nursing note reviewed. Exam conducted with a edging catcher present. Vitals: Estimated body mass index is 30.79 kg/m as calculated from the following: Height as of 07/09/23: 5' 3 . Weight as of this encounter: 173 lb 12.8 oz. BP: 130/78 Patient's last menstrual period was 02/19/2024. ASSESSMENT & PLAN ICD-10-CM 1. 35 weeks gestation of ([facility]) Z3A.35 POCT urinalysis dipstick manually resulted 2. Third trimester ([facility]) Z34.93 POCT urinalysis dipstick manually resulted CULTURE, [...] Srinivasan Bearden DO documented in this encounter [facility] 10-06-2024 History of Present illness Narrative Reason [...] nursing note reviewed. Exam conducted with a edging catcher present. Vitals: Estimated body mass index is 31.32 kg/m as calculated from the following: Height as of 07/09/23: 5' 3 . Weight as of this encounter: 176 lb 12.8 oz. BP: 126/84 Patient's last menstrual period was 02/19/2024. ASSESSMENT & PLAN ICD-10-CM 1. Third trimester ([facility]) Z34.93 2. 33 weeks gestation of ([facility]) Z3A.33 Return OB: Patient presents today [...] Srinivasan Bearden DO documented in this encounter [facility] 09-22-2024 History of Present illness Narrative Reason [...] PLAN ICD-10-CM 1. 31 weeks gestation of ([facility]) Z3A.31 POCT urinalysis dipstick manually resulted 2. Third trimester ([facility]) Z34.93 POCT urinalysis dipstick manually resulted [...] of: GARRETT Rivers documented in this encounter [facility] 09-07-2024 History of Present illness Narrative Reason [...] nursing note reviewed. Exam conducted with a edging catcher present. Vitals: Estimated body mass index is 30.43 kg/m as calculated from the following: Height as of 24: 5' 3 . Weight as of this encounter: 171 lb 12.8 oz. BP: 122/78 Patient's last menstrual period was 02/19/2024. ASSESSMENT & PLAN ICD-10-CM 1. Third trimester ([facility]) Z34.93 POCT urinalysis dipstick manually resulted 2. 29 weeks gestation of ([facility]) Z3A.29 POCT urinalysis dipstick manually resulted 3. Diabetes mellitus screening Z13.1 Hemoglobin A1c CBC Glucose tolerance, 1 hour CBC Glucose tolerance, 1 hour Patient presents today for transfer of care OB patient. Patient was seeing [facility] and desires to deliver at [facility]. Patient to return to clinic in 2 weeks for return OB and growth scan. Reviewed all labs and scans with patient as well. Documented by Enma Irizarry LPN on behalf of: Srinivasan Bearden DO documented in this encounter [facility] 07-17-2024 Radiology Diagnostic study note [facility] [place] [address] [place] [address] Ultrasound Report Signed Patient: Leelee Blake MR#: [id number] : 1995 Acct:[id number] Age/Sex: 29 / F ADM Date: 5 Loc: Room: Type: [facility] Attending Dr: Enma Rivera ([facility] COURTNEY Ordering Provider: Enma Rivera APRN, [...] Marie M.D. 07/17/2024 4:13 PM Dictation Location: [facility] Tech: Orquidea Copeland Transcribed By: MITALI 07/17/24 1613 Dictated By: Gage Marie DO 07/17/24 1611 Signed By: 07/17/24 1613 [facility] 05-04-2024 Radiology Diagnostic study note [facility] [place] [address] [place] [address] Ultrasound Report Signed Patient: Leelee Blake MR#: [id number] : 1995 Acct:[id number] Age/Sex: 29 / F ADM Date: 5 Loc: Room: Type: [facility] Attending Dr: Enma Rivera ([facility] COURTNEY Ordering Provider: Enma Rivera APRN, [...] Simeon Jr., D.O.05/04/2024 5:01 PM Dictation Location: [place] [address] Tech: Maricel Andre Transcribed By: MITALI 05/04/24 170 Dictated By: Castillo Simeon Jr, DO 05/04/24 1658 Signed By: 05/04/24 170 [facility] Evaluation note No assessment inform ation available [facility] Work Phone: Evaluation note Diagnosis Third [...] Reason for Visit Chief Complaint Admit Date zMay 04, 2024 1:4 1pm Chief Complaint Admit [...] CREATED AUTHOR AUTHOR'S ORGANIZ ATION 07/28/2024 [facility] y[facility]ician [facility] DATE CREATED AUTHOR AUTHOR'S ORGANIZ ATION 09/12/2024 [facility] DATE CREATED AUTHOR AUTHOR'S ORGANIZ ATION 11/06/2024 [facility] d[facility] Special[facility] Care Teams (unrecognized sec tion and content) Team Status: Active Member Role Status Dates PHYSICIAN NO FAMILY Primary Care Provider Active Team Status: Inactive Member Role Status Dates [facility] Attending Provider Active Start: May 04, 2024 End: May 04, 2024 PHYSICIAN NO FAMILY Primary Care Provider Active Start: May 04, 2024 End: May 04, 2024 Team Status: Inactive Member Role Status Dates Maria Del Carmen Glover PA-C Attending Provider Active Start: May 27, 2024 End: May 27, 2024 Team Status: Inactive Member Role Status Dates [facility] Attending Provider Active Start: July 17, 2024 End: July 17, 2024 PHYSICIAN NO FAMILY Primary Care Provider Active Start: July 17, 2024 End: July 17, 2024 Ankle Patch Molder Relationship Specialty Start Date End Date Cesar Espitia MD [address] [place] [address] PCP - General Family Medicine 06/28/23 Ankle Patch Molder Relationship Specialty Start Date End Date Cesar Espitia MD [address] [place] [address] PCP - General Family Medicine 06/28/23 Ankle Patch Molder Relationship Specialty Start Date End Date Cesar Espitia MD [address] [place] [address] PCP - General Family Medicine 06/28/23 Ankle Patch Molder Relationship Specialty Start Date End Date Cesar Espitia MD [address] [place] [address] PCP - General Family Medicine 06/28/23 Ankle Patch Molder Relationship Specialty Start Date End Date Cesar Espitia MD [address] [place] [address] PCP - General Family Medicine 06/28/23 Ankle Patch Molder Relationship Specialty Start Date End Date Cesar Espitia MD [address] [place] [address] PCP - General Family Medicine 06/28/23 Ankle Patch Molder Relationship Specialty Start Date End Date Cesar Espitia MD [address] [place] [address] PCP - General Family Medicine 06/28/23 Goals [...] BE BASED ON THE PRIMARY CLINICAL RECORDS. [facility] provides no warranty or guarantee of the accuracy or completeness of information in this document.
--- OUTSIDE RECORDS SUMMARY | 2024-11-07 07:11 | XMS_ITS | Encounter Summary ---
Author Organization [facility] Address [address] [place] [address] Care Team Providers Care Grease And Tallow Pumper Name Role Phone Cesar Espitia MD Primary Care Provider +1- [phone] Encounter Details Date Type Department Care Team (Late st Contact Info) Description 10/30/2024 Clinisync Result Encounter [facility] External Department Unsolicited Santo Bearden, DO [address] Tacho Clements [place] [id number] Social History Tobacco Use Types Packs/Day Years [...] EDT Narrative 10/30/2024 9:49 PM EDT The [address] [address] Ultrasound Report Signed Patient: LEELEE BLAKE MR#: [id number] : 1995 Acct:[id number] Age/Sex: 29 / F ADM Date: 10/30/24 Loc: US Attending Dr: Tiffany Mayen Ordering Physician: Santo Bearden D.O. Date of Service: 10/30/24 Procedure(s): US OB BPP w non-stress Accession Number(s): [id number] cc: Santo Bearden D.O.; Physician,Non-Staff M.Carrie The [place] [address] Patient Name: LEELEE BLAKE MRN: [id number] date: 1995 Sex: F Assigned Patient Location: [facility] Current Patient Location: Accession/Order Number: [id number] Exam Date: 10/30/2024 19:55 Report Date: 10/30/2024 21:47 At the request of: SANTO BEARDEN DO Procedure: US OB BPP w non-stress Ultrasound biophysical profile INDICATION: Pelvic cramps for 2 weeks COMPARISON: None FINDINGS/impression: Cephalic position. heart rate 150 beats per minute. Biophysical profile score 8/8. LUIZA measures 12.5 cm. Impression dictated by: David Khan M.D. 10/30/2024 9:47 PM Dictation Location: [place] [address] Electronically authenticated by: [id number] Y Date: 10/30/2024 21:47 Dictated By: David Khan M.D. Signed By: 10/30/242148 DD/ 46 TD/TT: Harpoon Engagement Planning Operator: Procedure Note Radiology, Radiologist, MD - 10/30/2024 [place] [address] Ultrasound Report Signed Patient: LEELEE BLAKE DMR#: [id number] : 1995Acct:[id number] Age/Sex: 29 / FADM Date: 10/30/24 Loc: US Attending Dr: Tiffany Mayen Ordering Physician: Santo Bearden D.O. Date of Service: 10/30/24 Procedure(s): US OB BPP w non-stress Accession Number(s): [id number] cc: Santo Bearden D.O.; Physician,Non-Staff [place] [address] Patient Name: LEELEE BLAKE MRN: [facility]:[id number] date: 1995 Sex: F Assigned Patient Location: [facility] Current Patient Location: Accession/Order Number: [id number] Exam Date: 10/30/2024 19:55 Report Date: 10/30/2024 21:47 At the request of: SANTO BEARDEN DO Procedure: US OB BPP w non-stress Ultrasound biophysical profile INDICATION: Pelvic cramps for 2 weeks COMPARISON: None FINDINGS/impression: Cephalic position. heart rate 150 beatsper minute. Biophysical profile score 8/8. LUIZA measures 12.5 cm. Impression dictated by: David Khan M.D. 10/30/2024 9:47 PM Dictation Location: [place] [address] Electronically authenticated by: [id number] Y Date: 1:47 Dictated By: David Khan M.D. Signed By:10/30/242148 DD/ 46 TD/TT: Harpoon Engagement Planning Operator: Santo Bearden DO [facility] Final Result documented in this encounter Visit Diagnoses Not on filedocumented in this encounter Care Teams Grease And Tallow Pumper Relationship Specialty Start Date End Date Cesar Espitia MD [address] [place] [address] [address] [place] [address] PCP - General Family Medicine 06/28/23 documented as of this encounter
--- OUTSIDE RECORDS SUMMARY | 2024-11-07 07:11 | XMS_ITS | Encounter Summary ---
Author Organization [facility] Address [address] [place] [address] Care Team Providers Care Information Assurance Engineer Name Role Phone Cesar Espitia MD Primary Care Provider +1- [phone] Encounter Details Date Type Department Care Team (Late st Contact Info) Description 10/27/2024 External Result Encounter [facility] External Department Unsolicited Tiffany Mayen PA [address] [place] [address] [place], [place] [id number] Social History Tobacco Use Types Packs/Day Years [...] ppm 10/28/2024 6:29 AM EDT [facility] BVAB 2,3 (BACTERIAL VAGINOSIS ASSOCIATED BACTERIA 2, 3); MOBILUNCUS SPP 0 19.961 - 24.689 ppm 10/28/2024 6:29 AM EDT [facility] BVAB 2,3 (BACTERIAL VAGINOSIS ASSOCIATED BACTERIA 2, 3); MOBILUNCUS SPP Not Detected 19.961 - 24.689 ppm 10/28/2024 6:29 AM EDT [facility] MARIANO ALBICANS, PARAPSILOSIS, TROPICALIS 0 23.000 - 30.347 ppm 10/28/2024 6:29 AM EDT [facility] MARIANO ALBICANS, PARAPSILOSIS, TROPICALIS Not Detected 23.000 - 30.347 ppm 10/28/2024 6:29 AM EDT [facility] MARIANO GLABRATA 0 23.000 - 31.618 ppm 10/28/2024 6:29 AM EDT [facility] MARIANO GLABRATA Not Detected 23.000 - 31.618 ppm 10/28/2024 6:29 AM EDT [facility] MARIANO KRUSEI 0 23.000 - 30.873 ppm 10/28/2024 6:29 AM EDT [facility] MARIANO KRUSEI Not Detected 23.000 - 30.873 ppm 10/28/2024 6:29 AM EDT [facility] CHLAMYDIA TRACHOMATIS 0 23.000 - 31.586 ppm 10/28/2024 6:29 AM EDT [facility] CHLAMYDIA TRACHOMATIS Not Detected 23.000 - 31.586 ppm 10/28/2024 6:29 AM EDT [facility] GARDNERELLA VAGINALIS 0 19.961 - 24.689 ppm 10/28/2024 6:29 AM EDT [facility] GARDNERELLA VAGINALIS Not Detected 19.961 - 24.689 ppm 10/28/2024 6:29 AM EDT [facility] MEGASPHAERA (TYPES 1, 2) 0 19.961 - 24.689 ppm 10/28/2024 6:29 AM EDT [facility] MEGASPHAERA (TYPES 1, 2) Not Detected 19.961 - 24.689 ppm 10/28/2024 6:29 AM EDT [facility] NEISSERIA GONORRHOEAE 0 23.000 - 32.587 ppm 10/28/2024 6:29 AM EDT [facility] NEISSERIA GONORRHOEAE Not Detected 23.000 - 32.587 ppm 10/28/2024 6:29 AM EDT [facility] TRICHOMONAS VAGINALIS 0 23.000 - 31.995 ppm 10/28/2024 6:29 AM EDT [facility] TRICHOMONAS VAGINALIS Not Detected 23.000 - 31.995 ppm 10/28/2024 6:29 AM EDT [facility] MYCOPLASMA GENITALIUM 0 19.961 - 24.689 ppm 10/28/2024 6:29 AM EDT [facility] MYCOPLASMA GENITALIUM Not Detected 19.961 - 24.689 ppm 10/28/2024 6:29 AM EDT [facility] Tissue 10/27/2024 11:5 7 AM EDT 10/28/2024 1:43 AM EDT us Tiffany TUCKER LAB BLOOD ORDERABLES Final Resul t [facility] [address] [place] [address] documented in this encounter Visit Diagnoses Not on filedocumented in this encounter Care Teams Information Assurance Engineer Relationship Specialty Start Date End Date Cesar Espitia MD [address] [place] [address] PCP - General Family Medicine 06/28/23 documented as of this encounter
--- OUTSIDE RECORDS SUMMARY | 2024-11-07 07:11 | XMS_ITS | Patient Health Record ---
Author Organization [facility] Address [address], [place] [id number] Support Name Relationship Address Phone Kayley Jimenez Guarantor Unknown [phone] Reason For Referral No Information Plan Of Treatment No Information Insurance Providers Payer Name Payer Address Payer Phone Subscriber Number Group Number Insured Name Patient Relationship to Insured Coverage Start Date Coverage End Date Medicaid [address] [place] [address] [phone] [id number] Kayley Jimenez Self - patient is the insured
--- OUTSIDE RECORDS SUMMARY | 2024-11-07 07:11 | XMS_ITS | Clinical Summary ---
Author Organization [facility] Address [address] [place] [address] Care Team Providers Care Marker Assembler Name Role Phone Cesar Espitia MD Primary Care Provider +1- [phone] Allergies No known active allergies Medications NIFEdipine [...] Encounters Date Type Department Care Team Description 11/06/2024 Clinisync Result Encounter NOMS External Department Unsolicited Tiffany Llanes PA 11/05/2024 9:40 AM EDT Routine [facility] [address] [facility] [place] [phone] Santo Bearden DO Third trimester ([facility]); 38 weeks gestation of ([facility]) 11/05/2024 Bamboo flowsheet [facility] [place] [facility] [address] [address] Santo Bearden, DO 11/05/2024 Travel 10/30/2024 Clinisync Result Encounter NOMS External Department Unsolicited Santo Bearden, DO 10/28/2024 Telephone [facility] [place] [facility] [address] [place] [address] Angelinateodoro AlyssaNADER 10/27/2024 11:20 AM EDT Routine [facility] [address] [place] [address] Tiffany Llanes PA Third trimester ([facility]); 36 weeks gestation of ([facility]); Vaginal discharge 10/27/2024 External Result Encounter NOMS External Department Unsolicited Tiffany Llanes PA 10/27/2024 Bamboo flowsheet [facility] [address] [place] [address] Tiffany Llanes PA 10/27/2024 Travel 10/21/2024 Refill [facility] [place] [facility] [address] [place] [address] Santo Bearden, DO Low hemoglobin 10/20/2024 1:10 PM EDT Routine [facility] [place] [facility] [address] [place] [address] Santo Bearden, DO 35 weeks gestation of ([facility]); Third trimester ([facility]); Low hemoglobin 10/20/2024 Bamboo flowsheet [facility] [address] [place] [address] Santo Bearden, DO 10/19/2024 Travel 10/17/2024 Clinisync Result Encounter NOMS External Department Unsolicited Santo Bearden, DO 10/06/2024 2:20 PM EDT Routine [facility] [place] [facility] [address] [place] [address] Santo Bearden DO Third trimester ([facility]); 33 weeks gestation of ([facility]) 10/06/2024 Bamboo flowsheet [facility] [place] [address] Santo Bearden DO 10/05/2024 Travel 09/26/2024 Clinisync Result Encounter NOMS External Department Unsolicited Tiffany Llanes PA 09/22/2024 10:20 AM [place] [address] Tiffany Llanes PA 31 weeks gestation of ([facility]); Third trimester ([facility]); Elevated glucose tolerance test 09/22/2024 9:30 AM EDT [place] [address] size inconsistent with dates ([facility]) 09/22/2024 [place] [address] Yakelin Parker MA 09/21/2024 Clinisync Result Encounter NOMS External Department Unsolicited Santo Bearden DO 09/07/2024 1:30 PM EDT [place] [address] Santo Bearden, GA: 29w4d 09/07/2024 [place] [address] Santo Bearden DO 08/26/2024 [place] [address] Santo Bearden DO from Last 3 Months [...] Diagnosis Comments US OB BPP W NON-STRESS 11/06/2024 7:38 PM EDT POCT URINALYSIS DIPSTICK Routine 11/05/2024 9:36 AM EDT Third trimester ([facility]) US OB BPP W NON-STRESS 10/30/2024 9:47 PM EDT RECURRENT VAGINITIS (HTRX) Routine 10/27/2024 11:57 AM EDT POCT URINALYSIS DIPSTICK Routine 10/27/2024 11:20 AM EDT Third trimester ([facility]) CULTURE, GROUP B STREP WITH SUSCEPTIBLITY Routine 10/20/2024 1:25 PM EDT Third trimester ([facility]) POCT URINALYSIS DIPSTICK Routine 10/20/2024 1:02 PM EDT 35 weeks gestation of ([facility]) Third trimester ([facility]) AMNISURE Routine 10/17/2024 10:42 AM EDT [facility] UA (CLEAN/CATCH) BUSINESS ANALYTICS INTERN/MICRO IF IND. Routine 10/17/2024 10:30 AM EDT GLUCOSE TOLERANCE 3 HOUR Routine 09/26/2024 7:50 AM EDT POCT URINALYSIS DIPSTICK Routine 09/22/2024 10:15 AM EDT 31 weeks gestation of ([facility]) Third trimester ([facility]) US OB FOLLOW UP TRANSABDOMINAL APPROACH Routine 09/22/2024 9:50 AM EDT size inconsistent with dates ([facility]) GLUCOSE 1 HOUR Routine 09/21/2024 11:02 AM EDT ALL CBC WITH AUTO DIFF Routine 11:02 AM EDT POCT URINALYSIS DIPSTICK Routine 09/07/2024 1:23 PM EDT Third trimester ([facility]) 29 weeks gestation of ([facility]) from Last 3 Months Results * US OB BPP W NON-STRESS (11/06/2024 7:38 PM EDT) Only the most recent of2 resultswithin the time period is included. Anatomical Region Laterality Modality Other 11/06/2024 7:38 PM EDT Narrative 11/06/2024 7:40 [place] [address] Ultrasound Report Signed Patient: LEELEE BLAKE MR#: [id number] : 1995 Acct:[id number] Age/Sex: 29 / F ADM Date: 11/06/24 Loc: US Attending Dr: Tiffany Llanes Ordering Physician: Tiffany Llanes Date of Service: 11/06/24 Procedure(s): US OB BPP w non-stress Accession Number(s): [id number] cc: Tiffany Llanes; Physician,Non-Staff Giovanni The [address] [address] Patient Name: LEELEE BLAKE MRN: [id number] date: 1995 Sex: F Assigned Patient Location: [facility] Current Patient Location: Accession/Order Number: [id number] Exam Date: 11/06/2024 17:31 Report Date: 11/06/2024 19:38 At the request of: TIFFANY LLANES Procedure: US OB BPP w non-stress Ultrasound biophysical profile INDICATION: Pelvic pain COMPARISON: 10/30/2024 FINDINGS/impression: Cephalic position. heart rate 138 beats per minute. Biophysical profile score 8/8. LUIZA measures 8.3 cm. Impression dictated by: David Khan M.D. 11/06/2024 7:38 PM Dictation Location: [place] [address] Electronically authenticated by: [id number] Y Date: 11/06/2024 19:38 Dictated By: David Khan M.D. Signed By: 11/06/241939 DD/ 37 TD/TT: Supervisor Partial Denture Department: Procedure Note Radiology, Radiologist, MD - 11/06/2024 [place] [address] Ultrasound Report Signed Patient: LEELEE BLAKE DMR#: [id number] : 1995Acct:[id number] Age/Sex: 29 / FADM Date: 11/06/24 Loc: US Attending Dr: Tiffany Llanes Ordering Physician: Tiffany Llanes Date of Service: 11/06/24 Procedure(s): US OB BPP w non-stress Accession Number(s): [id number] cc: Tiffany Llanes; Physician,Non-Staff Giovanni The [address] [address] Patient Name: LEELEE BLAKE MRN: [id number] date: 1995 Sex: F Assigned Patient Location: [facility] Current Patient Location: Accession/Order Number: [id number] Exam Date: 11/06/2024 17:31 Report Date: 11/06/2024 19:38 At the request of: TIFFANY LLANES Procedure: US OB BPP w non-stress Ultrasound biophysical profile INDICATION: Pelvic pain COMPARISON: 10/30/2024 FINDINGS/impression: Cephalic position. heart rate 138 beatsper minute. Biophysical profile score 8/8. LUIZA measures 8.3 cm. Impression dictated by: David Khan M.D. 11/06/2024 7:38 PM Dictation Location: [facility] Electronically authenticated by: [id number] Y Date: 9:38 Dictated By: David Khan M.D. Signed By:11/06/241939 DD/ 37 TD/TT: Supervisor Partial Denture Department: Tiffany Llanes PA [facility] Final Result * (ABNORMAL) POCT urinalysis dipstick manually resulted [...] TEST ENTER/EDIT OR DERABLES Final Result * RECURRENT VAGINITIS (HTRX) (10/27/2024 11:57 AM EDT) [facility] ATOPOBIUM VAGINAE 0 19.961 - 24.689 ppm 10/28/2024 6:29 AM EDT [facility] ATOPOBIUM VAGINAE Not Detected 19.961 - 24.689 ppm 10/28/2024 6:29 AM EDT [facility] BVAB 2,3 (BACTERIAL VAGINOSIS ASSOCIATED BACTERIA 2, 3); MOBILUNCUS SPP 0 19.961 - 24.689 ppm 10/28/2024 6:29 AM EDT [facility] BVAB 2,3 (BACTERIAL VAGINOSIS ASSOCIATED BACTERIA 2, 3); MOBILUNCUS SPP Not Detected 19.961 - 24.689 ppm 10/28/2024 6:29 AM EDT [facility] MARIANO ALBICANS, PARAPSILOSIS, TROPICALIS 0 23.000 - 30.347 ppm 10/28/2024 6:29 AM EDT [facility] MARIANO ALBICANS, PARAPSILOSIS, TROPICALIS Not Detected 23.000 - 30.347 ppm 10/28/2024 6:29 AM EDT [facility] MARIANO GLABRATA 0 23.000 - 31.618 ppm 10/28/2024 6:29 AM EDT [facility] MARIANO GLABRATA Not Detected 23.000 - 31.618 ppm 10/28/2024 6:29 AM EDT [facility] MARIANO KRUSEI 0 23.000 - 30.873 ppm 10/28/2024 6:29 AM EDT [facility] MARIANO KRUSEI Not Detected 23.000 - 30.873 ppm 10/28/2024 6:29 AM EDT [facility] CHLAMYDIA TRACHOMATIS 0 23.000 - 31.586 ppm 10/28/2024 6:29 AM EDT [facility] CHLAMYDIA TRACHOMATIS Not Detected 23.000 - 31.586 ppm 10/28/2024 6:29 AM EDT [facility] GARDNERELLA VAGINALIS 0 19.961 - 24.689 ppm 10/28/2024 6:29 AM EDT [facility] GARDNERELLA VAGINALIS Not Detected 19.961 - 24.689 ppm 10/28/2024 6:29 AM EDT [facility] MEGASPHAERA (TYPES 1, 2) 0 19.961 - 24.689 ppm 10/28/2024 6:29 AM EDT [facility] JAMESSPHAERA (TYPES 1, 2) Not Detected 19.961 - 24.689 ppm 10/28/2024 6:29 AM EDT [facility] NEISSERIA GONORRHOEAE 0 23.000 - 32.587 ppm 10/28/2024 6:29 AM EDT [facility] NEISSERIA GONORRHOEAE Not Detected 23.000 - 32.587 ppm 10/28/2024 6:29 AM EDT [facility] TRICHOMONAS VAGINALIS 0 23.000 - 31.995 ppm 10/28/2024 6:29 AM EDT [facility] TRICHOMONAS VAGINALIS Not Detected 23.000 - 31.995 ppm 10/28/2024 6:29 AM EDT [facility] MYCOPLASMA GENITALIUM 0 19.961 - 24.689 ppm 10/28/2024 6:29 AM EDT [facility] MYCOPLASMA GENITALIUM Not Detected 19.961 - 24.689 ppm 10/28/2024 6:29 AM EDT [facility] Tissue 10/27/2024 11:5 7 AM EDT 10/28/2024 1:43 AM EDT Tiffany TUCKER LAB BLOOD ORDERABLES Final Resul t [facility] [address] [address] * CULTURE, GROUP B STREP WITH SUSCEPTIBLITY (10/20/2024 1:25 PM EDT) Swab 10/20/2024 1:25 PM EDT us Santo Suleiman DO LAB BLOOD ORDERABLES Final Resul t EXTERNAL LAB * AMNISURE (10/17/2024 10:42 AM EDT) [facility] AMNISURE NEGATIVE NEGATIVE [facility] 10/17/2024 10:4 2 AM EDT 10/17/2024 10:51 AM EDT Narrative [facility] - 10/17/2024 11:03 AM EDT us Santo Suleiman DO LAB BLOOD ORDERABLES Final Resul t Performing Organization Address City/[facility]/ZIP Co de Phone Number [facility] * (ABNORMAL) [facility] UA (CLEAN/CATCH) BUSINESS ANALYTICS INTERN/MICRO IF IND. (10/17/2024 10:30 AM EDT) COLOR [...] Narrative [facility] - 10/17/2024 11:06 AM EDT katena Suleiman DO [facility] Final Result [facility] * GLUCOSE TOLERANCE 3 HOUR [...] LAB BLOOD ORDERABLES Final Resul t [facility] * US OB follow up transabdominal approach [...] BY: ELECTRONICALLY SIGNED BY: Castillo Anaya MD Santo Bearden DO IMG OB US PROCEDURES Final Resul t * (ABNORMAL) GLUCOSE 1 HOUR (09/21/2024 11:02 AM EDT) [facility] GLUCOSE 1 HOUR 148(H) <130 mg/dL TB 09/21/2024 11:0 2 AM EDT 09/21/2024 11:03 AM EDT Narrative [facility] - 09/21/2024 11:30 AM EDT Santo Bearden DO LAB BLOOD ORDERABLES Final Resul t [facility] * (ABNORMAL) ALL CBC WITH AUTO [...] - 09/21/2024 11:20 AM EDT us Santo Suleiman DO [facility] Final Result [facility] from Last 3 Months Insurance [facility] MEDICAID Care Teams Marker Assembler Relationship Specialty Start Date End Date Cesar Espitia MD [address] [place] [address] PCP - General Family Medicine 06/28/23
--- OUTSIDE RECORDS SUMMARY | 2024-11-07 07:11 | XMS_ITS | Encounter Summary ---
Author Organization [facility] Address [address] [place] [address] Care Team Providers Care System Archive Analyst Name Role Phone Cesar Espitia MD Primary Care Provider +1- [phone] Encounter Details Date Type Department Care Team (Late st Contact Info) Description 10/28/2024 Telephone [facility] [address] [employer] [place] [address] Alyssa Hopkins LPN [address] [employer] [employer] [address] Social History Tobacco Use Types [...] encounter Miscellaneous Notes * Telephone Encounter - Alysas Hopkins LPN - 10/28/2024 3:09 PM EDT Per Tiffany Mayen PA-C, orders were sent to [facility] documented in this encounter Plan of Treatment [...] disorders documented in this encounter Care Teams System Archive Analyst Relationship Specialty Start Date End Date Cesar Espitia MD [address] [place] [address] PCP - General Family Medicine 06/28/23 documented as of this encounter
--- OUTSIDE RECORDS SUMMARY | 2024-11-07 07:11 | XMS_ITS | Encounter Summary ---
Author Organization [facility] Address [address] [place] [address] Care Team Providers Care Grinder Needle Tip Name Role Phone Cesar Espitia MD Primary Care Provider +1- [phone] Encounter Details Date Type Department Care Team (Late st Contact Info) Description 10/27/2024 Bamboo flowsheet [facility] [place] [facility] [address] [place] [address] Tiffany Mayen PA [address] [facility] [address] [place] [address] Social History Tobacco Use Types Packs/Day Years [...] on filedocumented in this encounter Care Teams Grinder Needle Tip Relationship Specialty Start Date End Date Cesar Espitia MD [address] [place] [id number] PCP - General Family Medicine 06/28/23 documented as of this encounter
[2024-11-07 07:43] VITALS: BP 130/94; PULSE 71
[2024-11-07 08:05] VITALS: BP 123/89; PULSE 75
== END 2024-11-07 08:14 | disposition home or self-care (01) ==
LOC: FBCO 07:08 → FBC 07:10
PROVIDERS: Visit Provider Obstetrics & Gynecology
DX: O41.00X0 Oligohydramnios, unspecified trimester, not applicable or unspecified (principal); Z3A.00 Weeks of gestation of pregnancy not specified
CPT/HCPCS: 76818

== ENCOUNTER 2024-11-08 05:24 | Inpatient (IN) | payer OTHER, SELFPAY ==
--- OUTSIDE RECORDS SUMMARY | 2024-09-11 08:26 | XMS_ITS | Continuity of Care Document ---
Author Organization [facility] Address [address] [place] [address] Phone Care Team Providers Care Food Sales Clerk Name Role Phone Enma Ma Unavailable Unavaila [...] 130 MM HG MED LIST DOCD IN [facility] RVW MEDS BY RX/DR IN RD [...] 130 MM HG MED LIST DOCD IN [facility] RVW MEDS BY RX/DR IN [facility] Pt inelig neg scrn depres IMMUNIZATION ADMIN FLU VACCINE NO PRESERV 3 & > OFFICE/OUTPATIENT VISIT, EST DIAST BP 80-89 MM HG SYST BP >=130-139MM HG MED LIST DOCD IN RD RVW MEDS BY RX/DR IN [facility] TOBACCO NON-USER ROUTINE VENIPUNCTURE Ortho [place]ronor REMOVE INTRAUTERINE DEVICE PREV VISIT, EST, AGE 18-39 Nutrit Couns For Control Of [place] Dis Jul Extract; Erupted Th/exposted Rt 024 Intraoral-periapical 1st Film 4 Bitewig-single Film Oral Hygiene Instruction Limited Oral Eval Advance Directives Directive Yes / No Effective Date File Name No Information Encounters Encounter Description Practice Location Reason(s) For Visit Diagnoses Date Provider Providers Copied on Encounter [facility], [address] [place], [place], [id number] , [place] tel: [phone] [facility] No Information 5 Miguel SAUMYA Enma. [address], [place], [id number] , [place]. tel: [phone] OFFICE/OUTPA TIENT VISIT, [facility], [address], [place], [id number] , [place] tel: [phone] [facility] routine (chief complaint) Encounter for supervision of other normal , 2nd [id number] weeks gestation of pregnancyBody mass index [BMI] 29.0-29.9, adult 5 Miguel SAUMYA [place]. [address] [place] [address], [id number] , [place]. tel: [phone] OFFICE/OUTPA TIENT VISIT, [facility], [address] [place] [address], [id number] , [place] tel: [phone] [facility] routine (chief complaint) Encounter for supervision of other normal , 2nd [id number] weeks gestation of 5 Miguel SAUMYA [place]. [address], [place], [id number] , [place]. tel: [phone] [facility], [address] [place] [address], [id number] , [place] tel: [phone] [facility] No Information 5 Miguel FAB [place]. [address], [place], [id number] , [place]. tel: [phone] OFFICE/OUTPA TIENT VISIT, [facility], [address] [place] [address], [id number] , [place] tel: [phone] [facility] 14 weeks gestation of pregnancyEncounter for supervision of other normal , 2nd trimester May-0 5 Miguel FAB [place]. [address], [place], [id number] , [place]. tel: [phone] OFFICE/OUTPA TIENT VISIT, [facility], [address], [place], [id number] , [place] tel: [phone] [facility] Interview (chief complaint)ro utine (chief complaint) Encounter for supervision of other normal , 1st ctthnjwui74 weeks gestation of pregnancyMaternal chronic hypertension in first trimesterPruritic rash 5 [facility] Enma. [address] [place] [address], [id number] , [place]. tel: [phone] OFFICE/OUTPA TIENT VISIT, [facility], [address] [place] [address], [id number] , [place] tel: [phone] [facility] test (chief complaint) Positive testFirst trimester pregnancy8 weeks gestation of pregnancyEssential (primary) hypertension 5 [facility] Enma. [address] [place] [address], [id number] , [place]. tel: [phone] OFFICE/OUTPA TIENT VISIT, [facility], [address] [place] [address], [id number] , [place] tel: [phone] [facility] f/u medications (chief complaint) Essential (primary) hypertensionBody mass index [BMI] 29.0-29.9, adult Dec- 4 Plank DO Tay. [address] [place] [address], [id number] , [place]. tel: [phone] OFFICE/OUTPA TIENT VISIT, [facility], [address] [place] [address], [id number] , [place] tel: [phone] [facility] Establish Care (chief complaint)La b Draw (chief complaint) Body mass index [BMI] 29.0-29.9, adultEssential (primary) hypertensionDiabete s mellitus screeningLipid screeningNeed for hepatitis C screening testEncounter for screening for HIV 4 Plank DO Tay. [address] [place] [address], [id number] , [place]. tel: [phone] PREV VISIT, EST, AGE 18-39 [facility], [address] [place] [address], [id number] , [place] tel: [phone] [facility] annual exam (chief complaint) - STD screen- STD High risk heterosexual behaviorIUD removalDeep dyspareuniaOCP follow up Rx- well woman with abnormal finding 4 Miguel [facility] Enma. [address] [place] [address], [id number] , [place]. tel: [phone] [facility], [address] [place] [address], [id number] , [place] tel: [phone] [facility] ext (chief complaint) Encounter for screening for dental disorders 4 Candi ZEEFrankie Ella. . tel: [phone] [facility], [address] [place] [address], [id number] , [place] tel: [phone] [facility] ER (chief complaint) Body mass index [BMI] 27.0-27.9, adultEncounter for screening for dental disorders 4 Candi WatchsendS Ella. . tel: [phone] Family History Family Member Type Diagnosis Age At Onset Problem Family history of Hypertensi on Mother Problem Hypertension Mother Problem Depression Father Problem Alive and well Immunizations Vaccine Date Status Comments Fluarix/Flulaval administered Source: New Immunization Record Payers Payer name Insurance type Covered green party ID Authoriza tiprabha(s) [employer] Medicaid CFC [id number] [id number] Medicaid Wr - [facility] [id number] Medicaid Primary - [facility] [id number] Social History Type Description Quantity Date Captured [...] 2024 due Goal Lipid panel. Due on due Goal Tdap. Due on due Goal Influenza vaccine. Due on No due Goal Hepatitis C screening. Due o n due Goal Urinalysis due Goal ECG. Due on due Goal ECG. Due on due Goal Hep A. Due on du e Goal RLP. Due on due Goal Tdap Vaccine. Due on 2024 due Goal Urinalysis due Goal Tdap. Due [...] Tdap Vaccine. Due on 2024 due Goal RLP. Due on due Goal [...] Goal Depression screening. Due on due Goal HPV. Due on [...] due Goal Influenza vaccine. Due on Ju n due Goal RLP. Due on due Goal [...] flu vaccine today. LUDWIN Srinivasan [facility] Care Patient has not saw a primary care physician since June in [place]. Patient was previously diagnosed with hypertension in the past and used to take Nifedipine, however they used to give her very bad headaches so she stopped taking them. Patient denies any dizziness, headache, or blurred vision related to hypertension lately. Patient does not check blood pressure at home. Patient denies any other concerns at this time. 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 Patient denies wanting the flu [...] toxoplasmosis precau tions (cats / raw meat) [facility] sexual activity exercise indications for ultrasound influenza vaccine environmental / work hazards travel tobacco (ask, advise , assess, assist and arrange) alcohol illicit / recreational drugs use of any medicatio ns (including supplements, vitamins, herbs, OTC drugs) smoking counseling domestic violence seat belt use childbirth classes / hospital facilities Lifestyle education regarding di et Related to [...]
--- OUTSIDE RECORDS SUMMARY | 2024-10-27 11:20 | XMS_ITS | Encounter Summary ---
Author Organization [facility] Address [address] [place] [address] Care Team Providers Care Inserter Operator Name Role Phone Cesar Espitia MD Primary Care Provider +1- [phone] Reason for Visit * Reason Comments Routine Visit Encounter Details Date Type Department Care Team (Late st Contact Info) Description 10/27/2024 11:20 AM EDT Routine [facility] [address] [place] [address] Tiffany Mayen PA [address] [place] [address] Third trimester ([facility]); 36 weeks gestation of ([facility]); Vaginal discharge Social History Tobacco Use Types Packs/Day Years [...] Sign Reading Time Taken Comments Blood Pressure 122/72 10/27/2024 11:10 AM EDT Pulse - - Temperature - - Respiratory Rate - - Oxygen Saturation - - Inhaled Oxygen Concentration - - Weight 80.3 kg (177 lb) 10/27/2024 11:10 AM EDT Height - - Body Mass Index 31.35 07/09/2023 4:01 PM EDT documented in this encounter Progress Notes * GARRETT Rivers - 10/27/2024 11:20 AM EDT Reason for Appointment: Patient ID: Kayley Graham is a 29 y.o. female who presents for Routine Visit Patient presents today for STD Check. MEDICATIONS Current Outpatient Medications Medication Instructions iron polysaccharides (PROFE) 391.3 mg, Oral, Daily NIFEdipine XL (Procardia XL) 30 MG 24 hr tablet One po at bedtime. ALLERGIES No Known Allergies PROBLEMS Active Ambulatory Problems Diagnosis Date Noted Primary hypertension 06/28/2023 Resolved Ambulatory Problems Diagnosis Date Noted No Resolved Ambulatory Problems No Additional Past Medical History HISTORY PAST MEDICAL HISTORY SOCIAL HISTORY No past medical history on file. Social History Tobacco Use Smoking status: Not [...] Objective: Physical Exam Constitutional: Appearance: Normal appearance. Genitourinary: Right Adnexa: not tender and no mass present. Left Adnexa: not tender and no mass present. No cervical discharge. HENT: Head: Normocephalic. Nose: Nose normal. Mouth/Throat: Mouth: Mucous membranes are moist. Cardiovascular: Rate and Rhythm: Normal rate. Pulmonary: Effort: Pulmonary effort is normal. Abdominal: General: Bowel sounds are normal. Palpations: Abdomen is soft. Musculoskeletal: General: Normal range of motion. Cervical back: Normal range of motion. Neurological: General: No focal deficit present. Mental Status: She is alert. Skin: General: Skin is warm and dry. Psychiatric: Mood and Affect: Mood normal. Vitals and nursing note reviewed. Exam conducted with a blood splatter analyst present. Vitals: Estimated body mass index is 31.35 kg/m?? as calculated from the following: Height as of 07/09/23: 5' 3 . Weight as of this encounter: 177 lb. BP: 122/72 Patient's last menstrual period was 02/19/2024. ASSESSMENT & PLAN ICD-10-CM 1. Third trimester ([facility]) Z34.93 POCT urinalysis dipstick manually resulted 2. 36 weeks gestation of ([facility]) Z3A.36 3. Vaginal discharge N89.8 SURESWAB(R) ADVANCED VAGINITIS PLUS, TMA CHLAMYDIA TRACHOMATIS (GENITO/STI) Neisseria gonorrhea DNA probe, direct Return OB: Patient presents today for a routine obstetrics appointment. Patient is currently 36w5d . Patient states she is doing well but has complaints of being tired due to current . Patient is complaining of having intense lower pelvic area. Pt states she was seen in [facility] on 10/17/2024 due to false labor and states she is still having the cramping. Pt also states she was advised she had ayeast infection while in [facility] and does not feel it has gone away. Patient has verbalizes frequent movement. labor precautions was discussed/given and patient was instructed to perform kick counts three times a day. Orders Placed This Encounter Procedures CHLAMYDIA TRACHOMATIS (GENITO/STI) Neisseria gonorrhea DNA probe, direct POCT urinalysis dipstick manually resulted Follow Up: Patient is to return to office in 1 week for routine OB appointment. Documented by Falguni Sarabia MA on behalf of: GARRETT Rivers documented in this encounter Plan of Treatment Scheduled Orders Name Type Priority Associated Diagnoses Order Schedule SURESWAB(R) ADVANCED VAGINITIS PLUS, TMA Pathology and Cytology Routine Vaginal discharge Ordered: 10/27/2024 CHLAMYDIA TRACHOMATIS (GENITO/STI) Lab Routine Vaginal discharge Ordered: 10/27/2024 Neisseria gonorrhea DNA probe, direct Lab Routine Vaginal discharge Ordered: 10/27/2024 documented as of this encounter Procedures Procedure Name Priority Date/Time Associated Diagnosis Comments POCT URINALYSIS DIPSTICK Routine 10/27/2024 11:20 AM EDT Third trimester ([facility]) PAP SMEAR Routine 06/09/2024 12:00 AM EDT documented in this encounter Results * POCT urinalysis dipstick manually resulted (10/27/2024 11:20 AM EDT) Color, UA Yellow Clarity, UA Clear Glucose, UA Negative Negative - 1999(110) ++++ mg/dL Bilirubin, UA Negative Negative - 4(70) +++ mg/dL Ketones, UA Negative Negative - 160(16) ++++ mg/dL Spec Grav, UA 1.015 1 - 1.03 Blood, UA Negative Negative - 50 Adonis/mcL pH, UA 7.5 5 - 9 Protein, UA Negative Negative - 1999(20) ++++ mg/dL Urobilinogen, UA 1.0 0.2 - 12 mg/dL Leukocytes, UA Negative Negative - 500+++ Jose Alfredo/mcL Nitrite, UA Negative Negative - Positive Urine 10/27/2024 11:2 0 AM EDT us Tiffany TUCKER POINT OF CARE TEST ENTER/EDIT OR DERABLES Final Result * Pap Smear (06/09/2024 12:00 AM EDT) Swab Cervical swab / Unknown us Tiffany TUCKER LAB CYTOLOGY ORDERABLES Final Re sult EXTERNAL LAB documented in this encounter Visit Diagnoses Diagnosis Third trimester ([facility]) state, incidental 36 weeks gestation of ([facility]) Vaginal discharge Leukorrhea, not specified as infective documented in this encounter Care Teams Inserter Operator Relationship Specialty Start Date End Date Cesar Espitia MD [address] [place] [address] PCP - General Family Medicine 06/28/23 documented as of this encounter
--- OUTSIDE RECORDS SUMMARY | 2024-11-05 09:40 | XMS_ITS | Encounter Summary ---
Author Organization [facility] Address [address] [place] [address] Care Team Providers Care Eap Clinician Name Role Phone Cesar Espitia MD Primary Care Provider +1- [phone] Reason for Visit * Reason Comments Routine Visit Encounter Details Date Type Department Care Team (Late st Contact Info) Description 11/05/2024 9:40 AM EDT Routine [facility] [address] [facility] [address] Santo Bearden DO [address] [place] [address] Third trimester ([facility]); 38 weeks gestation of ([facility]) Social History Tobacco Use Types Packs/Day [...] nursing note reviewed. Exam conducted with a fashion director party plan sales present. Vitals: Estimated body mass index is 31.58 kg/m?? as calculated from the following: Height as of 07/09/23: 5' 3 . Weight as of this encounter: 178 lb 4 oz. BP: Patient's last menstrual period was 02/19/2024. ASSESSMENT & PLAN ICD-10-CM 1. Third trimester ([facility]) Z34.93 POCT urinalysis dipstick manually resulted 2. 38 weeks gestation of ([facility]) Z3A.38 Patient presents today for a routine obstetrics appointment. Patient is currently 38w0d with a Estimated Date of Delivery: 11/19/24. Patient desires to have IOL on 11/10/24 @ 11pm. Patient signed consents prior to leaving office today and [facility] was notified. Patient to return to clinic for post appointment. Nursing called Asha at [facility] and ensured that time of IOL was changed to [id number] as patient was previously on for 11/11. Asha confirmed change on the books. Documented by Enma Irizarry LPN on behalf of: Santo Bearden DO documented in this encounter Plan of Treatment Not on file documented as of this encounter Procedures Procedure Name Priority Date/Time Associated Diagnosis Comments POCT URINALYSIS DIPSTICK Routine 11/05/2024 9:36 AM EDT Third trimester ([facility]) documented in this encounter Results * [...] ([facility]HS-HCC) documented in this encounter Care Teams Eap Clinician Relationship Specialty Start Date End Date Cesar Espitia MD [address] [place] [address] PCP - General Family Medicine 06/28/23 documented as of this encounter
[2024-11-08] VITALS (39 sets, daily range): BP systolic 90–182; BP diastolic 52–107; PULSE 56–110; TEMP 36–36.8
--- OUTSIDE RECORDS SUMMARY | 2024-11-08 05:27 | XMS_ITS | Encounter Summary ---
Author Organization [facility] Address [address] [place] [address] Care Team Providers Care Die Attaching Machine Tender Name Role Phone Cesar Espitia MD Primary Care Provider +1- [phone] Encounter Details Date Type Department Care Team (Late st Contact Info) Description 11/07/2024 Clinisync Result Encounter NOMS External Department Unsolicited Santo Bearden, DO [address] [facility] [address] [place], [place] [id number] Social History Tobacco Use Types Packs/Day Years [...] Diagnosis Comments US OB BPP W NON-STRESS 11/07/2024 10:25 AM EDT documented in this encounter Results * US OB BPP W NON-STRESS (11/07/2024 10:25 AM EDT) Anatomical Region Laterality Modality Other 11/07/2024 10:2 5 AM EDT Narrative 11/07/2024 10:27 AM EDT The [address] [address] Ultrasound Report Signed Patient: LEELEE BLAKE MR#: [id number] : 1995 Acct:[id number] Age/Sex: 29 / F ADM Date: 11/07/24 Loc: FBCO Attending Dr: Santo Bearden D.O. Ordering Physician: Santo Bearden D.O. Date of Service: 11/07/24 Procedure(s): US OB BPP w non-stress Accession Number(s): [id number] cc: Santo Bearden D.O.; Physician,Non-Staff Giovanni The [place] [id number] Patient Name: LEELEE BLAKE MRN: [id number] date: 1995 Sex: F Assigned Patient Location: [facility] Current Patient Location: [facility] Accession/Order Number: [id number] Exam Date: 11/07/2024 07:14 Report Date: 11/07/2024 10:25 At the request of: SANTO BEARDEN DO Procedure: US OB BPP w non-stress Ultrasound biophysical profile INDICATION: low LUIZA COMPARISON: 11/06/2024 FINDINGS/IMPRESSION: Cephalic position. heart rate 145 beats per minute. Biophysical profile score 8/8. LUIZA measures 9.9 cm Impression dictated by: David Khan M.D. 11/07/2024 10:25 AM Dictation Location: [place] [address] Electronically authenticated by: [id number] Y Date: 11/07/2024 10:25 Dictated By: David Khan M.D. Signed By: 11/07/24 1027 DD/ 1025 TD/TT: Fruit Preserver: Procedure Note Radiology, Radiologist, MD - 11/07/2024 [place] [address] Ultrasound Report Signed Patient: LEELEE BLAKE DMR#: [id number] : 1995Acct:[id number] Age/Sex: 29 / FADM Date: 11/07/24 Loc: FBCO Attending Dr: Santo Bearden D.O. Ordering Physician: Santo Bearden D.O. Date of Service: 11/07/24 Procedure(s): US OB BPP w non-stress Accession Number(s): [id number] cc: Santo Bearden D.O.; Physician,Non-Staff Giovanni [place] [address] [place] [address] Patient Name: LEELEE BLAKE MRN: [facility]:[id number] date: 1995 Sex: F Assigned Patient Location: [facility] Current Patient Location: [facility] Accession/Order Number: [id number] Exam Date: 11/07/2024 07:14 Report Date: 11/07/2024 10:25 At the request of: SANTO BEARDEN DO Procedure: US OB BPP w non-stress Ultrasound biophysical profile INDICATION: low LUIZA COMPARISON: 11/06/2024 FINDINGS/IMPRESSION: Cephalic position. heart rate 145 beatsper minute. Biophysical profile score 8/8. LUIZA measures 9.9 cm Impression dictated by: David Khan M.D. 11/07/2024 10:25 AM Dictation Location: [place] [address] Electronically authenticated by: [id number] Y Date: 0:25 Dictated By: David Khan M.D. Signed By:11/07/24 1027 DD/ 1025 TD/TT: Fruit Preserver: Santo Bearden DO [facility] Final Result documented in this encounter Visit Diagnoses Not on filedocumented in this encounter Care Teams Die Attaching Machine Tender Relationship Specialty Start Date End Date Cesar Espitia MD [facility] [address] [place] [address] PCP - General Family Medicine 06/28/23 documented as of this encounter
--- OUTSIDE RECORDS SUMMARY | 2024-11-08 05:27 | XMS_ITS | Encounter Summary ---
Author Organization [facility] Address [address] [place] [address] Care Team Providers Care Cover Cutter Name Role Phone Cesar Espitia MD Primary Care Provider +- [phone] Encounter Details Date Type Department Care Team (Late st Contact Info) Description 08/26/2024 Abstract [facility] [address] [facility] [place] [address] Santo Bearden DO [address] [facility] [place] [address] Social History Tobacco Use Types Packs/Day Years [...] on filedocumented in this encounter Care Teams Cover Cutter Relationship Specialty Start Date End Date Cesar Espitia MD [address] [place] [id number] PCP - General Family Medicine 06/28/23 documented as of this encounter
--- OUTSIDE RECORDS SUMMARY | 2024-11-08 05:27 | XMS_ITS | Clinical Summary ---
Author Organization [facility] Address [id number] [address] [place] [address] Care Team Providers Care Blow Molding Machine Tender Name Role Phone No Pcp, No Pcp [...] file Insurance [place]ICAID [place] Care Teams Blow Molding Machine Tender Relationship Specialty Start Date End Date No Pcp, [place] [address] PCP - General Family Medicine 10/26/21
--- OUTSIDE RECORDS SUMMARY | 2024-11-08 05:27 | XMS_ITS | Encounter Summary ---
Author Organization [facility] Address [address] [place] [address] Care Team Providers Care Research Assoc Name Role Phone Cesar Espitia MD Primary Care Provider +1- [phone] Encounter Details Date Type Department Care Team [...] on filedocumented in this encounter Care Teams Research Assoc Relationship Specialty Start Date End Date Cesar Espitia MD [address] [place] [address] PCP - General Family Medicine 06/28/23 documented as of this encounter
--- OUTSIDE RECORDS SUMMARY | 2024-11-08 05:27 | XMS_ITS | Encounter Summary ---
Author Organization [facility] Address [address] [place] [address] Care Team Providers Care Allergy Specialist Name Role Phone Cesar Espitia MD Primary Care Provider +- [phone] Encounter Details Date Type Department Care Team (Late st Contact Info) Description 07/17/2024 Abstract [facility] [facility] [address] [facility] [place] [address] Santo Bearden DO [address] [facility] [place] [address] Social History Tobacco Use Types Packs/Day Years [...] on filedocumented in this encounter Care Teams Allergy Specialist Relationship Specialty Start Date End Date Cesar Espitia MD [address] [place] [id number] PCP - General Family Medicine 06/28/23 documented as of this encounter
--- OUTSIDE RECORDS SUMMARY | 2024-11-08 05:27 | XMS_ITS | Encounter Summary ---
Author Organization [facility] Address [address] [place] [address] Care Team Providers Care Sourcer Name Role Phone Cesar Espitia MD Primary Care Provider +- [phone] Encounter Details Date Type Department Care Team (Late st Contact Info) Description 11/05/2024 Bamboo flowsheet [facility] [address] [facility] [place] [address] Santo Bearden DO [address] [facility] [place] [address] Social History Tobacco Use Types Packs/Day Years [...] on filedocumented in this encounter Care Teams Sourcer Relationship Specialty Start Date End Date Cesar Espitia MD [address] [place] [id number] PCP - General Family Medicine 06/28/23 documented as of this encounter
--- OUTSIDE RECORDS SUMMARY | 2024-11-08 05:27 | XMS_ITS | Encounter Summary ---
Author Organization [facility] Address [address] [place] [address] Care Team Providers Care Clinical Tech Name Role Phone Cesar Espitia MD Primary Care Provider +1- [phone] Encounter Details Date Type Department Care Team [...] on filedocumented in this encounter Care Teams Clinical Tech Relationship Specialty Start Date End Date Cesar Espitia MD [address] [place] [address] PCP - General Family Medicine 06/28/23 documented as of this encounter
--- OUTSIDE RECORDS SUMMARY | 2024-11-08 05:27 | XMS_ITS | Patient Health Record ---
Author Organization [facility] Address [address] [place], [place] [address] Support Name Relationship Address Phone Kayley Jimenez Guarantor Unknown [phone] Reason For Referral No Information Plan Of Treatment No Information Insurance Providers Payer Name Payer Address Payer Phone Subscriber Number Group Number Insured Name Patient Relationship to Insured Coverage Start Date Coverage End Date Medicaid [address] [place] [address] [phone] [id number] Kayley Jimenez Self - patient is the insured
--- OUTSIDE RECORDS SUMMARY | 2024-11-08 05:28 | XMS_ITS | Encounter Summary ---
Author Organization [facility] Address [address] [place] [address] Care Team Providers Care Cup Setter Lockstitch Name Role Phone Cesar Espitia MD Primary Care Provider +1- [phone] Encounter Details Date Type Department Care Team (Late st Contact Info) Description 10/28/2024 Telephone [facility] [address] [place] [address] Alyssa Hopkins LPN [address] [place] [address] Social History Tobacco Use Types [...] Tiffany Mayen PA-C, orders were sent to [facility] documented in this encounter Plan of [...] disorders documented in this encounter Care Teams Cup Setter Lockstitch Relationship Specialty Start Date End Date Cesar Espitia MD [address] [place] [address] PCP - General Family Medicine 06/28/23 documented as of this encounter
--- OUTSIDE RECORDS SUMMARY | 2024-11-08 05:28 | XMS_ITS | Clinical Summary ---
Author Organization [facility] Address [address] [place] [address] Care Team Providers Care Laborer Tan House Name Role Phone Cesar Espitia MD Primary Care Provider +1- [phone] Allergies No known active allergies Medications NIFEdipine [...] Encounters Date Type Department Care Team Description 11/07/2024 Clinisync Result Encounter NOMS External Department Unsolicited Srinivasan Bearden DO 11/06/2024 Clinisync Result Encounter NOMS External Department Unsolicited Tiffany Mayen PA 11/05/2024 9:40 AM EDT Routine [facility]MER[facility] [address] [place] [address] [place] [phone] Srinivasan Bearden DO Third trimester ([facility]); 38 weeks gestation of ([facility]) 11/05/2024 Bamboo flowsheet [facility] [place] [facility] [address] [facility] [place] [address] Srinivasan Bearden, DO 11/05/2024 Travel 10/30/2024 Clinisync Result Encounter NOMS External Department Unsolicited Srinivasan Bearden, DO 10/28/2024 Telephone [facility] E[address] [facility] [place] [place] [address] Angelinateodoro AlyssaNADER 10/27/2024 11:20 AM EDT Routine [facility] [address] [place] [address] Tiffany Mayen PA Third trimester ([facility]); 36 weeks gestation of ([facility]); Vaginal discharge 10/27/2024 External Result Encounter NOMS External Department Unsolicited Tiffany Mayen PA 10/27/2024 Bamboo flowsheet [facility] [place] [facility] [address] [facility] [place] [address] Tiffany Mayen PA 10/27/2024 Travel 10/21/2024 Refill [facility] [address] [facility] [place] [address] Srinivasan Bearden, DO Low hemoglobin 10/20/2024 1:10 PM EDT Routine [facility] [address] [place] [address] Srinivasan Bearden, DO 35 weeks gestation of ([facility]); Third trimester ([facility]); Low hemoglobin 10/20/2024 Bamboo flowsheet [facility] [facility] [address] [facility] [place] [address] Srinivasan Bearden, DO 10/19/2024 Travel 10/17/2024 Clinisync Result Encounter NOMS External Department Unsolicited Srinivasan BeardenDO 10/06/2024 2:20 PM EDT Routine [facility] [address] [facility] [place] [address] Srinivasan Bearden, Third trimester ([facility]); 33 weeks gestation of ([facility]) 10/06/2024 Bamboo flowsheet [facility] RHODESGYLauren Best [facility] [place] [address] Srinivasan Bearden, 10/05/2024 Travel 09/26/2024 Clinisync Result Encounter NOMS External Department Unsolicited Tiffany Mayen PA 09/22/2024 10:20 AM EDT Routine [facility] [place] [address] Tiffany Mayen PA 31 weeks gestation of ([facility]); Third trimester ([facility]); Elevated glucose tolerance test 09/22/2024 9:30 AM EDT Ancillary Procedure [facility] [place] [place] [address] size inconsistent with dates ([facility]) 09/22/2024 Telephone [facility] [place] [address] Yakelin Parker MA 09/21/2024 Clinisync Result Encounter NOMS External Department Unsolicited Srinivasan Bearden, 09/07/2024 1:30 PM EDT Initial [facility] [place] [address] Srinivasan Bearden, [place]: 29w4d 09/07/2024 [place] [address] Srinivasan Bearden, 08/26/2024 [place] [address] Srinivasan Bearden DO from Last 3 Months [...] BPP W NON-STRESS 11/07/2024 10:25 AM EDT US OB BPP W NON-STRESS 11/06/2024 7:38 PM EDT POCT URINALYSIS DIPSTICK Routine 11/05/2024 9:36 AM EDT Third trimester ([facility]) US OB BPP W NON-STRESS 10/30/2024 9:47 PM EDT RECURRENT VAGINITIS (HTRX) Routine 10/27/2024 11:57 AM EDT POCT URINALYSIS DIPSTICK Routine 10/27/2024 11:20 AM EDT Third trimester ([facility]) CULTURE, GROUP B STREP WITH SUSCEPTIBLITY Routine 10/20/2024 1:25 PM EDT Third trimester ([facility]) POCT URINALYSIS DIPSTICK Routine 10/20/2024 1:02 PM EDT 35 weeks gestation of ([facility]) Third trimester ([facility]) AMNISURE Routine 10/17/2024 10:42 AM EDT TB[facility] UA (CLEAN/CATCH) MANAGER LOGISTIC/MICRO IF IND. Routine 10/17/2024 10:30 AM EDT GLUCOSE TOLERANCE 3 HOUR Routine 09/26/2024 7:50 AM EDT POCT URINALYSIS DIPSTICK Routine 09/22/2024 10:15 AM EDT 31 weeks gestation of ([facility]) Third trimester ([facility]) US OB FOLLOW UP TRANSABDOMINAL APPROACH Routine 09/22/2024 9:50 AM EDT size inconsistent with dates ([facility]) GLUCOSE 1 HOUR Routine 09/21/2024 11:02 AM EDT ALL CBC WITH AUTO DIFF Routine 11:02 AM EDT POCT URINALYSIS DIPSTICK Routine 09/07/2024 1:23 PM EDT Third trimester ([facility]) 29 weeks gestation of ([facility]) from Last 3 Months Results * US OB BPP W NON-STRESS (11/07/2024 10:25 AM EDT) Only the most recent of3 resultswithin the time period is included. Anatomical Region Laterality Modality Other 11/07/2024 10:2 5 AM EDT Narrative 11/07/2024 10:27 AM EDT The [address] [address] Ultrasound Report Signed Patient: LEELEE BLAKE MR#: [id number] : 1995 Acct:[id number] Age/Sex: 29 / F ADM Date: 11/07/24 Loc: FBCO Attending Dr: Srinivasan Bearden D.O. Ordering Physician: Srinivasan Bearden D.O. Date of Service: 11/07/24 Procedure(s): US OB BPP w non-stress Accession Number(s): [id number] cc: Srinivasan Bearden D.O.; Physician,Non-Staff Giovanni The [address] [address] Patient Name: LEELEE BLAKE MRN: [id number] date: 1995 Sex: F Assigned Patient Location: [facility] [place] [facility] [place]ion/Order Number: [id number] Exam Date: 11/07/2024 07:14 Report Date: 11/07/2024 10:25 At the request of: SRINIVASAN BEARDEN DO Procedure: US OB BPP w non-stress Ultrasound biophysical profile INDICATION: low LUIZA COMPARISON: 11/06/2024 FINDINGS/IMPRESSION: Cephalic position. heart rate 145 beats per minute. Biophysical profile score 8/8. LUIZA measures 9.9 cm Impression dictated by: David Khan M.D. 11/07/2024 10:25 AM Dictation Location: [place] [address] Electronically authenticated by: [id number] Y Date: 11/07/2024 10:25 Dictated By: David Khan M.D. Signed By: 11/07/24 1027 DD/ 1025 TD/TT: Tele Grout Sewer Line Repairer: Procedure Note Radiology, Radiologist, MD - 11/07/2024 The [place] [id number] Ultrasound Report Signed Patient: LEELEE BLAKE DMR#: [id number] : 1995Acct:[id number] Age/Sex: 29 / FADM Date: 11/07/24 Loc: FBCO Attending Dr: Srinivasan Bearden D.O. Ordering Physician: Srinivasan Bearden D.O. Date of Service: 11/07/24 Procedure(s): US OB BPP w non-stress Accession Number(s): [id number] cc: Srinivasan Beardne D.O.; Physician,Non-Staff Giovanni [address] [address] Patient Name: LEELEE BLAKE MRN: [id number] date: 1995 Sex: F Assigned Patient Location: [facility] [place] [facility] Accession/Order Number: [id number] Exam Date: 11/07/2024 07:14 Report Date: 11/07/2024 10:25 At the request of: SRINIVASAN BEARDEN DO Procedure: US OB BPP w non-stress Ultrasound biophysical profile INDICATION: low LUIZA COMPARISON: 11/06/2024 FINDINGS/IMPRESSION: Cephalic position. heart rate 145 beatsper minute. Biophysical profile score 8/8. LUIZA measures 9.9 cm Impression dictated by: David Khan M.D. 11/07/2024 10:25 AM Dictation Location: [facility] Electronically authenticated by: [id number] Y Date: 0:25 Dictated By: David Khan M.D. Signed By:11/07/24 1027 DD/ 1025 TD/TT: Tele Grout Sewer Line Repairer: Srinivasan Bearden DO [facility] Final Result * (ABNORMAL) POCT [...] - 9 Protein, UA Positive Negative - 1999(20) ++++ mg/dL Comment:Trace Urobilinogen, UA 0.2 0.2 - 12 mg/dL Leukocytes, UA Negative Negative - 500+++ Jose Alfredo/mcL Nitrite, UA Negative Negative - Positive Urine 11/05/2024 9:36 AM EDT Srinivasan Bearden DO POINT OF CARE TEST ENTER/EDIT OR DERABLES Final Result * RECURRENT VAGINITIS (HTRX) (10/27/2024 11:57 AM EDT) [facility] ATOPOBIUM VAGINAE 0 19.961 - 24.689 ppm 10/28/2024 6:29 AM EDT [facility] ATOPOBIUM VAGINAE Not Detected 19.961 - 24.689 ppm 10/28/2024 6:29 AM EDT [facility] BVAB 2,3 (BACTERIAL VAGINOSIS ASSOCIATED BACTERIA 2, 3); MOBILUNCUS SPP 0 19.961 - 24.689 ppm 10/28/2024 6:29 AM EDT [facility] BVAB 2,3 (BACTERIAL VAGINOSIS ASSOCIATED BACTERIA 2, 3); MOBILUNCUS SPP Not Detected 19.961 - 24.689 ppm 10/28/2024 6:29 AM EDT [facility] MARIANO ALBICANS, PARAPSILOSIS, TROPICALIS 0 23.000 - 30.347 ppm 10/28/2024 6:29 AM EDT [facility] MARIANO ALBICANS, PARAPSILOSIS, TROPICALIS Not Detected 23.000 - 30.347 ppm 10/28/2024 6:29 AM EDT [facility] MARIANO GLABRATA 0 23.000 - 31.618 ppm 10/28/2024 6:29 AM EDT [facility] MARIANO GLABRATA Not Detected 23.000 - 31.618 ppm 10/28/2024 6:29 AM EDT [facility] MARIANO KRUSEI 0 23.000 - 30.873 ppm 10/28/2024 6:29 AM EDT [facility] MARIANO KRUSEI Not Detected 23.000 - 30.873 ppm 10/28/2024 6:29 AM EDT [facility] CHLAMYDIA TRACHOMATIS 0 23.000 - 31.586 ppm 10/28/2024 6:29 AM EDT [facility] CHLAMYDIA TRACHOMATIS Not Detected 23.000 - 31.586 ppm 10/28/2024 6:29 AM EDT [facility] GARDNERELLA VAGINALIS 0 19.961 - 24.689 ppm 10/28/2024 6:29 AM EDT [facility] GARDNERELLA VAGINALIS Not Detected 19.961 - 24.689 ppm 10/28/2024 6:29 AM EDT [facility] MEGASPHAERA (TYPES 1, 2) 0 19.961 - 24.689 ppm 10/28/2024 6:29 AM EDT [facility] MEGASPHAERA (TYPES 1, 2) Not Detected 19.961 - 24.689 ppm 10/28/2024 6:29 AM EDT [facility] NEISSERIA GONORRHOEAE 0 23.000 - 32.587 ppm 10/28/2024 6:29 AM EDT [facility] NEISSERIA GONORRHOEAE Not Detected 23.000 - 32.587 ppm 10/28/2024 6:29 AM EDT [facility] TRICHOMONAS VAGINALIS 0 23.000 - 31.995 ppm 10/28/2024 6:29 AM EDT [facility] TRICHOMONAS VAGINALIS Not Detected 23.000 - 31.995 ppm 10/28/2024 6:29 AM EDT [facility] MYCOPLASMA GENITALIUM 0 19.961 - 24.689 ppm 10/28/2024 6:29 AM EDT [facility] MYCOPLASMA GENITALIUM Not Detected 19.961 - 24.689 ppm 10/28/2024 6:29 AM EDT [facility] Tissue 10/27/2024 11:5 7 AM EDT 10/28/2024 1:43 AM EDT us Tiffany Tiarra PA LAB BLOOD ORDERABLES Final Resul t Performing Organization Address City/[facility]/ZIP Co de Phone Number [facility] [address] [address] * CULTURE, GROUP B STREP WITH SUSCEPTIBLITY (10/20/2024 1:25 PM EDT) Swab 10/20/2024 1:25 PM EDT [facility] LAB BLOOD ORDERABLES Final Resul t Performing Organization Address City/[facility] Co de Phone Number EXTERNAL LAB * AMNISURE (10/17/2024 10:42 AM EDT) Pathologist [facility] TB AMNISURE NEGATIVE NEGATIVE [facility] 10/17/2024 10:4 2 AM EDT 10/17/2024 10:51 AM EDT Narrative [facility] - 10/17/2024 11:03 AM EDT [facility] BLOOD ORDERABLES Final Resul t Performing Organization Address [facility] Co de Phone Number [facility] * (ABNORMAL) [facility] UA (CLEAN/CATCH) MANAGER LOGISTIC/MICRO IF IND. (10/17/2024 10:30 AM EDT) COLOR [...] - 10/17/2024 11:06 AM EDT us Srinivasan Bearden DO [facility] Final Result Performing Organization Address [facility] de Phone Number [facility] * GLUCOSE TOLERANCE 3 HOUR (09/26/2024 7:50 AM EDT) [facility] GLUCOSE TOLERANCE 3 HOUR mg/dL [facility] Comment: GLU FAST 79 (<95) Col: 09/26/24 0750 GLU 1HR 177 (<180) Col: 09/26/24 0854 GLU 2HR 146 (<155) Col: 09/26/24 0954 GLU 3HR 109 (<140) Col: 09/26/24 1053 09/26/2024 7:50 AM EDT 09/26/2024 7:53 AM EDT Narrative CLINISYNC - 09/26/2024 11:50 AM EDT us Tiffany TUCKER LAB BLOOD ORDERABLES Final Resul t Performing Organization Address [facility] de Phone Number [facility] TB * US OB follow up transabdominal [...] SIGNED BY: Castillo Anaya MD us Srinivasan Bearden DO [facility] [place] PROCEDURES Final Resul t * (ABNORMAL) GLUCOSE 1 HOUR (09/21/2024 11:02 AM EDT) GLUCOSE 1 HOUR 148(H) <130 mg/dL [facility] 09/21/2024 11:0 2 AM EDT 09/21/2024 11:03 AM EDT Narrative [facility] - 09/21/2024 11:30 AM EDT us Srinivasan Bearden DO LAB BLOOD ORDERABLES Final Resul t [facility] TB * (ABNORMAL) ALL CBC WITH AUTO DIFF [...] - 09/21/2024 11:20 AM EDT us Srinivasan Suleiman DO [facility] Final Result [facility] from Last 3 Months Insurance [employer] Care Teams Laborer Tan House Relationship Specialty Start Date End Date Cesar Espitia MD [address] [place] [address] PCP - General Family Medicine 06/28/23
--- OUTSIDE RECORDS SUMMARY | 2024-11-08 05:28 | XMS_ITS | Encounter Summary ---
Author Organization [facility] Address [address] [place] [address] Care Team Providers Care Riding Teacher Name Role Phone Cesar Espitia MD Primary Care Provider +1- [phone] Encounter Details Date Type Department Care Team (Late st Contact Info) Description 10/27/2024 Bamboo flowsheet [facility] [place] [facility] [address] [facility] [place] [address] Tiffany Mayen PA [address] [facility] [place] [address] Social History Tobacco Use Types Packs/Day Years [...] on filedocumented in this encounter Care Teams Riding Teacher Relationship Specialty Start Date End Date Cesar Espitia MD [address] [place] [id number] PCP - General Family Medicine 06/28/23 documented as of this encounter
--- OUTSIDE RECORDS SUMMARY | 2024-11-08 05:28 | XMS_ITS | Encounter Summary ---
Author Organization [facility] Address [address] [place] [address] Care Team Providers Care Cooperative Manager Name Role Phone Cesar Espitia MD Primary Care Provider +1- [phone] Encounter Details Date Type Department Care Team (Late st Contact Info) Description 10/30/2024 Clinisync Result Encounter NOMS External Department Unsolicited Santo Bearden, DO [address] [facility] [address] Tacho Clements [place] [id number] Social History Tobacco Use Types Packs/Day Years [...] EDT Narrative 10/30/2024 9:49 PM EDT The [address] [address] Ultrasound Report Signed Patient: LEELEE BLAKE MR#: [id number] : 1995 Acct:[id number] Age/Sex: 29 / F ADM Date: 10/30/24 Loc: US Attending Dr: Tiffany Mayen Ordering Physician: Santo Bearden D.O. Date of Service: 10/30/24 Procedure(s): US OB BPP w non-stress Accession Number(s): [id number] cc: Santo Bearden D.O.; Physician,Non-Staff M.[place]rie The [place] [address] Patient Name: LEELEE BLAKE MRN: [id number] date: 1995 Sex: F Assigned Patient Location: [facility] Current Patient Location: Accession/Order Number: [id number] Exam Date: 10/30/2024 19:55 Report Date: 10/30/2024 21:47 At the request of: SANTO BEARDEN DO Procedure: US OB BPP w non-stress Ultrasound biophysical profile INDICATION: Pelvic cramps for 2 weeks COMPARISON: None FINDINGS/impression: Cephalic position. heart rate 150 beats per minute. Biophysical profile score 8/8. LUIZA measures 12.5 cm. Impression dictated by: David Khan M.D. 10/30/2024 9:47 PM Dictation Location: [place] [address] Electronically authenticated by: [id number] Y Date: 10/30/2024 21:47 Dictated By: David Khan M.D. Signed By: 10/30/242148 DD/ 46 TD/TT: President And Chief Executive Officer: Procedure Note Radiology, Radiologist, MD - 10/30/2024 [place] [address] Ultrasound Report Signed Patient: LEELEE BLAKE DMR#: [id number] : 1995Acct:[id number] Age/Sex: 29 / FADM Date: 10/30/24 Loc: US Attending Dr: Tiffany Mayen Ordering Physician: Santo Bearden D.O. Date of Service: 10/30/24 Procedure(s): US OB BPP w non-stress Accession Number(s): [id number] cc: Santo Bearden D.O.; Physician,Non-Staff Giovanni [place] [address] Patient Name: LEELEE BLAKE MRN: [facility]:[id number] date: 1995 Sex: F Assigned Patient Location: [facility] Current Patient Location: Accession/Order Number: [id number] Exam Date: 10/30/2024 19:55 Report Date: 10/30/2024 21:47 At the request of: SANTO BEARDEN DO Procedure: US OB BPP w non-stress Ultrasound biophysical profile INDICATION: Pelvic cramps for 2 weeks COMPARISON: None FINDINGS/impression: Cephalic position. heart rate 150 beatsper minute. Biophysical profile score 8/8. LUIZA measures 12.5 cm. Impression dictated by: David Khan M.D. 10/30/2024 9:47 PM Dictation Location: [place] [address] Electronically authenticated by: [id number] Y Date: 1:47 Dictated By: David Khan M.D. Signed By:10/30/242148 DD/ 46 TD/TT: President And Chief Executive Officer: Santo Bearden DO [facility] Final Result documented in this encounter Visit Diagnoses Not on filedocumented in this encounter Care Teams Cooperative Manager Relationship Specialty Start Date End Date Cesar Espitia MD [address] [place] [address] [address] [place] [address] [place] [address] PCP - General Family Medicine 06/28/23 documented as of this encounter
--- OUTSIDE RECORDS SUMMARY | 2024-11-08 05:28 | XMS_ITS | Encounter Summary ---
Author Organization [facility] Address [address] [place] [address] Care Team Providers Care Community Support Specialist Name Role Phone Cesar Espitia MD Primary Care Provider +1- [phone] Encounter Details Date Type Department Care Team (Late st Contact Info) Description 10/27/2024 External Result Encounter NOMS External Department Unsolicited Tiffany Mayen PA [address] [place] [address] [place], [place] [id number] Social History Tobacco Use Types Packs/Day Years [...] ppm 10/28/2024 6:29 AM EDT [facility] BVAB 2,3 (BACTERIAL VAGINOSIS ASSOCIATED BACTERIA 2, 3); MOBILUNCUS SPP 0 19.961 - 24.689 ppm 10/28/2024 6:29 AM EDT [facility] BVAB 2,3 (BACTERIAL VAGINOSIS ASSOCIATED BACTERIA 2, 3); MOBILUNCUS SPP Not Detected 19.961 - 24.689 ppm 10/28/2024 6:29 AM EDT [facility] MARIANO ALBICANS, PARAPSILOSIS, TROPICALIS 0 23.000 - 30.347 ppm 10/28/2024 6:29 AM EDT [facility] MARIANO ALBICANS, PARAPSILOSIS, TROPICALIS Not Detected 23.000 - 30.347 ppm 10/28/2024 6:29 AM EDT [facility] MARIANO GLABRATA 0 23.000 - 31.618 ppm 10/28/2024 6:29 AM EDT [facility] MARIANO GLABRATA Not Detected 23.000 - 31.618 ppm 10/28/2024 6:29 AM EDT [facility] MARIANO KRUSEI 0 23.000 - 30.873 ppm 10/28/2024 6:29 AM EDT [facility] MARIANO KRUSEI Not Detected 23.000 - 30.873 ppm 10/28/2024 6:29 AM EDT [facility] CHLAMYDIA TRACHOMATIS 0 23.000 - 31.586 ppm 10/28/2024 6:29 AM EDT [facility] CHLAMYDIA TRACHOMATIS Not Detected 23.000 - 31.586 ppm 10/28/2024 6:29 AM EDT [facility] GARDNERELLA VAGINALIS 0 19.961 - 24.689 ppm 10/28/2024 6:29 AM EDT [facility] GARDNERELLA VAGINALIS Not Detected 19.961 - 24.689 ppm 10/28/2024 6:29 AM EDT [facility] MEGASPHAERA (TYPES 1, 2) 0 19.961 - 24.689 ppm 10/28/2024 6:29 AM EDT [facility] MEGASPHAERA (TYPES 1, 2) Not Detected 19.961 - 24.689 ppm 10/28/2024 6:29 AM EDT [facility] NEISSERIA GONORRHOEAE 0 23.000 - 32.587 ppm 10/28/2024 6:29 AM EDT [facility] NEISSERIA GONORRHOEAE Not Detected 23.000 - 32.587 ppm 10/28/2024 6:29 AM EDT [facility] TRICHOMONAS VAGINALIS 0 23.000 - 31.995 ppm 10/28/2024 6:29 AM EDT [facility] TRICHOMONAS VAGINALIS Not Detected 23.000 - 31.995 ppm 10/28/2024 6:29 AM EDT [facility] MYCOPLASMA GENITALIUM 0 19.961 - 24.689 ppm 10/28/2024 6:29 AM EDT [facility] MYCOPLASMA GENITALIUM Not Detected 19.961 - 24.689 ppm 10/28/2024 6:29 AM EDT [facility] Tissue 10/27/2024 11:5 7 AM EDT 10/28/2024 1:43 AM EDT us Tiffany TUCKER LAB BLOOD ORDERABLES Final Resul t [facility] [address] [place] [address] documented in this encounter Visit Diagnoses Not on filedocumented in this encounter Care Teams Community Support Specialist Relationship Specialty Start Date End Date Cesar Espitia MD [address] [place] [address] PCP - General Family Medicine 06/28/23 documented as of this encounter
[2024-11-08 06:39] LABS: Hematocrit 32.3 % (36.0-48.0); Hemoglobin 10.6 g/dL (12.0-16.0); Mean Corpuscular HGB Conc 32.8 g/dL (29.9-35.2); Mean Corpuscular Hemoglobin 26.6 pg (26.7-34.0); Mean Corpuscular Volume 81.0 fL (81.0-99.0); Platelet Count 321 10^3/uL (150-450); Red Blood Count 3.99 10^6/uL (4.20-5.40); White Blood Count 8.7 10^3/uL (4.0-11.0)
[2024-11-08] MEDS: 0.9 % SODIUM CHLORIDE 1,000 ML 125 ML IV (06:58)
[2024-11-08] MEDS: ROPIVACAINE HCL/PF 400 MG/200 ML PREMIX 6 MG EPIDURAL (06:58)
[2024-11-08] MEDS: 0.9 % SODIUM CHLORIDE 1,000 ML 999 ML IV (08:17)
[2024-11-08] MEDS: OXYTOCIN/0.9 % SODIUM CHLORIDE 20 UNITS/1,000 ML PLAST..BAG 125 UNIT IV (09:20)
--- NOTE | 2024-11-08 09:25 | PM.OBPRCVD ---
Procedure Intrapartal events: None Induction method: none Delivery augmentation: rupture of membranes Delivery monitor: external FHT and external uterine Route of delivery: Episiotomy Description: none L&D Laceration Description: perineal - 1st degree Delivery repair: Vicryl Estimated blood loss (mL): 250 Disposition: floor Infant Delivery date: 11/08/24 Gender: female presentation: vertex Placental delivery description: Spontaneous cord description: 3 Vessels and Nuchal Cord
[2024-11-08] MEDS: IBUPROFEN 600 MG TABLET PO ×2 (11:45→17:39)
[2024-11-08] MEDS: GLYCERIN/WITCH HAZEL PADS 1 PAD TOPICAL (16:28)
[2024-11-08] MEDS: BENZOCAINE/MENTHOL 85 GRAM SPRAY BOTTLE 1 APPLIC TOPICAL (16:29)
[2024-11-09 00:16] VITALS: BP 115/71; PULSE 71
[2024-11-09] MEDS: LABETALOL HCL 100 MG TABLET PO ×2 (00:24→09:44)
[2024-11-09] MEDS: IBUPROFEN 600 MG TABLET PO ×2 (00:24→09:46)
[2024-11-09 00:25] VITALS: TEMP 36.7
[2024-11-09 06:17] LABS: Hematocrit 30.6 % (36.0-48.0); Hemoglobin 10.3 g/dL (12.0-16.0); Immature Granulocytes Abs Auto 0.10 10^3/uL (0.00-0.03); Immature Granulocytes Pct Auto 0.8 % (0.0-0.5); Lymphocytes Absolute Auto 1.8 10^3/uL (1.2-3.8); Mean Corpuscular HGB Conc 33.7 g/dL (29.9-35.2); Mean Corpuscular Hemoglobin 27.1 pg (26.7-34.0); Mean Corpuscular Volume 80.5 fL (81.0-99.0); Platelet Count 279 10^3/uL (150-450); Red Blood Count 3.80 10^6/uL (4.20-5.40); White Blood Count 13.1 10^3/uL (4.0-11.0)
--- NOTE | 2024-11-09 07:39 | PM.OBPN ---
OB - PN: Subj Subjective Patient comments: no complaints and pain well controlled [place] status: doing well Exam Constitutional Vital Signs, click to edit/add: Last Vital Signs Temp 98.0 F 11/09/24 00:25 Pulse 71 11/09/24 00:16 Resp 16 11/09/24 00:25 BP 115/71 11/09/24 00:16 O2 Del Method Room Air 11/09/24 00:25 Documenting provider has reviewed patient's vital signs: yes Common normals: no apparent distress Respiratory Common normals: clear to auscultation bilaterally Cardio Common normals: regular rate and regular rhythm GI Common normals: Normal to inspection, nondistended, normoactive bowel sounds present Extremity Common normals: no clubbing, cyanosis or edema and no calf tenderness Results Labs Labs: Short CBC 11/09/24 Range/Units 06:12 WBC 13.1 H (4.0-11.0) 10^3/uL Hgb 10.3 L (12.0-16.0) g/dL Hct 30.6 L (36.0-48.0) % Plt Count 279 (150-450) 10^3/uL Urinary Catheter Management Urinary Catheter Management Urethral: Cath placed during this visit: yes Urethral indwelling: No Insertion date: 11/08/24 Insertion time: 08:30 OB - PN: A/P Plan - Vaginal Delivery day: 1 Plan: routine care, discharge home and follow up 6 weeks Time Spent with Patient Time: Total time spent is greater than 50% in coordination of care (as documented) at patient's floor/unit and/or counseling patient: Total time spent with greater than 50% in coordination of care (as documented) at patient's floor/unit and/or counseling patient: less than 15 minutes
[2024-11-09] MEDS: DOCUSATE SODIUM 100 MG CAPSULE PO (09:44)
[2024-11-09 09:46] VITALS: BP 127/83; PULSE 89
[2024-11-09 09:51] VITALS: BP 127/83; PULSE 89; TEMP 36.6
[2024-11-09] MEDS: SENNOSIDES 8.6 MG TABLET 17.2 MG PO (14:59)
--- NOTE | 2024-11-09 18:32 | PC.NURSE ---
This RN reviews charting completed by Malik Isaac RN.
== END 2024-11-09 17:10 | disposition home or self-care (01) | DRG 560 ==
PROVIDERS: Admitting Provider Obstetrics & Gynecology; Visit Provider Obstetrics & Gynecology
DX: O10.92 Unspecified pre-existing hypertension complicating childbirth (principal); O69.81X0 Labor and delivery complicated by cord around neck, without compression, not applicable or unspecified; O70.0 First degree perineal laceration during delivery; Z3A.38 38 weeks gestation of pregnancy; Z37.0 Single live birth
CPT/HCPCS: 36415; 51702; 59050; 59410; 76818; 80307; 85025; 85027; 86850; 86900; 86901; J2795